=== PATIENT | male | born 1950 | race Caucasian/White ===

== ENCOUNTER 2016-03-17 10:16 | Emergency (ER) | payer MEDICARE ==
--- NOTE | 2016-03-17 11:53 | ED Physician Chart ---
Chief Complaint/HPI - Patient Information Date Seen:: 03/17/16 Time Seen:: 10:30 Chief Complaint:: left wrist pain History of Present Illness:: onset x 2 weeks [employer] of Left wrist and left hand pain and swelling after an accidental injury; no C/P, SOB, Abd pain, A/N/V/D/C, fever, chills, weakness, paresthesias, syncope, LOC, ALOC; Last Tetanus Shot: < 5 years; UTD Allergies:: Allergies Allergy/AdvReac Type Severity Reaction Status Date / Time No Known Allergies Allergy Verified 03/17/16 10:29 Vitals:: Vital Signs - 8 hr 03/17/16 10:29 Temp 98.6 F HR 92 RR 17 BP 170/80 O2 Sat % 95 Review of Systems - Review of Systems General/Constitutional: No fever, No chills, No weight loss, No weakness, No diaphoresis, No edema, No loss of appetite Skin: No skin lesions, No rash, No bruising Head: No headache, No light-headedness Eyes: No loss of vision, No pain, No diplopia ENT: No earache, No nasal drainage, No sore throat, No tinnitus Neck: No neck pain, No swelling, No thyromegaly, No stiffness, No mass noted Cardio Vascular: No chest pain, No palpitations, No PND, No orthopnea, No edema Pulmonary: No SOB, No cough, No sputum, No wheezing GI: No nausea, No vomiting, No diarrhea, No pain, No melena, No hematochezia, No constipation, No hematemesis G/U: No dysuria, No frequency, No hematuria Musculoskeletal: Bone or joint pain, No bone or joint pain, No back pain, No muscle pain Endocrine: No polyuria, No polydipsia Psychiatric: No prior psych history, No depression, No anxiety, No suicidal ideation Hematopoietic: No bruising, No lymphadenopathy Allergic/Immuno: No urticaria, No angioedema Neurological: No syncope, No focal symptoms, No weakness, No paresthesia, No headache, No seizure, No dizziness, No confusion, No vertigo Family Medical History - Family Member Mother History Unknown: Yes Physical Exam - Physical Examination General/Constitutional: Awake, Well-developed, well-nourished, Alert, No distress, GCS 15, Non-toxic appearing, Ambulatory Head: Atraumatic Eyes: Lids, conjuctiva normal, PERRL, EOMI Skin: Nl inspection, No rash, No skin lesions, No ecchymosis, Well hydrated, No lymphadenopathy ENMT: External ears, nose nl, Nasal exam nl, Lips, teeth, gums nl Neck: Nontender, Full ROM w/o pain, No JVD, No nuchal rigidity, No bruit, No mass, No stridor Respiratory: Nl effort/Exclusion, Clear to Auscultation, No Wheeze/Rhonchi/Rales Cardio Vascular: RRR, No murmur, gallop, rubs, NL S1 S2 GI: No tenderness/rebounding/guarding, No organomegaly, No hernia, Normal BS's, Nondistended, No mass/bruits, No McBurney tenderness : No CVA tenderness Extremities: No tenderness or effusion, Full ROM, normal strength in all extremities, No edema, Normal digits & nails Other Extremities comments:: Left Wrist and Left Hand swelling with Left Wrist tenderness; no loss of ROMs; - Snuffbox's sign; no ligament instability; + cellulitis; good motor, tendon, and sensory functions; good NV function; no FBs Neuro/Psych: Alert/oriented, DTR's symmetric, Normal sensory exam, Normal motor strength, Judgement/insight normal, Mood normal, Normal gait, No focal deficits Misc: normal gait, Normal back, No paraspinal tenderness Labs/Radiology/EKG Results - Radiology Results Results: no obvious fractures or dislocations Assessment - Assessment Assessment/Comments:: Splint to Left Wrist and Left Hand; Sling to Left Arm ED Septic Shock - . Is Septic Shock (SBP<90, OR Lactate>4 mmol\L) present?: No - <6hrs of presentation: Vital Signs: Vital Signs - 8 hr 03/17/16 10:29 Temp 98.6 F HR 92 RR 17 BP 170/80 O2 Sat % 95 Reassessment (Disposition) - Reassessment Reassessment Condition:: Improved - Diagnosis Diagnosis:: Localized Cellulitis; Left Wrist and Left Hand Sprains and Strains; Possible Occult Fracture - Aftercare/Follow up Instructions Aftercare/Follow-Up Instructions:: Counseled pt regarding lab results/diagnosis & need follow up, Refer to Discharge Instructions, Counseled pt & family regarding lab results/diagnosis & need follow up Medication Prescribed:: Rx: Keflex 500mg po qid x 10 days - Patient Disposition Discharge/Transfer:: Home Condition at Disposition:: Stable, Improved (X-Rays Instructions; ACIs given for all Dx; refer to Orthopedist ABY; F/U with PMD in one day or prn; RTER prn if concerned) ED Discharge Plan - Patient Disposition Instructions: Cellulitis, [id number], Wrist Sprain with Rehab[facility] Accepting Physician: Gagandeep Jade [Active] - 1-3 Days
--- NOTE | 2016-03-18 11:12 | Diagnostic Imaging Report ---
Left hand (3 views) HISTORY: Pain There is narrowing of all DIP and PIP joints. Additional degenerative changes noted about the first metacarpal carpal joint region. No acute abnormalities. No fractures. IMPRESSION: 1. No acute bony abnormalities 2. Osteoarthritis In the presence of recent trauma and persistent symptoms, a repeat radiograph in 5-7 days may be helpful for detection of a subtle or occult fracture.
--- NOTE | 2016-03-18 11:13 | Diagnostic Imaging Report ---
Left wrist (3 views) HISTORY: Pain There is narrowing and hypertrophic bone formation about the first carpal metacarpal joint region. No acute abnormalities. No fractures. IMPRESSION: 1. No acute abnormalities 2. Osteoarthritis In the presence of recent trauma and persistent symptoms, a repeat radiograph in 5-7 days may be helpful for detection of a subtle or occult fracture.
== END 2016-03-17 13:25 | disposition home or self-care (01) ==
LOC: ER 10:16
DX: S63.8X2A Sprain of other part of left wrist and hand, initial encounter (principal); L03.114 Cellulitis of left upper limb; X58.XXXA Exposure to other specified factors, initial encounter; Y93.89 Activity, other specified; Y92.89 Other specified places as the place of occurrence of the external cause; Y99.8 Other external cause status
CPT/HCPCS: 73110-TC-LT; 73130-TC-LT; Z7502

== ENCOUNTER 2016-03-17 16:13 | Inpatient (IN) | payer MEDICARE ==
--- NOTE | 2016-03-17 16:36 | ED Physician Chart ---
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[employer].) Review:: Nurse's Note Reviewed, Old Chart Reviewed, Transfer documents Reviewed Review of Systems - Review of Systems General/Constitutional: No fever, No chills, No weight loss, No weakness, No diaphoresis, No edema, No loss of appetite Skin: No skin lesions, No rash, No bruising Head: No headache, No light-headedness Eyes: No loss of vision, No pain, No diplopia ENT: No earache, No nasal drainage, No sore throat, No tinnitus Neck: No neck pain, No swelling, No thyromegaly, No stiffness, No mass noted Cardio Vascular: No chest pain, No palpitations, No PND, No orthopnea, No edema Pulmonary: No SOB, No cough, No sputum, No wheezing GI: No nausea, No vomiting, No diarrhea, No pain, No melena, No hematochezia, No constipation, No hematemesis G/U: No dysuria, No frequency, No hematuria Musculoskeletal: No bone or joint pain, No back pain, No muscle pain Endocrine: No polyuria, No polydipsia Psychiatric: No prior psych history, No depression, No anxiety, No suicidal ideation Hematopoietic: No bruising, No lymphadenopathy Allergic/Immuno: No urticaria, No angioedema Neurological: No syncope, No focal symptoms, No weakness, No paresthesia, No headache, No seizure, No dizziness, No confusion, No vertigo Past Medical History - Past Medical History Past Medical History: Other (left wrist and hand cellulitis) Family History: HTN Social History: Homeless Surgical History: None Psychiatricy History: None Medication: Reviewed Family Medical History - Family Member Mother History Unknown: Yes Physical Exam - Physical Examination General/Constitutional: Awake, Well-developed, well-nourished, Alert, No distress, GCS 15, Non-toxic appearing, Ambulatory Head: Atraumatic Eyes: Lids, conjuctiva normal, PERRL, EOMI Skin: Nl inspection, No rash, No skin lesions, No ecchymosis, Well hydrated, No lymphadenopathy ENMT: External ears, nose nl, Nasal exam nl, Lips, teeth, gums nl Neck: Nontender, Full ROM w/o pain, No JVD, No nuchal rigidity, No bruit, No mass, No stridor Respiratory: Nl effort/Exclusion, Clear to Auscultation, No Wheeze/Rhonchi/Rales Cardio Vascular: RRR, No murmur, gallop, rubs, NL S1 S2 GI: No tenderness/rebounding/guarding, No organomegaly, No hernia, Normal BS's, Nondistended, No mass/bruits, No McBurney tenderness : No CVA tenderness Extremities: No tenderness or effusion, Full ROM, normal strength in all extremities, No edema, Normal digits & nails Other Extremities comments:: localized left wrist and left hand cellulitis Neuro/Psych: Alert/oriented, DTR's symmetric, Normal sensory exam, Normal motor strength, Judgement/insight normal, Mood normal, Normal gait, No focal deficits Misc: normal gait, Normal back, No paraspinal tenderness Labs/Radiology/EKG Results - Lab Results Results: unremarkable ED Septic Shock - . Is Septic Shock (SBP<90, OR Lactate>4 mmol\L) present?: No Reassessment (Disposition) - Reassessment Reassessment Condition:: Improved - Diagnosis Diagnosis:: medically cleared; agitation; cellulitis - Aftercare/Follow up Instructions Aftercare/Follow-Up Instructions:: Counseled pt regarding lab results/diagnosis & need follow up, Counseled pt & family regarding lab results/diagnosis & need follow up - Patient Disposition Discharge/Transfer:: Acute Care w/in this hosp Accepting Physician:: Dr. Jade Time Called:: 1819 Time Responded:: 18:20 Admitted to:: [facility] Spoke to:: Dr. Jade Condition at Disposition:: Stable, Improved
[2016-03-17] MEDS ORDERED: cefTRIAXone 1 GM in Sodium Chloride 0.9% 50 ML IV ONE (16:53)
[2016-03-17 17:03] LABS: % BASOPHILS 0.2 % (0.0-2.0); % EOSINOPHILS 2.9 % (0.0-5.0); % LYMPHOCYTES 13.9 % (20.0-50.0); % MONOCYTES 8.1 % (2.0-10.0); % NEUTROPHILS 74.9 % (40.0-80.0); HEMATOCRIT 36.1 % (39.0-49.0); HEMOGLOBIN 12.6 gm/dL (13.2-17.3); MEAN CELL VOLUME 89.9 fl (80-99); MEAN CORPUSCULAR HEMOGLOBIN 31.4 pg (26.0-30.0); MEAN PLATELET VOLUME 5.8 fl; NEUTROPHILE ABSOLUTE 6.1 Th/cmm (1.8-8.0); PLATELET COUNT 223 Th/cmm (150-400); RED BLOOD COUNT 4.02 Mil/cmm (4.30-5.70); RED CELL DISTRIBUTION WIDTH 12.9 % (11.5-20.0)
[2016-03-17 17:20] LABS: ANION GAP 7.7 (7.0-16.0); BUN - UREA NITROGEN 32 mg/dL (7-25); CARBON DIOXIDE 28.1 mEq/L (21.0-31.0); CHLORIDE 102 mEq/L (98-107); CREATININE - SERUM 0.9 mg/dL (0.7-1.3); GLUCOSE 155 mg/dL (70-105); POTASSIUM SERUM 3.8 mEq/L (3.5-5.1); SODIUM SERUM 134 mEq/L (136-145)
[2016-03-17 17:21] LABS: ALB/GLOB RATIO 1.1 (1.0-1.8); ALKALINE PHOSPHATASE 71 U/L (34-104); BILIRUBIN,TOTAL 0.6 mg/dL (0.3-1.0); BUN/CREATININE RATIO 35.6; CALCIUM SERUM 9.3 mg/dL (8.6-10.3); SGOT 30 U/L (13-39); SGPT/ALT 18 U/L (7-52)
[2016-03-17 18:40] LABS: URINE BILIRUBIN NEGATIVE (NEGATIVE); URINE COLOR YELLOW; URINE GLUCOSE (UA) 100 mg/dL (NEGATIVE); URINE KETONE NEGATIVE (NEGATIVE)
[2016-03-17 18:41] LABS: URINE BLOOD NEGATIVE (NEGATIVE); URINE PH 6.5; URINE PROTEIN NEGATIVE (NEGATIVE)
[2016-03-17 18:42] LABS: URINE BACTERIA NONE SEEN /hpf (NONE SEEN); URINE EPITHELIAL CELLS NONE SEEN /lpf (FEW); URINE RBC NONE SEEN /hpf (0-5); URINE WBC NONE SEEN /hpf (0-5)
[2016-03-17 18:49] LABS: AMPHETAMINE URINE NEGATIVE (NEGATIVE); BARBITURATES URINE NEGATIVE (NEGATIVE)
[2016-03-17] MEDS ORDERED: Ipratropium Neb 0.5 mg/2.5 mL UD IH PRN (19:57)
[2016-03-17] MEDS ORDERED: Albuterol Nebulizer 2.5mg/3mL IH PRN (19:57)
[2016-03-17] MEDS ORDERED: guaiFENesin 200 MG/10 ML UDC PO PRN (19:58)
[2016-03-17] MEDS ORDERED: Maalox 30 mL Cup PO PRN (19:58)
[2016-03-18 06:14] LABS: % BASOPHILS 0.1 % (0.0-2.0); % EOSINOPHILS 4.5 % (0.0-5.0); % LYMPHOCYTES 16.3 % (20.0-50.0); % NEUTROPHILS 67.1 % (40.0-80.0); HEMATOCRIT 35.1 % (39.0-49.0); HEMOGLOBIN 12.3 gm/dL (13.2-17.3); MEAN CELL VOLUME 89.9 fl (80-99); MEAN CORPUSCULAR HEMOGLOBIN 31.4 pg (26.0-30.0); MEAN CORPUSCULAR HGB CONC 34.9 pg (28.0-36.0); MEAN PLATELET VOLUME 6.4 fl; NEUTROPHILE ABSOLUTE 4.8 Th/cmm (1.8-8.0); PLATELET COUNT 189 Th/cmm (150-400); RED CELL DISTRIBUTION WIDTH 12.9 % (11.5-20.0)
[2016-03-18 07:12] LABS: ANION GAP 6.5 (7.0-16.0); BUN - UREA NITROGEN 22 mg/dL (7-25); CHLORIDE 103 mEq/L (98-107); GLUCOSE 99 mg/dL (70-105); POTASSIUM SERUM 3.5 mEq/L (3.5-5.1); SODIUM SERUM 134 mEq/L (136-145)
[2016-03-18 07:13] LABS: BUN/CREATININE RATIO 31.4; CALCIUM SERUM 8.9 mg/dL (8.6-10.3); CREATININE - SERUM 0.7 mg/dL (0.7-1.3)
[2016-03-18] MEDS ORDERED: Pneumococcal Vaccine 0.5 mL Vial IM ONE (09:00)
[2016-03-18] MEDS ORDERED: Influenza Vaccine 0.5 mL Syr IM ONE (09:00)
[2016-03-18] MEDS: INSULIN ASPART, RECOMBINANT 100 UNITS/ML SUBQ SCH ×2 (09:13→11:43)
[2016-03-18] MEDS ORDERED: VTE Chemical Prophylaxis Screen/Admission MC PRN (12:15)
--- NOTE | 2016-03-18 13:05 | Internal Medicine Prog Note ---
Internal Medicine Subjective - Subjective Service Date: 03/18/16 ([facility] DICTATED [id number]) Internal Medicine Objective - Results Result Diagrams: 03/18/16 05:35 03/18/16 05:35 Recent Labs: Laboratory Last Values WBC 7.0 Th/cmm (4.8-10.8) 03/18/16 05:35 RBC 3.90 Mil/cmm (4.30-5.70) L 03/18/16 05:35 Hgb 12.3 gm/dL (13.2-17.3) L 03/18/16 05:35 Hct 35.1 % (39.0-49.0) L 03/18/16 05:35 MCV 89.9 fl (80-99) 03/18/16 05:35 MCH 31.4 pg (26.0-30.0) H 03/18/16 05:35 MCHC Differential 34.9 pg (28.0-36.0) 03/18/16 05:35 RDW 12.9 % (11.5-20.0) 03/18/16 05:35 Plt Count 189 Th/cmm (150-400) 03/18/16 05:35 MPV 6.4 fl 03/18/16 05:35 Neutrophils % 67.1 % (40.0-80.0) 03/18/16 05:35 Lymphocytes % 16.3 % (20.0-50.0) L 03/18/16 05:35 Monocytes % 12.0 % (2.0-10.0) H 03/18/16 05:35 Eosinophils % 4.5 % (0.0-5.0) 03/18/16 05:35 Basophils % 0.1 % (0.0-2.0) 03/18/16 05:35 Sodium 134 mEq/L (136-145) L 03/18/16 05:35 Potassium 3.5 mEq/L (3.5-5.1) 03/18/16 05:35 Chloride 103 mEq/L (98-107) 03/18/16 05:35 Carbon Dioxide 28.0 mEq/L (21.0-31.0) 03/18/16 05:35 Anion Gap 6.5 (7.0-16.0) L 03/18/16 05:35 BUN 22 mg/dL (7-25) 03/18/16 05:35 Creatinine 0.7 mg/dL (0.7-1.3) 03/18/16 05:35 Est GFR ( Amer) > 60.0 ml/min 03/18/16 05:35 Est GFR (Non-Af Amer) > 60.0 ml/min 03/18/16 05:35 BUN/Creatinine Ratio 31.4 03/18/16 05:35 Glucose 99 mg/dL (70-105) 03/18/16 05:35 POC Glucose 234 MG/DL (70 - 105) H 03/18/16 12:16 Hemoglobin A1c % 5.1 % (4.0-6.0) 03/18/16 05:35 Calcium 8.9 mg/dL (8.6-10.3) 03/18/16 05:35 Magnesium 2.0 mg/dL (1.9-2.7) 03/18/16 05:35 Total Bilirubin 0.6 mg/dL (0.3-1.0) 03/17/16 16:51 AST 30 U/L (13-39) 03/17/16 16:51 ALT 18 U/L (7-52) 03/17/16 16:51 Alkaline Phosphatase 71 U/L (34-104) 03/17/16 16:51 Ammonia 35 umol/L (16-53) 03/18/16 05:35 B-Natriuretic Peptide 140.0 pg/mL (5.0-100.0) H 03/18/16 05:35 Total Protein 7.4 gm/dL (6.0-8.3) 03/17/16 16:51 Albumin 3.8 gm/dL (4.2-5.5) L 03/17/16 16:51 Globulin 3.6 gm/dL 03/17/16 16:51 Albumin/Globulin Ratio 1.1 (1.0-1.8) 03/17/16 16:51 TSH 1.35 uIU/ml (0.34-5.60) 03/17/16 16:51 Urine Source CLEAN C 03/17/16 17:00 Urine Color YELLOW 03/17/16 17:00 Urine Clarity CLEAR (CLEAR) 03/17/16 17:00 Urine pH 6.5 03/17/16 17:00 Ur Specific [place] 1.020 (1.005-1.030) 03/17/16 17:00 Urine Protein NEGATIVE mg/dL (NEGATIVE) 03/17/16 17:00 Urine Glucose (UA) 100 mg/dL (NEGATIVE) H 03/17/16 17:00 Urine Ketones NEGATIVE mg/dL (NEGATIVE) 03/17/16 17:00 Urine Blood NEGATIVE (NEGATIVE) 03/17/16 17:00 Urine Nitrate NEGATIVE (NEGATIVE) 03/17/16 17:00 Urine Bilirubin NEGATIVE (NEGATIVE) 03/17/16 17:00 Urine Urobilinogen 1.0 E.U./dL (0.2 - 1.0) 03/17/16 17:00 Ur Leukocyte Esterase NEGATIVE (NEGATIVE) 03/17/16 17:00 Urine RBC NONE SEEN /hpf (0-5) 03/17/16 17:00 Urine WBC NONE SEEN /hpf (0-5) 03/17/16 17:00 Ur Epithelial Cells NONE SEEN /lpf (FEW) 03/17/16 17:00 Urine Bacteria NONE SEEN /hpf (NONE SEEN) 03/17/16 17:00 Urine Opiates Screen NEGATIVE (NEGATIVE) 03/17/16 17:00 Ur Barbiturates Screen NEGATIVE (NEGATIVE) 03/17/16 17:00 Ur Phencyclidine Scrn NEGATIVE (NEGATIVE) 03/17/16 17:00 Amphetamines Screen NEGATIVE (NEGATIVE) 03/17/16 17:00 U Methamphetamines Scrn POSITIVE (NEGATIVE) H 03/17/16 17:00 U Benzodiazepines Scrn NEGATIVE (NEGATIVE) 03/17/16 17:00 U Cocaine Metab Screen NEGATIVE (NEGATIVE) 03/17/16 17:00 U Cannabinoids Screen NEGATIVE (NEGATIVE) 03/17/16 17:00 - Physical Exam Vitals and I&O: Vital Signs Temp 98.6 F 03/18/16 12:00 Pulse 58 03/18/16 12:00 Resp 17 03/18/16 12:00 BP 144/75 03/18/16 12:00 Pulse Ox 100 03/18/16 12:00 Intake & Output 03/17/16 03/18/16 03/18/16 18:59 06:59 18:59 Intake Total 100 Output Total 500 Balance -400 Weight (lbs) 175 lb Intake: Oral 100 Output: Urine 500 Active Medications: Current Medications Acetaminophen (Tylenol) 650 mg PO Q4HR PRN PRN Reason: Pain or Fever >101 Stop: 05/16/16 19:57 Al Hydrox/Mg Hydrox/Simethicone (Maalox) 30 ml PO Q6HR PRN PRN Reason: Constipation Stop: 05/16/16 19:57 Albuterol Sulfate (Albuterol 2.5mg/3ml Neb Ud) 2.5 mg IH Q2HR PRN PRN Reason: Shortness of Breath or Wheeze Stop: 05/16/16 19:56 Clonidine HCl (Catapres) 0.1 mg PO Q6HR PRN PRN Reason: SBP GREATER THAN 160 Stop: 05/16/16 19:56 Last Admin: 03/18/16 05:20 Dose: 0.1 mg Guaifenesin (Robitussin) 200 mg PO Q4HR PRN PRN Reason: Cough or Congestion Stop: 05/16/16 19:57 Cefazolin Sodium 1 gm/ (Dextrose) 50 mls @ 100 mls/hr IV Q8HR ANGEL Stop: 05/17/16 04:59 Last Admin: 03/18/16 05:21 Dose: 100 mls/hr Insulin Aspart (Novolog) 0 units SUBQ ACHS ANGEL PRN Reason: Protocol Stop: 05/16/16 20:59 Last Admin: 03/18/16 11:43 Dose: 2 units Ipratropium [place] (Atrovent Neb 0.5mg/2.5ml) 0.5 mg IH Q2HR PRN PRN Reason: Shortness of Breath or Wheeze Stop: 05/16/16 19:56 Lorazepam (Ativan) 1 mg IV Q4HR PRN; Protocol PRN Reason: Agitation Stop: 05/16/16 20:00 Meclizine HCl (Antivert) 25 mg PO DAILY PRN PRN Reason: Nausea / Vomiting Stop: 05/16/16 19:56 Miscellaneous (Vte Chemical Prophylaxis Screen/ Admission) 1 ea [facility] PRN PRN PRN Reason: PROTOCOL Stop: 05/17/16 12:14 Ondansetron HCl (Zofran) 4 mg IV Q8H PRN PRN Reason: Nausea / Vomiting Stop: 05/16/16 19:57 Zolpidem Tartrate (Ambien) 10 mg PO HS PRN PRN Reason: Insomnia Stop: 05/16/16 19:56 Internal Medicine Assmt/Plan - Assessment Assessment: LEFT HAND CELLULITIS ALOC AGITATION SUBSTANCE ABUSE
--- NOTE | 2016-03-18 15:43 | History & Physical ---
CHIEF COMPLAINT: Agitation. HISTORY OF PRESENT ILLNESS: This is a 65-year-old male who was brought by [facility] Department due to gravely disabled. The patient was put on a 5150 and the patient is now here for medical evaluation. PAST MEDICAL HISTORY: Left wrist and hand cellulitis. FAMILY HISTORY: Hypertension. SOCIAL HISTORY: Homelessness. The patient is positive for methamphetamines, but denied any street drugs. SURGICAL HISTORY: None per patient. MEDICATIONS: Please see medication reconciliation sheet. REVIEW OF SYSTEMS: GENERAL: Denies any fevers, any chills. SKIN: Left hand noted with +2 swelling and redness. HEAD: Denies any headache. ENT: Denies any earache, any throat pain or any nasal drainage. CARDIOVASCULAR: Denies any chest pain. RESPIRATORY: Denies any shortness of breath. All other systems are reviewed by me and are negative. PHYSICAL EXAMINATION: GENERAL: The patient is well developed, well nourished, in no acute distress. VITAL SIGNS: Temperature 98.6, heart rate 58, blood pressure 144/75, respirations 17, O2 100%. HEENT: Head; normocephalic, atraumatic. NECK: Supple. No mass. LUNGS: Clear bilaterally upon auscultation. HEART: Regular rate and rhythm. EXTREMITIES: No murmurs or gallops. SKIN: Intact, warm and dry to touch. ABDOMEN: Soft, nontender, nondistended. Positive bowel sounds in all 4 quadrants. LABORATORY DATA: WBC of 7.0, H 12.3 and 35.1 and platelets 189. Sodium 134, potassium 3.5, chloride 103, carbon dioxide ____, 22 and 0.7 for BUN and creatinine. ASSESSMENT: Left hand cellulitis, altered level of consciousness, agitation secondary to drug use. PLAN: The patient will be admitted to the med/surg unit. The patient to have a consultation with Dr. Sanchez. The patient to have IV antibiotics of Ancef 1 gram IV q. 8. We will monitor the patient for any fevers. IV fluids for hydration. We will continue to monitor the patient. JOB# [id number]
[2016-03-19 12:17] LABS: FOLIC ACID 8.9 ng/mL (>3.0)
== END 2016-03-18 15:30 | DRG 602 ==
LOC: ER 16:13 → MSI 19:45
PROVIDERS: ADMIT Internal Medicine; ATTEND Internal Medicine
DX: L03.114 Cellulitis of left upper limb (principal); G92 Toxic encephalopathy; F19.10 Other psychoactive substance abuse, uncomplicated; Z59.0 Homelessness; Z82.49 Family history of ischemic heart disease and other diseases of the circulatory system; R40.4 Transient alteration of awareness
CPT/HCPCS: 36415-UA; 73110-TC-LT; 73130-TC-LT; 80048-TC; 80053-TC; 81001-TC; 82140-TC; 82607-90; 82746-90; 82948-90; 83036-90; 83735-TC; 83880-TC; 84443-TC; 85025-TC; 86592-TC; 93005; 94760; J0690; J0696; J1815; Z7610

== ENCOUNTER 2016-03-18 15:30 | Inpatient (IN) | payer MEDICARE ==
[2016-03-18 18:59] VITALS: BP 189/87
[2016-03-18] MEDS ORDERED: Ipratropium Neb 0.5 mg/2.5 mL UD HHN SCH (21:00)
[2016-03-18] MEDS ORDERED: Maalox 30 mL Cup PO PRN (21:01)
[2016-03-18] MEDS ORDERED: Magnesium Hydroxide (MOM) 30 mL UDC PO PRN (21:01)
--- NOTE | 2016-03-19 06:09 | Consultation ---
IDENTIFYING INFORMATION: The patient is a 65-year-old male. REASON FOR CONSULTATION: The patient who apparently came into the hospital became agitated in front of the hospital and he was put on a hold by a branch lending officer. The patient was refusing to leave. He was unable to say the day of the week. He did not want to leave the hospital. He was unable to make safe plan for self-care, has not been eating on a few days. He was confused. According to the hold, his clothing keeps falling off and he wears jersey. He did not appear to have the ability to care for himself. When I approached the patient to talk to him at the beginning, he was cooperative. He was unable to tell me his age, but he said first he has one daughter and two boys and asked my questions, then he started yelling at me screaming at me, so I could not do a formal mental status exam on him. PRIOR PSYCHIATRIC TREATMENT: Unobtainable. The patient is resistant, angry, and irritable. MEDICAL HISTORY: Deferred to the medical doctor. FAMILY AND SOCIAL HISTORY: The patient reports he has 3 children, however, unable to get more information from the patient because he got extremely agitated. I was unable to get any idea about family history, prior treatment, none of that. MENTAL STATUS EXAMINATION: Appropriately dressed, not well groomed, looked disheveled, disorganized, and internally preoccupied. He was first calm and then suddenly became very agitated because I could not hear him. He would not cooperate further, was yelling and screaming. Unable to participate in a meaningful conversation, unable to test his memory or ask him more questions. Insight and judgment are impaired. He seems to be very impulsive, unpredictable, and aggressive. IMPRESSION: AXIS I: Psychosis, not otherwise specified. MEDICAL DIAGNOSES: Deferred to the medical doctor. I would recommend to start Haldol 2 mg twice a day. [facility] medically [facility], keep on 1:1. Thank you very much for allowing me to participate in the care of this most interesting gentleman. JOB# [id number]
[2016-03-19] MEDS: Multivitamin Tab PO SCH (10:13)
[2016-03-19] MEDS: INSULIN ASPART SLIDING SCALE 100 UNITS/ML UNIT SUBQ SCH ×4 (10:23→21:00)
--- NOTE | 2016-03-19 13:09 | Psychosocial Evaluation ---
IDENTIFYING INFORMATION: The patient is 65-year-old male. CHIEF COMPLAINT: The patient has no idea. HISTORY OF PRESENT ILLNESS: The patient was admitted on a hold. The patient was admitted to the medical floor. He was put on hold as he did not want to leave the hospital. He has nowhere to go. He was very agitated, impulsive, and unpredictable. When I talked to him yesterday when I did consult, he was yelling at me, screaming as I could not hear very well and I asked him to repeat it again. He was put on a hold for grave disability and cannot make safe plan for self-care. When I talked to him today, he was talking in a very low soft voice. He was unable to give much information, internally preoccupied, looking disheveled. PAST PSYCHIATRIC HISTORY: Unobtainable. FAMILY AND SOCIAL HISTORY: The patient yesterday ____ at first he told me he has 3 children, later he told me he has 2, so I am not sure if he has 3 or 2 children. He is ____ not a very great historian, unable to tell me what he did for living. 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 When I asked him again, he started yelling at me, so we could not get much information from the patient. I am not sure what he did for living or if he has any legal problem as staff confirmed that he is homeless. MENTAL STATUS EXAMINATION: The patient is appropriately dressed, not very well groomed. His mood is depressed. Affect is constricted. Thoughts are concrete. Speech is coherent. He was unable to tell me the date, where he is, why he is here. He was unable to participate in a group meeting or talk about how he feel, why he is here, could not tell me the date, reason for his admission, he is homeless, unable to make safe plan for self-care, unable to answer questions about suicide, homicide, or hallucinations or paranoia. He is unable to ____ memory testing, insight and judgment impaired. IMPRESSION: AXIS I: Psychosis, not otherwise specified, rule out dementia with behavior disturbances. MEDICAL DIAGNOSES: Deferred to the medical doctor. His assets, he is accepting treatment. Negative poor coping skills. INITIAL TREATMENT PLAN: The patient will be started on Haldol. We will also ____ placement. We will do group therapy, milieu therapy, individual therapy. ESTIMATED LENGTH OF STAY: 3-7 days. DISCHARGE CRITERIA: Decreasing psychosis, agitation with a safe place to go to. After discharge, outpatient. JOB# [id number]
--- NOTE | 2016-03-19 13:26 | Internal Medicine Prog Note ---
Internal Medicine Subjective - Subjective Service Date: 03/19/16 Patient seen and examined:: with staff Patient is:: awake Per staff patient is:: no adverse event Internal Medicine Objective - Results Recent Labs: Laboratory Last Values POC Glucose 69 MG/DL (70 - 105) L 03/19/16 12:00 - Physical Exam Vitals and I&O: Vital Signs Temp 0 F 03/18/16 20:01 Pulse 66 03/18/16 22:00 Resp 18 03/18/16 22:00 BP 189/87 03/18/16 18:59 Pulse Ox 99 03/18/16 22:00 Intake & Output 03/18/16 03/19/16 03/19/16 18:59 06:59 18:59 Intake Total 120 Balance 120 Intake: Oral 120 Other: # Voids 2 # Bowel Movements 0 Stool Characteristics Soft Formed Brown Active Medications: Current Medications Acetaminophen (Tylenol) 650 mg PO Q4HR PRN PRN Reason: Pain Stop: 05/17/16 21:00 Al Hydrox/Mg Hydrox/Simethicone (Maalox) 30 ml PO Q4HR PRN PRN Reason: GI DISTRESS Stop: 05/17/16 21:00 Albuterol Sulfate (Albuterol 2.5mg/3ml Neb Ud) 2.5 mg HHN Q2H PRN PRN Reason: Shortness of Breath Stop: 05/17/16 20:55 Cephalexin Monohydrate (Keflex) 250 mg PO QID ANGEL Stop: 03/26/16 08:59 Last Admin: 03/19/16 10:15 Dose: 250 mg Clonidine HCl (Catapres) 0.1 mg PO Q6HR PRN PRN Reason: Hypertension Stop: 05/17/16 21:12 Guaifenesin (Robitussin) 200 mg PO Q4HR PRN PRN Reason: Cough or Congestion Stop: 05/17/16 21:16 Haloperidol (Haldol) 2 mg PO BID ANGEL PRN Reason: Protocol Stop: 05/18/16 08:59 Last Admin: 03/19/16 10:13 Dose: 2 mg Insulin Aspart (Novolog Insulin Sliding Scale) 0 units SUBQ ACHS ANGEL PRN Reason: Protocol Stop: 05/18/16 07:29 Last Admin: 03/19/16 12:18 Dose: Not Given Lorazepam (Ativan) 1 mg PO Q4HR PRN; Protocol PRN Reason: Anxiety Stop: 05/17/16 20:50 Multivitamins/Vitamin C (Theragran) 1 tab PO DAILY ANGEL Stop: 05/18/16 08:59 Last Admin: 03/19/16 10:13 Dose: 1 tab Zolpidem Tartrate (Ambien) 10 mg PO HS PRN PRN Reason: Insomnia Stop: 05/17/16 20:50 General: alert HEENT: NC/AT, PERRLA Neck: Supple Lungs: CTAB Cardiovascular: RRR, Normal S1, Normal S2, without murmur Abdomen: non-distended, positive bowel sound Neurological: no change Internal Medicine Assmt/Plan - Assessment Assessment: LEFT HAND CELLULITIS AGITATION SUBSTANCE ABUSE - Plan Plan: continue po abx fall precautions cpm
[2016-03-20] MEDS: INSULIN ASPART SLIDING SCALE 100 UNITS/ML UNIT SUBQ SCH ×4 (07:07→21:00)
[2016-03-20] MEDS ORDERED: Haloperidol Lactate 5 mg/mL 1mL Vial ONE (08:22)
[2016-03-20] MEDS ORDERED: Haloperidol Lactate 5 mg/mL 1mL Vial IM ONE (08:30)
[2016-03-20] MEDS: Multivitamin Tab PO SCH ×2 (09:30→14:09)
--- NOTE | 2016-03-20 12:50 | Internal Medicine Prog Note ---
Internal Medicine Subjective - Subjective Service Date: 03/20/16 Patient seen and examined:: with staff Patient is:: awake Internal Medicine Objective - Results Recent Labs: Laboratory Last Values POC Glucose 83 MG/DL (70 - 105) 03/20/16 12:30 - Physical Exam Vitals and I&O: Vital Signs Temp 98 F 03/20/16 06:15 Pulse 69 03/20/16 11:35 Resp 20 03/20/16 10:52 BP 190/110 03/20/16 11:35 Pulse Ox 99 03/20/16 07:36 Intake & Output 03/19/16 03/20/16 03/20/16 18:59 06:59 18:59 Intake Total 1200 120 Balance 1200 120 Intake: Oral 1200 120 Other: # Voids 4 3 # Bowel Movements 1 0 Stool Characteristics Soft Formed Brown Active Medications: Current Medications Acetaminophen (Tylenol) 650 mg PO Q4HR PRN PRN Reason: Pain Stop: 05/17/16 21:00 Al Hydrox/Mg Hydrox/Simethicone (Maalox) 30 ml PO Q4HR PRN PRN Reason: GI DISTRESS Stop: 05/17/16 21:00 Albuterol Sulfate (Albuterol 2.5mg/3ml Neb Ud) 2.5 mg HHN Q2H PRN PRN Reason: Shortness of Breath Stop: 05/17/16 20:55 Amlodipine Besylate (Norvasc) 5 mg PO DAILY [facility] Stop: 05/19/16 10:59 Last Admin: 03/20/16 11:35 Dose: 5 mg Cephalexin Monohydrate (Keflex) 250 mg PO QID [facility] Stop: 03/26/16 08:59 Last Admin: 03/20/16 10:00 Dose: 250 mg Clonidine HCl (Catapres) 0.1 mg PO Q6HR PRN PRN Reason: Hypertension Stop: 05/17/16 21:12 Last Admin: 03/20/16 10:00 Dose: 0.1 mg Guaifenesin (Robitussin) 200 mg PO Q4HR PRN PRN Reason: Cough or Congestion Stop: 05/17/16 21:16 Haloperidol (Haldol) 4 mg PO BID [facility]GEL PRN Reason: Protocol Stop: 05/19/16 08:50 Insulin Aspart (Novolog Insulin Sliding Scale) 0 units SUBQ ACHS ANGEL PRN Reason: Protocol Stop: 05/18/16 07:29 Last Admin: 03/20/16 07:07 Dose: Not Given Lorazepam (Ativan) 1 mg PO Q4HR PRN; Protocol PRN Reason: Anxiety Stop: 05/17/16 20:50 Multivitamins/Vitamin C (Theragran) 1 tab PO DAILY [facility] Stop: 05/18/16 08:59 Last Admin: 03/20/16 09:30 Dose: Not Given Zolpidem Tartrate (Ambien) 10 mg PO HS PRN PRN Reason: Insomnia Stop: 05/17/16 20:50 General: alert HEENT: NC/AT, PERRLA Neck: Supple Lungs: CTAB Cardiovascular: RRR, Normal S1, Normal S2, without murmur Abdomen: soft non-tender Extremities: clear Internal Medicine Assmt/Plan - Assessment Assessment: LEFT HAND CELLULITIS - improving AGITATION SUBSTANCE ABUSE HTN - Plan Plan: will add lisinopril continue po abx fall precautions cpm
[2016-03-20] MEDS: guaiFENesin 200 MG/10 ML UDC PO PRN (12:57)
[2016-03-20] MEDS ORDERED: guaiFENesin 200 MG/10 ML UDC PO PRN (14:25)
[2016-03-20] MEDS ORDERED: Maalox 30 mL Cup PO PRN (14:25)
--- NOTE | 2016-03-21 00:26 | Progress Notes ---
Case was discussed with staff of the patient. The patient today was acting very aggressive. He was hitting staff, refusing medication, psychotic. Even resting can ____ so he may be using drugs. He continues to be unpredictable and impulsive. He is homeless. He is still at risk for discharge because of his above behavior, and so far, he is on Haldol 2 mg twice a day with no side effects, no sedation, no nausea, and no extrapyramidal symptoms. I will be increasing the Haldol dose to help with his psychotic symptoms, and we will continue to work with the patient in group therapy, milieu therapy, and adjust the medication as needed. JOB# [id number]
[2016-03-21] MEDS: INSULIN ASPART SLIDING SCALE 100 UNITS/ML UNIT SUBQ SCH ×2 (06:59→12:14)
[2016-03-21] MEDS: Multivitamin Tab PO SCH (08:07)
[2016-03-21] MEDS: guaiFENesin 200 MG/10 ML UDC PO PRN (14:30)
--- NOTE | 2016-03-21 15:08 | Internal Medicine Prog Note ---
Internal Medicine Subjective - Subjective Service Date: 03/21/16 Patient seen and examined:: with staff Patient is:: awake Per staff patient is:: no adverse event Internal Medicine Objective - Results Recent Labs: Laboratory Last Values POC Glucose 86 MG/DL (70 - 105) 03/21/16 12:06 - Physical Exam Vitals and I&O: Vital Signs Temp 98.0 F 03/21/16 06:19 Pulse 90 03/21/16 14:24 Resp 20 03/21/16 10:54 BP 147/86 03/21/16 08:08 Pulse Ox 97 03/21/16 07:11 Intake & Output 03/20/16 03/21/16 03/21/16 18:59 06:59 18:59 Intake Total 650 Balance 650 Intake: Oral 650 Other: # Voids 2 2 # Bowel Movements 0 Stool Characteristics Soft Formed Active Medications: Current Medications Acetaminophen (Tylenol) 650 mg PO Q4HR PRN PRN Reason: Pain Stop: 05/17/16 21:00 Acetaminophen (Tylenol) 650 mg PO Q4HR PRN PRN Reason: Pain or Fever >101 Stop: 05/19/16 14:24 Al Hydrox/Mg Hydrox/Simethicone (Maalox) 30 ml PO Q4HR PRN PRN Reason: GI DISTRESS Stop: 05/17/16 21:00 Al Hydrox/Mg Hydrox/Simethicone (Maalox) 30 ml PO Q6HR PRN PRN Reason: GI DISTRESS Stop: 05/19/16 14:24 Albuterol Sulfate (Albuterol 2.5mg/3ml Neb Ud) 2.5 mg HHN Q2H PRN PRN Reason: Shortness of Breath Stop: 05/17/16 20:55 Amlodipine Besylate (Norvasc) 5 mg PO DAILY [facility] Stop: 05/19/16 10:59 Last Admin: 03/21/16 08:08 Dose: 5 mg Cephalexin Monohydrate (Keflex) 250 mg PO QID [facility] Stop: 03/26/16 08:59 Last Admin: 03/21/16 12:16 Dose: 250 mg Clonidine HCl (Catapres) 0.1 mg PO Q6HR PRN PRN Reason: Hypertension Stop: 05/17/16 21:12 Last Admin: 03/21/16 14:24 Dose: 0.1 mg Clonidine HCl (Catapres) 0.1 mg PO Q6HR PRN PRN Reason: SBP GREATER THAN 160 Stop: 05/19/16 14:24 Guaifenesin (Robitussin) 200 mg PO Q4HR PRN PRN Reason: Cough or Congestion Stop: 05/17/16 21:16 Last Admin: 03/21/16 14:30 Dose: 200 mg Guaifenesin (Robitussin) 200 mg PO Q4HR PRN PRN Reason: Cough or Congestion Stop: 05/19/16 14:24 Haloperidol (Haldol) 4 mg PO BID ANGEL PRN Reason: Protocol Stop: 05/19/16 14:44 Last Admin: 03/21/16 08:09 Dose: 4 mg Insulin Aspart (Novolog Insulin Sliding Scale) 0 units SUBQ ACHS ANGEL PRN Reason: Protocol Stop: 05/18/16 07:29 Last Admin: 03/21/16 12:14 Dose: Not Given Lisinopril (Zestril) 20 mg PO DAILY [facility] Stop: 05/19/16 13:22 Last Admin: 03/21/16 08:08 Dose: 20 mg Lorazepam (Ativan) 1 mg PO Q4HR PRN; Protocol PRN Reason: Anxiety Stop: 05/17/16 20:50 Last Admin: 03/21/16 12:10 Dose: 1 mg Meclizine HCl (Antivert) 25 mg PO DAILY PRN PRN Reason: Nausea / Vomiting Stop: 05/19/16 14:24 Multivitamins/Vitamin C (Theragran) 1 tab PO DAILY [facility] Stop: 05/18/16 08:59 Last Admin: 03/21/16 08:07 Dose: 1 tab Zolpidem Tartrate (Ambien) 10 mg PO HS PRN PRN Reason: Insomnia Stop: 05/17/16 20:50 Zolpidem Tartrate (Ambien) 10 mg PO HS PRN PRN Reason: Insomnia Stop: 05/19/16 14:24 General: alert HEENT: NC/AT, PERRLA Neck: Supple Lungs: CTAB Cardiovascular: RRR, Normal S1, Normal S2, without murmur, other Abdomen: soft non-tender Extremities: clear Internal Medicine Assmt/Plan - Assessment Assessment: LEFT HAND CELLULITIS - improving AGITATION SUBSTANCE ABUSE HTN - Plan Plan: continue po abx fall precautions cpm
--- NOTE | 2016-03-22 06:08 | Progress Notes ---
Case was discussed with staff of the patient, reviewed records. The patient continues to be confused and demented, unable to make safe plan for self-care, participating in conversation, also was found to be using methamphetamines. So, it is hard to determine whether he is demented or he is just coming down from drugs. He continues to have poor insight. Continues to need redirection. He continues to have episodes of extreme agitation. I did increase his Haldol dose yesterday to 4 mg twice a day and so far no side effects, no sedation, no nausea, no extrapyramidal symptoms, and his lab work showed B12 and folate level to be within normal acceptable range. His CBC showed mild decrease in hemoglobin 12.3 and red cells and hematocrit and high level of MCH and low lymphocyte and high monocyte. The rest within normal range. Ammonia level is 35, which is within normal range. Chemistry panel with low sodium, low anion gap, the rest within normal range and so far no side effects with the medication, no sedation and no nausea. I will be consulting the medical doctor, Dr. Jade regarding his abnormal lab work, specifically decreased sodium level and we will continue to work with the patient in group therapy, milieu therapy and adjust the medication as needed. JOB# [id number]
[2016-03-22] MEDS: INSULIN ASPART SLIDING SCALE 100 UNITS/ML UNIT SUBQ SCH ×5 (06:48→20:14)
[2016-03-22] MEDS: Multivitamin Tab PO SCH (08:44)
[2016-03-22] MEDS ORDERED: Haloperidol Lactate 5 mg/mL 1mL Vial ONE (10:04)
[2016-03-22] MEDS ORDERED: Haloperidol Lactate 5 mg/mL 1mL Vial IM ONE (10:11)
--- NOTE | 2016-03-22 13:05 | Internal Medicine Prog Note ---
Internal Medicine Subjective - Subjective Service Date: 03/22/16 Patient seen and examined:: with staff Patient is:: awake Per staff patient is:: no adverse event Internal Medicine Objective - Results Recent Labs: Laboratory Last Values POC Glucose 121 MG/DL (70 - 105) H 03/22/16 08:16 - Physical Exam Vitals and I&O: Vital Signs Temp 98 F 03/21/16 18:27 Pulse 99 03/22/16 08:45 Resp 20 03/21/16 20:00 BP 98/68 03/22/16 08:45 Pulse Ox 97 03/21/16 19:35 Intake & Output 03/21/16 03/22/16 03/22/16 18:59 06:59 18:59 Intake Total 600 Balance 600 Intake: Oral 600 Other: # Voids 3 Stool Characteristics Soft Formed Formed Active Medications: Current Medications Acetaminophen (Tylenol) 650 mg PO Q4HR PRN PRN Reason: Pain Stop: 05/17/16 21:00 Acetaminophen (Tylenol) 650 mg PO Q4HR PRN PRN Reason: Pain or Fever >101 Stop: 05/19/16 14:24 Al Hydrox/Mg Hydrox/Simethicone (Maalox) 30 ml PO Q4HR PRN PRN Reason: GI DISTRESS Stop: 05/17/16 21:00 Al Hydrox/Mg Hydrox/Simethicone (Maalox) 30 ml PO Q6HR PRN PRN Reason: GI DISTRESS Stop: 05/19/16 14:24 Albuterol Sulfate (Albuterol 2.5mg/3ml Neb Ud) 2.5 mg HHN Q2H PRN PRN Reason: Shortness of Breath Stop: 05/17/16 20:55 Amlodipine Besylate (Norvasc) 5 mg PO DAILY [facility] Stop: 05/19/16 10:59 Last Admin: 03/22/16 08:45 Dose: 5 mg Cephalexin Monohydrate (Keflex) 250 mg PO QID [facility] Stop: 03/26/16 08:59 Last Admin: 03/22/16 08:45 Dose: 250 mg Clonidine HCl (Catapres) 0.1 mg PO Q6HR PRN PRN Reason: Hypertension Stop: 05/17/16 21:12 Last Admin: 03/21/16 14:24 Dose: 0.1 mg Clonidine HCl (Catapres) 0.1 mg PO Q6HR PRN PRN Reason: SBP GREATER THAN 160 Stop: 05/19/16 14:24 Divalproex Sodium (Depakote Dr) 250 mg PO BID ANGEL PRN Reason: Protocol Stop: 05/21/16 16:59 Guaifenesin (Robitussin) 200 mg PO Q4HR PRN PRN Reason: Cough or Congestion Stop: 05/17/16 21:16 Last Admin: 03/21/16 14:30 Dose: 200 mg Guaifenesin (Robitussin) 200 mg PO Q4HR PRN PRN Reason: Cough or Congestion Stop: 05/19/16 14:24 Haloperidol (Haldol) 5 mg PO BID ANGEL PRN Reason: Protocol Stop: 05/21/16 11:25 Insulin Aspart (Novolog Insulin Sliding Scale) 0 units SUBQ ACHS ANGEL PRN Reason: Protocol Stop: 05/18/16 07:29 Last Admin: 03/22/16 12:04 Dose: Not Given Lisinopril (Zestril) 20 mg PO DAILY [facility] Stop: 05/19/16 13:22 Last Admin: 03/22/16 10:17 Dose: Not Given Lorazepam (Ativan) 1 mg PO Q4HR PRN; Protocol PRN Reason: Anxiety Stop: 05/17/16 20:50 Last Admin: 03/21/16 16:07 Dose: 1 mg Meclizine HCl (Antivert) 25 mg PO DAILY PRN PRN Reason: Nausea / Vomiting Stop: 05/19/16 14:24 Multivitamins/Vitamin C (Theragran) 1 tab PO DAILY [facility] Stop: 05/18/16 08:59 Last Admin: 03/22/16 08:44 Dose: 1 tab Zolpidem Tartrate (Ambien) 10 mg PO HS PRN PRN Reason: Insomnia Stop: 05/17/16 20:50 Zolpidem Tartrate (Ambien) 10 mg PO HS PRN PRN Reason: Insomnia Stop: 05/19/16 14:24 Internal Medicine Assmt/Plan - Assessment Assessment: LEFT HAND CELLULITIS - improving AGITATION SUBSTANCE ABUSE HTN - Plan Plan: continue po abx fall precautions cpm
--- NOTE | 2016-03-23 02:38 | Progress Notes ---
Case was discussed with staff of the patient, reviewed records. The patient continues to have episodes where he is acting out. He was hitting staff earlier this morning. He continues to be impulsive, unpredictable, and needing redirection. He continues to be psychotic, out of control. I did increase Haldol to 4 mg twice a day, and I will be increasing it further to 5 mg twice a day and so far, he is compliant with the medication with no side effects, no sedation, no nausea, and no extrapyramidal symptoms. Also, I will be adding Depakote to his medications to help with his agitation, out of control behavior, and no side effects with the medication, no sedation, no nausea, and no extrapyramidal symptoms. We will continue to work the patient in group therapy, milieu therapy, and adjust the medication as needed. JOB# [id number]
[2016-03-23] MEDS: INSULIN ASPART SLIDING SCALE 100 UNITS/ML UNIT SUBQ SCH ×4 (06:44→21:31)
[2016-03-23] MEDS: Multivitamin Tab PO SCH (09:41)
--- NOTE | 2016-03-23 16:39 | Internal Medicine Prog Note ---
Internal Medicine Subjective - Subjective Service Date: 03/23/16 Patient seen and examined:: with staff Patient is:: awake Per staff patient is:: no adverse event Internal Medicine Objective - Results Recent Labs: Laboratory Last Values POC Glucose 94 MG/DL (70 - 105) 03/23/16 11:47 - Physical Exam Vitals and I&O: Vital Signs Temp 97.6 F 03/23/16 06:07 Pulse 89 03/23/16 09:42 Resp 16 03/23/16 08:00 BP 166/88 03/23/16 09:42 Pulse Ox 97 03/23/16 08:00 Intake & Output 03/22/16 03/23/16 03/23/16 18:59 06:59 18:59 Intake Total 1200 120 Balance 1200 120 Intake: Oral 1200 120 Other: # Voids 2 3 # Bowel Movements 1 0 Active Medications: Current Medications Acetaminophen (Tylenol) 650 mg PO Q4HR PRN PRN Reason: Pain Stop: 05/17/16 21:00 Acetaminophen (Tylenol) 650 mg PO Q4HR PRN PRN Reason: Pain or Fever >101 Stop: 05/19/16 14:24 Al Hydrox/Mg Hydrox/Simethicone (Maalox) 30 ml PO Q4HR PRN PRN Reason: GI DISTRESS Stop: 05/17/16 21:00 Al Hydrox/Mg Hydrox/Simethicone (Maalox) 30 ml PO Q6HR PRN PRN Reason: GI DISTRESS Stop: 05/19/16 14:24 Albuterol Sulfate (Albuterol 2.5mg/3ml Neb Ud) 2.5 mg HHN Q2H PRN PRN Reason: Shortness of Breath Stop: 05/17/16 20:55 Amlodipine Besylate (Norvasc) 5 mg PO DAILY [facility] Stop: 05/19/16 10:59 Last Admin: 03/23/16 09:40 Dose: 5 mg Cephalexin Monohydrate (Keflex) 250 mg PO QID [facility] Stop: 03/26/16 08:59 Last Admin: 03/23/16 13:00 Dose: Not Given Clonidine HCl (Catapres) 0.1 mg PO Q6HR PRN PRN Reason: Hypertension Stop: 05/17/16 21:12 Last Admin: 03/21/16 14:24 Dose: 0.1 mg Clonidine HCl (Catapres) 0.1 mg PO Q6HR PRN PRN Reason: SBP GREATER THAN 160 Stop: 05/19/16 14:24 Divalproex Sodium (Depakote Dr) 250 mg PO BID ANGEL PRN Reason: Protocol Stop: 05/21/16 16:59 Last Admin: 03/23/16 09:42 Dose: 250 mg Guaifenesin (Robitussin) 200 mg PO Q4HR PRN PRN Reason: Cough or Congestion Stop: 05/17/16 21:16 Last Admin: 03/21/16 14:30 Dose: 200 mg Guaifenesin (Robitussin) 200 mg PO Q4HR PRN PRN Reason: Cough or Congestion Stop: 05/19/16 14:24 Haloperidol (Haldol) 5 mg PO BID ANGEL PRN Reason: Protocol Stop: 05/21/16 11:25 Last Admin: 03/23/16 09:41 Dose: 5 mg Insulin Aspart (Novolog Insulin Sliding Scale) 0 units SUBQ ACHS ANGEL PRN Reason: Protocol Stop: 05/18/16 07:29 Last Admin: 03/23/16 11:51 Dose: Not Given Lisinopril (Zestril) 20 mg PO DAILY [facility] Stop: 05/19/16 13:22 Last Admin: 03/23/16 09:42 Dose: 20 mg Lorazepam (Ativan) 1 mg PO Q4HR PRN; Protocol PRN Reason: Anxiety Stop: 05/17/16 20:50 Last Admin: 03/21/16 16:07 Dose: 1 mg Meclizine HCl (Antivert) 25 mg PO DAILY PRN PRN Reason: Nausea / Vomiting Stop: 05/19/16 14:24 Multivitamins/Vitamin C (Theragran) 1 tab PO DAILY [facility] Stop: 05/18/16 08:59 Last Admin: 03/23/16 09:41 Dose: 1 tab Zolpidem Tartrate (Ambien) 10 mg PO HS PRN PRN Reason: Insomnia Stop: 05/17/16 20:50 Zolpidem Tartrate (Ambien) 10 mg PO HS PRN PRN Reason: Insomnia Stop: 05/19/16 14:24 General: alert HEENT: NC/AT, PERRLA Neck: Supple Lungs: CTAB Cardiovascular: RRR, Normal S1, Normal S2, without murmur Abdomen: soft non-tender Internal Medicine Assmt/Plan - Assessment Assessment: LEFT HAND CELLULITIS - improving AGITATION SUBSTANCE ABUSE HTN - Plan Plan: continue po abx fall precautions cpm
--- NOTE | 2016-03-24 01:41 | Progress Notes ---
Dr. Aldridge is covering for Dr. Sanchez. SUBJECTIVE: Chart was reviewed and the patient interviewed. Also, discussed the patient's condition with the staff and reviewed records and labs. The patient is still confused and agitated. The patient also is still restless and gets aggressive with the staff especially during helping him with his ADLs. Yesterday, the patient had to be given injection to calm him down because of his agitation and aggressive behavior and inability to follow any of staff directions. He is still unable to express himself or to express his needs. Also, he is still agitated and needs close monitoring even while he is in the [place] chair. ASSESSMENT: The patient is still psychotic and can be dangerous to others. TREATMENT PLAN: We will continue to monitor his behavior and his condition closely. Also, continue to follow up and adjusting psychotropic medications. JOB# [id number]
[2016-03-24] MEDS: INSULIN ASPART SLIDING SCALE 100 UNITS/ML UNIT SUBQ SCH ×4 (06:31→20:09)
[2016-03-24] MEDS: Multivitamin Tab PO SCH (08:33)
--- NOTE | 2016-03-24 17:54 | Internal Medicine Prog Note ---
Internal Medicine Subjective - Subjective Service Date: 03/24/16 Patient seen and examined:: with staff Patient is:: awake Per staff patient is:: no adverse event Internal Medicine Objective - Results Recent Labs: Laboratory Last Values POC Glucose 95 MG/DL (70 - 105) 03/24/16 17:15 - Physical Exam Vitals and I&O: Vital Signs Temp 98.2 F 03/24/16 07:00 Pulse 80 03/24/16 15:24 Resp 20 03/24/16 15:24 BP 106/59 03/24/16 15:24 Pulse Ox 98 03/24/16 15:24 Intake & Output 03/23/16 03/24/16 03/24/16 18:59 06:59 18:59 Intake Total 120 2400 Balance 120 2400 Intake: Oral 120 2400 Other: # Voids 4 4 # Bowel Movements 0 0 Active Medications: Current Medications Acetaminophen (Tylenol) 650 mg PO Q4HR PRN PRN Reason: Pain Stop: 05/17/16 21:00 Acetaminophen (Tylenol) 650 mg PO Q4HR PRN PRN Reason: Pain or Fever >101 Stop: 05/19/16 14:24 Al Hydrox/Mg Hydrox/Simethicone (Maalox) 30 ml PO Q4HR PRN PRN Reason: GI DISTRESS Stop: 05/17/16 21:00 Al Hydrox/Mg Hydrox/Simethicone (Maalox) 30 ml PO Q6HR PRN PRN Reason: GI DISTRESS Stop: 05/19/16 14:24 Albuterol Sulfate (Albuterol 2.5mg/3ml Neb Ud) 2.5 mg HHN Q2H PRN PRN Reason: Shortness of Breath Stop: 05/17/16 20:55 Amlodipine Besylate (Norvasc) 5 mg PO DAILY [facility] Stop: 05/19/16 10:59 Last Admin: 03/24/16 08:32 Dose: 5 mg Clonidine HCl (Catapres) 0.1 mg PO Q6HR PRN PRN Reason: Hypertension Stop: 05/17/16 21:12 Last Admin: 03/21/16 14:24 Dose: 0.1 mg Clonidine HCl (Catapres) 0.1 mg PO Q6HR PRN PRN Reason: SBP GREATER THAN 160 Stop: 05/19/16 14:24 Divalproex Sodium (Depakote Dr) 250 mg PO BID ANGEL PRN Reason: Protocol Stop: 05/21/16 16:59 Last Admin: 03/24/16 17:11 Dose: 250 mg Guaifenesin (Robitussin) 200 mg PO Q4HR PRN PRN Reason: Cough or Congestion Stop: 05/17/16 21:16 Last Admin: 03/21/16 14:30 Dose: 200 mg Guaifenesin (Robitussin) 200 mg PO Q4HR PRN PRN Reason: Cough or Congestion Stop: 05/19/16 14:24 Haloperidol (Haldol) 5 mg PO BID ANGEL PRN Reason: Protocol Stop: 05/21/16 11:25 Last Admin: 03/24/16 17:11 Dose: 5 mg Insulin Aspart (Novolog Insulin Sliding Scale) 0 units SUBQ ACHS ANGEL PRN Reason: Protocol Stop: 05/18/16 07:29 Last Admin: 03/24/16 17:17 Dose: Not Given Lisinopril (Zestril) 20 mg PO DAILY [facility] Stop: 05/19/16 13:22 Last Admin: 03/24/16 08:33 Dose: 20 mg Lorazepam (Ativan) 1 mg PO Q4HR PRN; Protocol PRN Reason: Anxiety Stop: 05/17/16 20:50 Last Admin: 03/21/16 16:07 Dose: 1 mg Meclizine HCl (Antivert) 25 mg PO DAILY PRN PRN Reason: Nausea / Vomiting Stop: 05/19/16 14:24 Multivitamins/Vitamin C (Theragran) 1 tab PO DAILY [facility] Stop: 05/18/16 08:59 Last Admin: 03/24/16 08:33 Dose: 1 tab Zolpidem Tartrate (Ambien) 10 mg PO HS PRN PRN Reason: Insomnia Stop: 05/17/16 20:50 Zolpidem Tartrate (Ambien) 10 mg PO HS PRN PRN Reason: Insomnia Stop: 05/19/16 14:24 General: alert HEENT: NC/AT, PERRLA Lungs: CTAB Cardiovascular: Normal S1, Normal S2, without murmur Abdomen: soft non-tender Internal Medicine Assmt/Plan - Assessment Assessment: LEFT HAND CELLULITIS - improving AGITATION SUBSTANCE ABUSE HTN - Plan Plan: continue po abx fall precautions cpm
--- NOTE | 2016-03-25 04:27 | Progress Notes ---
SUBJECTIVE: The patient is still confused and he is still agitated and in irritable and angry mood. The patient also is still aggressive and still has periods of anger, ____ and the [place] chair. Also, is still resisting care. The patient is still full high fall risk. Otherwise, the patient is compliant with taking his medications. ASSESSMENT: The patient is still psychotic. TREATMENT PLAN: We will continue monitoring the patient's behavior and condition closely. Also, continue to work on his anger and irritability and continue to follow up. JOB# [id number]
[2016-03-25] MEDS: INSULIN ASPART SLIDING SCALE 100 UNITS/ML UNIT SUBQ SCH ×4 (06:39→20:32)
[2016-03-25] MEDS: Multivitamin Tab PO SCH (08:25)
--- NOTE | 2016-03-25 12:55 | Internal Medicine Prog Note ---
Internal Medicine Subjective - Subjective Service Date: 03/25/16 Patient seen and examined:: with staff Patient is:: awake Per staff patient is:: no adverse event Internal Medicine Objective - Results Recent Labs: Laboratory Last Values POC Glucose 96 MG/DL (70 - 105) 03/25/16 12:14 - Physical Exam Vitals and I&O: Vital Signs Temp 97.6 F 03/25/16 06:03 Pulse 79 03/25/16 10:05 Resp 20 03/25/16 10:05 BP 136/68 03/25/16 08:26 Pulse Ox 94 03/25/16 08:00 Intake & Output 03/24/16 03/25/16 03/25/16 18:59 06:59 18:59 Intake Total 2400 120 Balance 2400 120 Intake: Oral 2400 120 Other: # Voids 4 3 # Bowel Movements 0 0 Active Medications: Current Medications Acetaminophen (Tylenol) 650 mg PO Q4HR PRN PRN Reason: Pain Stop: 05/17/16 21:00 Acetaminophen (Tylenol) 650 mg PO Q4HR PRN PRN Reason: Pain or Fever >101 Stop: 05/19/16 14:24 Al Hydrox/Mg Hydrox/Simethicone (Maalox) 30 ml PO Q4HR PRN PRN Reason: GI DISTRESS Stop: 05/17/16 21:00 Al Hydrox/Mg Hydrox/Simethicone (Maalox) 30 ml PO Q6HR PRN PRN Reason: GI DISTRESS Stop: 05/19/16 14:24 Albuterol Sulfate (Albuterol 2.5mg/3ml Neb Ud) 2.5 mg HHN Q2H PRN PRN Reason: Shortness of Breath Stop: 05/17/16 20:55 Amlodipine Besylate (Norvasc) 5 mg PO DAILY [facility] Stop: 05/19/16 10:59 Last Admin: 03/25/16 08:26 Dose: 5 mg Clonidine HCl (Catapres) 0.1 mg PO Q6HR PRN PRN Reason: Hypertension Stop: 05/17/16 21:12 Last Admin: 03/21/16 14:24 Dose: 0.1 mg Clonidine HCl (Catapres) 0.1 mg PO Q6HR PRN PRN Reason: SBP GREATER THAN 160 Stop: 05/19/16 14:24 Divalproex Sodium (Depakote Dr) 250 mg PO BID ANGEL PRN Reason: Protocol Stop: 05/21/16 16:59 Last Admin: 03/25/16 08:25 Dose: 250 mg Guaifenesin (Robitussin) 200 mg PO Q4HR PRN PRN Reason: Cough or Congestion Stop: 05/17/16 21:16 Last Admin: 03/21/16 14:30 Dose: 200 mg Guaifenesin (Robitussin) 200 mg PO Q4HR PRN PRN Reason: Cough or Congestion Stop: 05/19/16 14:24 Haloperidol (Haldol) 5 mg PO BID ANGEL PRN Reason: Protocol Stop: 05/21/16 11:25 Last Admin: 03/25/16 08:24 Dose: 5 mg Insulin Aspart (Novolog Insulin Sliding Scale) 0 units SUBQ ACHS ANGEL PRN Reason: Protocol Stop: 05/18/16 07:29 Last Admin: 03/25/16 12:33 Dose: Not Given Lisinopril (Zestril) 20 mg PO DAILY [facility] Stop: 05/19/16 13:22 Last Admin: 03/25/16 08:25 Dose: 20 mg Lorazepam (Ativan) 1 mg PO Q4HR PRN; Protocol PRN Reason: Anxiety Stop: 05/17/16 20:50 Last Admin: 03/25/16 12:37 Dose: 1 mg Meclizine HCl (Antivert) 25 mg PO DAILY PRN PRN Reason: Nausea / Vomiting Stop: 05/19/16 14:24 Multivitamins/Vitamin C (Theragran) 1 tab PO DAILY [facility] Stop: 05/18/16 08:59 Last Admin: 03/25/16 08:25 Dose: 1 tab Zolpidem Tartrate (Ambien) 10 mg PO HS PRN PRN Reason: Insomnia Stop: 05/17/16 20:50 Zolpidem Tartrate (Ambien) 10 mg PO HS PRN PRN Reason: Insomnia Stop: 05/19/16 14:24 General: alert HEENT: NC/AT, PERRLA Neck: Supple Lungs: CTAB Cardiovascular: RRR, Normal S1, Normal S2, without murmur Abdomen: soft non-tender, non-distended Extremities: clear Neurological: no change Internal Medicine Assmt/Plan - Assessment Assessment: LEFT HAND CELLULITIS - improving AGITATION SUBSTANCE ABUSE HTN - Plan Plan: continue po abx fall precautions cpm
--- NOTE | 2016-03-26 02:41 | Progress Notes ---
Case was discussed with staff of the patient, reviewed records. The patient continues to be easily agitated, continues to be impulsive, unpredictable, very poor insight, unable to carrying out conversation. He is sleeping well, eating well. He is compliant with the medication with no side effects, no sedation, no nausea and he has tolerated the increase in Haldol with no side effects, no sedation, no nausea, no extrapyramidal symptoms and we will continue to work with the patient in group therapy, milieu therapy, adjust medications as needed. JOB# [id number]
[2016-03-26] MEDS: INSULIN ASPART SLIDING SCALE 100 UNITS/ML UNIT SUBQ SCH ×4 (07:30→21:00)
[2016-03-26] MEDS: Multivitamin Tab PO SCH (09:54)
--- NOTE | 2016-03-26 19:23 | Internal Medicine Prog Note ---
Internal Medicine Subjective - Subjective Patient seen and examined:: with staff, chart reviewed Patient is:: awake, interactive Per staff patient is:: no adverse event, eating well, confused Internal Medicine Objective - Results Recent Labs: Laboratory Last Values POC Glucose 82 MG/DL (70 - 105) 03/26/16 17:22 - Physical Exam Vitals and I&O: Vital Signs Temp 97.9 F 03/26/16 15:09 Pulse 75 03/26/16 15:09 Resp 20 03/26/16 15:09 BP 132/86 03/26/16 15:09 Pulse Ox 96 03/26/16 15:09 Intake & Output 03/26/16 03/26/16 03/27/16 06:59 18:59 06:59 Intake Total 800 Balance 800 Intake: Oral 800 Other: # Voids 2 4 # Bowel Movements 0 0 Stool Characteristics Soft Formed Active Medications: Current Medications Acetaminophen (Tylenol) 650 mg PO Q4HR PRN PRN Reason: Pain or Fever >101 Stop: 05/19/16 14:24 Al Hydrox/Mg Hydrox/Simethicone (Maalox) 30 ml PO Q6HR PRN PRN Reason: GI DISTRESS Stop: 05/19/16 14:24 Albuterol Sulfate (Albuterol 2.5mg/3ml Neb Ud) 2.5 mg HHN Q2H PRN PRN Reason: Shortness of Breath Stop: 05/17/16 20:55 Amlodipine Besylate (Norvasc) 5 mg PO DAILY [facility] Stop: 05/19/16 10:59 Last Admin: 03/26/16 09:52 Dose: Not Given Clonidine HCl (Catapres) 0.1 mg PO Q6HR PRN PRN Reason: SBP GREATER THAN 160 Stop: 05/19/16 14:24 Divalproex Sodium (Depakote Dr) 250 mg PO BID [facility] PRN Reason: Protocol Stop: 05/21/16 16:59 Last Admin: 03/26/16 17:36 Dose: 250 mg Guaifenesin (Robitussin) 200 mg PO Q4HR PRN PRN Reason: Cough or Congestion Stop: 05/19/16 14:24 Haloperidol (Haldol) 5 mg PO BID [facility] PRN Reason: Protocol Stop: 05/21/16 11:25 Last Admin: 03/26/16 17:36 Dose: 5 mg Insulin Aspart (Novolog Insulin Sliding Scale) 0 units SUBQ ACHS [facility] PRN Reason: Protocol Stop: 05/18/16 07:29 Last Admin: 03/26/16 17:35 Dose: Not Given Lisinopril (Zestril) 20 mg PO DAILY [facility] Stop: 05/19/16 13:22 Last Admin: 03/26/16 09:53 Dose: Not Given Lorazepam (Ativan) 1 mg PO Q4HR PRN; Protocol PRN Reason: Anxiety Stop: 05/17/16 20:50 Last Admin: 03/25/16 12:37 Dose: 1 mg Meclizine HCl (Antivert) 25 mg PO DAILY PRN PRN Reason: Nausea / Vomiting Stop: 05/19/16 14:24 Multivitamins/Vitamin C (Theragran) 1 tab PO DAILY [facility] Stop: 05/18/16 08:59 Last Admin: 03/26/16 09:54 Dose: Not Given Zolpidem Tartrate (Ambien) 10 mg PO HS PRN PRN Reason: Insomnia Stop: 05/19/16 14:24 HEENT: PERRLA Neck: Supple, No JVD Lungs: congested Cardiovascular: RRR, Normal S1, Normal S2 Abdomen: soft non-tender, globular, positive bowel sound Neurological: no change Internal Medicine Assmt/Plan - Assessment Assessment: LEFT HAND CELLULITIS - improving AGITATION SUBSTANCE ABUSE HTN - Plan Plan: cont on bp med low na diet fall precaution cpm susan rn
--- NOTE | 2016-03-27 06:22 | Progress Notes ---
Case was discussed with staff of the patient, reviewed records. The patient continues to isolate himself, confused, and unable to participate in meaningful conversation or make safe plan for self-care. Continues to be combative at times. Continues to need redirection and emergency medication. He tolerated the increase in Haldol with no side effects, no sedation, no nausea, and no extrapyramidal symptoms. We will continue to work with the patient in group therapy, milieu therapy, and adjust medication as needed. JOB# [id number]
[2016-03-27] MEDS: INSULIN ASPART SLIDING SCALE 100 UNITS/ML UNIT SUBQ SCH ×4 (07:07→23:28)
[2016-03-27] MEDS: Multivitamin Tab PO SCH (09:40)
--- NOTE | 2016-03-27 14:40 | Internal Medicine Prog Note ---
Internal Medicine Subjective - Subjective Service Date: 03/27/16 Patient seen and examined:: with staff Patient is:: awake Per staff patient is:: no adverse event Internal Medicine Objective - Results Recent Labs: Laboratory Last Values POC Glucose 101 MG/DL (70 - 105) 03/27/16 11:57 - Physical Exam Vitals and I&O: Vital Signs Temp 97.0 F 03/27/16 06:19 Pulse 64 03/27/16 10:39 Resp 16 03/27/16 10:39 BP 168/79 03/27/16 09:40 Pulse Ox 97 03/27/16 06:19 Intake & Output 03/26/16 03/27/16 03/27/16 18:59 06:59 18:59 Intake Total 800 240 Balance 800 240 Intake: Oral 800 240 Other: # Voids 4 1 # Bowel Movements 0 Stool Characteristics Soft Soft Formed Formed Active Medications: Current Medications Acetaminophen (Tylenol) 650 mg PO Q4HR PRN PRN Reason: Pain or Fever >101 Stop: 05/19/16 14:24 Al Hydrox/Mg Hydrox/Simethicone (Maalox) 30 ml PO Q6HR PRN PRN Reason: GI DISTRESS Stop: 05/19/16 14:24 Albuterol Sulfate (Albuterol 2.5mg/3ml Neb Ud) 2.5 mg HHN Q2H PRN PRN Reason: Shortness of Breath Stop: 05/17/16 20:55 Amlodipine Besylate (Norvasc) 5 mg PO DAILY [facility] Stop: 05/19/16 10:59 Last Admin: 03/27/16 09:40 Dose: 5 mg Clonidine HCl (Catapres) 0.1 mg PO Q6HR PRN PRN Reason: SBP GREATER THAN 160 Stop: 05/19/16 14:24 Divalproex Sodium (Depakote Dr) 250 mg PO Q8HR [facility] PRN Reason: Protocol Stop: 05/26/16 12:59 Guaifenesin (Robitussin) 200 mg PO Q4HR PRN PRN Reason: Cough or Congestion Stop: 05/19/16 14:24 Haloperidol (Haldol) 5 mg PO BID [facility] PRN Reason: Protocol Stop: 05/21/16 11:25 Last Admin: 03/27/16 09:40 Dose: 5 mg Insulin Aspart (Novolog Insulin Sliding Scale) 0 units SUBQ ACHS [facility] PRN Reason: Protocol Stop: 05/18/16 07:29 Last Admin: 03/27/16 12:13 Dose: Not Given Lisinopril (Zestril) 20 mg PO DAILY [facility] Stop: 05/19/16 13:22 Last Admin: 03/27/16 09:39 Dose: 20 mg Lorazepam (Ativan) 1 mg PO Q4HR PRN; Protocol PRN Reason: Anxiety Stop: 05/17/16 20:50 Last Admin: 03/25/16 12:37 Dose: 1 mg Meclizine HCl (Antivert) 25 mg PO DAILY PRN PRN Reason: Nausea / Vomiting Stop: 05/19/16 14:24 Multivitamins/Vitamin C (Theragran) 1 tab PO DAILY [facility] Stop: 05/18/16 08:59 Last Admin: 03/27/16 09:40 Dose: 1 tab Zolpidem Tartrate (Ambien) 10 mg PO HS PRN PRN Reason: Insomnia Stop: 05/19/16 14:24 General: alert HEENT: NC/AT, PERRLA Neck: Supple Lungs: CTAB Cardiovascular: RRR, Normal S1, Normal S2, without murmur Abdomen: soft non-tender Extremities: clear Internal Medicine Assmt/Plan - Assessment Assessment: LEFT HAND CELLULITIS - improving AGITATION SUBSTANCE ABUSE HTN - Plan Plan: continue po abx fall precautions cpm
--- NOTE | 2016-03-28 00:03 | Progress Notes ---
Case discussed with staff and patient, reviewed records. The patient continues to be irritable and aggressive. Continues to need redirection. He continues to have poor insight. Continues to look disheveled, disorganized, internally preoccupied. He is compliant with the medication with no side effects, no sedation, no nausea, no extrapyramidal symptoms. I initiated Depakote 250 mg twice a day. I will be increasing the dose to 3 a day. We will continue to work with the patient in group therapy, milieu therapy, adjust the medication as needed. JOB# [id number]
[2016-03-28] MEDS: INSULIN ASPART SLIDING SCALE 100 UNITS/ML UNIT SUBQ SCH ×4 (07:00→22:28)
[2016-03-28] MEDS: Multivitamin Tab PO SCH (09:13)
[2016-03-28] MEDS ORDERED: Haloperidol Lactate 5 mg/mL 1mL Vial ONE (09:27)
[2016-03-28] MEDS ORDERED: Haloperidol Lactate 5 mg/mL 1mL Vial IM ONE (09:27)
--- NOTE | 2016-03-28 15:07 | Internal Medicine Prog Note ---
Internal Medicine Subjective - Subjective Patient seen and examined:: with staff, chart reviewed Patient is:: verbal, interactive Per staff patient is:: no adverse event, noncompliant Internal Medicine Objective - Results Recent Labs: Laboratory Last Values POC Glucose 85 MG/DL (70 - 105) 03/28/16 05:55 - Physical Exam Vitals and I&O: Vital Signs Temp 97.6 F 03/27/16 17:56 Pulse 64 03/28/16 07:10 Resp 19 03/28/16 07:10 BP 109/66 03/27/16 17:56 Pulse Ox 97 03/28/16 07:10 Intake & Output 03/27/16 03/28/16 03/28/16 18:59 06:59 18:59 Intake Total 1000 Balance 1000 Intake: Oral 1000 Other: # Voids 3 # Bowel Movements 1 Stool Characteristics Soft Soft Formed Formed Active Medications: Current Medications Acetaminophen (Tylenol) 650 mg PO Q4HR PRN PRN Reason: Pain or Fever >101 Stop: 05/19/16 14:24 Al Hydrox/Mg Hydrox/Simethicone (Maalox) 30 ml PO Q6HR PRN PRN Reason: GI DISTRESS Stop: 05/19/16 14:24 Albuterol Sulfate (Albuterol 2.5mg/3ml Neb Ud) 2.5 mg HHN Q2H PRN PRN Reason: Shortness of Breath Stop: 05/17/16 20:55 Amlodipine Besylate (Norvasc) 5 mg PO DAILY [facility] Stop: 05/19/16 10:59 Last Admin: 03/28/16 09:13 Dose: Not Given Clonidine HCl (Catapres) 0.1 mg PO Q6HR PRN PRN Reason: SBP GREATER THAN 160 Stop: 05/19/16 14:24 Divalproex Sodium (Depakote Dr) 250 mg PO Q8HR [facility] PRN Reason: Protocol Stop: 05/26/16 12:59 Last Admin: 03/28/16 14:11 Dose: Not Given Guaifenesin (Robitussin) 200 mg PO Q4HR PRN PRN Reason: Cough or Congestion Stop: 05/19/16 14:24 Haloperidol (Haldol) 5 mg PO BID [facility] PRN Reason: Protocol Stop: 05/21/16 11:25 Last Admin: 03/28/16 09:13 Dose: Not Given Insulin Aspart (Novolog Insulin Sliding Scale) 0 units SUBQ ACHS [facility] PRN Reason: Protocol Stop: 05/18/16 07:29 Last Admin: 03/28/16 12:16 Dose: Not Given Lisinopril (Zestril) 20 mg PO DAILY [facility] Stop: 05/19/16 13:22 Last Admin: 03/28/16 09:13 Dose: Not Given Lorazepam (Ativan) 1 mg PO Q4HR PRN; Protocol PRN Reason: Anxiety Stop: 05/17/16 20:50 Last Admin: 03/25/16 12:37 Dose: 1 mg Meclizine HCl (Antivert) 25 mg PO DAILY PRN PRN Reason: Nausea / Vomiting Stop: 05/19/16 14:24 Multivitamins/Vitamin C (Theragran) 1 tab PO DAILY [facility] Stop: 05/18/16 08:59 Last Admin: 03/28/16 09:13 Dose: Not Given Zolpidem Tartrate (Ambien) 10 mg PO HS PRN PRN Reason: Insomnia Stop: 05/19/16 14:24 General: demented HEENT: NC/AT, PERRLA Neck: Supple, No JVD Lungs: CTAB Cardiovascular: RRR, Normal S1, Normal S2 Abdomen: soft non-tender, globular Extremities: excoriation, contracture Neurological: no change Internal Medicine Assmt/Plan - Assessment Assessment: LEFT HAND CELLULITIS - improving AGITATION SUBSTANCE ABUSE HTN - Plan Plan: cont on bp med low na diet fall precaution cpm dw rn
--- NOTE | 2016-03-28 20:47 | Progress Notes ---
Case was discussed with staff of the patient, reviewed records. The patient continues to be irritable. He has been fighting with the staff this morning, needing emergency medication. He continues to be unpredictable, impulsive, needing redirection. He continues to have poor insight. Unable to participate in meaningful conversation or make safe plan for self-care, and I did increase his Depakote dose, but he did not take his medication this morning and the patient has no side effects with the medication, no sedation, no nausea, and no extrapyramidal symptoms. We will continue to work with patient in group therapy, milieu therapy, and adjust medications as needed. JOB# [id number]
[2016-03-29] MEDS: Multivitamin Tab PO SCH (10:09)
[2016-03-29] MEDS ORDERED: Haloperidol Lactate 5 mg/mL 1mL Vial ONE (10:48)
[2016-03-29] MEDS ORDERED: Haloperidol Lactate 5 mg/mL 1mL Vial IM ONE (10:50)
[2016-03-29] MEDS: INSULIN ASPART SLIDING SCALE 100 UNITS/ML UNIT SUBQ SCH ×3 (11:37→20:56)
--- NOTE | 2016-03-29 13:22 | Internal Medicine Prog Note ---
Internal Medicine Subjective - Subjective Service Date: 03/29/16 Patient seen and examined:: with staff Patient is:: awake Per staff patient is:: no adverse event Internal Medicine Objective - Results Recent Labs: Laboratory Last Values POC Glucose 85 MG/DL (70 - 105) 03/28/16 05:55 - Physical Exam Vitals and I&O: Vital Signs Temp 97.6 F 03/29/16 06:32 Pulse 64 03/29/16 12:30 Resp 18 03/29/16 12:30 BP 135/88 03/29/16 10:09 Pulse Ox 98 03/29/16 06:32 Intake & Output 03/28/16 03/29/16 03/29/16 18:59 06:59 18:59 Intake Total 120 Balance 120 Intake: Oral 120 Other: # Voids 3 Stool Characteristics Soft Formed Active Medications: Current Medications Acetaminophen (Tylenol) 650 mg PO Q4HR PRN PRN Reason: Pain or Fever >101 Stop: 05/19/16 14:24 Al Hydrox/Mg Hydrox/Simethicone (Maalox) 30 ml PO Q6HR PRN PRN Reason: GI DISTRESS Stop: 05/19/16 14:24 Albuterol Sulfate (Albuterol 2.5mg/3ml Neb Ud) 2.5 mg HHN Q2H PRN PRN Reason: Shortness of Breath Stop: 05/17/16 20:55 Amlodipine Besylate (Norvasc) 5 mg PO DAILY [facility] Stop: 05/19/16 10:59 Last Admin: 03/29/16 10:09 Dose: 5 mg Clonidine HCl (Catapres) 0.1 mg PO Q6HR PRN PRN Reason: SBP GREATER THAN 160 Stop: 05/19/16 14:24 Divalproex Sodium (Depakote Dr) 500 mg PO BID [facility] PRN Reason: Protocol Stop: 05/28/16 16:59 Guaifenesin (Robitussin) 200 mg PO Q4HR PRN PRN Reason: Cough or Congestion Stop: 05/19/16 14:24 Haloperidol (Haldol) 5 mg PO BID [facility] PRN Reason: Protocol Stop: 05/21/16 11:25 Last Admin: 03/29/16 10:10 Dose: 5 mg Haloperidol Decanoate (Haldol Dec) 50 mg IM QMONTH [facility] PRN Reason: Protocol Stop: 05/28/16 11:59 Insulin Aspart (Novolog Insulin Sliding Scale) 0 units SUBQ ACHS [facility] PRN Reason: Protocol Stop: 05/18/16 07:29 Last Admin: 03/29/16 11:37 Dose: Not Given Lisinopril (Zestril) 20 mg PO DAILY [facility] Stop: 05/19/16 13:22 Last Admin: 03/29/16 10:09 Dose: 20 mg Lorazepam (Ativan) 1 mg PO Q4HR PRN; Protocol PRN Reason: Anxiety Stop: 05/17/16 20:50 Last Admin: 03/25/16 12:37 Dose: 1 mg Meclizine HCl (Antivert) 25 mg PO DAILY PRN PRN Reason: Nausea / Vomiting Stop: 05/19/16 14:24 Multivitamins/Vitamin C (Theragran) 1 tab PO DAILY [facility] Stop: 05/18/16 08:59 Last Admin: 03/29/16 10:09 Dose: 1 tab Zolpidem Tartrate (Ambien) 10 mg PO HS PRN PRN Reason: Insomnia Stop: 05/19/16 14:24 General: alert HEENT: NC/AT, other Neck: Supple Lungs: CTAB Cardiovascular: RRR, Normal S1, Normal S2, without murmur Abdomen: soft non-tender, non-distended Extremities: clear Internal Medicine Assmt/Plan - Assessment Assessment: LEFT HAND CELLULITIS - improving AGITATION SUBSTANCE ABUSE HTN - Plan Plan: continue po abx fall precautions cpm
[2016-03-30] MEDS: INSULIN ASPART SLIDING SCALE 100 UNITS/ML UNIT SUBQ SCH ×4 (06:37→20:14)
[2016-03-30] MEDS: Multivitamin Tab PO SCH (09:22)
--- NOTE | 2016-03-30 10:57 | Internal Medicine Prog Note ---
Internal Medicine Subjective - Subjective Patient seen and examined:: chart reviewed Patient is:: awake, verbal, interactive Patient Complaints of:: congestion Per staff patient is:: no adverse event, noncompliant Internal Medicine Objective - Results Recent Labs: Laboratory Last Values POC Glucose 95 MG/DL (70 - 105) 03/29/16 20:55 - Physical Exam Vitals and I&O: Vital Signs Temp 98.0 F 03/30/16 07:01 Pulse 70 03/30/16 09:25 Resp 16 03/30/16 08:39 BP 152/84 03/30/16 09:25 Pulse Ox 96 03/30/16 08:39 Intake & Output 03/29/16 03/30/16 03/30/16 18:59 06:59 18:59 Intake Total 700 1200 Balance 700 1200 Intake: Oral 700 1200 Other: # Voids 3 2 # Bowel Movements 0 1 Stool Characteristics Soft Formed Active Medications: Current Medications Acetaminophen (Tylenol) 650 mg PO Q4HR PRN PRN Reason: Pain or Fever >101 Stop: 05/19/16 14:24 Al Hydrox/Mg Hydrox/Simethicone (Maalox) 30 ml PO Q6HR PRN PRN Reason: GI DISTRESS Stop: 05/19/16 14:24 Albuterol Sulfate (Albuterol 2.5mg/3ml Neb Ud) 2.5 mg HHN Q2H PRN PRN Reason: Shortness of Breath Stop: 05/17/16 20:55 Amlodipine Besylate (Norvasc) 5 mg PO DAILY [facility] Stop: 05/19/16 10:59 Last Admin: 03/30/16 09:25 Dose: 5 mg Clonidine HCl (Catapres) 0.1 mg PO Q6HR PRN PRN Reason: SBP GREATER THAN 160 Stop: 05/19/16 14:24 Divalproex Sodium (Depakote Dr) 500 mg PO BID [facility] PRN Reason: Protocol Stop: 05/28/16 16:59 Last Admin: 03/30/16 09:24 Dose: 500 mg Guaifenesin (Robitussin) 200 mg PO Q4HR PRN PRN Reason: Cough or Congestion Stop: 05/19/16 14:24 Haloperidol (Haldol) 5 mg PO BID [facility] PRN Reason: Protocol Stop: 05/21/16 11:25 Last Admin: 03/30/16 09:21 Dose: 5 mg Haloperidol Decanoate (Haldol Dec) 50 mg IM QMONTH [facility] PRN Reason: Protocol Stop: 05/28/16 11:59 Last Admin: 03/29/16 13:58 Dose: 50 mg Insulin Aspart (Novolog Insulin Sliding Scale) 0 units SUBQ ACHS [facility] PRN Reason: Protocol Stop: 05/18/16 07:29 Last Admin: 03/30/16 06:37 Dose: Not Given Lisinopril (Zestril) 20 mg PO DAILY [facility] Stop: 05/19/16 13:22 Last Admin: 03/30/16 09:25 Dose: 20 mg Lorazepam (Ativan) 1 mg PO Q4HR PRN; Protocol PRN Reason: Anxiety Stop: 05/17/16 20:50 Last Admin: 03/25/16 12:37 Dose: 1 mg Meclizine HCl (Antivert) 25 mg PO DAILY [facility] PRN Reason: Nausea / Vomiting Stop: 05/19/16 14:24 Multivitamins/Vitamin C (Theragran) 1 tab PO DAILY [facility] Stop: 05/18/16 08:59 Last Admin: 03/30/16 09:22 Dose: 1 tab Zolpidem Tartrate (Ambien) 10 mg PO HS PRN PRN Reason: Insomnia Stop: 05/19/16 14:24 General: alert HEENT: NC/AT, PERRLA Neck: Supple, No JVD Lungs: CTAB Cardiovascular: RRR, Normal S1, Normal S2 Abdomen: soft non-tender, globular, positive bowel sound Extremities: excoriation, contracture Neurological: no change Internal Medicine Assmt/Plan - Assessment Assessment: LEFT HAND CELLULITIS - improved AGITATION SUBSTANCE ABUSE HTN - Plan Plan: cont on bp med low na diet fall precaution cpm dw rn
[2016-03-30] MEDS ORDERED: Haloperidol Lactate 5 mg/mL 1mL Vial ONE (12:00)
[2016-03-30] MEDS ORDERED: Haloperidol Lactate 5 mg/mL 1mL Vial IM ONE (12:00)
--- NOTE | 2016-03-30 12:03 | Progress Notes ---
Case was discussed with staff of the patient, reviewed records. The patient continues to be agitated, continues to have poor insight. He was yelling at the staff, cursing, using foul language, aggressive, combative, and needing redirection. I did increase his Depakote dose 2 days ago; however, I will make further adjustments as it seems like this is not working for him the way he is. He continues to be acting in a dangerous manner, unpredictable, impulsive, aggressive, and he has been getting a lot of Haldol injections which I will be initiating Haldol Decanoate on the patient. We will continue to work with the patient in group therapy, milieu therapy, and adjust medication as needed. JOB# [id number]
--- NOTE | 2016-03-31 02:41 | Progress Notes ---
Case was discussed with staff of the patient. The patient continues to be agitated, challenging the staff, calling their names, continues to have poor insight. Unable to make safe plan for self-care and impulsive, unpredictable and needing redirection. I did give him Haldol Decanoate yesterday; however, today he also needed again the medication because of his agitation, challenging the staff. I did increase his Depakote yesterday to ____ on his medications and so far no side effects with the medication, no sedation, no nausea and no extrapyramidal symptoms. We will continue to work with the patient in group therapy, milieu therapy and adjust medication as needed. JOB# [id number]
[2016-03-31] MEDS: INSULIN ASPART SLIDING SCALE 100 UNITS/ML UNIT SUBQ SCH ×4 (06:35→20:32)
[2016-03-31] MEDS: Multivitamin Tab PO SCH (08:37)
--- NOTE | 2016-03-31 12:04 | Internal Medicine Prog Note ---
Internal Medicine Subjective - Subjective Patient seen and examined:: with staff, chart reviewed Patient is:: awake, interactive Per staff patient is:: no adverse event, confused Internal Medicine Objective - Results Recent Labs: Laboratory Last Values POC Glucose 111 MG/DL (70 - 105) H 03/31/16 11:43 Valproic Acid 51.9 ug/mL (50.0-100.0) 03/30/16 13:10 - Physical Exam Vitals and I&O: Vital Signs Temp 98.1 F 03/30/16 20:19 Pulse 79 03/31/16 08:52 Resp 96 03/31/16 08:52 BP 116/68 03/31/16 08:38 Pulse Ox 96 03/31/16 08:52 Intake & Output 03/30/16 03/31/16 03/31/16 18:59 06:59 18:59 Intake Total 700 120 Balance 700 120 Intake: Oral 700 120 Other: # Voids 3 1 # Bowel Movements 0 Stool Characteristics Formed Formed Active Medications: Current Medications Acetaminophen (Tylenol) 650 mg PO Q4HR PRN PRN Reason: Pain or Fever >101 Stop: 05/19/16 14:24 Al Hydrox/Mg Hydrox/Simethicone (Maalox) 30 ml PO Q6HR PRN PRN Reason: GI DISTRESS Stop: 05/19/16 14:24 Albuterol Sulfate (Albuterol 2.5mg/3ml Neb Ud) 2.5 mg HHN Q2H PRN PRN Reason: Shortness of Breath Stop: 05/17/16 20:55 Amlodipine Besylate (Norvasc) 5 mg PO DAILY [facility] Stop: 05/19/16 10:59 Last Admin: 03/31/16 08:38 Dose: Not Given Clonidine HCl (Catapres) 0.1 mg PO Q6HR PRN PRN Reason: SBP GREATER THAN 160 Stop: 05/19/16 14:24 Divalproex Sodium (Depakote Dr) 500 mg PO BID [facility] PRN Reason: Protocol Stop: 05/28/16 16:59 Last Admin: 03/31/16 08:37 Dose: 500 mg Guaifenesin (Robitussin) 200 mg PO Q4HR PRN PRN Reason: Cough or Congestion Stop: 05/19/16 14:24 Haloperidol (Haldol) 5 mg PO BID [facility] PRN Reason: Protocol Stop: 05/21/16 11:25 Last Admin: 03/31/16 08:37 Dose: 5 mg Haloperidol Decanoate (Haldol Dec) 50 mg IM QMONTH [facility] PRN Reason: Protocol Stop: 05/28/16 11:59 Last Admin: 03/29/16 13:58 Dose: 50 mg Insulin Aspart (Novolog Insulin Sliding Scale) 0 units SUBQ ACHS [facility] PRN Reason: Protocol Stop: 05/18/16 07:29 Last Admin: 03/31/16 06:35 Dose: Not Given Lisinopril (Zestril) 20 mg PO DAILY [facility] Stop: 05/19/16 13:22 Last Admin: 03/31/16 08:37 Dose: Not Given Lorazepam (Ativan) 1 mg PO Q4HR PRN; Protocol PRN Reason: Anxiety Stop: 05/17/16 20:50 Last Admin: 03/25/16 12:37 Dose: 1 mg Meclizine HCl (Antivert) 25 mg PO DAILY [facility] PRN Reason: Nausea / Vomiting Stop: 05/19/16 14:24 Multivitamins/Vitamin C (Theragran) 1 tab PO DAILY [facility] Stop: 05/18/16 08:59 Last Admin: 03/31/16 08:37 Dose: 1 tab Zolpidem Tartrate (Ambien) 10 mg PO HS PRN PRN Reason: Insomnia Stop: 05/19/16 14:24 General: demented HEENT: NC/AT, PERRLA, EOMI Neck: Supple, No JVD Lungs: CTAB Cardiovascular: RRR, Normal S1, Normal S2 Abdomen: soft non-tender, non-distended Extremities: excoriation, contracture Neurological: no change Internal Medicine Assmt/Plan - Assessment Assessment: LEFT HAND CELLULITIS - improved AGITATION SUBSTANCE ABUSE HTN - Plan Plan: cont on bp med low na diet fall precaution cpm dw rn
[2016-04-01] MEDS: INSULIN ASPART SLIDING SCALE 100 UNITS/ML UNIT SUBQ SCH ×4 (06:33→20:44)
--- NOTE | 2016-04-01 08:24 | Progress Notes ---
Case discussed with staff of the patient. Today, he is a little bit calmer in general, he did not need emergency medication, the staff was able to do Accu-Chek on him ____ can call or calling staff names or becoming agitated and aggressive as he did in the past ____. He was talking to ____ his progress. He is sleeping better, eating better. He is compliant with the medication with no side effects, no sedation, no nausea, no extrapyramidal symptoms and we will continue to work with the patient in group therapy, milieu therapy, adjust the medication as needed. JOB# [id number]
[2016-04-01] MEDS: Multivitamin Tab PO SCH (08:35)
--- NOTE | 2016-04-01 13:35 | Internal Medicine Prog Note ---
Internal Medicine Subjective - Subjective Service Date: 04/01/16 Patient seen and examined:: with staff Patient is:: awake Per staff patient is:: no adverse event Internal Medicine Objective - Results Recent Labs: Laboratory Last Values POC Glucose 100 MG/DL (70 - 105) 03/31/16 20:30 Valproic Acid 51.9 ug/mL (50.0-100.0) 03/30/16 13:10 - Physical Exam Vitals and I&O: Vital Signs Temp 97.1 F 04/01/16 06:14 Pulse 92 04/01/16 08:35 Resp 16 04/01/16 08:35 BP 188/86 04/01/16 08:35 Pulse Ox 96 04/01/16 08:35 Intake & Output 03/31/16 04/01/16 04/01/16 18:59 06:59 18:59 Intake Total 950 240 Balance 950 240 Intake: Oral 950 240 Other: # Voids 4 3 # Bowel Movements 0 0 Stool Characteristics Formed Formed Formed Active Medications: Current Medications Acetaminophen (Tylenol) 650 mg PO Q4HR PRN PRN Reason: Pain or Fever >101 Stop: 05/19/16 14:24 Al Hydrox/Mg Hydrox/Simethicone (Maalox) 30 ml PO Q6HR PRN PRN Reason: GI DISTRESS Stop: 05/19/16 14:24 Albuterol Sulfate (Albuterol 2.5mg/3ml Neb Ud) 2.5 mg HHN Q2H PRN PRN Reason: Shortness of Breath Stop: 05/17/16 20:55 Amlodipine Besylate (Norvasc) 5 mg PO DAILY [facility] Stop: 05/19/16 10:59 Last Admin: 04/01/16 08:35 Dose: 5 mg Clonidine HCl (Catapres) 0.1 mg PO Q6HR PRN PRN Reason: SBP GREATER THAN 160 Stop: 05/19/16 14:24 Divalproex Sodium (Depakote Dr) 500 mg PO Q8HR [facility] PRN Reason: Protocol Stop: 05/31/16 12:59 Guaifenesin (Robitussin) 200 mg PO Q4HR PRN PRN Reason: Cough or Congestion Stop: 05/19/16 14:24 Haloperidol (Haldol) 5 mg PO BID [facility] PRN Reason: Protocol Stop: 05/21/16 11:25 Last Admin: 04/01/16 08:35 Dose: 5 mg Haloperidol Decanoate (Haldol Dec) 50 mg IM QMONTH [facility] PRN Reason: Protocol Stop: 05/28/16 11:59 Last Admin: 03/29/16 13:58 Dose: 50 mg Insulin Aspart (Novolog Insulin Sliding Scale) 0 units SUBQ ACHS [facility] PRN Reason: Protocol Stop: 05/18/16 07:29 Last Admin: 04/01/16 11:59 Dose: Not Given Lisinopril (Zestril) 20 mg PO DAILY [facility] Stop: 05/19/16 13:22 Last Admin: 04/01/16 08:35 Dose: 20 mg Meclizine HCl (Antivert) 25 mg PO DAILY PRN PRN Reason: Nausea / Vomiting Stop: 05/19/16 14:24 Multivitamins/Vitamin C (Theragran) 1 tab PO DAILY [facility] Stop: 05/18/16 08:59 Last Admin: 04/01/16 08:35 Dose: 1 tab Zolpidem Tartrate (Ambien) 10 mg PO HS PRN PRN Reason: Insomnia Stop: 05/19/16 14:24 General: alert HEENT: NC/AT, PERRLA Neck: Supple Lungs: CTAB Cardiovascular: RRR, Normal S1, Normal S2, without murmur Abdomen: soft non-tender, non-distended Extremities: clear Internal Medicine Assmt/Plan - Assessment Assessment: LEFT HAND CELLULITIS - improving AGITATION SUBSTANCE ABUSE HTN - Plan Plan: fall precautions cpm
--- NOTE | 2016-04-02 00:50 | Progress Notes ---
Case was discussed with staff of the patient, reviewed records. The patient continues to be unpredictable, impulsive, continues to have poor insight and agitated. I talked to him today and I could not hear him very well and so I asked him to repeat what he said, so he knocked on the table very hard. He is still very agitated. He has been compliant with the medication with no side effects. His Depakote level is 51.9, which was drawn on 03/30/2016. So, there is a room to increase the dose and so far he is compliant with the medication with no side effects, no sedation, no nausea and no extrapyramidal symptoms. He did get the Haldol Decanoate; however, he continues to be easily agitated and no side effects with the medication, no sedation, no nausea and no extrapyramidal symptoms. We will continue to work with the patient in group therapy, milieu therapy and adjust medication as needed. JOB# [id number]
[2016-04-02] MEDS: INSULIN ASPART SLIDING SCALE 100 UNITS/ML UNIT SUBQ SCH ×4 (06:30→20:34)
[2016-04-02] MEDS: Multivitamin Tab PO SCH (09:00)
--- NOTE | 2016-04-02 14:32 | Internal Medicine Prog Note ---
Internal Medicine Subjective - Subjective Patient seen and examined:: with staff, chart reviewed Patient is:: awake, interactive Per staff patient is:: no adverse event, noncompliant, confused Internal Medicine Objective - Results Recent Labs: Laboratory Last Values POC Glucose 93 MG/DL (70 - 105) 04/02/16 11:50 Valproic Acid 51.9 ug/mL (50.0-100.0) 03/30/16 13:10 - Physical Exam Vitals and I&O: Vital Signs Temp 97.4 F 04/02/16 06:05 Pulse 97 04/02/16 09:00 Resp 20 04/02/16 06:05 BP 148/65 04/02/16 09:00 Pulse Ox 94 04/02/16 06:05 Intake & Output 04/01/16 04/02/16 04/02/16 18:59 06:59 18:59 Intake Total 1000 240 Balance 1000 240 Intake: Oral 1000 240 Other: # Voids 2 4 # Bowel Movements 1 0 Stool Characteristics Formed Formed Active Medications: Current Medications Acetaminophen (Tylenol) 650 mg PO Q4HR PRN PRN Reason: Pain or Fever >101 Stop: 05/19/16 14:24 Al Hydrox/Mg Hydrox/Simethicone (Maalox) 30 ml PO Q6HR PRN PRN Reason: GI DISTRESS Stop: 05/19/16 14:24 Albuterol Sulfate (Albuterol 2.5mg/3ml Neb Ud) 2.5 mg HHN Q2H PRN PRN Reason: Shortness of Breath Stop: 05/17/16 20:55 Amlodipine Besylate (Norvasc) 5 mg PO DAILY [facility] Stop: 05/19/16 10:59 Last Admin: 04/02/16 09:00 Dose: 5 mg Clonidine HCl (Catapres) 0.1 mg PO Q6HR PRN PRN Reason: SBP GREATER THAN 160 Stop: 05/19/16 14:24 Divalproex Sodium (Depakote Dr) 500 mg PO Q8HR [facility] PRN Reason: Protocol Stop: 05/31/16 12:59 Last Admin: 04/02/16 12:37 Dose: 500 mg Guaifenesin (Robitussin) 200 mg PO Q4HR PRN PRN Reason: Cough or Congestion Stop: 05/19/16 14:24 Haloperidol (Haldol) 5 mg PO BID [facility] PRN Reason: Protocol Stop: 05/21/16 11:25 Last Admin: 04/02/16 09:00 Dose: 5 mg Haloperidol Decanoate (Haldol Dec) 50 mg IM QMONTH [facility] PRN Reason: Protocol Stop: 05/28/16 11:59 Last Admin: 03/29/16 13:58 Dose: 50 mg Insulin Aspart (Novolog Insulin Sliding Scale) 0 units SUBQ ACHS [facility] PRN Reason: Protocol Stop: 05/18/16 07:29 Last Admin: 04/02/16 12:37 Dose: Not Given Lisinopril (Zestril) 20 mg PO DAILY [facility] Stop: 05/19/16 13:22 Last Admin: 04/02/16 09:00 Dose: 20 mg Meclizine HCl (Antivert) 25 mg PO DAILY PRN PRN Reason: Nausea / Vomiting Stop: 05/19/16 14:24 Multivitamins/Vitamin C (Theragran) 1 tab PO DAILY [facility] Stop: 05/18/16 08:59 Last Admin: 04/02/16 09:00 Dose: 1 tab Zolpidem Tartrate (Ambien) 10 mg PO HS PRN PRN Reason: Insomnia Stop: 05/19/16 14:24 General: demented HEENT: NC/AT, PERRLA Neck: Supple, No JVD Lungs: CTAB Cardiovascular: RRR, Normal S1, Normal S2 Abdomen: soft non-tender, globular Extremities: excoriation, contracture Neurological: no change Internal Medicine Assmt/Plan - Assessment Assessment: LEFT HAND CELLULITIS - improved AGITATION SUBSTANCE ABUSE HTN - Plan Plan: cont on bp med low na diet fall precaution cpm dw rn
--- NOTE | 2016-04-02 23:44 | Progress Notes ---
Case was discussed with staff of the patient, reviewed records. The patient continues to be irritable, continues to have poor insight, continues to be unpredictable and impulsive, needing redirection though he is not needing as much emergency medication. I did increase Depakote dose yesterday because of his agitation. He has been compliant with the medication with no side effects, no sedation, no nausea, no extrapyramidal symptoms and we will continue to work the patient in group therapy, milieu therapy and adjust medications as needed. JOB# [id number]
[2016-04-03] MEDS: INSULIN ASPART SLIDING SCALE 100 UNITS/ML UNIT SUBQ SCH ×4 (06:34→20:30)
[2016-04-03] MEDS: Multivitamin Tab PO SCH (09:30)
--- NOTE | 2016-04-03 13:17 | Internal Medicine Prog Note ---
Internal Medicine Subjective - Subjective Service Date: 04/03/16 Patient seen and examined:: with staff Patient is:: awake, non-verbal Per staff patient is:: no adverse event Internal Medicine Objective - Results Recent Labs: Laboratory Last Values POC Glucose 98 MG/DL (70 - 105) 04/03/16 05:34 Valproic Acid 51.9 ug/mL (50.0-100.0) 03/30/16 13:10 - Physical Exam Vitals and I&O: Vital Signs Temp 0 F 04/03/16 06:21 Pulse 82 04/03/16 09:37 Resp 20 04/02/16 21:11 BP 134/71 04/03/16 09:37 Pulse Ox 95 04/02/16 14:58 Intake & Output 04/02/16 04/03/16 04/03/16 18:59 06:59 18:59 Intake Total 1100 120 Balance 1100 120 Intake: Oral 1100 120 Other: # Voids 3 4 # Bowel Movements 1 0 Stool Characteristics Formed Active Medications: Current Medications Acetaminophen (Tylenol) 650 mg PO Q4HR PRN PRN Reason: Pain or Fever >101 Stop: 05/19/16 14:24 Al Hydrox/Mg Hydrox/Simethicone (Maalox) 30 ml PO Q6HR PRN PRN Reason: GI DISTRESS Stop: 05/19/16 14:24 Albuterol Sulfate (Albuterol 2.5mg/3ml Neb Ud) 2.5 mg HHN Q2H PRN PRN Reason: Shortness of Breath Stop: 05/17/16 20:55 Amlodipine Besylate (Norvasc) 5 mg PO DAILY [facility] Stop: 05/19/16 10:59 Last Admin: 04/03/16 09:29 Dose: 5 mg Clonidine HCl (Catapres) 0.1 mg PO Q6HR PRN PRN Reason: SBP GREATER THAN 160 Stop: 05/19/16 14:24 Divalproex Sodium (Depakote Dr) 500 mg PO Q8HR [facility] PRN Reason: Protocol Stop: 05/31/16 12:59 Last Admin: 04/03/16 13:02 Dose: 500 mg Guaifenesin (Robitussin) 200 mg PO Q4HR PRN PRN Reason: Cough or Congestion Stop: 05/19/16 14:24 Haloperidol (Haldol) 10 mg PO BID [facility] PRN Reason: Protocol Stop: 06/02/16 11:01 Haloperidol Decanoate (Haldol Dec) 50 mg IM QMONTH [facility] PRN Reason: Protocol Stop: 05/28/16 11:59 Last Admin: 03/29/16 13:58 Dose: 50 mg Insulin Aspart (Novolog Insulin Sliding Scale) 0 units SUBQ ACHS [facility] PRN Reason: Protocol Stop: 05/18/16 07:29 Last Admin: 04/03/16 13:01 Dose: Not Given Lisinopril (Zestril) 20 mg PO DAILY [facility] Stop: 05/19/16 13:22 Last Admin: 04/03/16 09:37 Dose: 20 mg Meclizine HCl (Antivert) 25 mg PO DAILY PRN PRN Reason: Nausea / Vomiting Stop: 05/19/16 14:24 Multivitamins/Vitamin C (Theragran) 1 tab PO DAILY [facility] Stop: 05/18/16 08:59 Last Admin: 04/03/16 09:30 Dose: 1 tab Zolpidem Tartrate (Ambien) 10 mg PO HS PRN PRN Reason: Insomnia Stop: 05/19/16 14:24 General: alert HEENT: NC/AT, PERRLA Neck: Supple Lungs: CTAB Cardiovascular: RRR, Normal S1, Normal S2, without murmur Abdomen: soft non-tender, non-distended, positive bowel sound Extremities: clear Neurological: no change Internal Medicine Assmt/Plan - Assessment Assessment: LEFT HAND CELLULITIS - improving AGITATION SUBSTANCE ABUSE HTN - Plan Plan: fall precautions cpm
--- NOTE | 2016-04-04 03:07 | Progress Notes ---
The patient continues to be psychotic, responding to internal stimuli, gravely disabled, can formulate a safe plan for self-care, get agitated very easily. I have increased his Depakote level as well as his Haldol medication. I will be increasing the dose of Haldol to 10 mg twice a day because of his psychosis, agitation and out of control behavior, dangerous behavior and we will continue to work with the patient in group therapy, milieu therapy and adjust medication as needed. JOB# [id number]
[2016-04-04] MEDS: INSULIN ASPART SLIDING SCALE 100 UNITS/ML UNIT SUBQ SCH ×4 (06:38→21:06)
[2016-04-04] MEDS: Multivitamin Tab PO SCH (09:40)
--- NOTE | 2016-04-04 14:35 | Internal Medicine Prog Note ---
Internal Medicine Subjective - Subjective Patient seen and examined:: with staff, chart reviewed Patient is:: awake, interactive Per staff patient is:: no adverse event, confused Internal Medicine Objective - Results Recent Labs: Laboratory Last Values POC Glucose 98 MG/DL (70 - 105) 04/03/16 05:34 Valproic Acid 51.9 ug/mL (50.0-100.0) 03/30/16 13:10 - Physical Exam Vitals and I&O: Vital Signs Temp 98.0 F 04/04/16 06:39 Pulse 87 04/04/16 09:40 Resp 20 04/04/16 06:39 BP 149/80 04/04/16 09:40 Pulse Ox 97 04/04/16 06:39 Intake & Output 04/03/16 04/04/16 04/04/16 18:59 06:59 18:59 Intake Total 1400 Balance 1400 Intake: Oral 1400 Other: # Voids 6 # Bowel Movements 1 Active Medications: Current Medications Acetaminophen (Tylenol) 650 mg PO Q4HR PRN PRN Reason: Pain or Fever >101 Stop: 05/19/16 14:24 Al Hydrox/Mg Hydrox/Simethicone (Maalox) 30 ml PO Q6HR PRN PRN Reason: GI DISTRESS Stop: 05/19/16 14:24 Albuterol Sulfate (Albuterol 2.5mg/3ml Neb Ud) 2.5 mg HHN Q2H PRN PRN Reason: Shortness of Breath Stop: 05/17/16 20:55 Amlodipine Besylate (Norvasc) 5 mg PO DAILY [facility] Stop: 05/19/16 10:59 Last Admin: 04/04/16 09:38 Dose: 5 mg Clonidine HCl (Catapres) 0.1 mg PO Q6HR PRN PRN Reason: SBP GREATER THAN 160 Stop: 05/19/16 14:24 Divalproex Sodium (Depakote Dr) 500 mg PO Q8HR [facility] PRN Reason: Protocol Stop: 05/31/16 12:59 Last Admin: 04/04/16 13:00 Dose: Not Given Guaifenesin (Robitussin) 200 mg PO Q4HR PRN PRN Reason: Cough or Congestion Stop: 05/19/16 14:24 Haloperidol (Haldol) 10 mg PO BID [facility] PRN Reason: Protocol Stop: 06/02/16 11:01 Last Admin: 04/04/16 09:38 Dose: 10 mg Haloperidol Decanoate (Haldol Dec) 50 mg IM QMONTH [facility] PRN Reason: Protocol Stop: 05/28/16 11:59 Last Admin: 03/29/16 13:58 Dose: 50 mg Insulin Aspart (Novolog Insulin Sliding Scale) 0 units SUBQ ACHS [facility] PRN Reason: Protocol Stop: 05/18/16 07:29 Last Admin: 04/04/16 13:00 Dose: Not Given Lisinopril (Zestril) 20 mg PO DAILY [facility] Stop: 05/19/16 13:22 Last Admin: 04/04/16 09:40 Dose: 20 mg Meclizine HCl (Antivert) 25 mg PO DAILY PRN PRN Reason: Nausea / Vomiting Stop: 05/19/16 14:24 Multivitamins/Vitamin C (Theragran) 1 tab PO DAILY [facility] Stop: 05/18/16 08:59 Last Admin: 04/04/16 09:40 Dose: 1 tab Zolpidem Tartrate (Ambien) 10 mg PO HS PRN PRN Reason: Insomnia Stop: 05/19/16 14:24 General: demented HEENT: NC/AT, PERRLA Neck: Supple, No JVD Lungs: CTAB Cardiovascular: RRR, Normal S1, Normal S2 Abdomen: soft non-tender, globular, positive bowel sound Extremities: excoriation Neurological: no change Internal Medicine Assmt/Plan - Assessment Assessment: LEFT HAND CELLULITIS - improved AGITATION SUBSTANCE ABUSE HTN - Plan Plan: cont on bp med low na diet fall precaution cpm dw rn
--- NOTE | 2016-04-05 01:52 | Progress Notes ---
Case discussed with staff of the patient, reviewed records. The patient did not need any emergency medication last 2 days. He continues to have poor insight, unpredictable, impulsive, needing redirection, easily agitated. I did increase his Depakote dose to 500 mg 3 times a day and I took him off the Haldol, so I increased the Haldol to 10 mg twice a day. He is also on Haldol Decanoate with no side effects, no sedation, no nausea and we will continue to work with the patient in group therapy, milieu therapy, adjust medication as needed. The patient is still unpredictable, impulsive, aggressive. JOB# [id number]
[2016-04-05] MEDS: INSULIN ASPART SLIDING SCALE 100 UNITS/ML UNIT SUBQ SCH ×4 (06:47→20:56)
[2016-04-05] MEDS: Multivitamin Tab PO SCH (08:57)
--- NOTE | 2016-04-05 12:41 | Internal Medicine Prog Note ---
Internal Medicine Subjective - Subjective Service Date: 04/05/16 Patient seen and examined:: with staff Patient is:: awake Per staff patient is:: no adverse event Internal Medicine Objective - Results Recent Labs: Laboratory Last Values POC Glucose 106 MG/DL (70 - 105) H 04/05/16 11:30 Valproic Acid 51.9 ug/mL (50.0-100.0) 03/30/16 13:10 - Physical Exam Vitals and I&O: Vital Signs Temp 97.6 F 04/05/16 07:20 Pulse 76 04/05/16 08:57 Resp 18 04/05/16 08:20 BP 158/89 04/05/16 08:57 Pulse Ox 95 04/05/16 08:20 Intake & Output 04/04/16 04/05/16 04/05/16 18:59 06:59 18:59 Intake Total 960 Balance 960 Intake: Oral 960 Other: # Voids 3 2 # Bowel Movements 1 Active Medications: Current Medications Acetaminophen (Tylenol) 650 mg PO Q4HR PRN PRN Reason: Pain or Fever >101 Stop: 05/19/16 14:24 Al Hydrox/Mg Hydrox/Simethicone (Maalox) 30 ml PO Q6HR PRN PRN Reason: GI DISTRESS Stop: 05/19/16 14:24 Albuterol Sulfate (Albuterol 2.5mg/3ml Neb Ud) 2.5 mg HHN Q2H PRN PRN Reason: Shortness of Breath Stop: 05/17/16 20:55 Amlodipine Besylate (Norvasc) 5 mg PO DAILY [facility] Stop: 05/19/16 10:59 Last Admin: 04/05/16 08:56 Dose: 5 mg Clonidine HCl (Catapres) 0.1 mg PO Q6HR PRN PRN Reason: SBP GREATER THAN 160 Stop: 05/19/16 14:24 Divalproex Sodium (Depakote Dr) 500 mg PO Q8HR [facility] PRN Reason: Protocol Stop: 05/31/16 12:59 Last Admin: 04/05/16 06:03 Dose: Not Given Guaifenesin (Robitussin) 200 mg PO Q4HR PRN PRN Reason: Cough or Congestion Stop: 05/19/16 14:24 Haloperidol (Haldol) 10 mg PO BID [facility] PRN Reason: Protocol Stop: 06/02/16 11:01 Last Admin: 04/05/16 08:56 Dose: 10 mg Haloperidol Decanoate (Haldol Dec) 50 mg IM QMONTH [facility] PRN Reason: Protocol Stop: 05/28/16 11:59 Last Admin: 03/29/16 13:58 Dose: 50 mg Insulin Aspart (Novolog Insulin Sliding Scale) 0 units SUBQ ACHS [facility] PRN Reason: Protocol Stop: 05/18/16 07:29 Last Admin: 04/05/16 11:51 Dose: Not Given Lisinopril (Zestril) 20 mg PO DAILY [facility] Stop: 05/19/16 13:22 Last Admin: 04/05/16 08:57 Dose: 20 mg Meclizine HCl (Antivert) 25 mg PO DAILY PRN PRN Reason: Nausea / Vomiting Stop: 05/19/16 14:24 Multivitamins/Vitamin C (Theragran) 1 tab PO DAILY [facility] Stop: 05/18/16 08:59 Last Admin: 04/05/16 08:57 Dose: 1 tab Zolpidem Tartrate (Ambien) 10 mg PO HS PRN PRN Reason: Insomnia Stop: 05/19/16 14:24 General: alert HEENT: NC/AT, PERRLA Neck: Supple Lungs: CTAB Cardiovascular: RRR, Normal S1, Normal S2, without murmur Abdomen: soft non-tender Internal Medicine Assmt/Plan - Assessment Assessment: LEFT HAND CELLULITIS - improving AGITATION SUBSTANCE ABUSE HTN - Plan Plan: fall precautions cpm
[2016-04-05] MEDS: Triple Antibiotic 0.94 gm Pkt TP SCH (17:47)
--- NOTE | 2016-04-06 04:58 | Progress Notes ---
Case was discussed with staff of the patient, reviewed records. The patient continues to be acting out. Continues to be unpredictable, impulsive, and needing redirection. Continues to have poor insight. Unable to make safe plan for self-care. I will be replacing Haldol for Zyprexa. He also took Haldol Decanoate and discussed side effects and no side effects with the medication, no sedation, and no nausea. We will continue to work with the patient in group therapy, milieu therapy, and adjust medication as needed. JOB# [id number]
[2016-04-06] MEDS: INSULIN ASPART SLIDING SCALE 100 UNITS/ML UNIT SUBQ SCH ×4 (06:45→20:41)
[2016-04-06] MEDS: Multivitamin Tab PO SCH (09:13)
[2016-04-06] MEDS: Triple Antibiotic 0.94 gm Pkt TP SCH ×2 (09:13→16:58)
--- NOTE | 2016-04-06 14:41 | Internal Medicine Prog Note ---
Internal Medicine Subjective - Subjective Service Date: 04/06/16 Patient seen and examined:: with staff Patient is:: awake Per staff patient is:: no adverse event Internal Medicine Objective - Results Recent Labs: Laboratory Last Values POC Glucose 102 MG/DL (70 - 105) 04/06/16 06:28 Valproic Acid 51.9 ug/mL (50.0-100.0) 03/30/16 13:10 - Physical Exam Vitals and I&O: Vital Signs Temp 97.2 F 04/06/16 06:58 Pulse 90 04/06/16 09:21 Resp 16 04/06/16 07:05 BP 134/81 04/06/16 09:21 Pulse Ox 96 04/06/16 07:05 Intake & Output 04/05/16 04/06/16 04/06/16 18:59 06:59 18:59 Intake Total 1000 Balance 1000 Weight (lbs) 176 lb Intake: Oral 1000 Other: # Voids 3 2 # Bowel Movements 1 Active Medications: Current Medications Acetaminophen (Tylenol) 650 mg PO Q4HR PRN PRN Reason: Pain or Fever >101 Stop: 05/19/16 14:24 Al Hydrox/Mg Hydrox/Simethicone (Maalox) 30 ml PO Q6HR PRN PRN Reason: GI DISTRESS Stop: 05/19/16 14:24 Albuterol Sulfate (Albuterol 2.5mg/3ml Neb Ud) 2.5 mg HHN Q2H PRN PRN Reason: Shortness of Breath Stop: 05/17/16 20:55 Amlodipine Besylate (Norvasc) 5 mg PO DAILY [facility] Stop: 05/19/16 10:59 Last Admin: 04/06/16 09:20 Dose: 5 mg Clonidine HCl (Catapres) 0.1 mg PO Q6HR PRN PRN Reason: SBP GREATER THAN 160 Stop: 05/19/16 14:24 Divalproex Sodium (Depakote Dr) 500 mg PO Q8HR [facility] PRN Reason: Protocol Stop: 05/31/16 12:59 Last Admin: 04/06/16 06:09 Dose: Not Given Guaifenesin (Robitussin) 200 mg PO Q4HR PRN PRN Reason: Cough or Congestion Stop: 05/19/16 14:24 Haloperidol Decanoate (Haldol Dec) 50 mg IM QMONTH [facility] PRN Reason: Protocol Stop: 05/28/16 11:59 Last Admin: 03/29/16 13:58 Dose: 50 mg Insulin Aspart (Novolog Insulin Sliding Scale) 0 units SUBQ ACHS [facility] PRN Reason: Protocol Stop: 05/18/16 07:29 Last Admin: 04/06/16 13:13 Dose: Not Given Lisinopril (Zestril) 20 mg PO DAILY [facility] Stop: 05/19/16 13:22 Last Admin: 04/06/16 09:21 Dose: 20 mg Meclizine HCl (Antivert) 25 mg PO DAILY PRN PRN Reason: Nausea / Vomiting Stop: 05/19/16 14:24 Multivitamins/Vitamin C (Theragran) 1 tab PO DAILY [facility] Stop: 05/18/16 08:59 Last Admin: 04/06/16 09:13 Dose: 1 tab Neomycin/Polymyxin/Bacitracin (Triple Antibiotic Pkt) 1 pkt TP BID [facility] Stop: 06/04/16 16:59 Last Admin: 04/06/16 09:13 Dose: 1 pkt Quetiapine Fumarate (Seroquel) 25 mg PO BID [facility] PRN Reason: Protocol Stop: 06/04/16 16:59 Last Admin: 04/06/16 09:14 Dose: 25 mg Zolpidem Tartrate (Ambien) 10 mg PO HS PRN PRN Reason: Insomnia Stop: 05/19/16 14:24 General: alert HEENT: NC/AT, PERRLA Neck: Supple Lungs: CTAB Cardiovascular: RRR, Normal S1, Normal S2, without murmur Abdomen: soft non-tender, non-distended, positive bowel sound Extremities: clear Neurological: no change Internal Medicine Assmt/Plan - Assessment Assessment: LEFT HAND CELLULITIS - improving AGITATION SUBSTANCE ABUSE HTN - Plan Plan: fall precautions cpm
--- NOTE | 2016-04-07 01:56 | Progress Notes ---
SUBJECTIVE: The patient seen, chart reviewed, discussed with staff. The patient is currently in the hospital, agitated, impulsive, noted to be refusing to leave the hospital. Placed on a hold for grave disability. The patient with a rule out for dementia on [id number] ___pt_ refusing interview, not talking to me. Continued concerns about his ability to care for his basic needs at this time. Dr. Sanchez has been seeing this patient, adjusting medications, noting that he remains impulsive and unpredictable. He has required emergency medications while in the hospital. Currently on Haldol Decanoate. No side effects. ASSESSMENT: The patient is still noted to be impulsive, unpredictable, still with some concerns about aggression, still concerns about his ability to care for himself outside of the [place] of the hospital. PLAN: We will continue to monitor. We will continue to adjust medications as tolerated. [facility]# [id number] [email or web address]
[2016-04-07] MEDS: INSULIN ASPART SLIDING SCALE 100 UNITS/ML UNIT SUBQ SCH ×4 (07:03→21:01)
[2016-04-07] MEDS: Triple Antibiotic 0.94 gm Pkt TP SCH ×2 (09:00→16:31)
[2016-04-07] MEDS: Multivitamin Tab PO SCH (09:00)
[2016-04-07] MEDS ORDERED: Haloperidol Lactate 5 mg/mL 1mL Vial IM ONE (17:36)
[2016-04-07] MEDS ORDERED: Haloperidol Lactate 5 mg/mL 1mL Vial ONE (17:44)
--- NOTE | 2016-04-07 17:57 | Internal Medicine Prog Note ---
Internal Medicine Subjective - Subjective Service Date: 04/07/16 Patient seen and examined:: with staff Patient is:: awake Per staff patient is:: no adverse event Internal Medicine Objective - Results Recent Labs: Laboratory Last Values POC Glucose 99 MG/DL (70 - 105) 04/07/16 06:37 Valproic Acid 51.9 ug/mL (50.0-100.0) 03/30/16 13:10 - Physical Exam Vitals and I&O: Vital Signs Temp 98.2 F 04/07/16 15:36 Pulse 85 04/07/16 15:36 Resp 20 04/07/16 15:36 BP 121/80 04/07/16 15:36 Pulse Ox 98 04/07/16 15:36 Intake & Output 04/06/16 04/07/16 04/07/16 18:59 06:59 18:59 Intake Total 950 Balance 950 Intake: Oral 950 Other: # Voids 3 2 # Bowel Movements 1 Stool Characteristics Formed Active Medications: Current Medications Acetaminophen (Tylenol) 650 mg PO Q4HR PRN PRN Reason: Pain or Fever >101 Stop: 05/19/16 14:24 Al Hydrox/Mg Hydrox/Simethicone (Maalox) 30 ml PO Q6HR PRN PRN Reason: GI DISTRESS Stop: 05/19/16 14:24 Albuterol Sulfate (Albuterol 2.5mg/3ml Neb Ud) 2.5 mg HHN Q2H PRN PRN Reason: Shortness of Breath Stop: 05/17/16 20:55 Amlodipine Besylate (Norvasc) 5 mg PO DAILY [facility] Stop: 05/19/16 10:59 Last Admin: 04/07/16 09:01 Dose: Not Given Cephalexin Monohydrate (Keflex) 500 mg PO Q12HR [facility] Stop: 06/06/16 08:59 Last Admin: 04/07/16 09:01 Dose: 500 mg Clonidine HCl (Catapres) 0.1 mg PO Q6HR PRN PRN Reason: SBP GREATER THAN 160 Stop: 05/19/16 14:24 Divalproex Sodium (Depakote Dr) 500 mg PO Q8HR [facility] PRN Reason: Protocol Stop: 05/31/16 12:59 Last Admin: 04/07/16 15:57 Dose: Not Given Guaifenesin (Robitussin) 200 mg PO Q4HR PRN PRN Reason: Cough or Congestion Stop: 05/19/16 14:24 Haloperidol Decanoate (Haldol Dec) 50 mg IM QMONTH [facility] PRN Reason: Protocol Stop: 05/28/16 11:59 Last Admin: 03/29/16 13:58 Dose: 50 mg Insulin Aspart (Novolog Insulin Sliding Scale) 0 units SUBQ ACHS [facility] PRN Reason: Protocol Stop: 05/18/16 07:29 Last Admin: 04/07/16 15:57 Dose: Not Given Lisinopril (Zestril) 20 mg PO DAILY [facility] Stop: 05/19/16 13:22 Last Admin: 04/07/16 09:01 Dose: Not Given Meclizine HCl (Antivert) 25 mg PO DAILY PRN PRN Reason: Nausea / Vomiting Stop: 05/19/16 14:24 Multivitamins/Vitamin C (Theragran) 1 tab PO DAILY [facility] Stop: 05/18/16 08:59 Last Admin: 04/07/16 09:00 Dose: 1 tab Neomycin/Polymyxin/Bacitracin (Triple Antibiotic Pkt) 1 pkt TP BID [facility] Stop: 06/04/16 16:59 Last Admin: 04/07/16 16:31 Dose: 1 pkt Quetiapine Fumarate (Seroquel) 25 mg PO BID [facility] PRN Reason: Protocol Stop: 06/04/16 16:59 Last Admin: 04/07/16 16:31 Dose: 25 mg Zolpidem Tartrate (Ambien) 10 mg PO HS PRN PRN Reason: Insomnia Stop: 05/19/16 14:24 General: alert HEENT: NC/AT, PERRLA Neck: Supple Lungs: CTAB Cardiovascular: RRR, Normal S1, Normal S2, without murmur Abdomen: soft non-tender Extremities: clear Internal Medicine Assmt/Plan - Assessment Assessment: LEFT HAND CELLULITIS - improving AGITATION SUBSTANCE ABUSE HTN - Plan Plan: fall precautions cpm
--- NOTE | 2016-04-07 23:28 | Progress Notes ---
SUBJECTIVE: The patient seen, chart reviewed. Discussed with staff. The patient is currently in the hospital with agitation and poor impulse control, on a hold for grave disability. On [id number], the patient continues to refuse interview, not talking to me. Staff notes he remains oppositional, unable to care for his basic needs, concerns about grave disability, seems to be sleeping fairly well, eating with prompting. The patient has required emergency medications while in the hospital. Medications reviewed. Labs were reviewed. No overt side effects. ASSESSMENT: The patient remains impulsive, unpredictable, still concerns about his ability to care for his basic needs patient remains oppositional. He was refusing interview today. PLAN: We will continue to monitor, continue to adjust medications as tolerated. The patient may need help with placement. [facility]# [id number]
[2016-04-08] MEDS: INSULIN ASPART SLIDING SCALE 100 UNITS/ML UNIT SUBQ SCH ×3 (06:39→20:14)
[2016-04-08] MEDS: Multivitamin Tab PO SCH (08:26)
[2016-04-08] MEDS: Triple Antibiotic 0.94 gm Pkt TP SCH ×2 (08:26→16:46)
--- NOTE | 2016-04-08 12:37 | Internal Medicine Prog Note ---
Internal Medicine Subjective - Subjective Service Date: 04/08/16 (pt c/o left arm pain no recent falls or any injuries) Patient seen and examined:: with staff Patient is:: awake Per staff patient is:: no adverse event Internal Medicine Objective - Results Recent Labs: Laboratory Last Values POC Glucose 91 MG/DL (70 - 105) 04/08/16 05:54 Valproic Acid 51.9 ug/mL (50.0-100.0) 03/30/16 13:10 - Physical Exam Vitals and I&O: Vital Signs Temp 97.1 F 04/08/16 06:38 Pulse 83 04/08/16 07:05 Resp 16 04/08/16 07:05 BP 123/78 04/08/16 06:38 Pulse Ox 95 04/08/16 07:05 Intake & Output 04/07/16 04/08/16 04/08/16 18:59 06:59 18:59 Intake Total 1999 120 Balance 1999 120 Intake: Oral 1999 120 Other: # Voids 3 3 # Bowel Movements 1 0 Stool Characteristics Formed Formed Active Medications: Current Medications Acetaminophen (Tylenol) 650 mg PO Q4HR PRN PRN Reason: Pain or Fever >101 Stop: 05/19/16 14:24 Al Hydrox/Mg Hydrox/Simethicone (Maalox) 30 ml PO Q6HR PRN PRN Reason: GI DISTRESS Stop: 05/19/16 14:24 Albuterol Sulfate (Albuterol 2.5mg/3ml Neb Ud) 2.5 mg HHN Q2H PRN PRN Reason: Shortness of Breath Stop: 05/17/16 20:55 Amlodipine Besylate (Norvasc) 5 mg PO DAILY [facility] Stop: 05/19/16 10:59 Last Admin: 04/08/16 08:26 Dose: Not Given Cephalexin Monohydrate (Keflex) 500 mg PO Q12HR ANGEL Stop: 06/06/16 08:59 Last Admin: 04/08/16 08:26 Dose: Not Given Clonidine HCl (Catapres) 0.1 mg PO Q6HR PRN PRN Reason: SBP GREATER THAN 160 Stop: 05/19/16 14:24 Divalproex Sodium (Depakote Dr) 500 mg PO Q8HR ANGEL PRN Reason: Protocol Stop: 05/31/16 12:59 Last Admin: 04/08/16 06:11 Dose: Not Given Guaifenesin (Robitussin) 200 mg PO Q4HR PRN PRN Reason: Cough or Congestion Stop: 05/19/16 14:24 Haloperidol Decanoate (Haldol Dec) 50 mg IM QMONTH ANGEL PRN Reason: Protocol Stop: 05/28/16 11:59 Last Admin: 03/29/16 13:58 Dose: 50 mg Insulin Aspart (Novolog Insulin Sliding Scale) 0 units SUBQ ACHS ANGEL PRN Reason: Protocol Stop: 05/18/16 07:29 Last Admin: 04/08/16 06:39 Dose: Not Given Lisinopril (Zestril) 20 mg PO DAILY [facility] Stop: 05/19/16 13:22 Last Admin: 04/08/16 08:26 Dose: Not Given Meclizine HCl (Antivert) 25 mg PO DAILY PRN PRN Reason: Nausea / Vomiting Stop: 05/19/16 14:24 Multivitamins/Vitamin C (Theragran) 1 tab PO DAILY [facility] Stop: 05/18/16 08:59 Last Admin: 04/08/16 08:26 Dose: Not Given Neomycin/Polymyxin/Bacitracin (Triple Antibiotic Pkt) 1 pkt TP BID [facility] Stop: 06/04/16 16:59 Last Admin: 04/08/16 08:26 Dose: Not Given Quetiapine Fumarate (Seroquel) 50 mg PO BID [facility] PRN Reason: Protocol Stop: 06/07/16 11:19 Zolpidem Tartrate (Ambien) 10 mg PO HS PRN PRN Reason: Insomnia Stop: 05/19/16 14:24 General: alert HEENT: NC/AT, PERRLA Neck: Supple Lungs: CTAB Cardiovascular: RRR, Normal S1, Normal S2, without murmur Abdomen: soft non-tender, non-distended, positive bowel sound Extremities: clear Internal Medicine Assmt/Plan - Assessment Assessment: LEFT HAND CELLULITIS - improving AGITATION SUBSTANCE ABUSE HTN - Plan Plan: fall precautions cpm
--- NOTE | 2016-04-08 17:09 | Diagnostic Imaging Report ---
Bilateral upper extremity Doppler venous ultrasound exam HISTORY: Pain Sonographic sector images were obtained to the venous systems of both arms. Exam is extremely limited and suboptimal due to patient combativeness and lack of cooperation. Limited views of the right arm demonstrate gross patency of the internal jugular, subclavian, axillary, brachial, basilic, cephalic veins. Gross patency of the left internal jugular, subclavian, axillary, brachial veins noted. The left basilic and cephalic veins cannot be clearly visualized. Detailed assessment of compressibility was precluded. IMPRESSION: Very limited/suboptimal exam with no obvious evidence of thrombophlebitis within the right arm. No obvious thrombus within the venous structures of the left arm as detailed above.
[2016-04-09] MEDS: INSULIN ASPART SLIDING SCALE 100 UNITS/ML UNIT SUBQ SCH ×5 (06:34→20:46)
--- NOTE | 2016-04-09 07:18 | Progress Notes ---
Case was discussed with staff of the patient. The patient continues to be acting aggressively. Apparently, he had to be medicated yesterday because of his out of control behavior with Haldol and since then, he has been sleepy. They held his medication this morning. He is sleepy. He is still unpredictable and impulsive. Continues to need redirection. He did get Haldol Decanoate, and I currently have him on Seroquel 25 mg twice a day with no side effects, no sedation, and no nausea. I will be increasing the Seroquel dose with the hope that this will help him get better and not get agitated, and so far no side effects with the current medications. No extrapyramidal symptoms. We will continue to work with the patient in group therapy, milieu therapy, and adjust the medication as needed. JOB# [id number]
[2016-04-09] MEDS: Albuterol Nebulizer 2.5mg/3mL HHN PRN ×2 (07:43→12:05)
[2016-04-09] MEDS: Triple Antibiotic 0.94 gm Pkt TP SCH ×2 (10:05→17:09)
[2016-04-09] MEDS: Multivitamin Tab PO SCH (10:06)
--- NOTE | 2016-04-09 12:47 | Internal Medicine Prog Note ---
Internal Medicine Subjective - Subjective Service Date: 04/09/16 (per nursing staff patient was suctioned by RT patient was noted with congestion. at this time patient is awake, alert, no sob ) Patient seen and examined:: with staff Patient is:: awake Patient Complaints of:: congestion Internal Medicine Objective - Results Recent Labs: Laboratory Last Values POC Glucose 136 MG/DL (70 - 105) H 04/08/16 19:46 Valproic Acid 51.9 ug/mL (50.0-100.0) 03/30/16 13:10 - Physical Exam Vitals and I&O: Vital Signs Temp 97.9 F 04/09/16 06:00 Pulse 98 04/09/16 10:06 Resp 18 04/09/16 06:00 BP 147/94 04/09/16 10:06 Pulse Ox 89 04/09/16 06:00 Intake & Output 04/08/16 04/09/16 04/09/16 18:59 06:59 18:59 Intake Total 600 120 Balance 600 120 Intake: Oral 600 120 Other: # Voids 3 2 # Bowel Movements 0 0 Stool Characteristics Formed Formed Active Medications: Current Medications Acetaminophen (Tylenol) 650 mg PO Q4HR PRN PRN Reason: Pain or Fever >101 Stop: 05/19/16 14:24 Al Hydrox/Mg Hydrox/Simethicone (Maalox) 30 ml PO Q6HR PRN PRN Reason: GI DISTRESS Stop: 05/19/16 14:24 Albuterol Sulfate (Albuterol 2.5mg/3ml Neb Ud) 2.5 mg HHN Q2H PRN PRN Reason: Shortness of Breath Stop: 05/17/16 20:55 Last Admin: 04/09/16 12:05 Dose: 2.5 mg Amlodipine Besylate (Norvasc) 5 mg PO DAILY [facility] Stop: 05/19/16 10:59 Last Admin: 04/09/16 10:06 Dose: 5 mg Cephalexin Monohydrate (Keflex) 500 mg PO Q12HR ANGEL Stop: 06/06/16 08:59 Last Admin: 04/09/16 10:05 Dose: 500 mg Clonidine HCl (Catapres) 0.1 mg PO Q6HR PRN PRN Reason: SBP GREATER THAN 160 Stop: 05/19/16 14:24 Divalproex Sodium (Depakote Dr) 500 mg PO Q8HR ANGEL PRN Reason: Protocol Stop: 05/31/16 12:59 Last Admin: 04/09/16 06:14 Dose: Not Given Guaifenesin (Robitussin) 200 mg PO Q4HR PRN PRN Reason: Cough or Congestion Stop: 05/19/16 14:24 Haloperidol Decanoate (Haldol Dec) 50 mg IM QMONTH ANGEL PRN Reason: Protocol Stop: 05/28/16 11:59 Last Admin: 03/29/16 13:58 Dose: 50 mg Insulin Aspart (Novolog Insulin Sliding Scale) 0 units SUBQ ACHS ANGEL PRN Reason: Protocol Stop: 05/18/16 07:29 Last Admin: 04/09/16 06:34 Dose: Not Given Lisinopril (Zestril) 20 mg PO DAILY [facility] Stop: 05/19/16 13:22 Last Admin: 04/09/16 10:05 Dose: 20 mg Meclizine HCl (Antivert) 25 mg PO DAILY PRN PRN Reason: Nausea / Vomiting Stop: 05/19/16 14:24 Multivitamins/Vitamin C (Theragran) 1 tab PO DAILY [facility] Stop: 05/18/16 08:59 Last Admin: 04/09/16 10:06 Dose: 1 tab Neomycin/Polymyxin/Bacitracin (Triple Antibiotic Pkt) 1 pkt TP BID [facility] Stop: 06/04/16 16:59 Last Admin: 04/09/16 10:05 Dose: 1 pkt Quetiapine Fumarate (Seroquel) 50 mg PO BID [facility] PRN Reason: Protocol Stop: 06/07/16 11:19 Last Admin: 04/09/16 10:06 Dose: 50 mg Zolpidem Tartrate (Ambien) 10 mg PO HS PRN PRN Reason: Insomnia Stop: 05/19/16 14:24 General: alert HEENT: NC/AT Neck: Supple Lungs: CTAB, congested Cardiovascular: RRR, Normal S1, without murmur Abdomen: soft non-tender, non-distended Neurological: no change Internal Medicine Assmt/Plan - Assessment Assessment: LEFT HAND CELLULITIS - improving AGITATION SUBSTANCE ABUSE HTN - Plan Plan: cxr today bronchodilators fall precautions cpm
--- NOTE | 2016-04-09 14:20 | Diagnostic Imaging Report ---
CHEST X-RAY: AP view INDICATION: Congestion COMPARISON: None FINDINGS: Chronic lung changes are seen with superimposed mild pulmonary vascular congestion. No focal consolidation or pleural effusions. Heart size is normal. Advanced degenerative changes of bilateral shoulders are noted. IMPRESSION: Chronic lung changes with superimposed mild pulmonary vascular congestion. No focal consolidation identified.
[2016-04-09] MEDS: Albuterol Nebulizer 2.5mg/3mL HHN SCH ×3 (15:37→22:19)
[2016-04-09] MEDS: Ipratropium Neb 0.5 mg/2.5 mL UD HHN SCH ×3 (15:37→22:19)
[2016-04-09] MEDS ORDERED: D5-0.45NS 1,000 ML IV SCH (22:45)
[2016-04-09] MEDS ORDERED: Levofloxacin 500mg/100mL 500 MG/100 ML BAG IV SCH (22:45)
[2016-04-09 23:24] LABS: ABG SOURCE ARTERIAL; ALLEN TEST Positive; BE(B) 2.1 mmol/L (-3.0-3.0); FIO2 32; HCO3 25.3 mmol/L (20.0-26.0); pH 7.48 (7.35-7.45)
[2016-04-10] MEDS ORDERED: methylPREDNISolone SS 40 mg Vial IVP SCH (05:00)
[2016-04-10] MEDS ORDERED: Albuterol Nebulizer 2.5mg/3mL IH SCH (09:00)
[2016-04-10] MEDS ORDERED: Ipratropium Neb 0.5 mg/2.5 mL UD IH SCH (09:00)
--- NOTE | 2016-04-27 21:16 | Discharge Summary ---
IDENTIFYING INFORMATION: The patient is a 66-year-old male. CHIEF COMPLAINT: The patient has no idea. HISTORY OF PRESENT ILLNESS: The patient was placed on a hold. The patient was admitted to medical floor. He was put on hold. He does not want to leave the hospital. He has nowhere to go. He is homeless, agitated, impulsive, unpredictable. When I talked to him prior to admission as a consult, he was yelling at me, screaming as I could not hear. I asked him to repeat the question again. He got very mad and upset. He is on a hold for grave disability as he is unable to make safe plan for his self-care. When I talked to him on the day after he was admitted, he was unable to give information, remained preoccupied, looking disheveled. I was unable to obtain any information about his previous history. FAMILY AND SOCIAL HISTORY: The patient has 2 sons or 3, he was very confused. He was not a good historian. He was unable to tell me where he lives. COURSE IN THE HOSPITAL: The patient was started on guaifenesin, clonidine, Antivert, Ativan as needed, insulin, Haldol 2 mg twice a day, albuterol inhaler, Tylenol, multivitamin. The patient continued to be agitated, so I added Depakote 250 mg twice a day and ____ increased to 500 mg twice a day slowly because of his very agitated behavior and Haldol dose was increased also slowly to 5 mg twice a day and was given Haldol Decanoate 50 mg on 03/29/2016. The patient continues to have evidence of agitation, irritability. However, on 04/09/2016, transferred to the ICU because he was ____ risk for altered level of consciousness. FINAL DIAGNOSES: AXIS I: Dementia with behavior disturbances. Also possible substance abuse. MEDICAL DIAGNOSES: Altered level of consciousness, left hand cellulitis. The patient transferred to the ICU. EXPECTED OUTCOME: Per the patient's continuation of treatment. JOB# [id number]
== END 2016-04-09 22:57 | disposition short-term general hospital (02) | DRG 885 ==
LOC: GERO 15:30
PROVIDERS: ADMIT Psychiatry & Neurology Psychiatry; ATTEND Psychiatry & Neurology Psychiatry
DX: F29 Unspecified psychosis not due to a substance or known physiological condition (principal); I10 Essential (primary) hypertension; L03.114 Cellulitis of left upper limb; F19.10 Other psychoactive substance abuse, uncomplicated
CPT/HCPCS: 36415-UA; 71010-TC; 80164-TC; 82803-TC; 82948-90; 90779; 90782; 90899; 93970-TC-50; 94760; J1200; J1630; J1631; J1815; J2060; J7613; Z7610

== ENCOUNTER 2016-04-09 23:06 | Inpatient (IN) | payer MEDICARE ==
[2016-04-09 23:27] VITALS: BP 98/66
[2016-04-09] MEDS ORDERED: guaiFENesin 200 MG/10 ML UDC PO PRN ×2 (23:36→23:39)
[2016-04-09] MEDS ORDERED: Maalox 30 mL Cup PO PRN (23:36)
[2016-04-09] MEDS: D5-0.45NS 1,000 ML IV SCH (23:59)
[2016-04-10] MEDS ORDERED: Levofloxacin 500mg/100mL 500 MG/100 ML BAG IV SCH
[2016-04-10 00:09] LABS: MEAN CELL VOLUME 90.9 fl (80-99); MEAN CORPUSCULAR HEMOGLOBIN 31.5 pg (26.0-30.0); MEAN CORPUSCULAR HGB CONC 34.6 pg (28.0-36.0); MEAN PLATELET VOLUME 7.6 fl; PLATELET COUNT 199 Th/cmm (150-400); RED BLOOD COUNT 4.81 Mil/cmm (4.30-5.70); RED CELL DISTRIBUTION WIDTH 12.9 % (11.5-20.0)
[2016-04-10 00:10] LABS: HEMATOCRIT 43.8 % (39.0-49.0); HEMOGLOBIN 15.1 gm/dL (13.2-17.3); WHITE BLOOD COUNT 10.7 Th/cmm (4.8-10.8)
[2016-04-10 00:15] LABS: INR 1.5 (0.5-1.4); PROTHROMBIN TIME (TEST) 15.2 SECONDS (9.5-11.5)
[2016-04-10 00:17] LABS: ALB/GLOB RATIO 0.8 (1.0-1.8); ANION GAP 11.5 (7.0-16.0); BILIRUBIN,TOTAL 1.1 mg/dL (0.3-1.0); BUN/CREATININE RATIO 17.6; CALCIUM SERUM 10.1 mg/dL (8.6-10.3); CARBON DIOXIDE 23.8 mEq/L (21.0-31.0); CREATININE - SERUM 2.9 mg/dL (0.7-1.3); MAGNESIUM 2.1 mg/dL (1.9-2.7); POTASSIUM SERUM 4.3 mEq/L (3.5-5.1)
[2016-04-10] MEDS ORDERED: Pneumococcal Vaccine 0.5 mL Vial IM ONE (00:27)
[2016-04-10 00:31] LABS: BNP 80.7 pg/mL (5.0-100.0)
[2016-04-10 00:40] LABS: BAND NEUTROPHILE 18 % (0-10); BASOPHIL 1 % (0-3); NEUTROPHILS 67 % (40-80); TOTAL CELLS COUNTED 100
[2016-04-10 00:41] LABS: OVALOCYTES 1+; PLATELET ESTIMATE ADEQUATE (NORMAL)
[2016-04-10] MEDS ORDERED: Norepinephrine 4 mg/4mL Vial IV ONE ×2 (00:53→05:27)
[2016-04-10 00:57] LABS: TSH 1.78 uIU/ml (0.34-5.60)
[2016-04-10 01:22] LABS: URINE COLOR ORANGE; URINE GLUCOSE (UA) NEGATIVE (NEGATIVE)
[2016-04-10 01:23] LABS: URINE BILIRUBIN MODERATE (NEGATIVE); URINE BLOOD TRACE (NEGATIVE); URINE KETONE TRACE mg/dL (NEGATIVE); URINE PH 5.5; URINE PROTEIN 100 mg/dL (NEGATIVE)
[2016-04-10 01:24] LABS: URINE BACTERIA OCCASIONAL /hpf (NONE SEEN); URINE EPITHELIAL CELLS OCCASIONAL /lpf (FEW); URINE RBC 0-2 /hpf (0-5); URINE WBC 0-2 /hpf (0-5)
--- NOTE | 2016-04-10 01:37 | ED Physician Chart ---
Chief Complaint/HPI - Patient Information Date Seen:: 04/10/16 Time Seen:: 01:31 Chief Complaint:: respiratory failure History of Present Illness:: 66-year-old male presents with acute, worsening, severe respiratory failure that progressed over the past 2 hours. Patient had associated hypoxia. History limited as patient is unresponsive History provided by nursing staff Allergies:: Allergies Allergy/AdvReac Type Severity Reaction Status Date / Time No Known Allergies Allergy Verified 03/17/16 10:29 Vitals:: Vital Signs - 8 hr 04/09/16 04/09/16 04/10/16 23:23 23:27 00:13 Temp 99.5 F 99.5 F HR 114 114 RR 31 31 BP 98/66 98/66 98/66 O2 Sat % 87 87 04/10/16 04/10/16 01:10 01:15 Temp HR 123 RR 24 BP O2 Sat % 89 Historian:: Other (nursing staff) Review:: Nurse's Note Reviewed Review of Systems - Review of Systems Other: Complete system review otherwise unremarkable except as noted in HPI. Past Medical History - Past Medical History Obtainable: Yes (emergent situation) Family Medical History - Family Member Mother History Unknown: Yes Physical Exam - Physical Examination Other:: INITIAL VITAL SIGNS: Reviewed by me GENERAL: Patient's in the ICU bed he is in respiratory failure. He is currently being bagged. HEAD: Head is normocephalic. No evidence of trauma. No scalp or facial swelling EYES: No scleral icterus bilaterally ENT: Oropharynx is clear of exudate and erythema NECK: Supple. No meningismus. No masses. No evidence of trauma. No cervical spine bony step-offs or crepitus to palpation RESPIRATORY: Back mask valve. Breath sounds are more prominent on the right than left. CV: Regular rate and rhythm. No murmurs, rubs, or gallops ABDOMEN: Soft, non-distended. No masses BACK: No ecchymoses. No evidence of trauma EXTREMITIES: Normal to inspection and palpation. No deformity SKIN: Warm and dry. No obvious rash. No jaundice NEUROLOGIC: Face is symmetric. Withdraws to pain in all extremities Labs/Radiology/EKG Results - Lab Results Results: Laboratory Tests 04/09/16 04/09/16 04/09/16 23:53 23:53 23:53 WBC 10.7 D RBC 4.81 Hgb 15.1 D Hct 43.8 D MCV 90.9 MCH 31.5 H MCHC Differential 34.6 RDW 12.9 Plt Count 199 MPV 7.6 Band Neutrophils % 18 H Neutrophils (Manual) 67 Lymphocytes 10 L Monocytes 4 Basophils 1 Platelet Estimate ADEQUATE Ovalocytes 1+ PT 15.2 H INR 1.50 H PTT (Actin FS) 26.7 Sodium 137 Potassium 4.3 Chloride 106 Carbon Dioxide 23.8 Anion Gap 11.5 BUN 51 H Creatinine 2.9 H Est GFR ( Amer) 28.3 Est GFR (Non-Af Amer) 23.4 BUN/Creatinine Ratio 17.6 Glucose 147 H Calcium 10.1 Magnesium 2.1 Total Bilirubin 1.1 H AST 40 H ALT 29 Alkaline Phosphatase 66 Ammonia B-Natriuretic Peptide 80.7 Total Protein 8.3 Albumin 3.6 L Globulin 4.7 Albumin/Globulin Ratio 0.8 L TSH Urine Source Urine Color Urine Clarity Urine pH Ur Specific [place] Urine Protein Urine Glucose (UA) Urine Ketones Urine Blood Urine Nitrate Urine Bilirubin Urine Ictotest Urine Urobilinogen Ur Leukocyte Esterase Urine RBC Urine WBC Ur Epithelial Cells Urine Bacteria 04/09/16 04/10/16 23:53 01:00 WBC RBC Hgb Hct MCV MCH MCHC Differential RDW Plt Count MPV Band Neutrophils % Neutrophils (Manual) Lymphocytes Monocytes Basophils Platelet Estimate Ovalocytes PT INR PTT (Actin FS) Sodium Potassium Chloride Carbon Dioxide Anion Gap BUN Creatinine Est GFR ( Amer) Est GFR (Non-Af Amer) BUN/Creatinine Ratio Glucose Calcium Magnesium Total Bilirubin AST ALT Alkaline Phosphatase Ammonia 44 B-Natriuretic Peptide Total Protein Albumin Globulin Albumin/Globulin Ratio TSH 1.78 Urine Source CATH Urine Color ORANGE Urine Clarity HAZY Urine pH 5.5 Ur Specific [place] 1.025 Urine Protein 100 H Urine Glucose (UA) NEGATIVE Urine Ketones TRACE Urine Blood TRACE Urine Nitrate NEGATIVE Urine Bilirubin MODERATE H Urine Ictotest POSITIVE H Urine Urobilinogen 2.0 Ur Leukocyte Esterase NEGATIVE Urine RBC 0-2 H Urine WBC 0-2 Ur Epithelial Cells OCCASIONAL Urine Bacteria OCCASIONAL Assessment - Assessment General Assessment: Intubation Endotracheal Intubation by [facility], Dr. Terry Manning M.D.: Pre assessment performed. See preceding note for details. Pre-oxygenation performed with 100% oxygen RSI: Performed w/o complication or hypoxic events. Medications as ordered. Blade: MAC 4 ET Tube: 8 cm Depth: 22 cm at the lip Compl: No hypoxic events or bradycardia Intubation confirmed by colorimetric CO2, equal breath sounds, quiet over the stomach. Chest X-ray 1V Interpreted by me: 3 cm above the marie ET tube. Normal soft tissue, left-sided pneumothorax Chest Tube Placement by me: Patient consented, sterilely draped, full prep, gown, glove, mask, time out performed. Anesthesia: 1% lidocaine locally Location: Mid-Anterior Axillary Line, approximate 5th intercostal Device: 16 [place] chest tube Technique: Vertical incision, blunt dissection above the superior rib border, tactile confirmation Results: Chest tube fogging Compl: No e/o diaphragm or mediastinum injury Secured with suture and taping. No complications. [facility] X-ray 1V Interpreted by me: Pneumothorax diminished to 1 cm, chest tube in pleural space facing cephalad. Normal soft tissue. ED Septic Shock - . Is Septic Shock (SBP<90, OR Lactate>4 mmol\L) present?: No - <6hrs of presentation: Vital Signs: Vital Signs - 8 hr 04/09/16 04/09/16 04/10/16 23:23 23:27 00:13 Temp 99.5 F 99.5 F HR 114 114 RR 31 31 BP 98/66 98/66 98/66 O2 Sat % 87 87 04/10/16 04/10/16 01:10 01:15 Temp HR 123 RR 24 BP O2 Sat % 89 Reassessment (Disposition) - Reassessment Reassessment:: Patient was having a hard time maintaining O2 saturation. To arrival. After intubation was difficult to elevate the SPO2 above 87%. Post intubation chest x -ray revealed a left-sided pneumothorax which is most likely why the patient was in respiratory distress to begin with. This also explains why it was difficult to increase his oxygen saturation. Placed chest tube. Oxygen saturation greatly improved. Patient remained in the ICU under the care of any physician. I will sign off at this time. Reassessment Condition:: Improved - Diagnosis Diagnosis:: Respiratory failure Pneumothorax, left, acute - Patient Disposition Admitted to:: ICU Time:: 01:37 Condition at Disposition:: Improved
--- NOTE | 2016-04-10 02:57 | Progress Notes ---
Case was discussed with staff of the patient, reviewed records. The patient is a bit calmer today. He has not been acting out since yesterday. He is sleeping better, eating better and has been compliant with the medication with no side effects, no sedation, no nausea and no extrapyramidal symptoms. He has been compliant with the medication with no side effects and that is because ____ increasing the dosing and we will see how he does and we will adjust medication accordingly and we will continue the patient in group therapy, milieu therapy and adjust medication as needed. JOB# [id number]
--- NOTE | 2016-04-10 03:39 | Admit Criteria Form ---
Admit Criteria Forms - Admit Criteria Diagnosis: RESPIRATORY FAILURE [facility] Clinical Indications for Admission to Inpatient Care (Place 'X' for any and all applicable criteria): Hospital admission is needed for appropriate care of the patient because of acute respiratory failure or insufficiency as indicated by ANY ONE of the following(1)(2)(3)(4)(5)(6)(7)(8): [ ]I. Mechanical ventilation needed (acute invasive or noninvasive) [ ]II. Severe ventilation deficit as indicated by ANY ONE of the following (9) [ ]a) Respiratory acidosis (pH less than 7.32 and partial pressure of carbon dioxide greater than 40 mm Hg (5.3 kPa)) [ ]b) Partial pressure of carbon dioxide greater than 44 mm Hg (5.9 kPa ) (new) [ ]c) Airflow measurements less than 25% of predicted (eg, peak expiratory flow rate less than 100 L/minute) [ ]d) Forced vital capacity less than 15 mL/kg of ideal body weight, or 50% decrease in vital capacity from baseline [ ]III. Noncardiac pulmonary edema not resolving with rapid emergency treatment (8) [X ]IV. Severe respiratory distress as indicated by ANY ONE of the following: [X ]a) Severe tachypnea (respiratory rate greater than 30, greater than 45 for 6-month-old, greater than 60 for ) [ ]b) Severe hypoxemia (partial pressure of oxygen less than 50 mm Hg ( 6.7 kPa) on greater than 50% oxygen or partial pressure of oxygen to FIO2 ratio less than 200) [ ]c) Mental status deterioration from respiratory disease [ ]V. Airway obstruction or inadequate protection [A](10)(11) The original [employer] content created by [employer] has been revised. The portions of the content which have been revised are identified through the use of italic text or in bold, and [employer] has neither reviewed nor approved the modified material. All other unmodified content is copyright [employer]. Please see references footnoted in the original [employer] edition 2016 Admit Criteria Met?: Yes
[2016-04-10 04:31] LABS: pH 7.47 (7.35-7.45)
[2016-04-10 04:32] LABS: ALLEN TEST yes; BE(B) 0.2 mmol/L (-3.0-3.0); FIO2 100; HCO3 23.3 mmol/L (20.0-26.0); MECH RATE 24; MECH VT 600; PS 0
[2016-04-10 05:03] LABS: HEMATOCRIT 44.4 % (39.0-49.0); MEAN CELL VOLUME 91.4 fl (80-99); MEAN CORPUSCULAR HEMOGLOBIN 30.9 pg (27.0-31.0); MEAN CORPUSCULAR HGB CONC 33.8 pg (28.0-36.0); MEAN PLATELET VOLUME 7.5 fl; PLATELET COUNT 234 Th/cmm (150-400); RED BLOOD COUNT 4.86 Mil/cmm (3.80-5.80); RED CELL DISTRIBUTION WIDTH 12.9 % (11.5-20.0)
[2016-04-10 05:20] LABS: WHITE BLOOD COUNT 6.7 Th/cmm (4.8-10.8)
[2016-04-10] MEDS: methylPREDNISolone SS 40 mg Vial IVP SCH ×3 (05:22→20:39)
[2016-04-10 05:33] LABS: ALB/GLOB RATIO 0.7 (1.0-1.8); ANION GAP 14.9 (7.0-16.0); BILIRUBIN,TOTAL 1.4 mg/dL (0.3-1.0); BUN/CREATININE RATIO 16.5; CARBON DIOXIDE 22.3 mEq/L (21.0-31.0); CREATININE - SERUM 3.4 mg/dL (0.7-1.3); POTASSIUM SERUM 4.2 mEq/L (3.5-5.1)
[2016-04-10] MEDS ORDERED: Sodium Chloride 0.9% 2,000 ML IV ONE (07:04)
[2016-04-10] MEDS: INSULIN ASPART, RECOMBINANT 100 UNITS/ML SUBQ SCH ×4 (07:19→21:01)
[2016-04-10] MEDS ORDERED: Chlorhexidine Gluconate 0.12% 15mL Mouthwash MM SCH (08:00)
[2016-04-10] MEDS ORDERED: Multivitamin Tab PO SCH (09:00)
[2016-04-10] MEDS: Albuterol Nebulizer 2.5mg/3mL IH SCH ×3 (09:02→19:05)
[2016-04-10] MEDS: Ipratropium Neb 0.5 mg/2.5 mL UD IH SCH ×3 (09:02→19:05)
[2016-04-10 09:22] LABS: BAND NEUTROPHILE 24 % (0-10); METAMYELOCYTE 3 % (0-0); NEUTROPHILS 56 % (40-80); TOTAL CELLS COUNTED 100
[2016-04-10 09:23] LABS: PLATELET ESTIMATE ADEQUATE (NORMAL); PLATELET MORPHOLOGY NORMAL (NORMAL)
[2016-04-10] MEDS: D5-0.45NS 1,000 ML IV SCH ×2 (10:49→20:36)
--- NOTE | 2016-04-10 11:24 | Diagnostic Imaging Report ---
CHEST X-RAY: AP view INDICATION: Intubation COMPARISON: Chest x-ray 04/09/2016 at 1314 FINDINGS: ET tube is seen with tip 3.8 cm above the Cand[place]. A moderate to large left upper lung zone pneumothorax is seen with left upper lung zone consolidative changes and developing bilateral infiltrates. Heart size is normal. IMPRESSION: Interval intubation with ET tube tip 3.8 cm above the [place] Developing moderate to large left upper lung zone pneumothorax Left upper lung zone consolidative changes and developing multifocal infiltrates. Please refer to follow-up x-rays for further findings.
--- NOTE | 2016-04-10 11:26 | Diagnostic Imaging Report ---
CHEST X-RAY: AP view INDICATION: Status post left chest tube placement, pneumothorax COMPARISON: Chest x-ray earlier the same day at 04/10/2016 FINDINGS: ET tube is stable. NG tube is in place with tip in the stomach. A left-sided chest tube is in place with tip along the left upper lung zone. There is reexpansion of the left lung. There may be a small left basal pneumothorax. Volume loss of the left upper lobe is seen with left upper lobe consolidative changes. Bibasal infiltrates are noted. Heart size mildly prominent. IMPRESSION: Interval placement of a left chest tube with tip along the left upper lung zone. There may be a residual small left basal pneumothorax. Volume loss of the left lung with left upper lung zone consolidative changes. Bilateral lower lung zone infiltrates. NG tube within the stomach.
[2016-04-10] MEDS ORDERED: Multivitamin 5 mL UDC PO SCH (11:30)
[2016-04-10] MEDS ORDERED: Multivitamin 5 mL UDC GT SCH (12:56)
[2016-04-10 13:16] LABS: pH 7.48 (7.35-7.45)
[2016-04-10 13:17] LABS: ABG SOURCE Arterial; FIO2 100; HCO3 21.6 mmol/L (20.0-26.0); MECH RATE 24; MECH VT 600
--- NOTE | 2016-04-10 13:17 | Internal Medicine Prog Note ---
Internal Medicine Subjective - Subjective Service Date: 04/10/16 ([id number]) Internal Medicine Objective - Results Result Diagrams: 04/10/16 04:38 04/10/16 04:38 Recent Labs: Laboratory Last Values WBC 6.7 Th/cmm (4.8-10.8) D 04/10/16 04:38 RBC 4.86 Mil/cmm (3.80-5.80) 04/10/16 04:38 Hgb 15.0 gm/dL (12.6-17.4) 04/10/16 04:38 Hct 44.4 % (39.0-49.0) 04/10/16 04:38 MCV 91.4 fl (80-99) 04/10/16 04:38 MCH 30.9 pg (27.0-31.0) 04/10/16 04:38 MCHC Differential 33.8 pg (28.0-36.0) 04/10/16 04:38 RDW 12.9 % (11.5-20.0) 04/10/16 04:38 Plt Count 234 Th/cmm (150-400) 04/10/16 04:38 MPV 7.5 fl 04/10/16 04:38 Band Neutrophils % 24 % (0-10) H 04/10/16 04:38 Neutrophils (Manual) 56 % (40-80) 04/10/16 04:38 Lymphocytes 13 % (20-50) L 04/10/16 04:38 Monocytes 4 % (2-10) 04/10/16 04:38 Basophils 1 % (0-3) 04/09/16 23:53 Metamyelocytes 3 % (0-0) H 04/10/16 04:38 Platelet Estimate ADEQUATE (NORMAL) 04/10/16 04:38 Platelet Morphology NORMAL (NORMAL) 04/10/16 04:38 Ovalocytes 1+ 04/09/16 23:53 RBC Morph Micro Appear NORMAL (NORMAL) 04/10/16 04:38 PT 15.2 SECONDS (9.5-11.5) H 04/09/16 23:53 INR 1.50 (0.5-1.4) H 04/09/16 23:53 PTT (Actin FS) 26.7 SECONDS (26.0-38.0) 04/09/16 23:53 Specimen Source arterial 04/10/16 02:48 Sample Site right radial 04/10/16 02:48 pH 7.47 (7.35-7.45) H 04/10/16 02:48 pCO2 32.0 mmHg (35.0-45.0) L 04/10/16 02:48 pO2 59.0 mmHg (80.0-100.0) L 04/10/16 02:48 HCO3 23.3 mmol/L (20.0-26.0) 04/10/16 02:48 Base Excess 0.2 mmol/L (-3.0-3.0) 04/10/16 02:48 O2 Saturation 92.0 % (92.0-100.0) 04/10/16 02:48 Olvin Test yes 04/10/16 02:48 Vent Rate 24 04/10/16 02:48 Inspired O2 100 04/10/16 02:48 Tidal Volume 600 04/10/16 02:48 PEEP 0 04/10/16 02:48 Pressure (ins/psv/peep) 0 04/10/16 02:48 Critical Value ab 04/10/16 02:48 Sodium 137 mEq/L (136-145) 04/10/16 04:38 Potassium 4.2 mEq/L (3.5-5.1) 04/10/16 04:38 Chloride 104 mEq/L (98-107) 04/10/16 04:38 Carbon Dioxide 22.3 mEq/L (21.0-31.0) 04/10/16 04:38 Anion Gap 14.9 (7.0-16.0) 04/10/16 04:38 BUN 56 mg/dL (7-25) H 04/10/16 04:38 Creatinine 3.4 mg/dL (0.7-1.3) H 04/10/16 04:38 Est GFR ( Amer) 23.5 ml/min (>90) 04/10/16 04:38 Est GFR (Non-Af Amer) 19.4 ml/min 04/10/16 04:38 BUN/Creatinine Ratio 16.5 04/10/16 04:38 Glucose 168 mg/dL (70-105) H 04/10/16 04:38 POC Glucose 195 MG/DL (70 - 105) H 04/10/16 12:10 Hemoglobin A1c % 5.3 % (4.0-6.0) 04/09/16 23:53 Whole Bld Lactic Acid 3.27 mmol/L (0.60-2.00) H* 04/10/16 08:35 Calcium 10.0 mg/dL (8.6-10.3) 04/10/16 04:38 Magnesium 2.1 mg/dL (1.9-2.7) 04/09/16 23:53 Total Bilirubin 1.4 mg/dL (0.3-1.0) H 04/10/16 04:38 AST 45 U/L (13-39) H 04/10/16 04:38 ALT 29 U/L (7-52) 04/10/16 04:38 Alkaline Phosphatase 61 U/L (34-104) 04/10/16 04:38 Ammonia 44 umol/L (16-53) 04/09/16 23:53 B-Natriuretic Peptide 80.7 pg/mL (5.0-100.0) 04/09/16 23:53 Total Protein 8.1 gm/dL (6.0-8.3) 04/10/16 04:38 Albumin 3.4 gm/dL (4.2-5.5) L 04/10/16 04:38 Globulin 4.7 gm/dL 04/10/16 04:38 Albumin/Globulin Ratio 0.7 (1.0-1.8) L 04/10/16 04:38 TSH 1.78 uIU/ml (0.34-5.60) 04/09/16 23:53 Urine Source CATH 04/10/16 01:00 Urine Color ORANGE 04/10/16 01:00 Urine Clarity HAZY (CLEAR) 04/10/16 01:00 Urine pH 5.5 04/10/16 01:00 Ur Specific [place] 1.025 (1.005-1.030) 04/10/16 01:00 Urine Protein 100 mg/dL (NEGATIVE) H 04/10/16 01:00 Urine Glucose (UA) NEGATIVE mg/dL (NEGATIVE) 04/10/16 01:00 Urine Ketones TRACE mg/dL (NEGATIVE) 04/10/16 01:00 Urine Blood TRACE (NEGATIVE) 04/10/16 01:00 Urine Nitrate NEGATIVE (NEGATIVE) 04/10/16 01:00 Urine Bilirubin MODERATE (NEGATIVE) H 04/10/16 01:00 Urine Ictotest POSITIVE (NEGATIVE) H 04/10/16 01:00 Urine Urobilinogen 2.0 E.U./dL (0.2 - 1.0) 04/10/16 01:00 Ur Leukocyte Esterase NEGATIVE (NEGATIVE) 04/10/16 01:00 Urine RBC 0-2 /hpf (0-5) H 04/10/16 01:00 Urine WBC 0-2 /hpf (0-5) 04/10/16 01:00 Ur Epithelial Cells OCCASIONAL /lpf (FEW) 04/10/16 01:00 Urine Bacteria OCCASIONAL /hpf (NONE SEEN) 04/10/16 01:00 - Physical Exam Vitals and I&O: Vital Signs Temp 101.3 F 04/10/16 05:00 Pulse 113 04/10/16 09:04 Resp 24 04/10/16 07:00 BP 101/70 04/10/16 07:00 Pulse Ox 97 04/10/16 09:04 Intake & Output 04/09/16 04/10/16 04/10/16 18:59 06:59 18:59 Intake Total 955.667 743.773 Balance 955.667 743.773 Weight (lbs) 173 lb 3.2 oz Intake: Intake, IV Amount 955.667 743.773 D5-0.45NS 1,000 ml @ 100 601.667 398.333 mls/hr IV .Q10H [facility] Rx#: [id number] Levofloxacin 500mg/100mL 100 500 mg In 100 ml @ 100 mls/hr IV Q24HR [facility] Rx#: [id number] Norepinephrine 4 mg In 254.000 345.44 Dextrose 5% 250 ml @ 4 MCG/MIN 15.24 mls/hr IV TITR PRN Rx#:[id number] Active Medications: Current Medications Acetaminophen (Tylenol) 650 mg PO Q4HR PRN PRN Reason: Pain or Fever >101 Stop: 06/08/16 23:38 Last Admin: 04/10/16 04:03 Dose: 650 mg Al Hydrox/Mg Hydrox/Simethicone (Maalox) 30 ml PO Q6HR PRN PRN Reason: Constipation Stop: 06/08/16 23:35 Albuterol Sulfate (Albuterol 2.5mg/3ml Neb Ud) 2.5 mg IH QID [facility] Stop: 06/09/16 08:59 Last Admin: 04/10/16 09:02 Dose: 2.5 mg Chlorhexidine Gluconate (Peridex) 15 ml MM 08,1999 [facility] Stop: 06/09/16 19:59 Clonidine HCl (Catapres) 0.1 mg PO Q6HR PRN PRN Reason: SBP GREATER THAN 160 Stop: 06/08/16 23:35 Guaifenesin (Robitussin) 100 mg PO Q4H PRN PRN Reason: Cough or Congestion Stop: 06/08/16 23:38 Dextrose/Sodium Chloride (D5-0.45ns) 1,000 mls @ 100 mls/hr IV .Q10H [facility] Stop: 06/08/16 23:44 Last Admin: 04/10/16 10:49 Dose: 100 mls/hr Piperacillin Sod/Tazobactam (Sod 2.25 gm/ Sodium Chloride) 50 mls @ 100 mls/hr IV Q8HR [facility] Stop: 06/09/16 12:59 Norepinephrine Bitartrate 4 mg (/ Dextrose) 254 mls @ 0 mls/hr IV TITR PRN; Protocol; Per Protocol PRN Reason: To Keep SBP Above 90 Stop: 06/09/16 12:31 Insulin Aspart (Novolog) 0 units SUBQ ACHS [facility] PRN Reason: Protocol Stop: 06/09/16 07:29 Last Admin: 04/10/16 12:14 Dose: Not Given Ipratropium [place] (Atrovent Neb 0.5mg/2.5ml) 0.5 mg IH QID [facility] Stop: 06/09/16 08:59 Last Admin: 04/10/16 09:02 Dose: 0.5 mg Methylprednisolone Sodium Succinate (Solu-Medrol) 80 mg IVP Q8HR [facility] Stop: 06/09/16 04:59 Last Admin: 04/10/16 13:02 Dose: 80 mg Miscellaneous (Clinical Monitoring) 1 ea MC PRN PRN PRN Reason: RENAL DOSING Stop: 06/09/16 07:17 Multivitamins/Vitamin C (Theragran) 5 ml GT DAILY [facility] Stop: 06/09/16 11:29 Ondansetron HCl (Zofran) 4 mg IV Q8H PRN PRN Reason: Nausea / Vomiting Stop: 06/08/16 23:38 Internal Medicine Assmt/Plan - Assessment Assessment: ACUTE RESPIRATORY FAILURE ALOC HYPOTENSION
[2016-04-10] MEDS: Multivitamin 5 mL UDC GT SCH (14:45)
--- NOTE | 2016-04-10 17:30 | History & Physical ---
CHIEF COMPLAINT: Desaturation, congestion. HISTORY OF PRESENT ILLNESS: This is a 66-year-old male who was transferred from the Geropsych Unit to the ICU unit. According to nursing staff, the patient started to desat and the patient was noted to have congestion and the patient was altered. For this reason, the patient was transferred to the ICU. The patient was also orally intubated by ER doctor, ____. Chest x-ray was done and the impression is ____ left chest tube ____ left upper lung zone, may be a small residual small left basal pneumothorax. Bilateral lower lung zone infiltrates. PAST MEDICAL HISTORY: Left ____. FAMILY HISTORY: Hypertension. SOCIAL HISTORY: The patient is homeless. SURGICAL HISTORY: None per patient. MEDICATIONS: Please see medication reconciliation sheet. REVIEW OF SYSTEMS: Unable to obtain, the patient is currently intubated. PHYSICAL EXAMINATION: GENERAL: The patient is orally intubated, more awake, in no apparent distress. VITAL SIGNS: Temperature 98.6, heart rate 58, blood pressure of 101/70, respirations 24, O2 98%. HEENT: Head; normocephalic, atraumatic. NECK: Supple. No mass. LUNGS: Rhonchi bilaterally upon auscultation. CARDIOVASCULAR: Regular rate and rhythm. No murmurs or gallops. ABDOMEN: Soft, nontender, nondistended. Positive bowel sounds in all 4 quadrants. ASSESSMENT: Acute respiratory failure and altered level of consciousness. PLAN: We will have lieutenant/deputy on the case. Also, the patient will be orally intubated. The patient will be kept on IV antibiotics. Monitor the patient's ABG level. Get a sputum culture and lactic acid. The patient will be kept on Levophed drip. JOB# [id number]
[2016-04-10] MEDS: Chlorhexidine Gluconate 0.12% 15mL Mouthwash MM SCH (20:06)
[2016-04-11] MEDS ORDERED: Norepinephrine 4 mg/4mL Vial IV ONE (01:43)
[2016-04-11 05:28] LABS: MEAN PLATELET VOLUME 7.3 fl
[2016-04-11 05:34] LABS: MEAN CELL VOLUME 89.8 fl (80-99); MEAN CORPUSCULAR HEMOGLOBIN 30.5 pg (27.0-31.0); PLATELET COUNT 231 Th/cmm (150-400); RED BLOOD COUNT 3.98 Mil/cmm (3.80-5.80)
[2016-04-11 05:48] LABS: BUN/CREATININE RATIO 34.7; CALCIUM SERUM 9.6 mg/dL (8.6-10.3); CARBON DIOXIDE 21.7 mEq/L (21.0-31.0); CREATININE - SERUM 1.9 mg/dL (0.7-1.3); POTASSIUM SERUM 3.7 mEq/L (3.5-5.1)
--- NOTE | 2016-04-11 05:48 | Consultation ---
The patient of Dr. Jade. HISTORY OF PRESENT ILLNESS: This is a 66-year-old male who apparently was admitted to [facility] for psychosis and agitation. He apparently has developed respiratory distress and hypotension and hypoxemia, required to be intubated overnight and so developed left-sided pneumothorax and had hemlich valve in place. The patient stopped a Levophed for low blood pressure, received IV fluids and is intubated and sedated now, appears to be in better shape than earlier. PAST MEDICAL HISTORY: Not available, I am not sure if the patient has history of a smoking or history of COPD in the past. REVIEW OF SYSTEMS: Unable to obtain because of the patient's condition. PHYSICAL EXAMINATION: GENERAL: The patient is intubated and sedated. VITAL SIGNS: Temperature is 101.3, pulse is 130, respiration is 24, blood pressure 101/70, saturation 97%. HEENT: Atraumatic, normocephalic. Pupils reactive to light and accommodation. Ears, Nose, throat normal. NECK: Supple. No JVD. CHEST: There are good breath sounds bilaterally: Few rhonchi in bases. HEART: Regular rate and rhythm. ABDOMEN: Soft, nontender. EXTREMITIES: No edema. LABORATORY DATA: WBC 6.7, hemoglobin is 15.0, hematocrit 44.4, platelets 234. The sodium is 137, potassium 4.2, BUN is 56, creatinine 3.4, lactic acid 3.27. IMPRESSION: This is a 66-year-old male with the, 1. Acute respiratory failure. 2. Pneumonia, right lower lobe. 3. Pneumothorax. 4. Possible underlying chronic obstructive pulmonary disease, I am not sure about that. 5. Underlying history of psychosis or psych issues. 6. Sepsis. 7. Acute renal failure. PLAN: 1. IV fluids. 2. Nebulizer treatment. 3. Pulmonary toilet. 4. Ventilator support. 5. Follow up ABGs and chest x-ray and I will follow the patient with you. Thank you very much for this consultation. JOB# [id number] MICHELLE
[2016-04-11 06:14] LABS: HEMATOCRIT 35.7 % (39.0-49.0); HEMOGLOBIN 12.2 gm/dL (12.6-17.4); WHITE BLOOD COUNT 14.6 Th/cmm (4.8-10.8)
[2016-04-11] MEDS: methylPREDNISolone SS 40 mg Vial IVP SCH ×3 (06:37→20:32)
[2016-04-11] MEDS: INSULIN ASPART, RECOMBINANT 100 UNITS/ML SUBQ SCH ×4 (06:48→20:45)
--- NOTE | 2016-04-11 07:06 | Consultation ---
IDENTIFYING INFORMATION: The patient is a 66-year-old male. REASON FOR CONSULTATION AND HISTORY: I was asked to see this patient who was transferred from [facility] because he had developed ____ became unresponsive and had to be transferred and got intubated. The patient currently is unable to participate in meaningful conversation or express himself because he was intubated; however, he was very agitated when he was in the [facility], he has not been taking medications for the past 2 days, the staff was holding it because he was sedated and he was congested; apparently, developed pneumothorax; however, before that, he was a bit aggressive and agitated. He also was found to have positive urine drug for methamphetamine. PAST PSYCHIATRIC HISTORY: Psychosis, methamphetamine dependence. MEDICAL HISTORY: Deferred to the medical doctor. ALLERGIES: He has no known drug allergy. MEDICATIONS: I had the patient on Haldol Decanoate and later changed to Seroquel 25 mg twice a day, but we have not been giving him that medication for the past 2 days because of the sedation and now withhold given ____ he is more alert. FAMILY AND SOCIAL HISTORY: Please refer her admission record. The patient is homeless, so we do not know if he has any family involved. He was unable to give the staff information. MENTAL STATUS EXAMINATION: The patient was in hospital gow. He was intubated, unable to participate in meaningful conversation or make safe plan for his self-care. Prior to that, ____ 2 days, he was very agitated, combative, hitting staff, yelling, screaming, agitated, needing redirection, unable to test his memory. Currently, his insight and judgment is impaired. IMPRESSION: AXIS I: Psychosis, not otherwise specified and delirium secondary to medical condition. MEDICAL DIAGNOSIS: Deferred to the medical doctor. I would recommend I will follow up with the patient and start his medication when he is more alert. The patient needs to go back to [facility] when medically cleared. Thank you very much for allowing me to participate in the care of this most interesting gentleman. JOB# [id number]
[2016-04-11] MEDS: Albuterol Nebulizer 2.5mg/3mL IH SCH ×4 (08:07→19:36)
[2016-04-11] MEDS: Ipratropium Neb 0.5 mg/2.5 mL UD IH SCH ×4 (08:07→19:37)
[2016-04-11] MEDS: Chlorhexidine Gluconate 0.12% 15mL Mouthwash MM SCH ×2 (08:23→20:28)
[2016-04-11] MEDS: Multivitamin 5 mL UDC GT SCH (08:23)
[2016-04-11 08:35] LABS: ABG SOURCE Arterial; BE(B) 2.8 mmol/L (-3.0-3.0); HCO3 25.7 mmol/L (20.0-26.0)
[2016-04-11 08:36] LABS: ALLEN TEST Positive; FIO2 50; MECH RATE 24; MECH VT 600
--- NOTE | 2016-04-11 09:44 | Diagnostic Imaging Report ---
Portable chest x-ray HISTORY: Shortness of breath Compared to prior exam of 04/10/2016, the heart size is normal. There is accentuation of the lower interstitial lung markings. Faint infiltrate difficult to exclude. No pneumothorax is seen. An endotracheal tube tip is approximately 2.5 cm above the marie. IMPRESSION: 1. Accentuation of the lower interstitial lung markings with questionable faint infiltrates. 2. Endotracheal tube tip approximately 2.5 cm above the marie 3. No pneumothorax
[2016-04-11 10:05] LABS: BAND NEUTROPHILE 35 % (0-10); METAMYELOCYTE 2 % (0-0); NEUTROPHILS 53 % (40-80); PLATELET ESTIMATE ADEQUATE (NORMAL); PLATELET MORPHOLOGY NORMAL (NORMAL); TOTAL CELLS COUNTED 100
[2016-04-11 10:24] LABS: HEMATOCRIT 35.2 % (39.0-49.0); HEMOGLOBIN 12.1 gm/dL (12.6-17.4); MEAN CELL VOLUME 90.6 fl (80-99); MEAN CORPUSCULAR HGB CONC 34.2 pg (28.0-36.0); MEAN PLATELET VOLUME 7.3 fl; PLATELET COUNT 208 Th/cmm (150-400); RED BLOOD COUNT 3.89 Mil/cmm (3.80-5.80); RED CELL DISTRIBUTION WIDTH 13.1 % (11.5-20.0)
[2016-04-11 10:25] LABS: ALB/GLOB RATIO 0.7 (1.0-1.8); BILIRUBIN,TOTAL 0.6 mg/dL (0.3-1.0); BUN/CREATININE RATIO 37.1; CALCIUM SERUM 9.6 mg/dL (8.6-10.3); CARBON DIOXIDE 21.8 mEq/L (21.0-31.0); CREATININE - SERUM 1.7 mg/dL (0.7-1.3); POTASSIUM SERUM 3.8 mEq/L (3.5-5.1)
[2016-04-11 11:01] LABS: BAND NEUTROPHILE 18 % (0-10); METAMYELOCYTE 1 % (0-0); NEUTROPHILS 67 % (40-80); TOTAL CELLS COUNTED 100
[2016-04-11 11:02] LABS: PLATELET ESTIMATE ADEQUATE (NORMAL); PLATELET MORPHOLOGY PLATELET CLUMPS SEEN (NORMAL)
[2016-04-11 13:29] LABS: URINE BILIRUBIN NEGATIVE (NEGATIVE); URINE BLOOD SMALL (NEGATIVE); URINE COLOR YELLOW; URINE GLUCOSE (UA) 100 mg/dL (NEGATIVE); URINE KETONE NEGATIVE (NEGATIVE); URINE PH 5.5; URINE PROTEIN 100 mg/dL (NEGATIVE); URINE UROBILINOGEN 0.2 E.U./dL (0.2 - 1.0)
--- NOTE | 2016-04-11 13:35 | Internal Medicine Prog Note ---
Internal Medicine Subjective - Subjective Patient seen and examined:: with staff, chart reviewed Patient is:: asleep, non-verbal, non-interactive Patient Complaints of:: congestion Per staff patient is:: no adverse event, noncompliant, confused Internal Medicine Objective - Results Result Diagrams: 04/11/16 09:45 04/11/16 09:45 Recent Labs: Laboratory Last Values WBC 12.0 Th/cmm (4.8-10.8) H 04/11/16 09:45 RBC 3.89 Mil/cmm (3.80-5.80) 04/11/16 09:45 Hgb 12.1 gm/dL (12.6-17.4) L 04/11/16 09:45 Hct 35.2 % (39.0-49.0) L 04/11/16 09:45 MCV 90.6 fl (80-99) 04/11/16 09:45 MCH 31.0 pg (27.0-31.0) 04/11/16 09:45 MCHC Differential 34.2 pg (28.0-36.0) 04/11/16 09:45 RDW 13.1 % (11.5-20.0) 04/11/16 09:45 Plt Count 208 Th/cmm (150-400) 04/11/16 09:45 MPV 7.3 fl 04/11/16 09:45 Band Neutrophils % 18 % (0-10) H 04/11/16 09:45 Neutrophils (Manual) 67 % (40-80) 04/11/16 09:45 Lymphocytes 9 % (20-50) L 04/11/16 09:45 Monocytes 5 % (2-10) 04/11/16 09:45 Basophils 1 % (0-3) 04/09/16 23:53 Metamyelocytes 1 % (0-0) H 04/11/16 09:45 Platelet Estimate ADEQUATE (NORMAL) 04/11/16 09:45 Platelet Morphology PLATELET CLUMPS SEEN (NORMAL) 04/11/16 09:45 Ovalocytes 1+ 04/09/16 23:53 RBC Morph Micro Appear NORMAL (NORMAL) 04/11/16 09:45 PT 15.2 SECONDS (9.5-11.5) H 04/09/16 23:53 INR 1.50 (0.5-1.4) H 04/09/16 23:53 PTT (Actin FS) 26.7 SECONDS (26.0-38.0) 04/09/16 23:53 Specimen Source Arterial 04/11/16 08:10 Sample Site Right Radial 04/11/16 08:10 pH 7.50 (7.35-7.45) H 04/11/16 08:10 pCO2 33.0 mmHg (35.0-45.0) L 04/11/16 08:10 pO2 68.0 mmHg (80.0-100.0) L 04/11/16 08:10 HCO3 25.7 mmol/L (20.0-26.0) 04/11/16 08:10 Base Excess 2.8 mmol/L (-3.0-3.0) 04/11/16 08:10 O2 Saturation 95.0 % (92.0-100.0) 04/11/16 08:10 Olvin Test Positive 04/11/16 08:10 Vent Rate 24 04/11/16 08:10 Inspired O2 50 04/11/16 08:10 Tidal Volume 600 04/11/16 08:10 PEEP NA 04/11/16 08:10 Pressure (ins/psv/peep) NA 04/11/16 08:10 Critical Value LZHANG 04/11/16 08:10 Sodium 133 mEq/L (136-145) L 04/11/16 09:45 Potassium 3.8 mEq/L (3.5-5.1) 04/11/16 09:45 Chloride 104 mEq/L (98-107) 04/11/16 09:45 Carbon Dioxide 21.8 mEq/L (21.0-31.0) 04/11/16 09:45 Anion Gap 11.0 (7.0-16.0) 04/11/16 09:45 BUN 63 mg/dL (7-25) H 04/11/16 09:45 Creatinine 1.7 mg/dL (0.7-1.3) H 04/11/16 09:45 Est GFR ( Amer) 52.3 ml/min (>90) 04/11/16 09:45 Est GFR (Non-Af Amer) 43.2 ml/min 04/11/16 09:45 BUN/Creatinine Ratio 37.1 04/11/16 09:45 Glucose 190 mg/dL (70-105) H 04/11/16 09:45 POC Glucose 170 MG/DL (70 - 105) H 04/11/16 11:08 Hemoglobin A1c % 5.3 % (4.0-6.0) 04/09/16 23:53 Whole Bld Lactic Acid 2.05 mmol/L (0.60-2.00) H* 04/11/16 12:30 Calcium 9.6 mg/dL (8.6-10.3) 04/11/16 09:45 Magnesium 2.1 mg/dL (1.9-2.7) 04/09/16 23:53 Total Bilirubin 0.6 mg/dL (0.3-1.0) 04/11/16 09:45 AST 32 U/L (13-39) 04/11/16 09:45 ALT 23 U/L (7-52) 04/11/16 09:45 Alkaline Phosphatase 46 U/L (34-104) 04/11/16 09:45 Ammonia 44 umol/L (16-53) 04/09/16 23:53 B-Natriuretic Peptide 80.7 pg/mL (5.0-100.0) 04/09/16 23:53 Total Protein 7.0 gm/dL (6.0-8.3) 04/11/16 09:45 Albumin 2.8 gm/dL (4.2-5.5) L 04/11/16 09:45 Globulin 4.2 gm/dL 04/11/16 09:45 Albumin/Globulin Ratio 0.7 (1.0-1.8) L 04/11/16 09:45 TSH 1.78 uIU/ml (0.34-5.60) 04/09/16 23:53 Urine Source RANDOM 04/11/16 11:35 Urine Color YELLOW 04/11/16 11:35 Urine Clarity SL. CLOUDY (CLEAR) 04/11/16 11:35 Urine pH 5.5 04/11/16 11:35 Ur Specific [place] 1.025 (1.005-1.030) 04/11/16 11:35 Urine Protein 100 mg/dL (NEGATIVE) H 04/11/16 11:35 Urine Glucose (UA) 100 mg/dL (NEGATIVE) H 04/11/16 11:35 Urine Ketones NEGATIVE mg/dL (NEGATIVE) 04/11/16 11:35 Urine Blood SMALL (NEGATIVE) H 04/11/16 11:35 Urine Nitrate NEGATIVE (NEGATIVE) 04/11/16 11:35 Urine Bilirubin NEGATIVE (NEGATIVE) 04/11/16 11:35 Urine Ictotest POSITIVE (NEGATIVE) H 04/10/16 01:00 Urine Urobilinogen 0.2 E.U./dL (0.2 - 1.0) 04/11/16 11:35 Ur Leukocyte Esterase NEGATIVE (NEGATIVE) 04/11/16 11:35 Urine RBC 0-2 /hpf (0-5) H 04/10/16 01:00 Urine WBC 0-2 /hpf (0-5) 04/10/16 01:00 Ur Epithelial Cells OCCASIONAL /lpf (FEW) 04/10/16 01:00 Urine Bacteria OCCASIONAL /hpf (NONE SEEN) 04/10/16 01:00 - Physical Exam Vitals and I&O: Vital Signs Temp 99.7 F 04/11/16 13:00 Pulse 97 04/11/16 13:00 Resp 24 04/11/16 13:00 BP 109/65 04/11/16 13:00 Pulse Ox 97 04/11/16 13:00 Intake & Output 04/10/16 04/11/16 04/11/16 18:59 06:59 18:59 Intake Total 087.690 9241.333 Output Total 426 100 Balance 458.890 5363.333 -100 Intake: Intake, IV Amount 220.908 6670.333 D5-0.45NS 1,000 ml @ 100 398.333 978.333 mls/hr IV .Q10H [facility] Rx#: [id number] Norepinephrine 4 mg In 345.44 Dextrose 5% 250 ml @ 4 MCG/MIN 15.24 mls/hr IV TITR PRN Rx#:[id number] Norepinephrine 4 mg In 254 Dextrose 5% 250 ml @ Per Protocol IV TITR PRN Rx#: [id number] Piperacillin Sodium/ 50 100 Tazobact 2.25 gm In Sodium Chloride 0.9% 50 ml @ 100 mls/hr IV Q8HR [facility] Rx#:[id number] Oral 100 Tube Feeding 0 Output: Chest Tube Drainage 6 Left Mid-Axillary Chest 6 Urine 420 100 Other: # Bowel Movements 1 0 Active Medications: Current Medications Acetaminophen (Tylenol) 650 mg PO Q4HR PRN PRN Reason: Pain or Fever >101 Stop: 06/08/16 23:38 Last Admin: 04/11/16 13:20 Dose: 650 mg Al Hydrox/Mg Hydrox/Simethicone (Maalox) 30 ml PO Q6HR PRN PRN Reason: Constipation Stop: 06/08/16 23:35 Albuterol Sulfate (Albuterol 2.5mg/3ml Neb Ud) 2.5 mg IH QID [facility] Stop: 06/09/16 08:59 Last Admin: 04/11/16 12:02 Dose: 2.5 mg Chlorhexidine Gluconate (Peridex) 15 ml MM 08,1999 [facility] Stop: 06/09/16 19:59 Last Admin: 04/11/16 08:23 Dose: 15 ml Clonidine HCl (Catapres) 0.1 mg PO Q6HR PRN PRN Reason: SBP GREATER THAN 160 Stop: 06/08/16 23:35 Guaifenesin (Robitussin) 100 mg PO Q4H PRN PRN Reason: Cough or Congestion Stop: 06/08/16 23:38 Piperacillin Sod/Tazobactam (Sod 2.25 gm/ Sodium Chloride) 50 mls @ 100 mls/hr IV Q8HR [facility] Stop: 06/09/16 12:59 Last Admin: 04/11/16 12:47 Dose: 100 mls/hr Norepinephrine Bitartrate 4 mg (/ Dextrose) 254 mls @ 0 mls/hr IV TITR PRN; Protocol; Per Protocol PRN Reason: To Keep SBP Above 90 Stop: 06/09/16 12:31 Last Admin: 04/11/16 01:50 Dose: 6 mcg/min, 22.86 mls/hr Dextrose/Sodium Chloride (D5-0.45ns) 1,000 mls @ 80 mls/hr IV .[id number] [facility] Stop: 06/10/16 13:31 Insulin Aspart (Novolog) 0 units SUBQ ACHS [facility] PRN Reason: Protocol Stop: 06/09/16 07:29 Last Admin: 04/11/16 11:19 Dose: Not Given Ipratropium [place] (Atrovent Neb 0.5mg/2.5ml) 0.5 mg IH QID [facility] Stop: 06/09/16 08:59 Last Admin: 04/11/16 12:02 Dose: 0.5 mg Lactobacillus Rhamnosus (Culturelle) 1 each PO DAILY [facility] Stop: 06/11/16 08:59 Lorazepam (Ativan) 0.5 mg IV Q4HR PRN; Protocol PRN Reason: Restlessness Stop: 06/09/16 09:29 Methylprednisolone Sodium Succinate (Solu-Medrol) 60 mg IVP Q8HR [facility] Stop: 06/10/16 13:32 Miscellaneous (Clinical Monitoring) 1 ea MC PRN PRN PRN Reason: RENAL DOSING Stop: 06/09/16 07:17 Multivitamins/Vitamin C (Theragran) 5 ml GT DAILY [facility] Stop: 06/09/16 14:29 Last Admin: 04/11/16 08:23 Dose: 5 ml Ondansetron HCl (Zofran) 4 mg IV Q8H PRN PRN Reason: Nausea / Vomiting Stop: 06/08/16 23:38 Pantoprazole Sodium (Protonix) 40 mg IVP DAILY [facility] Stop: 06/09/16 13:59 Last Admin: 04/11/16 08:23 Dose: 40 mg General: lethargic, congested HEENT: NC/AT, PERRLA, other (ett) Neck: Supple Lungs: congested, rales Cardiovascular: RRR, Normal S1, Normal S2 Abdomen: soft non-tender, globular, non-distended Extremities: excoriation Neurological: no change - Procedures Procedures: Procedures Procedure Code Date DRAINAGE OF L PLEURAL CAV WITH DRAIN DEV, OPEN APPROACH [id number] 04/09/16 INSERT EMERGENCY AIRWAY 54779 04/09/16 INSERTION OF CHEST TUBE 81563 04/09/16 INSERTION OF ENDOTRACHEAL AIRWAY INTO TRACHEA, VIA OPENING [id number] 04/09/16 RESPIRATORY VENTILATION, 24-96 CONSECUTIVE HOURS [id number] 04/09/16 VENT MGMT INPAT INIT DAY 71202 04/09/16 VENT MGMT INPAT SUBQ DAY 11045 04/09/16 Internal Medicine Assmt/Plan - Assessment Assessment: ACUTE RESPIRATORY FAILURE ALOC HYPOTENSION pmn leukocytosis anemia ptx - Plan Plan: cont w chest tube vent support and weaning cont on iv abx 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
[2016-04-11 13:36] LABS: URINE BACTERIA OCCASIONAL /hpf (NONE SEEN); URINE EPITHELIAL CELLS RARE /lpf (FEW); URINE RBC 0-1 /hpf (0-5); URINE URIC ACID CRYSTALS MODERATE /hpf (NONE SEEN); URINE WBC NONE SEEN /hpf (0-5)
[2016-04-11 16:16] LABS: FOLIC ACID 14.9 ng/mL (>3.0)
[2016-04-11] MEDS: D5-0.45NS 1,000 ML IV SCH ×2 (17:13→20:30)
[2016-04-12] MEDS: methylPREDNISolone SS 40 mg Vial IVP SCH ×3 (05:33→20:36)
[2016-04-12 05:43] LABS: % EOSINOPHILS 0.1 % (0.0-5.0); % LYMPHOCYTES 9.1 % (20.0-50.0); % MONOCYTES 6.6 % (2.0-10.0); % NEUTROPHILS 84.2 % (40.0-80.0); HEMATOCRIT 33.5 % (39.0-49.0); HEMOGLOBIN 11.6 gm/dL (12.6-17.4); MEAN CELL VOLUME 90.9 fl (80-99); MEAN CORPUSCULAR HEMOGLOBIN 31.4 pg (27.0-31.0); MEAN CORPUSCULAR HGB CONC 34.5 pg (28.0-36.0); MEAN PLATELET VOLUME 7.3 fl; NEUTROPHILE ABSOLUTE 5.2 Th/cmm (1.8-8.0); PLATELET COUNT 171 Th/cmm (150-400); RED BLOOD COUNT 3.69 Mil/cmm (3.80-5.80); RED CELL DISTRIBUTION WIDTH 12.6 % (11.5-20.0)
[2016-04-12 06:06] LABS: WHITE BLOOD COUNT 6.2 Th/cmm (4.8-10.8)
[2016-04-12 06:20] LABS: ANION GAP 7.3 (7.0-16.0); BUN - UREA NITROGEN 55 mg/dL (7-25); CALCIUM SERUM 9.3 mg/dL (8.6-10.3); CARBON DIOXIDE 24.5 mEq/L (21.0-31.0); CHLORIDE 106 mEq/L (98-107); GLUCOSE 190 mg/dL (70-105); MAGNESIUM 2.2 mg/dL (1.9-2.7); PHOSPHOROUS 2.8 mg/dL (2.5-5.0); POTASSIUM SERUM 3.8 mEq/L (3.5-5.1); SODIUM SERUM 134 mEq/L (136-145)
[2016-04-12] MEDS: INSULIN ASPART, RECOMBINANT 100 UNITS/ML SUBQ SCH ×4 (06:29→20:40)
[2016-04-12 06:51] LABS: BNP 86.9 pg/mL (5.0-100.0)
--- NOTE | 2016-04-12 06:59 | Progress Notes ---
Case was discussed with staff of the patient, reviewed records. The patient continues to be in ICU. He is intubated, unable to carrying out conversation. He is still out of his medication because of his medical condition. He will need to be transferred back to [facility] when medically cleared. ____ work on his discharge plan. Thank you very much for allowing me to participate in the care of this most interesting gentleman. JOB# [id number]
[2016-04-12] MEDS: Albuterol Nebulizer 2.5mg/3mL IH SCH ×4 (07:28→19:28)
[2016-04-12] MEDS: Ipratropium Neb 0.5 mg/2.5 mL UD IH SCH ×4 (07:28→19:28)
[2016-04-12 08:44] LABS: ABG SOURCE Arterial; BE(B) 3.5 mmol/L (-3.0-3.0); FIO2 50; HCO3 26.7 mmol/L (20.0-26.0); MECH RATE 14; MECH VT 600; pH 7.49 (7.35-7.45)
[2016-04-12] MEDS ORDERED: Lactobacillus Rhamnosus 10 Billion CFU Capsule PO SCH (09:00)
[2016-04-12] MEDS: Multivitamin 5 mL UDC GT SCH (09:05)
[2016-04-12] MEDS: D5-0.45NS 1,000 ML IV SCH ×2 (09:17→18:09)
[2016-04-12] MEDS: Chlorhexidine Gluconate 0.12% 15mL Mouthwash MM SCH (09:22)
--- NOTE | 2016-04-12 11:08 | Diagnostic Imaging Report ---
Portable chest x-ray HISTORY: Shortness of breath Compared with the prior exam with a grade 2, 2017, there remains haziness in the right lower lobe. Faint infiltrate is difficult to exclude. No definite focal processes seen within the left lower lobe. An endotracheal tube tip is approximately 3.0 cm above the marie. A nasogastric tube projects over the stomach. No change in small caliber left chest tube position. IMPRESSION: 1. Haziness right lower lobe. Faint infiltrate is difficult to exclude. 2. No pneumothorax
--- NOTE | 2016-04-12 12:56 | Internal Medicine Prog Note ---
Internal Medicine Subjective - Subjective Patient seen and examined:: with staff, chart reviewed Patient is:: asleep, non-interactive Patient Complaints of:: congestion Per staff patient is:: noncompliant, confused, other (ngt ) Internal Medicine Objective - Results Result Diagrams: 04/12/16 04:55 04/12/16 04:55 Recent Labs: Laboratory Last Values WBC 6.2 Th/cmm (4.8-10.8) D 04/12/16 04:55 RBC 3.69 Mil/cmm (3.80-5.80) L 04/12/16 04:55 Hgb 11.6 gm/dL (12.6-17.4) L 04/12/16 04:55 Hct 33.5 % (39.0-49.0) L 04/12/16 04:55 MCV 90.9 fl (80-99) 04/12/16 04:55 MCH 31.4 pg (27.0-31.0) H 04/12/16 04:55 MCHC Differential 34.5 pg (28.0-36.0) 04/12/16 04:55 RDW 12.6 % (11.5-20.0) 04/12/16 04:55 Plt Count 171 Th/cmm (150-400) 04/12/16 04:55 MPV 7.3 fl 04/12/16 04:55 Neutrophils % 84.2 % (40.0-80.0) H 04/12/16 04:55 Band Neutrophils % 18 % (0-10) H 04/11/16 09:45 Lymphocytes % 9.1 % (20.0-50.0) L 04/12/16 04:55 Monocytes % 6.6 % (2.0-10.0) 04/12/16 04:55 Eosinophils % 0.1 % (0.0-5.0) 04/12/16 04:55 Basophils % 0.0 % (0.0-2.0) 04/12/16 04:55 Neutrophils (Manual) 67 % (40-80) 04/11/16 09:45 Lymphocytes 9 % (20-50) L 04/11/16 09:45 Monocytes 5 % (2-10) 04/11/16 09:45 Basophils 1 % (0-3) 04/09/16 23:53 Metamyelocytes 1 % (0-0) H 04/11/16 09:45 Platelet Estimate ADEQUATE (NORMAL) 04/11/16 09:45 Platelet Morphology PLATELET CLUMPS SEEN (NORMAL) 04/11/16 09:45 Ovalocytes 1+ 04/09/16 23:53 RBC Morph Micro Appear NORMAL (NORMAL) 04/11/16 09:45 PT 15.2 SECONDS (9.5-11.5) H 04/09/16 23:53 INR 1.50 (0.5-1.4) H 04/09/16 23:53 PTT (Actin FS) 26.7 SECONDS (26.0-38.0) 04/09/16 23:53 Specimen Source Arterial 04/12/16 08:25 Sample Site RB 04/12/16 08:25 pH 7.49 (7.35-7.45) H 04/12/16 08:25 pCO2 35.0 mmHg (35.0-45.0) 04/12/16 08:25 pO2 80.0 mmHg (80.0-100.0) 04/12/16 08:25 HCO3 26.7 mmol/L (20.0-26.0) H 04/12/16 08:25 Base Excess 3.5 mmol/L (-3.0-3.0) H 04/12/16 08:25 O2 Saturation 97.0 % (92.0-100.0) 04/12/16 08:25 Olvin Test NA 04/12/16 08:25 Vent Rate 14 04/12/16 08:25 Inspired O2 50 04/12/16 08:25 Tidal Volume 600 04/12/16 08:25 PEEP 0 04/12/16 08:25 Pressure (ins/psv/peep) NA 04/12/16 08:25 Critical Value E.ROME 04/12/16 08:25 Sodium 134 mEq/L (136-145) L 04/12/16 04:55 Potassium 3.8 mEq/L (3.5-5.1) 04/12/16 04:55 Chloride 106 mEq/L (98-107) 04/12/16 04:55 Carbon Dioxide 24.5 mEq/L (21.0-31.0) 04/12/16 04:55 Anion Gap 7.3 (7.0-16.0) 04/12/16 04:55 BUN 55 mg/dL (7-25) H 04/12/16 04:55 Creatinine 1.0 mg/dL (0.7-1.3) 04/12/16 04:55 Est GFR ( Amer) > 60.0 ml/min (>90) 04/12/16 04:55 Est GFR (Non-Af Amer) > 60.0 ml/min 04/12/16 04:55 BUN/Creatinine Ratio 55.0 04/12/16 04:55 Glucose 190 mg/dL (70-105) H 04/12/16 04:55 POC Glucose 179 MG/DL (70 - 105) H 04/12/16 05:37 Hemoglobin A1c % 5.3 % (4.0-6.0) 04/09/16 23:53 Whole Bld Lactic Acid 2.05 mmol/L (0.60-2.00) H* 04/11/16 12:30 Calcium 9.3 mg/dL (8.6-10.3) 04/12/16 04:55 Phosphorus 2.8 mg/dL (2.5-5.0) 04/12/16 04:55 Magnesium 2.2 mg/dL (1.9-2.7) 04/12/16 04:55 Total Bilirubin 0.6 mg/dL (0.3-1.0) 04/11/16 09:45 AST 32 U/L (13-39) 04/11/16 09:45 ALT 23 U/L (7-52) 04/11/16 09:45 Alkaline Phosphatase 46 U/L (34-104) 04/11/16 09:45 Ammonia 50 umol/L (16-53) 04/12/16 04:55 B-Natriuretic Peptide 86.9 pg/mL (5.0-100.0) 04/12/16 04:55 Total Protein 7.0 gm/dL (6.0-8.3) 04/11/16 09:45 Albumin 2.8 gm/dL (4.2-5.5) L 04/11/16 09:45 Globulin 4.2 gm/dL 04/11/16 09:45 Albumin/Globulin Ratio 0.7 (1.0-1.8) L 04/11/16 09:45 Vitamin B12 1409 pg/mL (211-946) H 04/09/16 23:53 Folic Acid 14.9 ng/mL (>3.0) 04/09/16 23:53 TSH 1.78 uIU/ml (0.34-5.60) 04/09/16 23:53 Urine Source RANDOM 04/11/16 11:35 Urine Color YELLOW 04/11/16 11:35 Urine Clarity SL. CLOUDY (CLEAR) 04/11/16 11:35 Urine pH 5.5 04/11/16 11:35 Ur Specific [place] 1.025 (1.005-1.030) 04/11/16 11:35 Urine Protein 100 mg/dL (NEGATIVE) H 04/11/16 11:35 Urine Glucose (UA) 100 mg/dL (NEGATIVE) H 04/11/16 11:35 Urine Ketones NEGATIVE mg/dL (NEGATIVE) 04/11/16 11:35 Urine Blood SMALL (NEGATIVE) H 04/11/16 11:35 Urine Nitrate NEGATIVE (NEGATIVE) 04/11/16 11:35 Urine Bilirubin NEGATIVE (NEGATIVE) 04/11/16 11:35 Urine Ictotest POSITIVE (NEGATIVE) H 04/10/16 01:00 Urine Urobilinogen 0.2 E.U./dL (0.2 - 1.0) 04/11/16 11:35 Ur Leukocyte Esterase NEGATIVE (NEGATIVE) 04/11/16 11:35 Urine RBC 0-1 /hpf (0-5) 04/11/16 11:35 Urine WBC NONE SEEN /hpf (0-5) 04/11/16 11:35 Ur Epithelial Cells RARE /lpf (FEW) 04/11/16 11:35 Uric Acid Crystals MODERATE /hpf (NONE SEEN) 04/11/16 11:35 Urine Bacteria OCCASIONAL /hpf (NONE SEEN) 04/11/16 11:35 - Physical Exam Vitals and I&O: Vital Signs Temp 98.5 F 04/12/16 08:00 Pulse 96 04/12/16 11:18 Resp 21 04/12/16 08:00 BP 127/56 04/12/16 11:00 Pulse Ox 96 04/12/16 11:18 Intake & Output 04/11/16 04/12/16 04/12/16 18:59 06:59 18:59 Intake Total 270 319.638 8411 Output Total 750 1000 Balance -480 -280.976 0629 Intake: Intake, IV Amount 50 413.386 5754 D5-0.45NS 1,000 ml @ 80 357.449 7914 mls/hr IV .[id number] [facility] Rx #:[id number] Piperacillin Sodium/ 50 100 Tazobact 2.25 gm In Sodium Chloride 0.9% 50 ml @ 100 mls/hr IV Q8HR [facility] Rx#:[id number] Tube Feeding 0 Other 220 Output: Chest Tube Drainage 0 Left Mid-Axillary Chest 0 Urine 750 1000 Other: # Bowel Movements 0 0 Active Medications: Current Medications Acetaminophen (Tylenol) 650 mg PO Q4HR PRN PRN Reason: Pain or Fever >101 Stop: 06/08/16 23:38 Last Admin: 04/11/16 13:20 Dose: 650 mg Al Hydrox/Mg Hydrox/Simethicone (Maalox) 30 ml PO Q6HR PRN PRN Reason: Constipation Stop: 06/08/16 23:35 Albuterol Sulfate (Albuterol 2.5mg/3ml Neb Ud) 2.5 mg IH QID [facility] Stop: 06/09/16 08:59 Last Admin: 04/12/16 11:18 Dose: 2.5 mg Chlorhexidine Gluconate (Peridex) 15 ml MM 0800,1999 [facility] Stop: 06/09/16 19:59 Last Admin: 04/12/16 09:22 Dose: 15 ml Clonidine HCl (Catapres) 0.1 mg PO Q6HR PRN PRN Reason: SBP GREATER THAN 160 Stop: 06/08/16 23:35 Guaifenesin (Robitussin) 100 mg PO Q4H PRN PRN Reason: Cough or Congestion Stop: 06/08/16 23:38 Piperacillin Sod/Tazobactam (Sod 2.25 gm/ Sodium Chloride) 50 mls @ 100 mls/hr IV Q8HR [facility] Stop: 06/09/16 12:59 Last Admin: 04/12/16 12:38 Dose: 100 mls/hr Norepinephrine Bitartrate 4 mg (/ Dextrose) 254 mls @ 0 mls/hr IV TITR PRN; Protocol; Per Protocol PRN Reason: To Keep SBP Above 90 Stop: 06/09/16 12:31 Last Admin: 04/11/16 01:50 Dose: 6 mcg/min, 22.86 mls/hr Dextrose/Sodium Chloride (D5-0.45ns) 1,000 mls @ 80 mls/hr IV .[id number] [facility] Stop: 06/10/16 13:31 Last Admin: 04/12/16 09:17 Dose: 80 mls/hr Insulin Aspart (Novolog) 0 units SUBQ ACHS [facility] PRN Reason: Protocol Stop: 06/09/16 07:29 Last Admin: 04/12/16 12:47 Dose: Not Given Ipratropium [place] (Atrovent Neb 0.5mg/2.5ml) 0.5 mg IH QID [facility] Stop: 06/09/16 08:59 Last Admin: 04/12/16 11:18 Dose: 0.5 mg Lactobacillus Rhamnosus (Culturelle) 1 each PO DAILY [facility] Stop: 06/11/16 08:59 Last Admin: 04/12/16 09:05 Dose: 1 each Lorazepam (Ativan) 0.5 mg IV Q4HR PRN; Protocol PRN Reason: Restlessness Stop: 06/09/16 09:29 Last Admin: 04/12/16 00:20 Dose: 0.5 mg Methylprednisolone Sodium Succinate (Solu-Medrol) 60 mg IVP Q8HR [facility] Stop: 06/10/16 13:32 Last Admin: 04/12/16 12:39 Dose: 60 mg Miscellaneous (Clinical Monitoring) 1 ea MC PRN PRN PRN Reason: RENAL DOSING Stop: 06/09/16 07:17 Multivitamins/Vitamin C (Theragran) 5 ml GT DAILY [facility] Stop: 06/09/16 14:29 Last Admin: 04/12/16 09:05 Dose: 5 ml Ondansetron HCl (Zofran) 4 mg IV Q8H PRN PRN Reason: Nausea / Vomiting Stop: 06/08/16 23:38 Pantoprazole Sodium (Protonix) 40 mg IVP DAILY [facility] Stop: 06/09/16 13:59 Last Admin: 04/12/16 09:05 Dose: 40 mg General: lethargic, demented HEENT: NC/AT, PERRLA Neck: Supple, No JVD Lungs: congested, rales, ronchi Cardiovascular: RRR, Normal S1, Normal S2 Abdomen: soft non-tender, globular Extremities: excoriation, contracture Neurological: no change - Procedures Procedures: Procedures Procedure Code Date DRAINAGE OF L PLEURAL CAV WITH DRAIN DEV, OPEN APPROACH [id number] 04/09/16 INSERT EMERGENCY AIRWAY 16426 04/09/16 INSERTION OF CHEST TUBE 96318 04/09/16 INSERTION OF ENDOTRACHEAL AIRWAY INTO TRACHEA, VIA OPENING [id number] 04/09/16 RESPIRATORY VENTILATION, 24-96 CONSECUTIVE HOURS [id number] 04/09/16 VENT MGMT INPAT INIT DAY 63821 04/09/16 VENT MGMT INPAT SUBQ DAY 12191 04/09/16 Internal Medicine Assmt/Plan - Assessment Assessment: ACUTE RESPIRATORY FAILURE ALOC HYPOTENSION pmn leukocytosis anemia ptx - Plan Plan: cont w chest tube vent support and weaning cont on iv 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
[2016-04-12 15:41] LABS: ABG SOURCE Arterial; BE(B) 2.8 mmol/L (-3.0-3.0); FIO2 50; HCO3 26.1 mmol/L (20.0-26.0); pH 7.48 (7.35-7.45)
[2016-04-12] MEDS: Lactobacillus Rhamnosus 10 Billion CFU Capsule PO SCH ×2 (18:28→22:21)
--- NOTE | 2016-04-13 02:56 | Progress Notes ---
He is currently in ICU. The patient is still intubated, unable to carry on a conversation. Staff reports sometimes he gets agitated. He is prescribed Ativan for that. The patient has sepsis and he is on the sepsis protocol. Continues to be unable to participate in a meaningful conversation or make safe plan for himself, continues to have poor insight. I am withholding his psychotropic medication, the Seroquel ____ and Depakote and we will reinstate it when he is off the ventilator depending on how he is doing and need to go to [facility] when medically cleared because of his agitation that was very severe when he was there. Thank you very much for allowing me to participate in the care of this most interesting gentleman. JOB# [id number]
[2016-04-13] MEDS: D5-0.45NS 1,000 ML IV SCH ×2 (04:10→18:12)
[2016-04-13] MEDS: methylPREDNISolone SS 40 mg Vial IVP SCH ×3 (04:23→21:04)
[2016-04-13 05:21] LABS: % EOSINOPHILS 0.1 % (0.0-5.0); % LYMPHOCYTES 9.3 % (20.0-50.0); % MONOCYTES 8.9 % (2.0-10.0); % NEUTROPHILS 81.7 % (40.0-80.0); HEMOGLOBIN 12.2 gm/dL (12.6-17.4); MEAN CELL VOLUME 91.3 fl (80-99); MEAN CORPUSCULAR HEMOGLOBIN 31.1 pg (27.0-31.0); MEAN PLATELET VOLUME 7.1 fl; NEUTROPHILE ABSOLUTE 4.3 Th/cmm (1.8-8.0); PLATELET COUNT 161 Th/cmm (150-400); RED BLOOD COUNT 3.94 Mil/cmm (3.80-5.80); RED CELL DISTRIBUTION WIDTH 12.4 % (11.5-20.0); WHITE BLOOD COUNT 5.3 Th/cmm (4.8-10.8)
[2016-04-13 06:37] LABS: ALB/GLOB RATIO 0.7 (1.0-1.8); ALKALINE PHOSPHATASE 39 U/L (34-104); ANION GAP 8.3 (7.0-16.0); BILIRUBIN,TOTAL 0.6 mg/dL (0.3-1.0); BUN - UREA NITROGEN 52 mg/dL (7-25); BUN/CREATININE RATIO 57.8; CALCIUM SERUM 9.2 mg/dL (8.6-10.3); CARBON DIOXIDE 24.3 mEq/L (21.0-31.0); CHLORIDE 108 mEq/L (98-107); CREATININE - SERUM 0.9 mg/dL (0.7-1.3); GLUCOSE 182 mg/dL (70-105); MAGNESIUM 2.2 mg/dL (1.9-2.7); POTASSIUM SERUM 3.6 mEq/L (3.5-5.1); SGOT 26 U/L (13-39); SGPT/ALT 30 U/L (7-52); SODIUM SERUM 137 mEq/L (136-145)
[2016-04-13] MEDS: INSULIN ASPART, RECOMBINANT 100 UNITS/ML SUBQ SCH ×4 (06:51→21:00)
[2016-04-13] MEDS: Ipratropium Neb 0.5 mg/2.5 mL UD IH SCH ×4 (07:22→10:58)
[2016-04-13] MEDS: Albuterol Nebulizer 2.5mg/3mL IH SCH ×4 (07:22→10:58)
[2016-04-13] MEDS: Lactobacillus Rhamnosus 10 Billion CFU Capsule PO SCH ×3 (09:25→21:05)
[2016-04-13] MEDS: Multivitamin 5 mL UDC GT SCH (09:27)
[2016-04-13 10:15] LABS: FOLIC ACID 7.8 ng/mL (>3.0)
--- NOTE | 2016-04-13 11:17 | Internal Medicine Prog Note ---
Internal Medicine Subjective - Subjective Patient seen and examined:: with staff, chart reviewed Patient is:: awake, verbal, interactive Patient Complaints of:: congestion, headache Per staff patient is:: confused Internal Medicine Objective - Results Result Diagrams: 04/13/16 04:52 04/13/16 04:52 Recent Labs: Laboratory Last Values WBC 5.3 Th/cmm (4.8-10.8) 04/13/16 04:52 RBC 3.94 Mil/cmm (3.80-5.80) 04/13/16 04:52 Hgb 12.2 gm/dL (12.6-17.4) L 04/13/16 04:52 Hct 36.0 % (39.0-49.0) L 04/13/16 04:52 MCV 91.3 fl (80-99) 04/13/16 04:52 MCH 31.1 pg (27.0-31.0) H 04/13/16 04:52 MCHC Differential 34.0 pg (28.0-36.0) 04/13/16 04:52 RDW 12.4 % (11.5-20.0) 04/13/16 04:52 Plt Count 161 Th/cmm (150-400) 04/13/16 04:52 MPV 7.1 fl 04/13/16 04:52 Neutrophils % 81.7 % (40.0-80.0) H 04/13/16 04:52 Band Neutrophils % 18 % (0-10) H 04/11/16 09:45 Lymphocytes % 9.3 % (20.0-50.0) L 04/13/16 04:52 Monocytes % 8.9 % (2.0-10.0) 04/13/16 04:52 Eosinophils % 0.1 % (0.0-5.0) 04/13/16 04:52 Basophils % 0.0 % (0.0-2.0) 04/13/16 04:52 Neutrophils (Manual) 67 % (40-80) 04/11/16 09:45 Lymphocytes 9 % (20-50) L 04/11/16 09:45 Monocytes 5 % (2-10) 04/11/16 09:45 Basophils 1 % (0-3) 04/09/16 23:53 Metamyelocytes 1 % (0-0) H 04/11/16 09:45 Platelet Estimate ADEQUATE (NORMAL) 04/11/16 09:45 Platelet Morphology PLATELET CLUMPS SEEN (NORMAL) 04/11/16 09:45 Ovalocytes 1+ 04/09/16 23:53 RBC Morph Micro Appear NORMAL (NORMAL) 04/11/16 09:45 PT 15.2 SECONDS (9.5-11.5) H 04/09/16 23:53 INR 1.50 (0.5-1.4) H 04/09/16 23:53 PTT (Actin FS) 26.7 SECONDS (26.0-38.0) 04/09/16 23:53 Specimen Source Arterial 04/12/16 15:20 Sample Site RB 04/12/16 15:20 pH 7.48 (7.35-7.45) H 04/12/16 15:20 pCO2 35.0 mmHg (35.0-45.0) 04/12/16 15:20 pO2 75.0 mmHg (80.0-100.0) L 04/12/16 15:20 HCO3 26.1 mmol/L (20.0-26.0) H 04/12/16 15:20 Base Excess 2.8 mmol/L (-3.0-3.0) 04/12/16 15:20 O2 Saturation 96.0 % (92.0-100.0) 04/12/16 15:20 Olvin Test NA 04/12/16 15:20 Vent Rate NA 04/12/16 15:20 Inspired O2 50 04/12/16 15:20 Tidal Volume NA 04/12/16 15:20 PEEP NA 04/12/16 15:20 Pressure (ins/psv/peep) NA 04/12/16 15:20 Critical Value E.ROME 04/12/16 15:20 Sodium 137 mEq/L (136-145) 04/13/16 04:52 Potassium 3.6 mEq/L (3.5-5.1) 04/13/16 04:52 Chloride 108 mEq/L (98-107) H 04/13/16 04:52 Carbon Dioxide 24.3 mEq/L (21.0-31.0) 04/13/16 04:52 Anion Gap 8.3 (7.0-16.0) 04/13/16 04:52 BUN 52 mg/dL (7-25) H 04/13/16 04:52 Creatinine 0.9 mg/dL (0.7-1.3) 04/13/16 04:52 Est GFR ( Amer) > 60.0 ml/min (>90) 04/13/16 04:52 Est GFR (Non-Af Amer) > 60.0 ml/min 04/13/16 04:52 BUN/Creatinine Ratio 57.8 04/13/16 04:52 Glucose 182 mg/dL (70-105) H 04/13/16 04:52 POC Glucose 194 MG/DL (70 - 105) H 04/12/16 20:34 Hemoglobin A1c % 5.3 % (4.0-6.0) 04/09/16 23:53 Whole Bld Lactic Acid 2.05 mmol/L (0.60-2.00) H* 04/11/16 12:30 Calcium 9.2 mg/dL (8.6-10.3) 04/13/16 04:52 Phosphorus 2.8 mg/dL (2.5-5.0) 04/12/16 04:55 Magnesium 2.2 mg/dL (1.9-2.7) 04/13/16 04:52 Total Bilirubin 0.6 mg/dL (0.3-1.0) 04/13/16 04:52 AST 26 U/L (13-39) 04/13/16 04:52 ALT 30 U/L (7-52) 04/13/16 04:52 Alkaline Phosphatase 39 U/L (34-104) 04/13/16 04:52 Ammonia 42 umol/L (16-53) 04/13/16 04:52 B-Natriuretic Peptide 86.9 pg/mL (5.0-100.0) 04/12/16 04:55 Total Protein 6.8 gm/dL (6.0-8.3) 04/13/16 04:52 Albumin 2.8 gm/dL (4.2-5.5) L 04/13/16 04:52 Globulin 4.0 gm/dL 04/13/16 04:52 Albumin/Globulin Ratio 0.7 (1.0-1.8) L 04/13/16 04:52 Vitamin B12 1144 pg/mL (211-946) H 04/12/16 04:55 Folic Acid 7.8 ng/mL (>3.0) 04/12/16 04:55 TSH 1.78 uIU/ml (0.34-5.60) 04/09/16 23:53 Urine Source RANDOM 04/11/16 11:35 Urine Color YELLOW 04/11/16 11:35 Urine Clarity SL. CLOUDY (CLEAR) 04/11/16 11:35 Urine pH 5.5 04/11/16 11:35 Ur Specific [place] 1.025 (1.005-1.030) 04/11/16 11:35 Urine Protein 100 mg/dL (NEGATIVE) H 04/11/16 11:35 Urine Glucose (UA) 100 mg/dL (NEGATIVE) H 04/11/16 11:35 Urine Ketones NEGATIVE mg/dL (NEGATIVE) 04/11/16 11:35 Urine Blood SMALL (NEGATIVE) H 04/11/16 11:35 Urine Nitrate NEGATIVE (NEGATIVE) 04/11/16 11:35 Urine Bilirubin NEGATIVE (NEGATIVE) 04/11/16 11:35 Urine Ictotest POSITIVE (NEGATIVE) H 04/10/16 01:00 Urine Urobilinogen 0.2 E.U./dL (0.2 - 1.0) 04/11/16 11:35 Ur Leukocyte Esterase NEGATIVE (NEGATIVE) 04/11/16 11:35 Urine RBC 0-1 /hpf (0-5) 04/11/16 11:35 Urine WBC NONE SEEN /hpf (0-5) 04/11/16 11:35 Ur Epithelial Cells RARE /lpf (FEW) 04/11/16 11:35 Uric Acid Crystals MODERATE /hpf (NONE SEEN) 04/11/16 11:35 Urine Bacteria OCCASIONAL /hpf (NONE SEEN) 04/11/16 11:35 - Physical Exam Vitals and I&O: Vital Signs Temp 97.8 F 04/13/16 04:00 Pulse 77 04/13/16 10:54 Resp 24 04/13/16 10:54 BP 161/107 04/13/16 06:30 Pulse Ox 95 04/13/16 10:54 Intake & Output 04/12/16 04/13/16 04/13/16 18:59 06:59 18:59 Intake Total 1889.333 851.333 Output Total 1451 900 Balance 438.333 -48.667 Intake: Intake, IV Amount 1759.333 851.333 D5-0.45NS 1,000 ml @ 80 1709.333 801.333 mls/hr IV .[id number] [facility] Rx #:[id number] Piperacillin Sodium/ 50 50 Tazobact 2.25 gm In Sodium Chloride 0.9% 50 ml @ 100 mls/hr IV Q8HR [facility] Rx#:[id number] Oral 80 0 Other 50 Output: Urine 1450 900 Stool 1 Other: # Bowel Movements 1 0 Stool Characteristics Soft Brown Active Medications: Current Medications Acetaminophen (Tylenol) 650 mg PO Q4HR PRN PRN Reason: Pain or Fever >101 Stop: 06/08/16 23:38 Last Admin: 04/11/16 13:20 Dose: 650 mg Al Hydrox/Mg Hydrox/Simethicone (Maalox) 30 ml PO Q6HR PRN PRN Reason: Constipation Stop: 06/08/16 23:35 Albuterol Sulfate (Albuterol 2.5mg/3ml Neb Ud) 2.5 mg IH QID [facility] Stop: 06/09/16 08:59 Last Admin: 04/13/16 10:58 Dose: 2.5 mg Clonidine HCl (Catapres) 0.1 mg PO Q6HR PRN PRN Reason: SBP GREATER THAN 160 Stop: 06/08/16 23:35 Enalaprilat (Vasotec) 1.25 mg IVP Q6HR PRN PRN Reason: FOR SBP>160 Stop: 06/12/16 23:18 Last Admin: 04/13/16 06:20 Dose: 1.25 mg Guaifenesin (Robitussin) 100 mg PO Q4H PRN PRN Reason: Cough or Congestion Stop: 06/08/16 23:38 Piperacillin Sod/Tazobactam (Sod 2.25 gm/ Sodium Chloride) 50 mls @ 100 mls/hr IV Q8HR [facility] Stop: 06/09/16 12:59 Last Admin: 04/13/16 04:11 Dose: 100 mls/hr Norepinephrine Bitartrate 4 mg (/ Dextrose) 254 mls @ 0 mls/hr IV TITR PRN; Protocol; Per Protocol PRN Reason: To Keep SBP Above 90 Stop: 06/09/16 12:31 Last Admin: 04/11/16 01:50 Dose: 6 mcg/min, 22.86 mls/hr Dextrose/Sodium Chloride (D5-0.45ns) 1,000 mls @ 80 mls/hr IV .[id number] [facility] Stop: 06/10/16 13:31 Last Admin: 04/13/16 04:10 Dose: 80 mls/hr Insulin Aspart (Novolog) 0 units SUBQ ACHS [facility] PRN Reason: Protocol Stop: 06/09/16 07:29 Last Admin: 04/13/16 06:51 Dose: Not Given Ipratropium [place] (Atrovent Neb 0.5mg/2.5ml) 0.5 mg IH QID [facility] Stop: 06/09/16 08:59 Last Admin: 04/13/16 10:58 Dose: 0.5 mg Lactobacillus Rhamnosus (Culturelle) 1 each PO TID [facility] Stop: 06/11/16 13:59 Last Admin: 04/13/16 09:25 Dose: Not Given Lorazepam (Ativan) 1 mg IV Q4HR PRN; Protocol PRN Reason: agitation Stop: 06/11/16 21:49 Last Admin: 04/13/16 02:30 Dose: 1 mg Methylprednisolone Sodium Succinate (Solu-Medrol) 60 mg IVP Q8HR [facility] Stop: 06/10/16 13:32 Last Admin: 04/13/16 04:23 Dose: 60 mg Miscellaneous (Clinical Monitoring) 1 ea MC PRN PRN PRN Reason: RENAL DOSING Stop: 06/09/16 07:17 Multivitamins/Vitamin C (Theragran) 5 ml GT DAILY [facility] Stop: 06/09/16 14:29 Last Admin: 04/13/16 09:27 Dose: Not Given Ondansetron HCl (Zofran) 4 mg IV Q8H PRN PRN Reason: Nausea / Vomiting Stop: 06/08/16 23:38 Pantoprazole Sodium (Protonix) 40 mg IVP DAILY [facility] Stop: 06/09/16 13:59 Last Admin: 04/13/16 09:23 Dose: 40 mg General: lethargic HEENT: NC/AT, PERRLA Neck: Supple, No JVD Lungs: congested, rales, ronchi Cardiovascular: RRR, Normal S1, Normal S2 Abdomen: soft non-tender, globular, positive bowel sound Extremities: excoriation Neurological: no change - Procedures Procedures: Procedures Procedure Code Date DRAINAGE OF L PLEURAL CAV WITH DRAIN DEV, OPEN APPROACH [id number] 04/09/16 INSERT EMERGENCY AIRWAY 76342 04/09/16 INSERTION OF CHEST TUBE 78454 04/09/16 INSERTION OF ENDOTRACHEAL AIRWAY INTO TRACHEA, VIA OPENING [id number] 04/09/16 RESPIRATORY VENTILATION, 24-96 CONSECUTIVE HOURS [id number] 04/09/16 VENT MGMT INPAT INIT DAY 32055 04/09/16 VENT MGMT INPAT SUBQ DAY 63125 04/09/16 Internal Medicine Assmt/Plan - Assessment Assessment: ACUTE RESPIRATORY FAILURE ALOC HYPOTENSION pmn leukocytosis anemia ptx - Plan Plan: cont w chest tube vent support and weaning cont on iv abx cont on ivf dw rn pediatric icu
[2016-04-13] MEDS ORDERED: Probiotic Screen MC PRN (14:42)
[2016-04-13] MEDS: Ipratropium Neb 0.5 mg/2.5 mL UD HHN SCH (15:54)
[2016-04-13] MEDS: Albuterol Nebulizer 2.5mg/3mL HHN SCH (15:54)
[2016-04-13] MEDS: cloNIDine 0.2 mg/24 hr Tdm TD SCH (16:43)
[2016-04-14 05:42] LABS: HEMATOCRIT 34.8 % (39.0-49.0); HEMOGLOBIN 12.2 gm/dL (12.6-17.4); MEAN CELL VOLUME 90.3 fl (80-99); MEAN CORPUSCULAR HEMOGLOBIN 31.5 pg (27.0-31.0); MEAN CORPUSCULAR HGB CONC 34.9 pg (28.0-36.0); MEAN PLATELET VOLUME 6.7 fl; PLATELET COUNT 166 Th/cmm (150-400); RED BLOOD COUNT 3.86 Mil/cmm (3.80-5.80); RED CELL DISTRIBUTION WIDTH 12.7 % (11.5-20.0)
[2016-04-14 05:50] LABS: WHITE BLOOD COUNT 6.8 Th/cmm (4.8-10.8)
[2016-04-14] MEDS: methylPREDNISolone SS 40 mg Vial IVP SCH ×3 (06:01→18:16)
[2016-04-14 06:03] LABS: ANION GAP 7.7 (7.0-16.0); BUN - UREA NITROGEN 41 mg/dL (7-25); BUN/CREATININE RATIO 51.3; CALCIUM SERUM 9.2 mg/dL (8.6-10.3); CARBON DIOXIDE 27.4 mEq/L (21.0-31.0); CHLORIDE 110 mEq/L (98-107); CREATININE - SERUM 0.8 mg/dL (0.7-1.3); GLUCOSE 202 mg/dL (70-105); POTASSIUM SERUM 4.1 mEq/L (3.5-5.1); SODIUM SERUM 141 mEq/L (136-145)
[2016-04-14 06:04] LABS: ALB/GLOB RATIO 0.7 (1.0-1.8); ALKALINE PHOSPHATASE 38 U/L (34-104); BILIRUBIN,TOTAL 0.7 mg/dL (0.3-1.0); SGOT 39 U/L (13-39); SGPT/ALT 47 U/L (7-52)
[2016-04-14] MEDS ORDERED: Piperacillin Sodium/Tazobact 2.25 gm Vial IV ONE (06:10)
[2016-04-14] MEDS: D5-0.45NS 1,000 ML IV SCH ×2 (06:19→13:01)
[2016-04-14] MEDS: INSULIN ASPART, RECOMBINANT 100 UNITS/ML SUBQ SCH ×3 (07:02→18:13)
[2016-04-14] MEDS: Ipratropium Neb 0.5 mg/2.5 mL UD HHN SCH ×4 (07:24→18:58)
[2016-04-14] MEDS: Albuterol Nebulizer 2.5mg/3mL HHN SCH ×4 (07:24→18:58)
[2016-04-14 07:38] LABS: TOTAL CELLS COUNTED 100
[2016-04-14 07:43] LABS: BAND NEUTROPHILE 3 % (0-10); NEUTROPHILS 75 % (40-80); PLATELET ESTIMATE ADEQUATE (NORMAL)
--- NOTE | 2016-04-14 09:27 | Diagnostic Imaging Report ---
CT scan of the brain without intravenous contrast HISTORY: Stroke, CVA Total DLP equals 670 CTDI equals 33.6 Axial sections were obtained from the base of the skull to the vertex. Exam limited due to patient motion There is prominence/enlargement of the ventricular system size. Associated enlargement of cerebral sulci and subarachnoid cisterns. Findings are consistent with changes of generalized cerebral atrophy. No acute parenchymal abnormalities. No acute cerebral hemorrhage. Extensive hypodensity is seen within the supratentorial white matter regions without mass effect. The findings may be associated with chronic small vessel ischemic disease. No extra-axial masses or abnormal fluid collections. IMPRESSION: 1. No acute abnormalities 2. Cerebral atrophy 3. Extensive supratentorial white matter changes that may reflect chronic small vessel ischemic disease. Additional changes within the white matter of the brainstem. This may be artifactual. Again, ischemic change cannot be excluded.
[2016-04-14] MEDS: Multivitamin 5 mL UDC GT SCH (09:44)
[2016-04-14] MEDS: Lactobacillus Rhamnosus 10 Billion CFU Capsule PO SCH ×3 (09:44→21:30)
--- NOTE | 2016-04-14 09:59 | Internal Medicine Prog Note ---
Internal Medicine Subjective - Subjective Patient seen and examined:: with staff, chart reviewed Patient is:: asleep, non-verbal Patient Complaints of:: congestion Per staff patient is:: no adverse event, poor appetite, poor oral intake, confused Internal Medicine Objective - Results Result Diagrams: 04/14/16 05:06 04/14/16 05:06 Recent Labs: Laboratory Last Values WBC 6.8 Th/cmm (4.8-10.8) D 04/14/16 05:06 RBC 3.86 Mil/cmm (3.80-5.80) 04/14/16 05:06 Hgb 12.2 gm/dL (12.6-17.4) L 04/14/16 05:06 Hct 34.8 % (39.0-49.0) L 04/14/16 05:06 MCV 90.3 fl (80-99) 04/14/16 05:06 MCH 31.5 pg (27.0-31.0) H 04/14/16 05:06 MCHC Differential 34.9 pg (28.0-36.0) 04/14/16 05:06 RDW 12.7 % (11.5-20.0) 04/14/16 05:06 Plt Count 166 Th/cmm (150-400) 04/14/16 05:06 MPV 6.7 fl 04/14/16 05:06 Neutrophils % 81.7 % (40.0-80.0) H 04/13/16 04:52 Band Neutrophils % 3 % (0-10) 04/14/16 05:06 Lymphocytes % 9.3 % (20.0-50.0) L 04/13/16 04:52 Monocytes % 8.9 % (2.0-10.0) 04/13/16 04:52 Eosinophils % 0.1 % (0.0-5.0) 04/13/16 04:52 Basophils % 0.0 % (0.0-2.0) 04/13/16 04:52 Neutrophils (Manual) 75 % (40-80) 04/14/16 05:06 Lymphocytes 7 % (20-50) L 04/14/16 05:06 Monocytes 15 % (2-10) H 04/14/16 05:06 Basophils 1 % (0-3) 04/09/16 23:53 Metamyelocytes 1 % (0-0) H 04/11/16 09:45 Platelet Estimate ADEQUATE (NORMAL) 04/14/16 05:06 Platelet Morphology PLATELET CLUMPS SEEN (NORMAL) 04/11/16 09:45 Ovalocytes 1+ 04/09/16 23:53 RBC Morph Micro Appear NORMAL (NORMAL) 04/11/16 09:45 PT 15.2 SECONDS (9.5-11.5) H 04/09/16 23:53 INR 1.50 (0.5-1.4) H 04/09/16 23:53 PTT (Actin FS) 26.7 SECONDS (26.0-38.0) 04/09/16 23:53 Specimen Source Arterial 04/12/16 15:20 Sample Site RB 04/12/16 15:20 pH 7.48 (7.35-7.45) H 04/12/16 15:20 pCO2 35.0 mmHg (35.0-45.0) 04/12/16 15:20 pO2 75.0 mmHg (80.0-100.0) L 04/12/16 15:20 HCO3 26.1 mmol/L (20.0-26.0) H 04/12/16 15:20 Base Excess 2.8 mmol/L (-3.0-3.0) 04/12/16 15:20 O2 Saturation 96.0 % (92.0-100.0) 04/12/16 15:20 Olvin Test NA 04/12/16 15:20 Vent Rate NA 04/12/16 15:20 Inspired O2 50 04/12/16 15:20 Tidal Volume NA 04/12/16 15:20 PEEP NA 04/12/16 15:20 Pressure (ins/psv/peep) NA 04/12/16 15:20 Critical Value E.ROME 04/12/16 15:20 Sodium 141 mEq/L (136-145) 04/14/16 05:06 Potassium 4.1 mEq/L (3.5-5.1) 04/14/16 05:06 Chloride 110 mEq/L (98-107) H 04/14/16 05:06 Carbon Dioxide 27.4 mEq/L (21.0-31.0) 04/14/16 05:06 Anion Gap 7.7 (7.0-16.0) 04/14/16 05:06 BUN 41 mg/dL (7-25) H 04/14/16 05:06 Creatinine 0.8 mg/dL (0.7-1.3) 04/14/16 05:06 Est GFR ( Amer) > 60.0 ml/min (>90) 04/14/16 05:06 Est GFR (Non-Af Amer) > 60.0 ml/min 04/14/16 05:06 BUN/Creatinine Ratio 51.3 04/14/16 05:06 Glucose 202 mg/dL (70-105) H 04/14/16 05:06 POC Glucose 172 MG/DL (70 - 105) H 04/14/16 07:01 Hemoglobin A1c % 5.3 % (4.0-6.0) 04/09/16 23:53 Whole Bld Lactic Acid 2.05 mmol/L (0.60-2.00) H* 04/11/16 12:30 Calcium 9.2 mg/dL (8.6-10.3) 04/14/16 05:06 Phosphorus 2.8 mg/dL (2.5-5.0) 04/12/16 04:55 Magnesium 2.2 mg/dL (1.9-2.7) 04/13/16 04:52 Total Bilirubin 0.7 mg/dL (0.3-1.0) 04/14/16 05:06 AST 39 U/L (13-39) 04/14/16 05:06 ALT 47 U/L (7-52) 04/14/16 05:06 Alkaline Phosphatase 38 U/L (34-104) 04/14/16 05:06 Ammonia 42 umol/L (16-53) 04/13/16 04:52 B-Natriuretic Peptide 86.9 pg/mL (5.0-100.0) 04/12/16 04:55 Total Protein 6.4 gm/dL (6.0-8.3) 04/14/16 05:06 Albumin 2.7 gm/dL (4.2-5.5) L 04/14/16 05:06 Globulin 3.7 gm/dL 04/14/16 05:06 Albumin/Globulin Ratio 0.7 (1.0-1.8) L 04/14/16 05:06 Vitamin B12 1144 pg/mL (211-946) H 04/12/16 04:55 Folic Acid 7.8 ng/mL (>3.0) 04/12/16 04:55 TSH 1.78 uIU/ml (0.34-5.60) 04/09/16 23:53 Urine Source RANDOM 04/11/16 11:35 Urine Color YELLOW 04/11/16 11:35 Urine Clarity SL. CLOUDY (CLEAR) 04/11/16 11:35 Urine pH 5.5 04/11/16 11:35 Ur Specific [place] 1.025 (1.005-1.030) 04/11/16 11:35 Urine Protein 100 mg/dL (NEGATIVE) H 04/11/16 11:35 Urine Glucose (UA) 100 mg/dL (NEGATIVE) H 04/11/16 11:35 Urine Ketones NEGATIVE mg/dL (NEGATIVE) 04/11/16 11:35 Urine Blood SMALL (NEGATIVE) H 04/11/16 11:35 Urine Nitrate NEGATIVE (NEGATIVE) 04/11/16 11:35 Urine Bilirubin NEGATIVE (NEGATIVE) 04/11/16 11:35 Urine Ictotest POSITIVE (NEGATIVE) H 04/10/16 01:00 Urine Urobilinogen 0.2 E.U./dL (0.2 - 1.0) 04/11/16 11:35 Ur Leukocyte Esterase NEGATIVE (NEGATIVE) 04/11/16 11:35 Urine RBC 0-1 /hpf (0-5) 04/11/16 11:35 Urine WBC NONE SEEN /hpf (0-5) 04/11/16 11:35 Ur Epithelial Cells RARE /lpf (FEW) 04/11/16 11:35 Uric Acid Crystals MODERATE /hpf (NONE SEEN) 04/11/16 11:35 Urine Bacteria OCCASIONAL /hpf (NONE SEEN) 04/11/16 11:35 - Physical Exam Vitals and I&O: Vital Signs Temp 99 F 04/14/16 06:00 Pulse 71 04/14/16 07:25 Resp 22 04/14/16 07:25 BP 135/80 04/14/16 06:00 Pulse Ox 96 04/14/16 07:25 Intake & Output 04/13/16 04/14/16 04/14/16 18:59 06:59 18:59 Intake Total 1100 1019.333 Output Total 1000 1400 Balance 100 -380.667 Intake: Intake, IV Amount 1050 1019.333 D5-0.45NS 1,000 ml @ 80 1000 969.333 mls/hr IV .[id number] [facility] Rx #:[id number] Piperacillin Sodium/ 50 50 Tazobact 2.25 gm In Sodium Chloride 0.9% 50 ml @ 100 mls/hr IV Q8HR [facility] Rx#:[id number] Oral 50 0 Output: Urine 1000 1400 Stool 0 Active Medications: Current Medications Acetaminophen (Tylenol) 650 mg PO Q4HR PRN PRN Reason: Pain or Fever >101 Stop: 06/08/16 23:38 Last Admin: 04/11/16 13:20 Dose: 650 mg Al Hydrox/Mg Hydrox/Simethicone (Maalox) 30 ml PO Q6HR PRN PRN Reason: Constipation Stop: 06/08/16 23:35 Albuterol Sulfate (Albuterol 2.5mg/3ml Neb Ud) 2.5 mg HHN QIDRT [facility] Stop: 06/09/16 08:59 Last Admin: 04/14/16 07:24 Dose: 2.5 mg Clonidine HCl (Catapres) 0.1 mg PO Q6HR PRN PRN Reason: SBP GREATER THAN 160 Stop: 06/08/16 23:35 Clonidine HCl (Fnlhnkhf-Skp-9) 1 patch TD QSAT [facility] Stop: 06/12/16 16:44 Last Admin: 04/13/16 16:43 Dose: 1 patch Enalaprilat (Vasotec) 1.25 mg IVP Q6HR PRN PRN Reason: FOR SBP>160 Stop: 06/12/16 23:18 Last Admin: 04/13/16 06:20 Dose: 1.25 mg Guaifenesin (Robitussin) 100 mg PO Q4H PRN PRN Reason: Cough or Congestion Stop: 06/08/16 23:38 Piperacillin Sod/Tazobactam (Sod 2.25 gm/ Sodium Chloride) 50 mls @ 100 mls/hr IV Q8HR [facility] Stop: 06/09/16 12:59 Last Admin: 04/14/16 06:16 Dose: 100 mls/hr Norepinephrine Bitartrate 4 mg (/ Dextrose) 254 mls @ 0 mls/hr IV TITR PRN; Protocol; Per Protocol PRN Reason: To Keep SBP Above 90 Stop: 06/09/16 12:31 Last Admin: 04/11/16 01:50 Dose: 6 mcg/min, 22.86 mls/hr Dextrose/Sodium Chloride (D5-0.45ns) 1,000 mls @ 80 mls/hr IV .[id number] [facility] Stop: 06/10/16 13:31 Last Admin: 04/14/16 06:19 Dose: 80 mls/hr Insulin Aspart (Novolog) 0 units SUBQ ACHS [facility] PRN Reason: Protocol Stop: 06/09/16 07:29 Last Admin: 04/14/16 07:02 Dose: Not Given Ipratropium [place] (Atrovent Neb 0.5mg/2.5ml) 0.5 mg HHN QIDRT [facility] Stop: 06/09/16 08:59 Last Admin: 04/14/16 07:24 Dose: 0.5 mg Lactobacillus Rhamnosus (Culturelle) 1 each PO TID [facility] Stop: 06/11/16 13:59 Last Admin: 04/14/16 09:44 Dose: 1 each Methylprednisolone Sodium Succinate (Solu-Medrol) 60 mg IVP Q8HR [facility] Stop: 06/10/16 13:32 Last Admin: 04/14/16 06:01 Dose: 60 mg Miscellaneous (Clinical Monitoring) 1 [facility] PRN PRN PRN Reason: RENAL DOSING Stop: 06/09/16 07:17 Miscellaneous (Probiotic Screen) 1 [facility] PRN PRN PRN Reason: PROTOCOL Stop: 06/12/16 14:41 Multivitamins/Vitamin C (Theragran) 5 ml GT DAILY [facility] Stop: 06/09/16 14:29 Last Admin: 04/14/16 09:44 Dose: 5 ml Ondansetron HCl (Zofran) 4 mg IV Q8H PRN PRN Reason: Nausea / Vomiting Stop: 06/08/16 23:38 Pantoprazole Sodium (Protonix) 40 mg IVP DAILY [facility] Stop: 06/09/16 13:59 Last Admin: 04/14/16 09:44 Dose: 40 mg General: lethargic, demented HEENT: NC/AT, PERRLA Neck: Supple, No JVD Lungs: congested, wheezing, rales Cardiovascular: RRR, Normal S1, Normal S2 Abdomen: soft non-tender, globular Extremities: excoriation, contracture Neurological: no change - Procedures Procedures: Procedures Procedure Code Date DRAINAGE OF L PLEURAL CAV WITH DRAIN DEV, OPEN APPROACH [id number] 04/09/16 INSERT EMERGENCY AIRWAY 11895 04/09/16 INSERTION OF CHEST TUBE 81900 04/09/16 INSERTION OF ENDOTRACHEAL AIRWAY INTO TRACHEA, VIA OPENING [id number] 04/09/16 RESPIRATORY VENTILATION, 24-96 CONSECUTIVE HOURS [id number] 04/09/16 VENT MGMT INPAT INIT DAY 78374 04/09/16 VENT MGMT INPAT SUBQ DAY 09778 04/09/16 Internal Medicine Assmt/Plan - Assessment Assessment: ACUTE RESPIRATORY FAILURE ALOC HYPOTENSION pmn leukocytosis anemia ptx - Plan Plan: cont w chest tube vent support and weaning cont on iv 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
[2016-04-14 11:50] LABS: ABG SOURCE Arterial; BE(B) 5.1 mmol/L (-3.0-3.0); HCO3 29.9 mmol/L (20.0-26.0); pH 7.44 (7.35-7.45)
[2016-04-14 11:51] LABS: ALLEN TEST YES; CRITICAL VALUES REPORTED BY SH; FIO2 100
[2016-04-14] MEDS ORDERED: INSULIN ASPART, RECOMBINANT 100 UNITS/ML SUBQ SCH (21:15)
[2016-04-15] MEDS: methylPREDNISolone SS 40 mg Vial IVP SCH ×2 (00:13→05:55)
[2016-04-15] MEDS: INSULIN ASPART, RECOMBINANT 100 UNITS/ML SUBQ SCH ×4 (00:14→19:55)
[2016-04-15] MEDS: D5-0.45NS 1,000 ML IV SCH ×2 (01:25→21:25)
[2016-04-15 05:16] LABS: HEMATOCRIT 37.9 % (39.0-49.0); HEMOGLOBIN 13.1 gm/dL (12.6-17.4); MEAN CELL VOLUME 89.9 fl (80-99); MEAN CORPUSCULAR HEMOGLOBIN 30.9 pg (27.0-31.0); MEAN CORPUSCULAR HGB CONC 34.4 pg (28.0-36.0); MEAN PLATELET VOLUME 7.1 fl; PLATELET COUNT 164 Th/cmm (150-400); RED BLOOD COUNT 4.22 Mil/cmm (3.80-5.80); RED CELL DISTRIBUTION WIDTH 12.6 % (11.5-20.0)
[2016-04-15 05:24] LABS: ANION GAP 14.2 (7.0-16.0); BUN - UREA NITROGEN 46 mg/dL (7-25); BUN/CREATININE RATIO 57.5; CALCIUM SERUM 9.3 mg/dL (8.6-10.3); CARBON DIOXIDE 30.8 mEq/L (21.0-31.0); CHLORIDE 106 mEq/L (98-107); CREATININE - SERUM 0.8 mg/dL (0.7-1.3); GLUCOSE 225 mg/dL (70-105); MAGNESIUM 2.3 mg/dL (1.9-2.7); SODIUM SERUM 147 mEq/L (136-145); WHITE BLOOD COUNT 12.3 Th/cmm (4.8-10.8)
[2016-04-15 07:03] LABS: BAND NEUTROPHILE 5 % (0-10); NEUTROPHILS 80 % (40-80); PLATELET ESTIMATE ADEQUATE (NORMAL); PLATELET MORPHOLOGY NORMAL (NORMAL); TOTAL CELLS COUNTED 100
[2016-04-15] MEDS: Albuterol Nebulizer 2.5mg/3mL HHN SCH ×4 (07:55→20:02)
[2016-04-15] MEDS: Ipratropium Neb 0.5 mg/2.5 mL UD HHN SCH ×4 (07:55→20:02)
[2016-04-15] MEDS: Lactobacillus Rhamnosus 10 Billion CFU Capsule PO SCH ×3 (09:30→21:05)
--- NOTE | 2016-04-15 10:56 | Diagnostic Imaging Report ---
Portable chest x-ray HISTORY: Shortness of breath Compared with prior exam of April 12, 2016, patient is markedly rotated. The endotracheal tube has been removed. Accentuation of interstitial markings in the left lower lung. However, no definite focal processes are seen. Narrow caliber left chest tube noted. No discrete pneumothorax to be radiographically identified. IMPRESSION: 1. No definite focal pulmonary processes. No discrete pneumothorax can be radiographically defined. 2. Status post removal endotracheal tube
--- NOTE | 2016-04-15 11:31 | Diagnostic Imaging Report ---
CT scan of the chest without intravenous contrast HISTORY: Shortness of breath Total DLP equals 399 CTDI equals 9.9 Axial sections were obtained from a level above the clavicles down to level below the diaphragm. Coronary artery calcification noted. Normal-sized lymph nodes are seen within the mediastinum. Bilateral lower lobe pulmonary parenchymal densities with air bronchograms noted. Findings consistent with consolidation and/or atelectasis. No definite hilar abnormalities are seen. IMPRESSION: 1. Findings consistent with bilateral lower lobe consolidation and/or atelectasis 2. Evidence of coronary artery disease
--- NOTE | 2016-04-15 13:04 | Internal Medicine Prog Note ---
Internal Medicine Subjective - Subjective Patient seen and examined:: with staff, chart reviewed Patient is:: awake, verbal, interactive Per staff patient is:: no adverse event, agitated, confused Internal Medicine Objective - Results Result Diagrams: 04/15/16 04:40 04/15/16 04:40 Recent Labs: Laboratory Last Values WBC 12.3 Th/cmm (4.8-10.8) H D 04/15/16 04:40 RBC 4.22 Mil/cmm (3.80-5.80) 04/15/16 04:40 Hgb 13.1 gm/dL (12.6-17.4) 04/15/16 04:40 Hct 37.9 % (39.0-49.0) L 04/15/16 04:40 MCV 89.9 fl (80-99) 04/15/16 04:40 MCH 30.9 pg (27.0-31.0) 04/15/16 04:40 MCHC Differential 34.4 pg (28.0-36.0) 04/15/16 04:40 RDW 12.6 % (11.5-20.0) 04/15/16 04:40 Plt Count 164 Th/cmm (150-400) 04/15/16 04:40 MPV 7.1 fl 04/15/16 04:40 Neutrophils % 81.7 % (40.0-80.0) H 04/13/16 04:52 Band Neutrophils % 5 % (0-10) 04/15/16 04:40 Lymphocytes % 9.3 % (20.0-50.0) L 04/13/16 04:52 Monocytes % 8.9 % (2.0-10.0) 04/13/16 04:52 Eosinophils % 0.1 % (0.0-5.0) 04/13/16 04:52 Basophils % 0.0 % (0.0-2.0) 04/13/16 04:52 Neutrophils (Manual) 80 % (40-80) 04/15/16 04:40 Lymphocytes 10 % (20-50) L 04/15/16 04:40 Monocytes 5 % (2-10) 04/15/16 04:40 Basophils 1 % (0-3) 04/09/16 23:53 Metamyelocytes 1 % (0-0) H 04/11/16 09:45 Platelet Estimate ADEQUATE (NORMAL) 04/15/16 04:40 Platelet Morphology NORMAL (NORMAL) 04/15/16 04:40 Ovalocytes 1+ 04/09/16 23:53 RBC Morph Micro Appear NORMAL (NORMAL) 04/15/16 04:40 PT 15.2 SECONDS (9.5-11.5) H 04/09/16 23:53 INR 1.50 (0.5-1.4) H 04/09/16 23:53 PTT (Actin FS) 26.7 SECONDS (26.0-38.0) 04/09/16 23:53 Specimen Source Arterial 04/14/16 11:26 Sample Site Right Radial 04/14/16 11:26 pH 7.44 (7.35-7.45) 04/14/16 11:26 pCO2 44.0 mmHg (35.0-45.0) 04/14/16 11:26 pO2 90.0 mmHg (80.0-100.0) 04/14/16 11:26 HCO3 29.9 mmol/L (20.0-26.0) H 04/14/16 11:26 Base Excess 5.1 mmol/L (-3.0-3.0) H 04/14/16 11:26 O2 Saturation 97.0 % (92.0-100.0) 04/14/16 11:26 Olvin Test YES 04/14/16 11:26 Vent Rate NA 04/14/16 11:26 Inspired O2 100 04/14/16 11:26 Tidal Volume NA 04/14/16 11:26 PEEP NA 04/14/16 11:26 Pressure (ins/psv/peep) NA 04/14/16 11:26 Critical Value SH 04/14/16 11:26 Sodium 147 mEq/L (136-145) H 04/15/16 04:40 Potassium 4.0 mEq/L (3.5-5.1) 04/15/16 04:40 Chloride 106 mEq/L (98-107) 04/15/16 04:40 Carbon Dioxide 30.8 mEq/L (21.0-31.0) 04/15/16 04:40 Anion Gap 14.2 (7.0-16.0) 04/15/16 04:40 BUN 46 mg/dL (7-25) H 04/15/16 04:40 Creatinine 0.8 mg/dL (0.7-1.3) 04/15/16 04:40 Est GFR ( Amer) > 60.0 ml/min (>90) 04/15/16 04:40 Est GFR (Non-Af Amer) > 60.0 ml/min 04/15/16 04:40 BUN/Creatinine Ratio 57.5 04/15/16 04:40 Glucose 225 mg/dL (70-105) H 04/15/16 04:40 POC Glucose 189 MG/DL (70 - 105) H 04/15/16 05:49 Hemoglobin A1c % 5.3 % (4.0-6.0) 04/09/16 23:53 Whole Bld Lactic Acid 2.05 mmol/L (0.60-2.00) H* 04/11/16 12:30 Calcium 9.3 mg/dL (8.6-10.3) 04/15/16 04:40 Phosphorus 2.8 mg/dL (2.5-5.0) 04/12/16 04:55 Magnesium 2.3 mg/dL (1.9-2.7) 04/15/16 04:40 Total Bilirubin 0.7 mg/dL (0.3-1.0) 04/14/16 05:06 AST 39 U/L (13-39) 04/14/16 05:06 ALT 47 U/L (7-52) 04/14/16 05:06 Alkaline Phosphatase 38 U/L (34-104) 04/14/16 05:06 Ammonia 49 umol/L (16-53) 04/15/16 04:40 B-Natriuretic Peptide 150.0 pg/mL (5.0-100.0) H 04/15/16 04:40 Total Protein 6.4 gm/dL (6.0-8.3) 04/14/16 05:06 Albumin 2.7 gm/dL (4.2-5.5) L 04/14/16 05:06 Globulin 3.7 gm/dL 04/14/16 05:06 Albumin/Globulin Ratio 0.7 (1.0-1.8) L 04/14/16 05:06 Vitamin B12 1144 pg/mL (211-946) H 04/12/16 04:55 Folic Acid 7.8 ng/mL (>3.0) 04/12/16 04:55 TSH 1.78 uIU/ml (0.34-5.60) 04/09/16 23:53 Urine Source RANDOM 04/11/16 11:35 Urine Color YELLOW 04/11/16 11:35 Urine Clarity SL. CLOUDY (CLEAR) 04/11/16 11:35 Urine pH 5.5 04/11/16 11:35 Ur Specific [place] 1.025 (1.005-1.030) 04/11/16 11:35 Urine Protein 100 mg/dL (NEGATIVE) H 04/11/16 11:35 Urine Glucose (UA) 100 mg/dL (NEGATIVE) H 04/11/16 11:35 Urine Ketones NEGATIVE mg/dL (NEGATIVE) 04/11/16 11:35 Urine Blood SMALL (NEGATIVE) H 04/11/16 11:35 Urine Nitrate NEGATIVE (NEGATIVE) 04/11/16 11:35 Urine Bilirubin NEGATIVE (NEGATIVE) 04/11/16 11:35 Urine Ictotest POSITIVE (NEGATIVE) H 04/10/16 01:00 Urine Urobilinogen 0.2 E.U./dL (0.2 - 1.0) 04/11/16 11:35 Ur Leukocyte Esterase NEGATIVE (NEGATIVE) 04/11/16 11:35 Urine RBC 0-1 /hpf (0-5) 04/11/16 11:35 Urine WBC NONE SEEN /hpf (0-5) 04/11/16 11:35 Ur Epithelial Cells RARE /lpf (FEW) 04/11/16 11:35 Uric Acid Crystals MODERATE /hpf (NONE SEEN) 04/11/16 11:35 Urine Bacteria OCCASIONAL /hpf (NONE SEEN) 04/11/16 11:35 - Physical Exam Vitals and I&O: Vital Signs Temp 97.8 F 04/15/16 04:00 Pulse 103 04/15/16 11:36 Resp 25 04/15/16 11:36 BP 130/78 04/15/16 07:00 Pulse Ox 95 04/15/16 11:36 Intake & Output 04/14/16 04/15/16 04/15/16 18:59 06:59 18:59 Intake Total 350 1270 Output Total 1800 1750 0 Balance -1450 -480 0 Weight (lbs) 77.111 kg Intake: Intake, IV Amount 50 670 D5-0.45NS 1,000 ml @ 50 620 mls/hr IV .Q20H [facility] Rx#: [id number] Piperacillin Sodium/ 50 50 Tazobact 2.25 gm In Sodium Chloride 0.9% 50 ml @ 100 mls/hr IV Q8HR [facility] Rx#:[id number] Oral 0 Tube Feeding 300 600 Output: Chest Tube Drainage 0 0 Left Mid-Axillary Chest 0 0 Urine 1800 1750 Active Medications: Current Medications Acetaminophen (Tylenol) 650 mg PO Q4HR PRN PRN Reason: Pain or Fever >101 Stop: 06/08/16 23:38 Last Admin: 04/11/16 13:20 Dose: 650 mg Al Hydrox/Mg Hydrox/Simethicone (Maalox) 30 ml PO Q6HR PRN PRN Reason: Constipation Stop: 06/08/16 23:35 Albuterol Sulfate (Albuterol 2.5mg/3ml Neb Ud) 2.5 mg HHN QIDRT [facility] Stop: 06/09/16 08:59 Last Admin: 04/15/16 11:34 Dose: 2.5 mg Clonidine HCl (Catapres) 0.1 mg PO Q6HR PRN PRN Reason: SBP GREATER THAN 160 Stop: 06/08/16 23:35 Clonidine HCl (Uruwndjh-Hqb-0) 1 patch TD QSAT [facility] Stop: 06/12/16 16:44 Last Admin: 04/13/16 16:43 Dose: 1 patch Enalaprilat (Vasotec) 1.25 mg IVP Q6HR PRN PRN Reason: FOR SBP>160 Stop: 06/12/16 23:18 Last Admin: 04/13/16 06:20 Dose: 1.25 mg Guaifenesin (Robitussin) 100 mg PO Q4H PRN PRN Reason: Cough or Congestion Stop: 06/08/16 23:38 Piperacillin Sod/Tazobactam (Sod 2.25 gm/ Sodium Chloride) 50 mls @ 100 mls/hr IV Q8HR [facility] Stop: 06/09/16 12:59 Last Admin: 04/15/16 05:54 Dose: 100 mls/hr Norepinephrine Bitartrate 4 mg (/ Dextrose) 254 mls @ 0 mls/hr IV TITR PRN; Protocol; Per Protocol PRN Reason: To Keep SBP Above 90 Stop: 06/09/16 12:31 Last Admin: 04/11/16 01:50 Dose: 6 mcg/min, 22.86 mls/hr Dextrose/Sodium Chloride (D5-0.45ns) 1,000 mls @ 50 mls/hr IV .Q20H [facility] Stop: 06/13/16 09:56 Last Admin: 04/15/16 01:25 Dose: 50 mls/hr Insulin Aspart (Novolog) 0 units SUBQ Q6HR [facility] PRN Reason: Protocol Stop: 06/14/16 00:00 Last Admin: 04/15/16 05:55 Dose: Not Given Ipratropium [place] (Atrovent Neb 0.5mg/2.5ml) 0.5 mg HHN QIDRT [facility] Stop: 06/09/16 08:59 Last Admin: 04/15/16 11:34 Dose: 0.5 mg Lactobacillus Rhamnosus (Culturelle) 1 each PO TID [facility] Stop: 06/11/16 13:59 Last Admin: 04/14/16 21:30 Dose: 1 each Methylprednisolone Sodium Succinate (Solu-Medrol) 80 mg IVP Q6HR [facility] Stop: 06/14/16 11:59 Miscellaneous (Clinical Monitoring) 1 [facility] PRN PRN PRN Reason: RENAL DOSING Stop: 06/09/16 07:17 Miscellaneous (Probiotic Screen) 1 [facility] PRN PRN PRN Reason: PROTOCOL Stop: 06/12/16 14:41 Multivitamins/Vitamin C (Theragran) 5 ml GT DAILY [facility] Stop: 06/09/16 14:29 Last Admin: 04/14/16 09:44 Dose: 5 ml Ondansetron HCl (Zofran) 4 mg IV Q8H PRN PRN Reason: Nausea / Vomiting Stop: 06/08/16 23:38 Pantoprazole Sodium (Protonix) 40 mg IVP DAILY [facility] Stop: 06/09/16 13:59 Last Admin: 04/14/16 09:44 Dose: 40 mg General: demented HEENT: NC/AT, PERRLA Neck: Supple Lungs: congested, rales Cardiovascular: RRR, Normal S1, Normal S2 Abdomen: soft non-tender, globular, positive bowel sound Extremities: excoriation Neurological: no change - Procedures Procedures: Procedures Procedure Code Date DRAINAGE OF L PLEURAL CAV WITH DRAIN DEV, OPEN APPROACH [id number] 04/09/16 INSERT EMERGENCY AIRWAY 55712 04/09/16 INSERTION OF CHEST TUBE 05208 04/09/16 INSERTION OF ENDOTRACHEAL AIRWAY INTO TRACHEA, VIA OPENING [id number] 04/09/16 RESPIRATORY VENTILATION, 24-96 CONSECUTIVE HOURS [id number] 04/09/16 VENT MGMT INPAT INIT DAY 14848 04/09/16 VENT MGMT INPAT SUBQ DAY 17331 04/09/16 Internal Medicine Assmt/Plan - Assessment Assessment: ACUTE RESPIRATORY FAILURE s\p extubation ALOC HYPOTENSION pmn leukocytosis anemia ptx - Plan Plan: cont w chest tube vent support and weaning cont on iv abx 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
[2016-04-15] MEDS: Multivitamin 5 mL UDC GT SCH (14:30)
[2016-04-16] MEDS: INSULIN ASPART, RECOMBINANT 100 UNITS/ML SUBQ SCH ×4 (00:07→18:03)
--- NOTE | 2016-04-16 01:07 | Progress Notes ---
Case was discussed with staff of the patient, reviewed records. The patient currently is still in ICU. He is intubated. He was seen by speech pathologist and he is also supposed to have a swallow evaluation. At this point, the patient's medication was withheld, but he ____ only if agitated can communicate unpredictable in general, but so far he is in ICU, been taking ____, so I recommended ____ when he is medically cleared to be transferred to [facility]. Thank you very much for allowing me to participate in the care of this most interesting gentleman. This patient also needs placement in safe place. He was homeless prior to coming here. JOB# [id number]
[2016-04-16 05:43] LABS: ALB/GLOB RATIO 0.8 (1.0-1.8); ALKALINE PHOSPHATASE 54 U/L (34-104); ANION GAP 10.6 (7.0-16.0); BILIRUBIN,TOTAL 0.6 mg/dL (0.3-1.0); BUN - UREA NITROGEN 51 mg/dL (7-25); BUN/CREATININE RATIO 63.8; CALCIUM SERUM 8.9 mg/dL (8.6-10.3); CARBON DIOXIDE 31.8 mEq/L (21.0-31.0); CHLORIDE 109 mEq/L (98-107); CREATININE - SERUM 0.8 mg/dL (0.7-1.3); GLUCOSE 228 mg/dL (70-105); MAGNESIUM 2.6 mg/dL (1.9-2.7); POTASSIUM SERUM 4.4 mEq/L (3.5-5.1); SGOT 30 U/L (13-39); SGPT/ALT 67 U/L (7-52); SODIUM SERUM 147 mEq/L (136-145)
[2016-04-16] MEDS: Albuterol Nebulizer 2.5mg/3mL HHN SCH ×3 (07:46→15:50)
[2016-04-16] MEDS: Ipratropium Neb 0.5 mg/2.5 mL UD HHN SCH ×4 (07:46→19:22)
[2016-04-16] MEDS: Lactobacillus Rhamnosus 10 Billion CFU Capsule PO SCH ×3 (08:41→20:12)
[2016-04-16] MEDS: Multivitamin 5 mL UDC GT SCH (08:41)
--- NOTE | 2016-04-16 09:17 | Diagnostic Imaging Report ---
CHEST X-RAY: AP view INDICATION: Shortness of breath COMPARISON: Chest x-ray 04/15/2016 FINDINGS: NG tube is visualized the stomach with distal tip not seen. Left basal densities noted. No focal consolidation identified. Hyperinflated lungs are noted. Heart size is normal. IMPRESSION: Left basal density which may represent a small left effusion. No focal consolidation is identified. Possible COPD.
--- NOTE | 2016-04-16 13:23 | Internal Medicine Prog Note ---
Internal Medicine Subjective - Subjective Patient seen and examined:: with staff, chart reviewed Patient is:: asleep, non-interactive, eyes closed Patient Complaints of:: congestion Per staff patient is:: combative, confused Internal Medicine Objective - Results Result Diagrams: 04/15/16 04:40 04/16/16 04:45 Recent Labs: Laboratory Last Values WBC 12.3 Th/cmm (4.8-10.8) H D 04/15/16 04:40 RBC 4.22 Mil/cmm (3.80-5.80) 04/15/16 04:40 Hgb 13.1 gm/dL (12.6-17.4) 04/15/16 04:40 Hct 37.9 % (39.0-49.0) L 04/15/16 04:40 MCV 89.9 fl (80-99) 04/15/16 04:40 MCH 30.9 pg (27.0-31.0) 04/15/16 04:40 MCHC Differential 34.4 pg (28.0-36.0) 04/15/16 04:40 RDW 12.6 % (11.5-20.0) 04/15/16 04:40 Plt Count 164 Th/cmm (150-400) 04/15/16 04:40 MPV 7.1 fl 04/15/16 04:40 Neutrophils % 81.7 % (40.0-80.0) H 04/13/16 04:52 Band Neutrophils % 5 % (0-10) 04/15/16 04:40 Lymphocytes % 9.3 % (20.0-50.0) L 04/13/16 04:52 Monocytes % 8.9 % (2.0-10.0) 04/13/16 04:52 Eosinophils % 0.1 % (0.0-5.0) 04/13/16 04:52 Basophils % 0.0 % (0.0-2.0) 04/13/16 04:52 Neutrophils (Manual) 80 % (40-80) 04/15/16 04:40 Lymphocytes 10 % (20-50) L 04/15/16 04:40 Monocytes 5 % (2-10) 04/15/16 04:40 Basophils 1 % (0-3) 04/09/16 23:53 Metamyelocytes 1 % (0-0) H 04/11/16 09:45 Platelet Estimate ADEQUATE (NORMAL) 04/15/16 04:40 Platelet Morphology NORMAL (NORMAL) 04/15/16 04:40 Ovalocytes 1+ 04/09/16 23:53 RBC Morph Micro Appear NORMAL (NORMAL) 04/15/16 04:40 PT 15.2 SECONDS (9.5-11.5) H 04/09/16 23:53 INR 1.50 (0.5-1.4) H 04/09/16 23:53 PTT (Actin FS) 26.7 SECONDS (26.0-38.0) 04/09/16 23:53 Specimen Source Arterial 04/14/16 11:26 Sample Site Right Radial 04/14/16 11:26 pH 7.44 (7.35-7.45) 04/14/16 11:26 pCO2 44.0 mmHg (35.0-45.0) 04/14/16 11:26 pO2 90.0 mmHg (80.0-100.0) 04/14/16 11:26 HCO3 29.9 mmol/L (20.0-26.0) H 04/14/16 11:26 Base Excess 5.1 mmol/L (-3.0-3.0) H 04/14/16 11:26 O2 Saturation 97.0 % (92.0-100.0) 04/14/16 11:26 Olvin Test YES 04/14/16 11:26 Vent Rate NA 04/14/16 11:26 Inspired O2 100 04/14/16 11:26 Tidal Volume NA 04/14/16 11:26 PEEP NA 04/14/16 11:26 Pressure (ins/psv/peep) NA 04/14/16 11:26 Critical Value SH 04/14/16 11:26 Sodium 147 mEq/L (136-145) H 04/16/16 04:45 Potassium 4.4 mEq/L (3.5-5.1) 04/16/16 04:45 Chloride 109 mEq/L (98-107) H 04/16/16 04:45 Carbon Dioxide 31.8 mEq/L (21.0-31.0) H 04/16/16 04:45 Anion Gap 10.6 (7.0-16.0) 04/16/16 04:45 BUN 51 mg/dL (7-25) H 04/16/16 04:45 Creatinine 0.8 mg/dL (0.7-1.3) 04/16/16 04:45 Est GFR ( Amer) > 60.0 ml/min (>90) 04/16/16 04:45 Est GFR (Non-Af Amer) > 60.0 ml/min 04/16/16 04:45 BUN/Creatinine Ratio 63.8 04/16/16 04:45 Glucose 228 mg/dL (70-105) H 04/16/16 04:45 POC Glucose 253 MG/DL (70 - 105) H 04/16/16 13:10 Hemoglobin A1c % 5.3 % (4.0-6.0) 04/09/16 23:53 Whole Bld Lactic Acid 2.05 mmol/L (0.60-2.00) H* 04/11/16 12:30 Calcium 8.9 mg/dL (8.6-10.3) 04/16/16 04:45 Phosphorus 2.8 mg/dL (2.5-5.0) 04/12/16 04:55 Magnesium 2.6 mg/dL (1.9-2.7) 04/16/16 04:45 Total Bilirubin 0.6 mg/dL (0.3-1.0) 04/16/16 04:45 AST 30 U/L (13-39) 04/16/16 04:45 ALT 67 U/L (7-52) H 04/16/16 04:45 Alkaline Phosphatase 54 U/L (34-104) 04/16/16 04:45 Ammonia 50 umol/L (16-53) 04/16/16 04:45 B-Natriuretic Peptide 150.0 pg/mL (5.0-100.0) H 04/15/16 04:40 Total Protein 6.4 gm/dL (6.0-8.3) 04/16/16 04:45 Albumin 2.8 gm/dL (4.2-5.5) L 04/16/16 04:45 Globulin 3.6 gm/dL 04/16/16 04:45 Albumin/Globulin Ratio 0.8 (1.0-1.8) L 04/16/16 04:45 Vitamin B12 1144 pg/mL (211-946) H 04/12/16 04:55 Folic Acid 7.8 ng/mL (>3.0) 04/12/16 04:55 TSH 1.78 uIU/ml (0.34-5.60) 04/09/16 23:53 Urine Source RANDOM 04/11/16 11:35 Urine Color YELLOW 04/11/16 11:35 Urine Clarity SL. CLOUDY (CLEAR) 04/11/16 11:35 Urine pH 5.5 04/11/16 11:35 Ur Specific [place] 1.025 (1.005-1.030) 04/11/16 11:35 Urine Protein 100 mg/dL (NEGATIVE) H 04/11/16 11:35 Urine Glucose (UA) 100 mg/dL (NEGATIVE) H 04/11/16 11:35 Urine Ketones NEGATIVE mg/dL (NEGATIVE) 04/11/16 11:35 Urine Blood SMALL (NEGATIVE) H 04/11/16 11:35 Urine Nitrate NEGATIVE (NEGATIVE) 04/11/16 11:35 Urine Bilirubin NEGATIVE (NEGATIVE) 04/11/16 11:35 Urine Ictotest POSITIVE (NEGATIVE) H 04/10/16 01:00 Urine Urobilinogen 0.2 E.U./dL (0.2 - 1.0) 04/11/16 11:35 Ur Leukocyte Esterase NEGATIVE (NEGATIVE) 04/11/16 11:35 Urine RBC 0-1 /hpf (0-5) 04/11/16 11:35 Urine WBC NONE SEEN /hpf (0-5) 04/11/16 11:35 Ur Epithelial Cells RARE /lpf (FEW) 04/11/16 11:35 Uric Acid Crystals MODERATE /hpf (NONE SEEN) 04/11/16 11:35 Urine Bacteria OCCASIONAL /hpf (NONE SEEN) 04/11/16 11:35 - Physical Exam Vitals and I&O: Vital Signs Temp 99.6 F 04/16/16 04:00 Pulse 98 04/16/16 07:00 Resp 26 04/16/16 09:50 BP 120/81 04/16/16 07:00 Pulse Ox 96 04/16/16 09:50 Intake & Output 04/15/16 04/16/16 04/16/16 18:59 06:59 18:59 Intake Total 50 1920 Output Total 0 2000 Balance 50 -80 Intake: Intake, IV Amount 50 1100 D5-0.45NS 1,000 ml @ 50 1000 mls/hr IV .Q20H [facility] Rx#: [id number] Piperacillin Sodium/ 50 100 Tazobact 2.25 gm In Sodium Chloride 0.9% 50 ml @ 100 mls/hr IV Q8HR [facility] Rx#:[id number] Tube Feeding 720 Other 100 Output: Chest Tube Drainage 0 Left Mid-Axillary Chest 0 Urine 2000 Other: # Bowel Movements 1 Active Medications: Current Medications Acetaminophen (Tylenol) 650 mg PO Q4HR PRN PRN Reason: Pain or Fever >101 Stop: 06/08/16 23:38 Last Admin: 04/11/16 13:20 Dose: 650 mg Al Hydrox/Mg Hydrox/Simethicone (Maalox) 30 ml PO Q6HR PRN PRN Reason: Constipation Stop: 06/08/16 23:35 Albuterol Sulfate (Albuterol 2.5mg/3ml Neb Ud) 2.5 mg HHN QIDRT [facility] Stop: 06/09/16 08:59 Last Admin: 04/16/16 11:58 Dose: 2.5 mg Clonidine HCl (Catapres) 0.1 mg PO Q6HR PRN PRN Reason: SBP GREATER THAN 160 Stop: 06/08/16 23:35 Clonidine HCl (Mhiuelyr-Mar-1) 1 patch TD QSAT [facility] Stop: 06/12/16 16:44 Last Admin: 04/13/16 16:43 Dose: 1 patch Enalaprilat (Vasotec) 1.25 mg IVP Q6HR PRN PRN Reason: FOR SBP>160 Stop: 06/12/16 23:18 Last Admin: 04/13/16 06:20 Dose: 1.25 mg Guaifenesin (Robitussin) 100 mg PO Q4H PRN PRN Reason: Cough or Congestion Stop: 06/08/16 23:38 Piperacillin Sod/Tazobactam (Sod 2.25 gm/ Sodium Chloride) 50 mls @ 100 mls/hr IV Q8HR [facility] Stop: 06/09/16 12:59 Last Admin: 04/16/16 12:49 Dose: 100 mls/hr Norepinephrine Bitartrate 4 mg (/ Dextrose) 254 mls @ 0 mls/hr IV TITR PRN; Protocol; Per Protocol PRN Reason: To Keep SBP Above 90 Stop: 06/09/16 12:31 Last Admin: 04/11/16 01:50 Dose: 6 mcg/min, 22.86 mls/hr Dextrose/Sodium Chloride (D5-0.45ns) 1,000 mls @ 50 mls/hr IV .Q20H [facility] Stop: 06/13/16 09:56 Last Admin: 04/15/16 21:25 Dose: 50 mls/hr Insulin Aspart (Novolog) 0 units SUBQ Q6HR [facility] PRN Reason: Protocol Stop: 06/14/16 00:00 Last Admin: 04/16/16 06:03 Dose: 2 units Ipratropium [place] (Atrovent Neb 0.5mg/2.5ml) 0.5 mg HHN QIDRT [facility] Stop: 06/09/16 08:59 Last Admin: 04/16/16 11:58 Dose: 0.5 mg Lactobacillus Rhamnosus (Culturelle) 1 each PO TID [facility] Stop: 06/11/16 13:59 Last Admin: 04/16/16 13:07 Dose: 1 each Methylprednisolone Sodium Succinate (Solu-Medrol) 80 mg IVP Q6HR [facility] Stop: 06/14/16 11:59 Last Admin: 04/16/16 12:48 Dose: 80 mg Miscellaneous (Clinical Monitoring) 1 ea PRN PRN PRN Reason: RENAL DOSING Stop: 06/09/16 07:17 Miscellaneous (Probiotic Screen) 1 [facility] PRN PRN PRN Reason: PROTOCOL Stop: 06/12/16 14:41 Multivitamins/Vitamin C (Theragran) 5 ml GT DAILY [facility] Stop: 06/09/16 14:29 Last Admin: 04/16/16 08:41 Dose: 5 ml Ondansetron HCl (Zofran) 4 mg IV Q8H PRN PRN Reason: Nausea / Vomiting Stop: 06/08/16 23:38 Pantoprazole Sodium (Protonix) 40 mg IVP DAILY [facility] Stop: 06/09/16 13:59 Last Admin: 04/16/16 08:42 Dose: 40 mg General: lethargic, bilateral temporal wasting HEENT: NC/AT Neck: Supple Lungs: congested, rales, ronchi Cardiovascular: RRR, Normal S1, Normal S2 Abdomen: soft non-tender, globular Extremities: excoriation, contracture Neurological: no change - Procedures Procedures: Procedures Procedure Code Date DRAINAGE OF L PLEURAL CAV WITH DRAIN DEV, OPEN APPROACH [id number] 04/09/16 INSERT EMERGENCY AIRWAY 45075 04/09/16 INSERTION OF CHEST TUBE 47782 04/09/16 INSERTION OF ENDOTRACHEAL AIRWAY INTO TRACHEA, VIA OPENING [id number] 04/09/16 RESPIRATORY VENTILATION, 24-96 CONSECUTIVE HOURS [id number] 04/09/16 VENT MGMT INPAT INIT DAY 04/09/16 VENT MGMT INPAT SUBQ DAY 34289 04/09/16 Internal Medicine Assmt/Plan - Assessment Assessment: ACUTE RESPIRATORY FAILURE s\p extubation ALOC HYPOTENSION pmn leukocytosis anemia ptx - Plan Plan: cont w chest tube vent support and weaning cont on iv abx 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
[2016-04-16] MEDS: D5-0.45NS 1,000 ML IV SCH ×2 (18:27→20:14)
[2016-04-17] MEDS: INSULIN ASPART, RECOMBINANT 100 UNITS/ML SUBQ SCH ×5 (00:55→23:55)
[2016-04-17 05:14] LABS: HEMATOCRIT 43.3 % (39.0-49.0); HEMOGLOBIN 14.7 gm/dL (12.6-17.4); MEAN CELL VOLUME 92.2 fl (80-99); MEAN CORPUSCULAR HEMOGLOBIN 31.3 pg (27.0-31.0); MEAN CORPUSCULAR HGB CONC 33.9 pg (28.0-36.0); MEAN PLATELET VOLUME 7.8 fl; RED CELL DISTRIBUTION WIDTH 13.2 % (11.5-20.0)
[2016-04-17 05:28] LABS: ANION GAP 5.4 (7.0-16.0); BUN - UREA NITROGEN 53 mg/dL (7-25); BUN/CREATININE RATIO 66.3; CALCIUM SERUM 8.8 mg/dL (8.6-10.3); CARBON DIOXIDE 31.8 mEq/L (21.0-31.0); CHLORIDE 113 mEq/L (98-107); CREATININE - SERUM 0.8 mg/dL (0.7-1.3); GLUCOSE 209 mg/dL (70-105); PLATELET COUNT 207 Th/cmm (150-400); POTASSIUM SERUM 4.2 mEq/L (3.5-5.1); SODIUM SERUM 146 mEq/L (136-145); WHITE BLOOD COUNT 25.9 Th/cmm (4.8-10.8)
[2016-04-17] MEDS: Ipratropium Neb 0.5 mg/2.5 mL UD HHN SCH ×4 (07:16→19:12)
[2016-04-17] MEDS: Albuterol Nebulizer 2.5mg/3mL HHN SCH ×5 (07:16→23:17)
[2016-04-17] MEDS: Budesonide 0.5 Mg/2 mL Ud HHN SCH ×2 (07:17→19:12)
[2016-04-17 09:11] LABS: BAND NEUTROPHILE 11 % (0-10); NEUTROPHILS 79 % (40-80); PLATELET ESTIMATE ADEQUATE (NORMAL); PLATELET MORPHOLOGY NORMAL (NORMAL); TOTAL CELLS COUNTED 100
[2016-04-17 09:24] LABS: pH 7.47 (7.35-7.45)
[2016-04-17 09:25] LABS: ABG SOURCE Arterial; BE(B) 9.8 mmol/L (-3.0-3.0); FIO2 80; HCO3 34.9 mmol/L (20.0-26.0); MECH RATE 12; PS 6
[2016-04-17] MEDS: Lactobacillus Rhamnosus 10 Billion CFU Capsule PO SCH ×3 (09:45→20:45)
[2016-04-17] MEDS: Multivitamin 5 mL UDC GT SCH (09:45)
[2016-04-17] MEDS ORDERED: Midazolam 1mg/ml 2 ml vial IV ONE (10:10)
[2016-04-17 11:16] LABS: FOLIC ACID 8.4 ng/mL (>3.0)
--- NOTE | 2016-04-17 11:36 | Diagnostic Imaging Report ---
CHEST X-RAY: AP view INDICATION: Shortness of breath COMPARISON: Chest x-ray 04/16/2016 FINDINGS: NG tube is visualized coursing below the diaphragm. Left-sided chest tube is seen with tip along the left upper lateral hemithorax. There is a probable small pneumothorax along the left base. Small left effusion and left basal infiltrates are noted. IMPRESSION: Stable appearance of left chest tube along the left upper lateral hemithorax. There is probable small left pneumothorax greatest along the left lung base. A small left effusion and left basal infiltrates are noted. Continued follow-up is recommended.
--- NOTE | 2016-04-17 11:37 | Diagnostic Imaging Report ---
CHEST X-RAY: AP view INDICATION: Intubation COMPARISON: Chest x-ray 04/17/2016 at 10:11 AM FINDINGS: Endotracheal tube has been placed with tip 5.7 cm above the marie. NG tube is visualized coursing below the diaphragm. Left chest tube is stable. Left effusion is seen. There is a probable left basal pneumothorax. Left lower lung zone infiltrates are noted. IMPRESSION: Interval intubation with ET tube tip 5.7 cm above the Marie. Stable left chest tube. There is a probable small left pneumothorax. If indicated short-term follow-up CT would provide additional detail and assessment Left mid to left lower lung zone infiltrates.
[2016-04-17 12:06] LABS: pH 7.48 (7.35-7.45)
[2016-04-17 12:07] LABS: ABG SOURCE Arterial; BE(B) 7.1 mmol/L (-3.0-3.0); FIO2 100; HCO3 31.3 mmol/L (20.0-26.0); MECH RATE 14; MECH VT 500
--- NOTE | 2016-04-17 13:17 | Internal Medicine Prog Note ---
Internal Medicine Subjective - Subjective Patient seen and examined:: with staff, chart reviewed, other (re intubated) Patient is:: asleep, in bed Patient Complaints of:: congestion Per staff patient is:: no adverse event, noncompliant Internal Medicine Objective - Results Result Diagrams: 04/17/16 04:55 04/17/16 04:55 Recent Labs: Laboratory Last Values WBC 25.9 Th/cmm (4.8-10.8) H* D 04/17/16 04:55 RBC 4.70 Mil/cmm (3.80-5.80) 04/17/16 04:55 Hgb 14.7 gm/dL (12.6-17.4) 04/17/16 04:55 Hct 43.3 % (39.0-49.0) D 04/17/16 04:55 MCV 92.2 fl (80-99) 04/17/16 04:55 MCH 31.3 pg (27.0-31.0) H 04/17/16 04:55 MCHC Differential 33.9 pg (28.0-36.0) 04/17/16 04:55 RDW 13.2 % (11.5-20.0) 04/17/16 04:55 Plt Count 207 Th/cmm (150-400) D 04/17/16 04:55 MPV 7.8 fl 04/17/16 04:55 Neutrophils % 81.7 % (40.0-80.0) H 04/13/16 04:52 Band Neutrophils % 11 % (0-10) H 04/17/16 04:55 Lymphocytes % 9.3 % (20.0-50.0) L 04/13/16 04:52 Monocytes % 8.9 % (2.0-10.0) 04/13/16 04:52 Eosinophils % 0.1 % (0.0-5.0) 04/13/16 04:52 Basophils % 0.0 % (0.0-2.0) 04/13/16 04:52 Neutrophils (Manual) 79 % (40-80) 04/17/16 04:55 Lymphocytes 6 % (20-50) L 04/17/16 04:55 Monocytes 4 % (2-10) 04/17/16 04:55 Basophils 1 % (0-3) 04/09/16 23:53 Metamyelocytes 1 % (0-0) H 04/11/16 09:45 Platelet Estimate ADEQUATE (NORMAL) 04/17/16 04:55 Platelet Morphology NORMAL (NORMAL) 04/17/16 04:55 Ovalocytes 1+ 04/09/16 23:53 RBC Morph Micro Appear NORMAL (NORMAL) 04/17/16 04:55 PT 15.2 SECONDS (9.5-11.5) H 04/09/16 23:53 INR 1.50 (0.5-1.4) H 04/09/16 23:53 PTT (Actin FS) 26.7 SECONDS (26.0-38.0) 04/09/16 23:53 Specimen Source Arterial 04/17/16 11:35 Sample Site RB 04/17/16 11:35 pH 7.48 (7.35-7.45) H 04/17/16 11:35 pCO2 42.0 mmHg (35.0-45.0) 04/17/16 11:35 pO2 51.0 mmHg (80.0-100.0) L 04/17/16 11:35 HCO3 31.3 mmol/L (20.0-26.0) H 04/17/16 11:35 Base Excess 7.1 mmol/L (-3.0-3.0) H 04/17/16 11:35 O2 Saturation 88.0 % (92.0-100.0) L 04/17/16 11:35 Olvin Test NA 04/17/16 11:35 Vent Rate 14 04/17/16 11:35 Inspired O2 100 04/17/16 11:35 Tidal Volume 500 04/17/16 11:35 PEEP 5 04/17/16 11:35 Pressure (ins/psv/peep) NA 04/17/16 11:35 Critical Value E.ROME 04/17/16 11:35 Sodium 146 mEq/L (136-145) H 04/17/16 04:55 Potassium 4.2 mEq/L (3.5-5.1) 04/17/16 04:55 Chloride 113 mEq/L (98-107) H 04/17/16 04:55 Carbon Dioxide 31.8 mEq/L (21.0-31.0) H 04/17/16 04:55 Anion Gap 5.4 (7.0-16.0) L 04/17/16 04:55 BUN 53 mg/dL (7-25) H 04/17/16 04:55 Creatinine 0.8 mg/dL (0.7-1.3) 04/17/16 04:55 Est GFR ( Amer) > 60.0 ml/min (>90) 04/17/16 04:55 Est GFR (Non-Af Amer) > 60.0 ml/min 04/17/16 04:55 BUN/Creatinine Ratio 66.3 04/17/16 04:55 Glucose 209 mg/dL (70-105) H 04/17/16 04:55 POC Glucose 225 MG/DL (70 - 105) H 04/17/16 12:27 Hemoglobin A1c % 5.3 % (4.0-6.0) 04/09/16 23:53 Whole Bld Lactic Acid 2.05 mmol/L (0.60-2.00) H* 04/11/16 12:30 Calcium 8.8 mg/dL (8.6-10.3) 04/17/16 04:55 Phosphorus 2.8 mg/dL (2.5-5.0) 04/12/16 04:55 Magnesium 2.6 mg/dL (1.9-2.7) 04/16/16 04:45 Total Bilirubin 0.6 mg/dL (0.3-1.0) 04/16/16 04:45 AST 30 U/L (13-39) 04/16/16 04:45 ALT 67 U/L (7-52) H 04/16/16 04:45 Alkaline Phosphatase 54 U/L (34-104) 04/16/16 04:45 Ammonia 54 umol/L (16-53) H 04/17/16 04:55 B-Natriuretic Peptide 95.6 pg/mL (5.0-100.0) 04/17/16 04:55 Total Protein 6.4 gm/dL (6.0-8.3) 04/16/16 04:45 Albumin 2.8 gm/dL (4.2-5.5) L 04/16/16 04:45 Globulin 3.6 gm/dL 04/16/16 04:45 Albumin/Globulin Ratio 0.8 (1.0-1.8) L 04/16/16 04:45 Vitamin B12 1601 pg/mL (211-946) H 04/16/16 04:45 Folic Acid 8.4 ng/mL (>3.0) 04/16/16 04:45 TSH 1.78 uIU/ml (0.34-5.60) 04/09/16 23:53 Urine Source RANDOM 04/11/16 11:35 Urine Color YELLOW 04/11/16 11:35 Urine Clarity SL. CLOUDY (CLEAR) 04/11/16 11:35 Urine pH 5.5 04/11/16 11:35 Ur Specific [place] 1.025 (1.005-1.030) 04/11/16 11:35 Urine Protein 100 mg/dL (NEGATIVE) H 04/11/16 11:35 Urine Glucose (UA) 100 mg/dL (NEGATIVE) H 04/11/16 11:35 Urine Ketones NEGATIVE mg/dL (NEGATIVE) 04/11/16 11:35 Urine Blood SMALL (NEGATIVE) H 04/11/16 11:35 Urine Nitrate NEGATIVE (NEGATIVE) 04/11/16 11:35 Urine Bilirubin NEGATIVE (NEGATIVE) 04/11/16 11:35 Urine Ictotest POSITIVE (NEGATIVE) H 04/10/16 01:00 Urine Urobilinogen 0.2 E.U./dL (0.2 - 1.0) 04/11/16 11:35 Ur Leukocyte Esterase NEGATIVE (NEGATIVE) 04/11/16 11:35 Urine RBC 0-1 /hpf (0-5) 04/11/16 11:35 Urine WBC NONE SEEN /hpf (0-5) 04/11/16 11:35 Ur Epithelial Cells RARE /lpf (FEW) 04/11/16 11:35 Uric Acid Crystals MODERATE /hpf (NONE SEEN) 04/11/16 11:35 Urine Bacteria OCCASIONAL /hpf (NONE SEEN) 04/11/16 11:35 - Physical Exam Vitals and I&O: Vital Signs Temp 100 F 04/17/16 08:00 Pulse 101 04/17/16 12:41 Resp 29 04/17/16 11:00 BP 146/105 04/17/16 11:00 Pulse Ox 97 04/17/16 12:41 Intake & Output 04/16/16 04/17/16 04/17/16 18:59 06:59 18:59 Intake Total 1770 100 580 Output Total 1000 700 Balance 770 100 -120 Intake: Intake, IV Amount 1050 100 D5-0.45NS 1,000 ml @ 50 1000 mls/hr IV .Q20H [facility] Rx#: [id number] Piperacillin Sodium/ 50 100 Tazobact 2.25 gm In Sodium Chloride 0.9% 50 ml @ 100 mls/hr IV Q8HR [facility] Rx#:[id number] Tube Feeding 720 480 Other 100 Output: Urine 1000 700 Other: # Bowel Movements 1 1 Stool Characteristics Soft Active Medications: Current Medications Acetaminophen (Tylenol) 650 mg PO Q4HR PRN PRN Reason: Pain or Fever >101 Stop: 06/08/16 23:38 Last Admin: 04/11/16 13:20 Dose: 650 mg Al Hydrox/Mg Hydrox/Simethicone (Maalox) 30 ml PO Q6HR PRN PRN Reason: Constipation Stop: 06/08/16 23:35 Albuterol Sulfate (Albuterol 2.5mg/3ml Neb Ud) 2.5 mg HHN Q4HRT [facility] Stop: 06/15/16 18:59 Last Admin: 04/17/16 07:16 Dose: 2.5 mg Budesonide (Pulmicort) 0.5 mg HHN BIDRT [facility] Stop: 06/15/16 18:59 Last Admin: 04/17/16 07:17 Dose: Not Given Clonidine HCl (Catapres) 0.1 mg PO Q6HR PRN PRN Reason: SBP GREATER THAN 160 Stop: 06/08/16 23:35 Last Admin: 04/17/16 01:18 Dose: 0.1 mg Clonidine HCl (Jtmdjojl-Amh-3) 1 patch TD QSAT [facility] Stop: 06/12/16 16:44 Last Admin: 04/13/16 16:43 Dose: 1 patch Enalaprilat (Vasotec) 1.25 mg IVP Q6HR PRN PRN Reason: FOR SBP>160 Stop: 06/12/16 23:18 Last Admin: 04/13/16 06:20 Dose: 1.25 mg Guaifenesin (Robitussin) 100 mg PO Q4H PRN PRN Reason: Cough or Congestion Stop: 06/08/16 23:38 Piperacillin Sod/Tazobactam (Sod 2.25 gm/ Sodium Chloride) 50 mls @ 100 mls/hr IV Q8HR [facility] Stop: 06/09/16 12:59 Last Admin: 04/17/16 12:23 Dose: 100 mls/hr Norepinephrine Bitartrate 4 mg (/ Dextrose) 254 mls @ 0 mls/hr IV TITR PRN; Protocol; Per Protocol PRN Reason: To Keep SBP Above 90 Stop: 06/09/16 12:31 Last Admin: 04/11/16 01:50 Dose: 6 mcg/min, 22.86 mls/hr Dextrose/Sodium Chloride (D5-0.45ns) 1,000 mls @ 50 mls/hr IV .Q20H [facility] Stop: 06/13/16 09:56 Last Admin: 04/16/16 20:14 Dose: 50 mls/hr Vancomycin HCl 1 gm/ Sodium (Chloride) 250 mls @ 166.667 mls/hr IV Q24H [facility] Stop: 06/16/16 13:14 Insulin Aspart (Novolog) 0 units SUBQ Q6HR [facility] PRN Reason: Protocol Stop: 06/14/16 00:00 Last Admin: 04/17/16 12:35 Dose: 2 units Ipratropium [place] (Atrovent Neb 0.5mg/2.5ml) 0.5 mg HHN QIDRT [facility] Stop: 06/09/16 08:59 Last Admin: 04/17/16 07:16 Dose: 0.5 mg Lactobacillus Rhamnosus (Culturelle) 1 each PO TID [facility] Stop: 06/11/16 13:59 Last Admin: 04/17/16 09:45 Dose: 1 each Methylprednisolone Sodium Succinate (Solu-Medrol) 80 mg IVP Q6HR [facility] Stop: 06/14/16 11:59 Last Admin: 04/17/16 12:23 Dose: 80 mg Miscellaneous (Clinical Monitoring) 1 ea [facility] PRN PRN PRN Reason: RENAL DOSING Stop: 06/09/16 07:17 Miscellaneous (Probiotic Screen) 1 ea [facility] PRN PRN PRN Reason: PROTOCOL Stop: 06/12/16 14:41 Miscellaneous (Vancomycin Iv Per Pharmacy) 1 ea MC PRN [facility] Stop: 06/16/16 13:14 Multivitamins/Vitamin C (Theragran) 5 ml GT DAILY [facility] Stop: 06/09/16 14:29 Last Admin: 04/17/16 09:45 Dose: 5 ml Ondansetron HCl (Zofran) 4 mg IV Q8H PRN PRN Reason: Nausea / Vomiting Stop: 06/08/16 23:38 Pantoprazole Sodium (Protonix) 40 mg IVP DAILY [facility] Stop: 06/09/16 13:59 Last Admin: 04/17/16 09:45 Dose: 40 mg General: lethargic, demented Neck: Supple Lungs: congested, rales, ronchi Cardiovascular: RRR, Normal S1, Normal S2 Abdomen: soft non-tender, globular, other (ngt) Extremities: excoriation, contracture Neurological: lethargic, unable to follow command - Procedures Procedures: Procedures Procedure Code Date DRAINAGE OF L PLEURAL CAV WITH DRAIN DEV, OPEN APPROACH [id number] 04/09/16 INSERT EMERGENCY AIRWAY 02570 04/09/16 INSERTION OF CHEST TUBE 66369 04/09/16 INSERTION OF ENDOTRACHEAL AIRWAY INTO TRACHEA, VIA OPENING [id number] 04/09/16 RESPIRATORY VENTILATION, 24-96 CONSECUTIVE HOURS [id number] 04/09/16 VENT MGMT INPAT INIT DAY 18387 04/09/16 VENT MGMT INPAT SUBQ DAY 78838 04/09/16 Internal Medicine Assmt/Plan - Assessment Assessment: ACUTE RESPIRATORY FAILURE s\p extubation--re intubated ALOC HYPOTENSION pmn leukocytosis anemia ptx - Plan Plan: cont w chest tube vent support and weaning cont on iv abx 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
[2016-04-17] MEDS ORDERED: Vancomycin HCl 1.5 GM in Sodium Chloride 0.9% 500 ML IV ONE (14:00)
--- NOTE | 2016-04-17 17:07 | Progress Notes ---
Case discussed with staff of the patient, reviewed records. The patient continues to be on the ventilator; however, he responded by opening his eyes, no acting out behavior. He is sleeping well and eating well. No side effects with the medication, but he is off the psychotropics and currently only an Ativan as needed and [facility] _[facility] unless he goes to subacute. Thank you very much for allowing me to participate in the care of this most interesting gentleman. JOB# [id number]
[2016-04-17 18:04] LABS: ABG SOURCE Arterial; ALLEN TEST YES; BE(B) 8.8 mmol/L (-3.0-3.0); FIO2 100; HCO3 32.7 mmol/L (20.0-26.0); MECH RATE 14; MECH VT 500; pH 7.51 (7.35-7.45)
[2016-04-17] MEDS: D5-0.45NS 1,000 ML IV SCH (19:46)
[2016-04-17] MEDS: Vancomycin HCl 1.5 GM in Sodium Chloride 0.9% 500 ML IV SCH (21:50)
--- NOTE | 2016-04-18 00:08 | Progress Notes ---
Case was discussed with staff of the patient, reviewed records. The patient continues to be intubated, continues to be on a ventilator. Continues to be unable to participate in a meaningful conversation or make safe plan for self-care. He is currently only on Ativan as needed and the staff told me he is not getting agitated much, and I will continue to follow the patient. My impression is that he will be going to subacute when he is ready. He will need to follow up with the psychiatrist upon discharge at the subacute, otherwise if he does not go to subacute, he may need to go back to [facility]. Thank you very much for allowing me to participate in the care of this most interesting gentleman. [facility]# [id number]
[2016-04-18] MEDS: Albuterol Nebulizer 2.5mg/3mL HHN SCH ×5 (02:44→23:02)
[2016-04-18 05:19] LABS: HEMOGLOBIN 14.2 gm/dL (12.6-17.4); MEAN CELL VOLUME 89.3 fl (80-99); MEAN CORPUSCULAR HEMOGLOBIN 30.9 pg (27.0-31.0); MEAN CORPUSCULAR HGB CONC 34.6 pg (28.0-36.0); PLATELET COUNT 184 Th/cmm (150-400); RED BLOOD COUNT 4.59 Mil/cmm (3.80-5.80); RED CELL DISTRIBUTION WIDTH 13.3 % (11.5-20.0)
[2016-04-18 05:31] LABS: WHITE BLOOD COUNT 24.1 Th/cmm (4.8-10.8)
[2016-04-18 05:45] LABS: ALB/GLOB RATIO 0.8 (1.0-1.8); ALKALINE PHOSPHATASE 65 U/L (34-104); ANION GAP 14.6 (7.0-16.0); BILIRUBIN,TOTAL 0.6 mg/dL (0.3-1.0); BUN - UREA NITROGEN 60 mg/dL (7-25); CALCIUM SERUM 8.6 mg/dL (8.6-10.3); CARBON DIOXIDE 27.6 mEq/L (21.0-31.0); CHLORIDE 113 mEq/L (98-107); CREATININE - SERUM 0.8 mg/dL (0.7-1.3); GLUCOSE 294 mg/dL (70-105); MAGNESIUM 2.7 mg/dL (1.9-2.7); POTASSIUM SERUM 4.2 mEq/L (3.5-5.1); SGOT 21 U/L (13-39); SGPT/ALT 42 U/L (7-52); SODIUM SERUM 151 mEq/L (136-145)
[2016-04-18] MEDS: Ipratropium Neb 0.5 mg/2.5 mL UD HHN SCH ×3 (06:45→20:07)
[2016-04-18] MEDS: Budesonide 0.5 Mg/2 mL Ud HHN SCH ×2 (06:46→20:07)
[2016-04-18] MEDS: INSULIN ASPART, RECOMBINANT 100 UNITS/ML SUBQ SCH ×3 (06:46→18:07)
[2016-04-18] MEDS: Multivitamin 5 mL UDC GT SCH (08:44)
[2016-04-18] MEDS: Lactobacillus Rhamnosus 10 Billion CFU Capsule PO SCH ×2 (08:44→14:32)
--- NOTE | 2016-04-18 09:14 | Diagnostic Imaging Report ---
CHEST X-RAY: AP view INDICATION: Shortness of breath Comparison: Chest x-ray 04/17/2016 FINDINGS: The left chest tube is been removed. There is clearance of opacity of the left lung base. NG tube is visualized coursing below the diaphragm. ET tube is seen with tip 4.5 cm above the [place]. COPD lung changes are noted. No evidence of a gross pneumothorax. IMPRESSION: Interval removal of the left-sided chest tube. No evidence of a gross pneumothorax Clearance of opacity along the left lung base which may be due to resolving pleural effusion and infiltrate. COPD lung changes. ET tube with tip 4.5 cm above the [place].
[2016-04-18 09:50] LABS: ABG SOURCE Arterial; ALLEN TEST PASS; BE(B) 5.9 mmol/L (-3.0-3.0); HCO3 29.7 mmol/L (20.0-26.0); pH 7.49 (7.35-7.45)
[2016-04-18 09:54] LABS: CRITICAL VALUES REPORTED BY PW; FIO2 70; MECH RATE 14; MECH VT 500
[2016-04-18] MEDS: Vancomycin HCl 1.5 GM in Sodium Chloride 0.9% 500 ML IV SCH ×2 (10:00→22:18)
[2016-04-18 10:07] LABS: BAND NEUTROPHILE 6 % (0-10); NEUTROPHILS 89 % (40-80); TOTAL CELLS COUNTED 100
[2016-04-18 10:08] LABS: PLATELET ESTIMATE ADEQUATE (NORMAL); PLATELET MORPHOLOGY NORMAL (NORMAL)
--- NOTE | 2016-04-18 11:45 | Internal Medicine Prog Note ---
Internal Medicine Subjective - Subjective Patient seen and examined:: with staff, chart reviewed Patient is:: asleep, non-verbal, non-interactive Patient Complaints of:: congestion Per staff patient is:: no adverse event, confused Internal Medicine Objective - Results Result Diagrams: 04/18/16 04:57 04/18/16 04:57 Recent Labs: Laboratory Last Values WBC 24.1 Th/cmm (4.8-10.8) H* 04/18/16 04:57 RBC 4.59 Mil/cmm (3.80-5.80) 04/18/16 04:57 Hgb 14.2 gm/dL (12.6-17.4) 04/18/16 04:57 Hct 41.0 % (39.0-49.0) 04/18/16 04:57 MCV 89.3 fl (80-99) 04/18/16 04:57 MCH 30.9 pg (27.0-31.0) 04/18/16 04:57 MCHC Differential 34.6 pg (28.0-36.0) 04/18/16 04:57 RDW 13.3 % (11.5-20.0) 04/18/16 04:57 Plt Count 184 Th/cmm (150-400) 04/18/16 04:57 MPV 8.0 fl 04/18/16 04:57 Neutrophils % 81.7 % (40.0-80.0) H 04/13/16 04:52 Band Neutrophils % 6 % (0-10) 04/18/16 04:57 Lymphocytes % 9.3 % (20.0-50.0) L 04/13/16 04:52 Monocytes % 8.9 % (2.0-10.0) 04/13/16 04:52 Eosinophils % 0.1 % (0.0-5.0) 04/13/16 04:52 Basophils % 0.0 % (0.0-2.0) 04/13/16 04:52 Neutrophils (Manual) 89 % (40-80) H 04/18/16 04:57 Lymphocytes 4 % (20-50) L 04/18/16 04:57 Monocytes 1 % (2-10) L 04/18/16 04:57 Basophils 1 % (0-3) 04/09/16 23:53 Metamyelocytes 1 % (0-0) H 04/11/16 09:45 Platelet Estimate ADEQUATE (NORMAL) 04/18/16 04:57 Platelet Morphology NORMAL (NORMAL) 04/18/16 04:57 Ovalocytes 1+ 04/09/16 23:53 RBC Morph Micro Appear NORMAL (NORMAL) 04/18/16 04:57 PT 15.2 SECONDS (9.5-11.5) H 04/09/16 23:53 INR 1.50 (0.5-1.4) H 04/09/16 23:53 PTT (Actin FS) 26.7 SECONDS (26.0-38.0) 04/09/16 23:53 Specimen Source Arterial 04/18/16 09:20 Sample Site Left Radial 04/18/16 09:20 pH 7.49 (7.35-7.45) H 04/18/16 09:20 pCO2 39.0 mmHg (35.0-45.0) 04/18/16 09:20 pO2 140.0 mmHg (80.0-100.0) H 04/18/16 09:20 HCO3 29.7 mmol/L (20.0-26.0) H 04/18/16 09:20 Base Excess 5.9 mmol/L (-3.0-3.0) H 04/18/16 09:20 O2 Saturation 99.0 % (92.0-100.0) 04/18/16 09:20 Olvin Test PASS 04/18/16 09:20 Vent Rate 14 04/18/16 09:20 Inspired O2 70 04/18/16 09:20 Tidal Volume 500 04/18/16 09:20 PEEP 7 04/18/16 09:20 Pressure (ins/psv/peep) NA 04/17/16 17:20 Critical Value PW 04/18/16 09:20 Sodium 151 mEq/L (136-145) H 04/18/16 04:57 Potassium 4.2 mEq/L (3.5-5.1) 04/18/16 04:57 Chloride 113 mEq/L (98-107) H 04/18/16 04:57 Carbon Dioxide 27.6 mEq/L (21.0-31.0) 04/18/16 04:57 Anion Gap 14.6 (7.0-16.0) 04/18/16 04:57 BUN 60 mg/dL (7-25) H 04/18/16 04:57 Creatinine 0.8 mg/dL (0.7-1.3) 04/18/16 04:57 Est GFR ( Amer) > 60.0 ml/min (>90) 04/18/16 04:57 Est GFR (Non-Af Amer) > 60.0 ml/min 04/18/16 04:57 BUN/Creatinine Ratio 75.0 04/18/16 04:57 Glucose 294 mg/dL (70-105) H 04/18/16 04:57 POC Glucose 270 MG/DL (70 - 105) H 04/18/16 05:53 Hemoglobin A1c % 5.3 % (4.0-6.0) 04/09/16 23:53 Whole Bld Lactic Acid 2.05 mmol/L (0.60-2.00) H* 04/11/16 12:30 Calcium 8.6 mg/dL (8.6-10.3) 04/18/16 04:57 Phosphorus 2.8 mg/dL (2.5-5.0) 04/12/16 04:55 Magnesium 2.7 mg/dL (1.9-2.7) 04/18/16 04:57 Total Bilirubin 0.6 mg/dL (0.3-1.0) 04/18/16 04:57 AST 21 U/L (13-39) 04/18/16 04:57 ALT 42 U/L (7-52) 04/18/16 04:57 Alkaline Phosphatase 65 U/L (34-104) 04/18/16 04:57 Ammonia 37 umol/L (16-53) 04/18/16 04:57 B-Natriuretic Peptide 130.0 pg/mL (5.0-100.0) H 04/18/16 04:57 Total Protein 6.0 gm/dL (6.0-8.3) 04/18/16 04:57 Albumin 2.7 gm/dL (4.2-5.5) L 04/18/16 04:57 Globulin 3.3 gm/dL 04/18/16 04:57 Albumin/Globulin Ratio 0.8 (1.0-1.8) L 04/18/16 04:57 Vitamin B12 1601 pg/mL (211-946) H 04/16/16 04:45 Folic Acid 8.4 ng/mL (>3.0) 04/16/16 04:45 TSH 1.78 uIU/ml (0.34-5.60) 04/09/16 23:53 Urine Source RANDOM 04/11/16 11:35 Urine Color YELLOW 04/11/16 11:35 Urine Clarity SL. CLOUDY (CLEAR) 04/11/16 11:35 Urine pH 5.5 04/11/16 11:35 Ur Specific [place] 1.025 (1.005-1.030) 04/11/16 11:35 Urine Protein 100 mg/dL (NEGATIVE) H 04/11/16 11:35 Urine Glucose (UA) 100 mg/dL (NEGATIVE) H 04/11/16 11:35 Urine Ketones NEGATIVE mg/dL (NEGATIVE) 04/11/16 11:35 Urine Blood SMALL (NEGATIVE) H 04/11/16 11:35 Urine Nitrate NEGATIVE (NEGATIVE) 04/11/16 11:35 Urine Bilirubin NEGATIVE (NEGATIVE) 04/11/16 11:35 Urine Ictotest POSITIVE (NEGATIVE) H 04/10/16 01:00 Urine Urobilinogen 0.2 E.U./dL (0.2 - 1.0) 04/11/16 11:35 Ur Leukocyte Esterase NEGATIVE (NEGATIVE) 04/11/16 11:35 Urine RBC 0-1 /hpf (0-5) 04/11/16 11:35 Urine WBC NONE SEEN /hpf (0-5) 04/11/16 11:35 Ur Epithelial Cells RARE /lpf (FEW) 04/11/16 11:35 Uric Acid Crystals MODERATE /hpf (NONE SEEN) 04/11/16 11:35 Urine Bacteria OCCASIONAL /hpf (NONE SEEN) 04/11/16 11:35 Vancomycin Trough 15.8 ug/mL (10-20) 04/18/16 09:10 - Physical Exam Vitals and I&O: Vital Signs Temp 99.4 F 04/18/16 08:00 Pulse 96 04/18/16 10:39 Resp 23 04/18/16 10:00 BP 97/67 04/18/16 10:00 Pulse Ox 97 04/18/16 10:39 Intake & Output 04/17/16 04/18/16 04/18/16 18:59 06:59 18:59 Intake Total 2430 1520 Output Total 1550 900 Balance 880 620 Intake: Intake, IV Amount 1550 600 D5-0.45NS 1,000 ml @ 50 1000 mls/hr IV .Q20H [facility] Rx#: [id number] Piperacillin Sodium/ 50 100 Tazobact 2.25 gm In Sodium Chloride 0.9% 50 ml @ 100 mls/hr IV Q8HR [facility] Rx#:[id number] Vancomycin HCl 1.5 gm In 500 Sodium Chloride 0.9% 500 ml @ 250 mls/hr IV Q12H [facility] Rx#:[id number] Tube Feeding 780 840 Other 100 80 Output: Urine 1550 900 Other: # Bowel Movements 0 0 0 Active Medications: Current Medications Acetaminophen (Tylenol) 650 mg PO Q4HR PRN PRN Reason: Pain or Fever >101 Stop: 06/08/16 23:38 Last Admin: 04/17/16 23:53 Dose: 650 mg Al Hydrox/Mg Hydrox/Simethicone (Maalox) 30 ml PO Q6HR PRN PRN Reason: Constipation Stop: 06/08/16 23:35 Albuterol Sulfate (Albuterol 2.5mg/3ml Neb Ud) 2.5 mg HHN Q4HRT [facility] Stop: 06/15/16 18:59 Last Admin: 04/18/16 06:45 Dose: 2.5 mg Budesonide (Pulmicort) 0.5 mg HHN BIDRT [facility] Stop: 06/15/16 18:59 Last Admin: 04/18/16 06:46 Dose: 0.5 mg Clonidine HCl (Catapres) 0.1 mg PO Q6HR PRN PRN Reason: SBP GREATER THAN 160 Stop: 06/08/16 23:35 Last Admin: 04/17/16 01:18 Dose: 0.1 mg Clonidine HCl (Rouarrxr-Zgt-6) 1 patch TD QSAT [facility] Stop: 06/12/16 16:44 Last Admin: 04/13/16 16:43 Dose: 1 patch Enalaprilat (Vasotec) 1.25 mg IVP Q6HR PRN PRN Reason: FOR SBP>160 Stop: 06/12/16 23:18 Last Admin: 04/13/16 06:20 Dose: 1.25 mg Guaifenesin (Robitussin) 100 mg PO Q4H PRN PRN Reason: Cough or Congestion Stop: 06/08/16 23:38 Piperacillin Sod/Tazobactam (Sod 2.25 gm/ Sodium Chloride) 50 mls @ 100 mls/hr IV Q8HR [facility] Stop: 06/09/16 12:59 Last Infusion: 04/18/16 06:00 Dose: Infused Norepinephrine Bitartrate 4 mg (/ Dextrose) 254 mls @ 0 mls/hr IV TITR PRN; Protocol; Per Protocol PRN Reason: To Keep SBP Above 90 Stop: 06/09/16 12:31 Last Admin: 04/11/16 01:50 Dose: 6 mcg/min, 22.86 mls/hr Dextrose/Sodium Chloride (D5-0.45ns) 1,000 mls @ 50 mls/hr IV .Q20H [facility] Stop: 06/13/16 09:56 Last Admin: 04/17/16 19:46 Dose: 50 mls/hr Vancomycin HCl 1.5 gm/ Sodium (Chloride) 500 mls @ 250 mls/hr IV Q12H [facility] Stop: 06/16/16 21:59 Last Admin: 04/18/16 10:00 Dose: 250 mls/hr Insulin Aspart (Novolog) 0 units SUBQ Q6HR [facility]GEL PRN Reason: Protocol Stop: 06/14/16 00:00 Last Admin: 04/18/16 06:46 Dose: 4 units Ipratropium Floweree (Atrovent Neb 0.5mg/2.5ml) 0.5 mg HHN QIDRT [facility] Stop: 06/09/16 08:59 Last Admin: 04/18/16 06:45 Dose: 0.5 mg Lactobacillus Rhamnosus (Culturelle) 1 each PO TID [facility] Stop: 06/11/16 13:59 Last Admin: 04/18/16 08:44 Dose: 1 each Lorazepam (Ativan) 1 mg IVP Q2H PRN; Protocol PRN Reason: Agitation Stop: 06/16/16 20:31 Last Admin: 04/17/16 21:44 Dose: 1 mg Methylprednisolone Sodium Succinate (Solu-Medrol) 80 mg IVP Q6HR [facility] Stop: 06/14/16 11:59 Last Admin: 04/18/16 06:42 Dose: 80 mg Miscellaneous (Clinical Monitoring) 1 ea PRN PRN PRN Reason: RENAL DOSING Stop: 06/09/16 07:17 Miscellaneous (Probiotic Screen) 1 ea PRN PRN PRN Reason: PROTOCOL Stop: 06/12/16 14:41 Miscellaneous (Vancomycin Iv Per Pharmacy) 1 ea MC PRN [facility] Stop: 06/16/16 13:14 Multivitamins/Vitamin C (Theragran) 1 tab GT DAILY [facility] Stop: 06/18/16 08:59 Ondansetron HCl (Zofran) 4 mg IV Q8H PRN PRN Reason: Nausea / Vomiting Stop: 06/08/16 23:38 Pantoprazole Sodium (Protonix) 40 mg IVP DAILY [facility] Stop: 06/09/16 13:59 Last Admin: 04/18/16 08:44 Dose: 40 mg General: lethargic, congested HEENT: NC/AT, PERRLA Neck: Supple Lungs: congested, rales, ronchi Cardiovascular: RRR, Normal S1, Normal S2 Abdomen: soft non-tender, globular Extremities: excoriation Neurological: no change, unable to follow command - Procedures Procedures: Procedures Procedure Code Date DRAINAGE OF L PLEURAL CAV WITH DRAIN DEV, OPEN APPROACH [id number] 04/09/16 INSERT EMERGENCY AIRWAY 14122 04/09/16 INSERTION OF CHEST TUBE 22813 04/09/16 INSERTION OF ENDOTRACHEAL AIRWAY INTO TRACHEA, VIA OPENING [id number] 04/09/16 RESPIRATORY VENTILATION, 24-96 CONSECUTIVE HOURS [id number] 04/09/16 VENT MGMT INPAT INIT DAY 72989 04/09/16 VENT MGMT INPAT SUBQ DAY 40215 04/09/16 Internal Medicine Assmt/Plan - Assessment Assessment: ACUTE RESPIRATORY FAILURE s\p extubation--re intubated ALOC HYPOTENSION pmn leukocytosis anemia ptx - Plan Plan: cont w chest tube vent support and weaning cont on iv abx 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
[2016-04-18] MEDS: Dextrose 5% 1,000 ML IV SCH (12:00)
--- NOTE | 2016-04-18 23:27 | Progress Notes ---
Case discussed with staff of the patient, reviewed records. The patient continues to be on a ventilator. He has been calmer in general according to the staff, he is still needing medical treatment. He continues to be having episodes of agitation and so far, we will continue medication, ____ psychotropic medication only Ativan as needed and need to follow up with the psychiatrist upon discharge to ____subacute or senior care. Thank you very much for allowing me to participate in the care of this most interesting gentleman. JOB# [id number]
[2016-04-19] MEDS: INSULIN ASPART, RECOMBINANT 100 UNITS/ML SUBQ SCH ×3 (00:41→17:47)
[2016-04-19] MEDS: Albuterol Nebulizer 2.5mg/3mL HHN SCH ×6 (03:11→23:46)
[2016-04-19 05:04] LABS: HEMATOCRIT 44.4 % (39.0-49.0); HEMOGLOBIN 15.1 gm/dL (12.6-17.4); MEAN CELL VOLUME 91.3 fl (80-99); MEAN CORPUSCULAR HGB CONC 33.9 pg (28.0-36.0); MEAN PLATELET VOLUME 7.8 fl; PLATELET COUNT 209 Th/cmm (150-400); RED BLOOD COUNT 4.87 Mil/cmm (3.80-5.80); RED CELL DISTRIBUTION WIDTH 13.1 % (11.5-20.0)
[2016-04-19 05:14] LABS: WHITE BLOOD COUNT 33.3 Th/cmm (4.8-10.8)
[2016-04-19 05:33] LABS: BAND NEUTROPHILE 2 % (0-10); TOTAL CELLS COUNTED 100
[2016-04-19 05:34] LABS: NEUTROPHILS 94 % (40-80)
[2016-04-19 05:36] LABS: PLATELET ESTIMATE ADEQUATE (NORMAL); PLATELET MORPHOLOGY NORMAL (NORMAL)
[2016-04-19 05:40] LABS: ANION GAP 10.3 (7.0-16.0); BUN - UREA NITROGEN 65 mg/dL (7-25); BUN/CREATININE RATIO 81.3; CALCIUM SERUM 8.3 mg/dL (8.6-10.3); CHLORIDE 116 mEq/L (98-107); CREATININE - SERUM 0.8 mg/dL (0.7-1.3); GLUCOSE 283 mg/dL (70-105); MAGNESIUM 2.8 mg/dL (1.9-2.7); POTASSIUM SERUM 4.3 mEq/L (3.5-5.1); SODIUM SERUM 150 mEq/L (136-145)
[2016-04-19] MEDS: Ipratropium Neb 0.5 mg/2.5 mL UD HHN SCH ×4 (08:49→19:06)
[2016-04-19] MEDS: Budesonide 0.5 Mg/2 mL Ud HHN SCH ×2 (08:49→19:07)
[2016-04-19] MEDS: Lactobacillus Rhamnosus 10 Billion CFU Capsule PO SCH ×4 (09:12→21:58)
[2016-04-19] MEDS: Multivitamin Tab GT SCH (09:13)
[2016-04-19] MEDS: Vancomycin HCl 1.5 GM in Sodium Chloride 0.9% 500 ML IV SCH (10:11)
[2016-04-19 11:15] LABS: FOLIC ACID 9.4 ng/mL (>3.0)
[2016-04-19] MEDS ORDERED: methylPREDNISolone SS 40 mg Vial IVP SCH (12:00)
--- NOTE | 2016-04-19 12:42 | Internal Medicine Prog Note ---
Internal Medicine Subjective - Subjective Patient seen and examined:: with staff, chart reviewed Patient is:: asleep, non-interactive Patient Complaints of:: congestion Per staff patient is:: no adverse event, agitated, combative, confused Internal Medicine Objective - Results Result Diagrams: 04/19/16 04:36 04/19/16 04:36 Recent Labs: Laboratory Last Values WBC 33.3 Th/cmm (4.8-10.8) H* D 04/19/16 04:36 RBC 4.87 Mil/cmm (3.80-5.80) 04/19/16 04:36 Hgb 15.1 gm/dL (12.6-17.4) 04/19/16 04:36 Hct 44.4 % (39.0-49.0) 04/19/16 04:36 MCV 91.3 fl (80-99) 04/19/16 04:36 MCH 31.0 pg (27.0-31.0) 04/19/16 04:36 MCHC Differential 33.9 pg (28.0-36.0) 04/19/16 04:36 RDW 13.1 % (11.5-20.0) 04/19/16 04:36 Plt Count 209 Th/cmm (150-400) 04/19/16 04:36 MPV 7.8 fl 04/19/16 04:36 Neutrophils % 81.7 % (40.0-80.0) H 04/13/16 04:52 Band Neutrophils % 2 % (0-10) 04/19/16 04:36 Lymphocytes % 9.3 % (20.0-50.0) L 04/13/16 04:52 Monocytes % 8.9 % (2.0-10.0) 04/13/16 04:52 Eosinophils % 0.1 % (0.0-5.0) 04/13/16 04:52 Basophils % 0.0 % (0.0-2.0) 04/13/16 04:52 Neutrophils (Manual) 94 % (40-80) H 04/19/16 04:36 Lymphocytes 2 % (20-50) L 04/19/16 04:36 Monocytes 2 % (2-10) 04/19/16 04:36 Basophils 1 % (0-3) 04/09/16 23:53 Metamyelocytes 1 % (0-0) H 04/11/16 09:45 Platelet Estimate ADEQUATE (NORMAL) 04/19/16 04:36 Platelet Morphology NORMAL (NORMAL) 04/19/16 04:36 Ovalocytes 1+ 04/09/16 23:53 RBC Morph Micro Appear NORMAL (NORMAL) 04/19/16 04:36 PT 15.2 SECONDS (9.5-11.5) H 04/09/16 23:53 INR 1.50 (0.5-1.4) H 04/09/16 23:53 PTT (Actin FS) 26.7 SECONDS (26.0-38.0) 04/09/16 23:53 Specimen Source Arterial 04/18/16 09:20 Sample Site Left Radial 04/18/16 09:20 pH 7.49 (7.35-7.45) H 04/18/16 09:20 pCO2 39.0 mmHg (35.0-45.0) 04/18/16 09:20 pO2 140.0 mmHg (80.0-100.0) H 04/18/16 09:20 HCO3 29.7 mmol/L (20.0-26.0) H 04/18/16 09:20 Base Excess 5.9 mmol/L (-3.0-3.0) H 04/18/16 09:20 O2 Saturation 99.0 % (92.0-100.0) 04/18/16 09:20 Olvin Test PASS 04/18/16 09:20 Vent Rate 14 04/18/16 09:20 Inspired O2 70 04/18/16 09:20 Tidal Volume 500 04/18/16 09:20 PEEP 7 04/18/16 09:20 Pressure (ins/psv/peep) NA 04/17/16 17:20 Critical Value PW 04/18/16 09:20 Sodium 150 mEq/L (136-145) H 04/19/16 04:36 Potassium 4.3 mEq/L (3.5-5.1) 04/19/16 04:36 Chloride 116 mEq/L (98-107) H 04/19/16 04:36 Carbon Dioxide 28.0 mEq/L (21.0-31.0) 04/19/16 04:36 Anion Gap 10.3 (7.0-16.0) 04/19/16 04:36 BUN 65 mg/dL (7-25) H 04/19/16 04:36 Creatinine 0.8 mg/dL (0.7-1.3) 04/19/16 04:36 Est GFR ( Amer) > 60.0 ml/min (>90) 04/19/16 04:36 Est GFR (Non-Af Amer) > 60.0 ml/min 04/19/16 04:36 BUN/Creatinine Ratio 81.3 04/19/16 04:36 Glucose 283 mg/dL (70-105) H 04/19/16 04:36 POC Glucose 267 MG/DL (70 - 105) H 04/19/16 00:33 Hemoglobin A1c % 5.3 % (4.0-6.0) 04/09/16 23:53 Whole Bld Lactic Acid 2.05 mmol/L (0.60-2.00) H* 04/11/16 12:30 Calcium 8.3 mg/dL (8.6-10.3) L 04/19/16 04:36 Phosphorus 2.8 mg/dL (2.5-5.0) 04/12/16 04:55 Magnesium 2.8 mg/dL (1.9-2.7) H 04/19/16 04:36 Total Bilirubin 0.6 mg/dL (0.3-1.0) 04/18/16 04:57 AST 21 U/L (13-39) 04/18/16 04:57 ALT 42 U/L (7-52) 04/18/16 04:57 Alkaline Phosphatase 65 U/L (34-104) 04/18/16 04:57 Ammonia 37 umol/L (16-53) 04/18/16 04:57 B-Natriuretic Peptide 126.0 pg/mL (5.0-100.0) H 04/19/16 04:36 Total Protein 6.0 gm/dL (6.0-8.3) 04/18/16 04:57 Albumin 2.7 gm/dL (4.2-5.5) L 04/18/16 04:57 Globulin 3.3 gm/dL 04/18/16 04:57 Albumin/Globulin Ratio 0.8 (1.0-1.8) L 04/18/16 04:57 Vitamin B12 1623 pg/mL (211-946) H 04/18/16 04:57 Folic Acid 9.4 ng/mL (>3.0) 04/18/16 04:57 TSH 1.78 uIU/ml (0.34-5.60) 04/09/16 23:53 Urine Source RANDOM 04/11/16 11:35 Urine Color YELLOW 04/11/16 11:35 Urine Clarity SL. CLOUDY (CLEAR) 04/11/16 11:35 Urine pH 5.5 04/11/16 11:35 Ur Specific [place] 1.025 (1.005-1.030) 04/11/16 11:35 Urine Protein 100 mg/dL (NEGATIVE) H 04/11/16 11:35 Urine Glucose (UA) 100 mg/dL (NEGATIVE) H 04/11/16 11:35 Urine Ketones NEGATIVE mg/dL (NEGATIVE) 04/11/16 11:35 Urine Blood SMALL (NEGATIVE) H 04/11/16 11:35 Urine Nitrate NEGATIVE (NEGATIVE) 04/11/16 11:35 Urine Bilirubin NEGATIVE (NEGATIVE) 04/11/16 11:35 Urine Ictotest POSITIVE (NEGATIVE) H 04/10/16 01:00 Urine Urobilinogen 0.2 E.U./dL (0.2 - 1.0) 04/11/16 11:35 Ur Leukocyte Esterase NEGATIVE (NEGATIVE) 04/11/16 11:35 Urine RBC 0-1 /hpf (0-5) 04/11/16 11:35 Urine WBC NONE SEEN /hpf (0-5) 04/11/16 11:35 Ur Epithelial Cells RARE /lpf (FEW) 04/11/16 11:35 Uric Acid Crystals MODERATE /hpf (NONE SEEN) 04/11/16 11:35 Urine Bacteria OCCASIONAL /hpf (NONE SEEN) 04/11/16 11:35 Vancomycin Trough 15.8 ug/mL (10-20) 04/18/16 09:10 - Physical Exam Vitals and I&O: Vital Signs Temp 99.2 F 04/19/16 12:00 Pulse 115 04/19/16 12:14 Resp 129 04/19/16 12:00 BP 114/78 04/19/16 12:00 Pulse Ox 97 04/19/16 12:14 Intake & Output 04/18/16 04/19/16 04/19/16 18:59 06:59 18:59 Intake Total 2351.667 1350 190 Output Total 950 851 200 Balance 1401.667 499 -10 Intake: Intake, IV Amount 1361.667 550 D5-0.45NS 1,000 ml @ 50 811.667 mls/hr IV .Q20H [facility] Rx#: [id number] Piperacillin Sodium/ 50 50 Tazobact 2.25 gm In Sodium Chloride 0.9% 50 ml @ 100 mls/hr IV Q8HR [facility] Rx#:[id number] Vancomycin HCl 1.5 gm In 500 500 Sodium Chloride 0.9% 500 ml @ 250 mls/hr IV Q12H [facility] Rx#:[id number] Oral 0 Tube Feeding 840 700 140 Other 150 100 50 Output: Chest Tube Drainage 0 Left Mid-Axillary Chest 0 Urine 950 850 200 Stool 1 Other: # Bowel Movements 1 Stool Characteristics Soft Formed Formed Brown Liquid Liquid Brown Brown Active Medications: Current Medications Acetaminophen (Tylenol) 650 mg PO Q4HR PRN PRN Reason: Pain or Fever >101 Stop: 06/08/16 23:38 Last Admin: 04/17/16 23:53 Dose: 650 mg Al Hydrox/Mg Hydrox/Simethicone (Maalox) 30 ml PO Q6HR PRN PRN Reason: Constipation Stop: 06/08/16 23:35 Albuterol Sulfate (Albuterol 2.5mg/3ml Neb Ud) 2.5 mg HHN Q4HRT [facility] Stop: 06/15/16 18:59 Last Admin: 04/19/16 12:14 Dose: 2.5 mg Budesonide (Pulmicort) 0.5 mg HHN BIDRT [facility] Stop: 06/15/16 18:59 Last Admin: 04/19/16 08:49 Dose: 0.5 mg Clonidine HCl (Catapres) 0.1 mg PO Q6HR PRN PRN Reason: SBP GREATER THAN 160 Stop: 06/08/16 23:35 Last Admin: 04/17/16 01:18 Dose: 0.1 mg Clonidine HCl (Kiovryox-Ybs-8) 1 patch TD QSAT [facility] Stop: 06/12/16 16:44 Last Admin: 04/13/16 16:43 Dose: 1 patch Enalaprilat (Vasotec) 1.25 mg IVP Q6HR PRN PRN Reason: FOR SBP>160 Stop: 06/12/16 23:18 Last Admin: 04/13/16 06:20 Dose: 1.25 mg Guaifenesin (Robitussin) 100 mg PO Q4H PRN PRN Reason: Cough or Congestion Stop: 06/08/16 23:38 Piperacillin Sod/Tazobactam (Sod 2.25 gm/ Sodium Chloride) 50 mls @ 100 mls/hr IV Q8HR [facility] Stop: 06/09/16 12:59 Last Admin: 04/19/16 05:40 Dose: 100 mls/hr Norepinephrine Bitartrate 4 mg (/ Dextrose) 254 mls @ 0 mls/hr IV TITR PRN; Protocol; Per Protocol PRN Reason: To Keep SBP Above 90 Stop: 06/09/16 12:31 Last Admin: 04/11/16 01:50 Dose: 6 mcg/min, 22.86 mls/hr Vancomycin HCl 1.5 gm/ Sodium (Chloride) 500 mls @ 250 mls/hr IV Q12H [facility] Stop: 06/16/16 21:59 Last Admin: 04/19/16 10:11 Dose: 166 mls/hr Dextrose (D5w) 1,000 mls @ 50 mls/hr IV .Q20H [facility] Stop: 06/17/16 11:44 Last Admin: 04/18/16 12:00 Dose: 50 mls/hr Insulin Aspart (Novolog) 0 units SUBQ Q6HR [facility] PRN Reason: Protocol Stop: 06/14/16 00:00 Last Admin: 04/19/16 00:41 Dose: 2 units Ipratropium [place]abb (Atrovent Neb 0.5mg/2.5ml) 0.5 mg HHN QIDRT [facility] Stop: 06/09/16 08:59 Last Admin: 04/19/16 12:14 Dose: 0.5 mg Lactobacillus Rhamnosus (Culturelle) 1 each PO TID [facility] Stop: 06/11/16 13:59 Last Admin: 04/19/16 09:12 Dose: 1 each Lorazepam (Ativan) 1 mg IVP Q2H PRN; Protocol PRN Reason: Agitation Stop: 06/16/16 20:31 Last Admin: 04/17/16 21:44 Dose: 1 mg Miscellaneous (Clinical Monitoring) 1 ea PRN PRN PRN Reason: RENAL DOSING Stop: 06/09/16 07:17 Miscellaneous (Probiotic Screen) 1 ea PRN PRN PRN Reason: PROTOCOL Stop: 06/12/16 14:41 Miscellaneous (Vancomycin Iv Per Pharmacy) 1 ea MC PRN [facility] Stop: 06/16/16 13:14 Multivitamins/Vitamin C (Theragran) 1 tab GT DAILY [facility] Stop: 06/18/16 08:59 Last Admin: 04/19/16 09:13 Dose: 1 tab Ondansetron HCl (Zofran) 4 mg IV Q8H PRN PRN Reason: Nausea / Vomiting Stop: 06/08/16 23:38 Pantoprazole Sodium (Protonix) 40 mg IVP DAILY [facility] Stop: 06/09/16 13:59 Last Admin: 04/19/16 09:13 Dose: 40 mg General: lethargic, demented HEENT: NC/AT, PERRLA Neck: Supple Lungs: congested, rales, ronchi Cardiovascular: RRR, Normal S1, Normal S2 Abdomen: soft non-tender, globular, distended Extremities: excoriation Neurological: no change, disorganized - Procedures Procedures: Procedures Procedure Code Date DRAINAGE OF L PLEURAL CAV WITH DRAIN DEV, OPEN APPROACH [id number] 04/09/16 INSERT EMERGENCY AIRWAY 65576 04/09/16 INSERTION OF CHEST TUBE [id number] 04/09/16 INSERTION OF ENDOTRACHEAL AIRWAY INTO [place], VIA OPENING [id number] 04/09/16 RESPIRATORY VENTILATION, 24-96 CONSECUTIVE HOURS [id number] 04/09/16 VENT MGMT INPAT INIT DAY 40548 04/09/16 VENT MGMT INPAT SUBQ DAY 25724 04/09/16 Internal Medicine Assmt/Plan - Assessment Assessment: ACUTE RESPIRATORY FAILURE s\p extubation--re intubated ALOC HYPOTENSION pmn leukocytosis anemia ptx - Plan Plan: cont w chest tube vent support and weaning cont on iv 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
[2016-04-19] MEDS: methylPREDNISolone SS 40 mg Vial IVP SCH ×2 (13:44→21:59)
[2016-04-19] MEDS: Dextrose 5% 1,000 ML IV SCH (19:57)
[2016-04-20] MEDS: INSULIN ASPART, RECOMBINANT 100 UNITS/ML SUBQ SCH ×6 (00:59→17:46)
[2016-04-20] MEDS: Albuterol Nebulizer 2.5mg/3mL HHN SCH ×6 (03:30→23:36)
[2016-04-20 05:56] LABS: HEMATOCRIT 48.1 % (39.0-49.0); HEMOGLOBIN 16.5 gm/dL (12.6-17.4); MEAN CELL VOLUME 91.1 fl (80-99); MEAN CORPUSCULAR HEMOGLOBIN 31.2 pg (27.0-31.0); MEAN CORPUSCULAR HGB CONC 34.3 pg (28.0-36.0); MEAN PLATELET VOLUME 9.2 fl; PLATELET COUNT 172 Th/cmm (150-400); RED BLOOD COUNT 5.27 Mil/cmm (3.80-5.80)
[2016-04-20] MEDS: methylPREDNISolone SS 40 mg Vial IVP SCH ×3 (06:22→21:11)
[2016-04-20 06:33] LABS: WHITE BLOOD COUNT 38.5 Th/cmm (4.8-10.8)
[2016-04-20 07:07] LABS: ANION GAP 12.1 (7.0-16.0); BUN/CREATININE RATIO 68.3; CALCIUM SERUM 8.2 mg/dL (8.6-10.3); CARBON DIOXIDE 25.7 mEq/L (21.0-31.0); CHLORIDE 119 mEq/L (98-107); CREATININE - SERUM 1.2 mg/dL (0.7-1.3); GLUCOSE 267 mg/dL (70-105); POTASSIUM SERUM 4.8 mEq/L (3.5-5.1); SODIUM SERUM 152 mEq/L (136-145)
[2016-04-20 07:37] LABS: BUN - UREA NITROGEN 82 mg/dL (7-25)
[2016-04-20] MEDS: Budesonide 0.5 Mg/2 mL Ud HHN SCH ×2 (08:20→19:12)
[2016-04-20] MEDS: Ipratropium Neb 0.5 mg/2.5 mL UD HHN SCH ×4 (08:20→19:12)
--- NOTE | 2016-04-20 08:36 | Progress Notes ---
Case was discussed with staff of the patient. The patient continues the same. Staff reports he is in general calmer. He is still intubated, unable to carrying out conversation. He is fed through NG tube. He continues to need further medical treatment and may go to subacute and so far he is off his psychotropic medications; however, he gets Ativan only if he gets agitated and the patient, if he goes to subacute, needs to follow up with the psychiatrist upon discharge. Thank you very much for allowing me to participate in the care of this most interesting gentleman. JOB# [id number]
[2016-04-20 09:48] LABS: pH 7.53 (7.35-7.45)
[2016-04-20 09:49] LABS: ABG SOURCE Arterial; ALLEN TEST Positive; BE(B) 5.7 mmol/L (-3.0-3.0); FIO2 40; HCO3 28.4 mmol/L (20.0-26.0); MECH RATE 14; MECH VT 500
[2016-04-20] MEDS: Multivitamin Tab GT SCH (10:05)
[2016-04-20] MEDS: Lactobacillus Rhamnosus 10 Billion CFU Capsule PO SCH ×4 (10:05→21:11)
--- NOTE | 2016-04-20 10:14 | Diagnostic Imaging Report ---
Portable chest x-ray HISTORY: Shortness of breath Compared with prior exam of April 18, 2016, the heart size is normal. No focal pulmonary processes. An endotracheal tube tip is proximally 3.0 cm above the marie. IMPRESSION: 1. No change in the pulmonary status with no focal processes.
[2016-04-20] MEDS ORDERED: Dextrose 5% 1,000 ML IV SCH (11:33)
[2016-04-20 12:00] LABS: BAND NEUTROPHILE 4 % (0-10); NEUTROPHILS 83 % (40-80); TOTAL CELLS COUNTED 100
[2016-04-20] MEDS: Meropenem 500 MG in Sodium Chloride 0.9% 100 ML IV SCH (12:00)
[2016-04-20 12:01] LABS: PLATELET ESTIMATE ADEQUATE (NORMAL); PLATELET MORPHOLOGY NORMAL (NORMAL)
--- NOTE | 2016-04-20 15:08 | Internal Medicine Prog Note ---
Internal Medicine Subjective - Subjective Service Date: 04/20/16 Patient seen and examined:: with staff Patient is:: awake Internal Medicine Objective - Results Result Diagrams: 04/20/16 04:28 04/20/16 04:28 Recent Labs: Laboratory Last Values WBC 38.5 Th/cmm (4.8-10.8) H* 04/20/16 04:28 RBC 5.27 Mil/cmm (3.80-5.80) 04/20/16 04:28 Hgb 16.5 gm/dL (12.6-17.4) 04/20/16 04:28 Hct 48.1 % (39.0-49.0) 04/20/16 04:28 MCV 91.1 fl (80-99) 04/20/16 04:28 MCH 31.2 pg (27.0-31.0) H 04/20/16 04:28 MCHC Differential 34.3 pg (28.0-36.0) 04/20/16 04:28 RDW 13.0 % (11.5-20.0) 04/20/16 04:28 Plt Count 172 Th/cmm (150-400) 04/20/16 04:28 MPV 9.2 fl 04/20/16 04:28 Neutrophils % 81.7 % (40.0-80.0) H 04/13/16 04:52 Band Neutrophils % 4 % (0-10) 04/20/16 04:28 Lymphocytes % 9.3 % (20.0-50.0) L 04/13/16 04:52 Monocytes % 8.9 % (2.0-10.0) 04/13/16 04:52 Eosinophils % 0.1 % (0.0-5.0) 04/13/16 04:52 Basophils % 0.0 % (0.0-2.0) 04/13/16 04:52 Neutrophils (Manual) 83 % (40-80) H 04/20/16 04:28 Lymphocytes 3 % (20-50) L 04/20/16 04:28 Monocytes 10 % (2-10) 04/20/16 04:28 Basophils 1 % (0-3) 04/09/16 23:53 Metamyelocytes 1 % (0-0) H 04/11/16 09:45 Platelet Estimate ADEQUATE (NORMAL) 04/20/16 04:28 Platelet Morphology NORMAL (NORMAL) 04/20/16 04:28 Ovalocytes 1+ 04/09/16 23:53 RBC Morph Micro Appear NORMAL (NORMAL) 04/20/16 04:28 PT 15.2 SECONDS (9.5-11.5) H 04/09/16 23:53 INR 1.50 (0.5-1.4) H 04/09/16 23:53 PTT (Actin FS) 26.7 SECONDS (26.0-38.0) 04/09/16 23:53 Specimen Source Arterial 04/20/16 09:07 Sample Site Right Radial 04/20/16 09:07 pH 7.53 (7.35-7.45) H 04/20/16 09:07 pCO2 34.0 mmHg (35.0-45.0) L 04/20/16 09:07 pO2 123.0 mmHg (80.0-100.0) H 04/20/16 09:07 HCO3 28.4 mmol/L (20.0-26.0) H 04/20/16 09:07 Base Excess 5.7 mmol/L (-3.0-3.0) H 04/20/16 09:07 O2 Saturation 99.0 % (92.0-100.0) 04/20/16 09:07 Olvin Test Positive 04/20/16 09:07 Vent Rate 14 04/20/16 09:07 Inspired O2 40 04/20/16 09:07 Tidal Volume 500 04/20/16 09:07 PEEP 5 04/20/16 09:07 Pressure (ins/psv/peep) NA 04/20/16 09:07 Critical Value LZHANG 04/20/16 09:07 Sodium 152 mEq/L (136-145) H 04/20/16 04:28 Potassium 4.8 mEq/L (3.5-5.1) 04/20/16 04:28 Chloride 119 mEq/L (98-107) H 04/20/16 04:28 Carbon Dioxide 25.7 mEq/L (21.0-31.0) 04/20/16 04:28 Anion Gap 12.1 (7.0-16.0) 04/20/16 04:28 BUN 82 mg/dL (7-25) H* 04/20/16 04:28 Creatinine 1.2 mg/dL (0.7-1.3) 04/20/16 04:28 Est GFR ( Amer) > 60.0 ml/min (>90) 04/20/16 04:28 Est GFR (Non-Af Amer) > 60.0 ml/min 04/20/16 04:28 BUN/Creatinine Ratio 68.3 04/20/16 04:28 Glucose 267 mg/dL (70-105) H 04/20/16 04:28 POC Glucose 273 MG/DL (70 - 105) H 04/20/16 12:47 Hemoglobin A1c % 6.0 % (4.0-6.0) 04/20/16 04:28 Whole Bld Lactic Acid 2.05 mmol/L (0.60-2.00) H* 04/11/16 12:30 Calcium 8.2 mg/dL (8.6-10.3) L 04/20/16 04:28 Phosphorus 2.8 mg/dL (2.5-5.0) 04/12/16 04:55 Magnesium 2.8 mg/dL (1.9-2.7) H 04/19/16 04:36 Total Bilirubin 0.6 mg/dL (0.3-1.0) 04/18/16 04:57 AST 21 U/L (13-39) 04/18/16 04:57 ALT 42 U/L (7-52) 04/18/16 04:57 Alkaline Phosphatase 65 U/L (34-104) 04/18/16 04:57 Ammonia 37 umol/L (16-53) 04/18/16 04:57 B-Natriuretic Peptide 126.0 pg/mL (5.0-100.0) H 04/19/16 04:36 Total Protein 6.0 gm/dL (6.0-8.3) 04/18/16 04:57 Albumin 2.7 gm/dL (4.2-5.5) L 04/18/16 04:57 Globulin 3.3 gm/dL 04/18/16 04:57 Albumin/Globulin Ratio 0.8 (1.0-1.8) L 04/18/16 04:57 Vitamin B12 1623 pg/mL (211-946) H 04/18/16 04:57 Folic Acid 9.4 ng/mL (>3.0) 04/18/16 04:57 TSH 1.78 uIU/ml (0.34-5.60) 04/09/16 23:53 Urine Source RANDOM 04/11/16 11:35 Urine Color YELLOW 04/11/16 11:35 Urine Clarity SL. CLOUDY (CLEAR) 04/11/16 11:35 Urine pH 5.5 04/11/16 11:35 Ur Specific [place] 1.025 (1.005-1.030) 04/11/16 11:35 Urine Protein 100 mg/dL (NEGATIVE) H 04/11/16 11:35 Urine Glucose (UA) 100 mg/dL (NEGATIVE) H 04/11/16 11:35 Urine Ketones NEGATIVE mg/dL (NEGATIVE) 04/11/16 11:35 Urine Blood SMALL (NEGATIVE) H 04/11/16 11:35 Urine Nitrate NEGATIVE (NEGATIVE) 04/11/16 11:35 Urine Bilirubin NEGATIVE (NEGATIVE) 04/11/16 11:35 Urine Ictotest POSITIVE (NEGATIVE) H 04/10/16 01:00 Urine Urobilinogen 0.2 E.U./dL (0.2 - 1.0) 04/11/16 11:35 Ur Leukocyte Esterase NEGATIVE (NEGATIVE) 04/11/16 11:35 Urine RBC 0-1 /hpf (0-5) 04/11/16 11:35 Urine WBC NONE SEEN /hpf (0-5) 04/11/16 11:35 Ur Epithelial Cells RARE /lpf (FEW) 04/11/16 11:35 Uric Acid Crystals MODERATE /hpf (NONE SEEN) 04/11/16 11:35 Urine Bacteria OCCASIONAL /hpf (NONE SEEN) 04/11/16 11:35 Vancomycin Trough 15.8 ug/mL (10-20) 04/18/16 09:10 - Physical Exam Vitals and I&O: Vital Signs Temp 99.1 F 04/20/16 04:00 Pulse 121 04/20/16 13:44 Resp 22 04/20/16 08:29 BP 96/72 04/20/16 06:00 Pulse Ox 98 04/20/16 13:44 Intake & Output 04/19/16 04/20/16 04/20/16 18:59 06:59 18:59 Intake Total 2440 960 Output Total 1202 802 Balance 1238 158 Intake: Intake, IV Amount 1550 300 Dextrose 5% 1,000 ml @ 50 1000 mls/hr IV .Q20H [facility] Rx#: [id number] Piperacillin Sodium/ 50 50 Tazobact 2.25 gm In Sodium Chloride 0.9% 50 ml @ 100 mls/hr IV Q8HR [facility] Rx#:[id number] Vancomycin HCl 1.5 gm In 250 Sodium Chloride 0.9% 250 ml @ 125 mls/hr IV Q12H [facility] Rx#:[id number] Vancomycin HCl 1.5 gm In 500 Sodium Chloride 0.9% 500 ml @ 250 mls/hr IV Q12H [facility] Rx#:[id number] Oral 0 Tube Feeding 840 560 Other 50 100 Output: Chest Tube Drainage 0 Left Mid-Axillary Chest 0 Urine 1200 800 Stool 2 2 Other: Stool Characteristics Formed Formed Liquid Liquid Brown Brown Active Medications: Current Medications Acetaminophen (Tylenol) 650 mg PO Q4HR PRN PRN Reason: Pain or Fever >101 Stop: 06/08/16 23:38 Last Admin: 04/17/16 23:53 Dose: 650 mg Al Hydrox/Mg Hydrox/Simethicone (Maalox) 30 ml PO Q6HR PRN PRN Reason: Constipation Stop: 06/08/16 23:35 Albuterol Sulfate (Albuterol 2.5mg/3ml Neb Ud) 2.5 mg HHN Q4HRT [facility] Stop: 06/15/16 18:59 Last Admin: 04/20/16 11:19 Dose: 2.5 mg Budesonide (Pulmicort) 0.5 mg HHN BIDRT [facility] Stop: 06/15/16 18:59 Last Admin: 04/20/16 08:20 Dose: 0.5 mg Clonidine HCl (Catapres) 0.1 mg PO Q6HR PRN PRN Reason: SBP GREATER THAN 160 Stop: 06/08/16 23:35 Last Admin: 04/17/16 01:18 Dose: 0.1 mg Clonidine HCl (Yjntphix-Mxm-1) 1 patch TD QSAT [facility] Stop: 06/12/16 16:44 Last Admin: 04/13/16 16:43 Dose: 1 patch Enalaprilat (Vasotec) 1.25 mg IVP Q6HR PRN PRN Reason: FOR SBP>160 Stop: 06/12/16 23:18 Last Admin: 04/13/16 06:20 Dose: 1.25 mg Guaifenesin (Robitussin) 100 mg PO Q4H PRN PRN Reason: Cough or Congestion Stop: 06/08/16 23:38 Norepinephrine Bitartrate 4 mg (/ Dextrose) 254 mls @ 0 mls/hr IV TITR PRN; Protocol; Per Protocol PRN Reason: To Keep SBP Above 90 Stop: 06/09/16 12:31 Last Admin: 04/11/16 01:50 Dose: 6 mcg/min, 22.86 mls/hr Vancomycin HCl 1.5 gm/ Sodium (Chloride) 250 mls @ 125 mls/hr IV Q12H [facility] Stop: 06/18/16 21:59 Last Admin: 04/20/16 10:00 Dose: 125 mls/hr Meropenem 500 mg/ Sodium (Chloride) 100 mls @ 100 mls/hr IV Q12H [facility] Stop: 06/19/16 11:29 Last Admin: 04/20/16 12:00 Dose: 100 mls/hr Dextrose (D5w) 1,000 mls @ 30 mls/hr IV .Q24H [facility] Stop: 06/19/16 11:32 Last Admin: 04/20/16 13:15 Dose: 30 mls/hr Insulin Aspart (Novolog) 0 units SUBQ Q6HR [facility] PRN Reason: Protocol Stop: 06/14/16 00:00 Last Admin: 04/20/16 12:50 Dose: 4 units Ipratropium [place] (Atrovent Neb 0.5mg/2.5ml) 0.5 mg HHN QIDRT [facility] Stop: 06/09/16 08:59 Last Admin: 04/20/16 11:19 Dose: 0.5 mg Lactobacillus Rhamnosus (Culturelle) 1 each PO TID [facility] Stop: 06/11/16 13:59 Last Admin: 04/20/16 13:18 Dose: 1 each Lorazepam (Ativan) 1 mg IVP Q2H PRN; Protocol PRN Reason: Agitation Stop: 06/16/16 20:31 Last Admin: 04/19/16 15:57 Dose: 1 mg Methylprednisolone Sodium Succinate (Solu-Medrol) 40 mg IVP Q8HR [facility] Stop: 06/18/16 12:59 Last Admin: 04/20/16 13:16 Dose: 40 mg Miscellaneous (Clinical Monitoring) 1 ea MC PRN PRN PRN Reason: RENAL DOSING Stop: 06/09/16 07:17 Miscellaneous (Probiotic Screen) 1 ea MC PRN PRN PRN Reason: PROTOCOL Stop: 06/12/16 14:41 Miscellaneous (Vancomycin Iv Per Pharmacy) 1 ea MC PRN [facility] Stop: 06/16/16 13:14 Multivitamins/Vitamin C (Theragran) 1 tab GT DAILY [facility] Stop: 06/18/16 08:59 Last Admin: 04/20/16 10:05 Dose: 1 tab Ondansetron HCl (Zofran) 4 mg IV Q8H PRN PRN Reason: Nausea / Vomiting Stop: 06/08/16 23:38 Pantoprazole Sodium (Protonix) 40 mg IVP DAILY [facility] Stop: 06/09/16 13:59 Last Admin: 04/20/16 10:05 Dose: 40 mg General: weak, lethargic HEENT: NC/AT Neck: Supple Lungs: ronchi Cardiovascular: RRR Abdomen: soft non-tender, non-distended - Procedures Procedures: Procedures Procedure Code Date DRAINAGE OF L PLEURAL CAV WITH DRAIN DEV, OPEN APPROACH [id number] 04/09/16 INSERT EMERGENCY AIRWAY 67114 04/09/16 INSERTION OF CHEST TUBE 84866 04/09/16 INSERTION OF ENDOTRACHEAL AIRWAY INTO TRACHEA, VIA OPENING [id number] 04/09/16 RESPIRATORY VENTILATION, 24-96 CONSECUTIVE HOURS [id number] 04/09/16 VENT MGMT INPAT INIT DAY 19191 04/09/16 VENT MGMT INPAT SUBQ DAY 15805 04/09/16 Internal Medicine Assmt/Plan - Assessment Assessment: ACUTE RESPIRATORY FAILURE s\p extubation--re intubated ALOC HYPOTENSION pmn leukocytosis anemia ptx - Plan Plan: vent support continue ivabx ivf for hydration cbc/bmp in am
[2016-04-20] MEDS: cloNIDine 0.2 mg/24 hr Tdm TD SCH (17:52)
[2016-04-21] MEDS: Meropenem 500 MG in Sodium Chloride 0.9% 100 ML IV SCH ×3 (00:05→23:14)
[2016-04-21] MEDS: INSULIN ASPART, RECOMBINANT 100 UNITS/ML SUBQ SCH ×5 (00:43→17:16)
[2016-04-21] MEDS: methylPREDNISolone SS 40 mg Vial IVP SCH ×3 (04:40→21:02)
[2016-04-21] MEDS: Albuterol Nebulizer 2.5mg/3mL HHN SCH ×6 (05:06→22:58)
[2016-04-21 05:41] LABS: HEMATOCRIT 45.8 % (39.0-49.0); HEMOGLOBIN 15.7 gm/dL (12.6-17.4); MEAN CELL VOLUME 90.4 fl (80-99); MEAN CORPUSCULAR HGB CONC 34.3 pg (28.0-36.0); MEAN PLATELET VOLUME 9.2 fl; PLATELET COUNT 163 Th/cmm (150-400); RED BLOOD COUNT 5.07 Mil/cmm (3.80-5.80); RED CELL DISTRIBUTION WIDTH 13.4 % (11.5-20.0)
[2016-04-21 06:49] LABS: WHITE BLOOD COUNT 27.5 Th/cmm (4.8-10.8)
[2016-04-21 07:43] LABS: BUN/CREATININE RATIO 56.7; CALCIUM SERUM 8.2 mg/dL (8.6-10.3); CARBON DIOXIDE 26.2 mEq/L (21.0-31.0); CREATININE - SERUM 2.1 mg/dL (0.7-1.3); POTASSIUM SERUM 5.2 mEq/L (3.5-5.1)
[2016-04-21] MEDS: Budesonide 0.5 Mg/2 mL Ud HHN SCH ×2 (07:58→19:46)
[2016-04-21] MEDS: Ipratropium Neb 0.5 mg/2.5 mL UD HHN SCH ×4 (07:58→19:45)
[2016-04-21] MEDS: Multivitamin Tab GT SCH (08:40)
[2016-04-21] MEDS: Lactobacillus Rhamnosus 10 Billion CFU Capsule PO SCH ×3 (08:40→21:02)
[2016-04-21] MEDS: Dextrose 5% 1,000 ML IV SCH (09:00)
[2016-04-21 09:46] LABS: TOTAL CELLS COUNTED 100
[2016-04-21 09:47] LABS: BAND NEUTROPHILE 2 % (0-10); NEUTROPHILS 90 % (40-80); PLATELET ESTIMATE ADEQUATE (NORMAL)
--- NOTE | 2016-04-21 09:48 | Progress Notes ---
Case was discussed with staff of the patient, reviewed records. The patient has been throwing up, getting at times agitated. He is on Ativan as needed and also Seroquel. He is still intubated, unable to participate in meaningful conversation. He will continue to be monitored medically. He may need to go back to [facility] if he is more alert and starts acting aggressive. Otherwise, he will go to a nursing facility or rehab, needs to follow up with the psychiatrist. Thank you very much for allowing me to participate in the care of this most interesting gentleman. JOB# [id number]
[2016-04-21] MEDS: Fluconazole 100mg/50mL 100 MG/50 ML BOTTLE IV SCH (10:33)
--- NOTE | 2016-04-21 12:31 | Internal Medicine Prog Note ---
Internal Medicine Subjective - Subjective Service Date: 04/21/16 (patient on 4mcg levophed, patient was noted to have a fever of 102. ) Patient seen and examined:: with staff Patient is:: non-verbal, non-interactive Internal Medicine Objective - Results Result Diagrams: 04/21/16 04:52 04/21/16 06:35 Recent Labs: Laboratory Last Values WBC 27.5 Th/cmm (4.8-10.8) H* D 04/21/16 04:52 RBC 5.07 Mil/cmm (3.80-5.80) 04/21/16 04:52 Hgb 15.7 gm/dL (12.6-17.4) 04/21/16 04:52 Hct 45.8 % (39.0-49.0) 04/21/16 04:52 MCV 90.4 fl (80-99) 04/21/16 04:52 MCH 31.0 pg (27.0-31.0) 04/21/16 04:52 MCHC Differential 34.3 pg (28.0-36.0) 04/21/16 04:52 RDW 13.4 % (11.5-20.0) 04/21/16 04:52 Plt Count 163 Th/cmm (150-400) 04/21/16 04:52 MPV 9.2 fl 04/21/16 04:52 Neutrophils % 81.7 % (40.0-80.0) H 04/13/16 04:52 Band Neutrophils % 2 % (0-10) 04/21/16 04:52 Lymphocytes % 9.3 % (20.0-50.0) L 04/13/16 04:52 Monocytes % 8.9 % (2.0-10.0) 04/13/16 04:52 Eosinophils % 0.1 % (0.0-5.0) 04/13/16 04:52 Basophils % 0.0 % (0.0-2.0) 04/13/16 04:52 Neutrophils (Manual) 90 % (40-80) H 04/21/16 04:52 Lymphocytes 6 % (20-50) L 04/21/16 04:52 Monocytes 2 % (2-10) 04/21/16 04:52 Basophils 1 % (0-3) 04/09/16 23:53 Metamyelocytes 1 % (0-0) H 04/11/16 09:45 Platelet Estimate ADEQUATE (NORMAL) 04/21/16 04:52 Platelet Morphology NORMAL (NORMAL) 04/20/16 04:28 Ovalocytes 1+ 04/09/16 23:53 RBC Morph Micro Appear NORMAL (NORMAL) 04/20/16 04:28 PT 15.2 SECONDS (9.5-11.5) H 04/09/16 23:53 INR 1.50 (0.5-1.4) H 04/09/16 23:53 PTT (Actin FS) 26.7 SECONDS (26.0-38.0) 04/09/16 23:53 Specimen Source Arterial 04/20/16 09:07 Sample Site Right Radial 04/20/16 09:07 pH 7.53 (7.35-7.45) H 04/20/16 09:07 pCO2 34.0 mmHg (35.0-45.0) L 04/20/16 09:07 pO2 123.0 mmHg (80.0-100.0) H 04/20/16 09:07 HCO3 28.4 mmol/L (20.0-26.0) H 04/20/16 09:07 Base Excess 5.7 mmol/L (-3.0-3.0) H 04/20/16 09:07 O2 Saturation 99.0 % (92.0-100.0) 04/20/16 09:07 Olvin Test Positive 04/20/16 09:07 Vent Rate 14 04/20/16 09:07 Inspired O2 40 04/20/16 09:07 Tidal Volume 500 04/20/16 09:07 PEEP 5 04/20/16 09:07 Pressure (ins/psv/peep) NA 04/20/16 09:07 Critical Value LZHANG 04/20/16 09:07 Sodium 148 mEq/L (136-145) H 04/21/16 06:35 Potassium 5.2 mEq/L (3.5-5.1) H 04/21/16 06:35 Chloride 112 mEq/L (98-107) H 04/21/16 06:35 Carbon Dioxide 26.2 mEq/L (21.0-31.0) 04/21/16 06:35 Anion Gap 15.0 (7.0-16.0) 04/21/16 06:35 BUN 119 mg/dL (7-25) H* 04/21/16 06:35 Creatinine 2.1 mg/dL (0.7-1.3) H 04/21/16 06:35 Est GFR ( Amer) 41.0 ml/min (>90) 04/21/16 06:35 Est GFR (Non-Af Amer) 33.9 ml/min 04/21/16 06:35 BUN/Creatinine Ratio 56.7 04/21/16 06:35 Glucose 294 mg/dL (70-105) H 04/21/16 06:35 POC Glucose 306 MG/DL (70 - 105) H 04/21/16 11:33 Hemoglobin A1c % 6.0 % (4.0-6.0) 04/20/16 04:28 Whole Bld Lactic Acid 2.05 mmol/L (0.60-2.00) H* 04/11/16 12:30 Calcium 8.2 mg/dL (8.6-10.3) L 04/21/16 06:35 Phosphorus 2.8 mg/dL (2.5-5.0) 04/12/16 04:55 Magnesium 2.8 mg/dL (1.9-2.7) H 04/19/16 04:36 Total Bilirubin 0.6 mg/dL (0.3-1.0) 04/18/16 04:57 AST 21 U/L (13-39) 04/18/16 04:57 ALT 42 U/L (7-52) 04/18/16 04:57 Alkaline Phosphatase 65 U/L (34-104) 04/18/16 04:57 Ammonia 37 umol/L (16-53) 04/18/16 04:57 B-Natriuretic Peptide 126.0 pg/mL (5.0-100.0) H 04/19/16 04:36 Total Protein 6.0 gm/dL (6.0-8.3) 04/18/16 04:57 Albumin 2.7 gm/dL (4.2-5.5) L 04/18/16 04:57 Globulin 3.3 gm/dL 04/18/16 04:57 Albumin/Globulin Ratio 0.8 (1.0-1.8) L 04/18/16 04:57 Vitamin B12 1623 pg/mL (211-946) H 04/18/16 04:57 Folic Acid 9.4 ng/mL (>3.0) 04/18/16 04:57 TSH 1.78 uIU/ml (0.34-5.60) 04/09/16 23:53 Urine Source RANDOM 04/11/16 11:35 Urine Color YELLOW 04/11/16 11:35 Urine Clarity SL. CLOUDY (CLEAR) 04/11/16 11:35 Urine pH 5.5 04/11/16 11:35 Ur Specific [place] 1.025 (1.005-1.030) 04/11/16 11:35 Urine Protein 100 mg/dL (NEGATIVE) H 04/11/16 11:35 Urine Glucose (UA) 100 mg/dL (NEGATIVE) H 04/11/16 11:35 Urine Ketones NEGATIVE mg/dL (NEGATIVE) 04/11/16 11:35 Urine Blood SMALL (NEGATIVE) H 04/11/16 11:35 Urine Nitrate NEGATIVE (NEGATIVE) 04/11/16 11:35 Urine Bilirubin NEGATIVE (NEGATIVE) 04/11/16 11:35 Urine Ictotest POSITIVE (NEGATIVE) H 04/10/16 01:00 Urine Urobilinogen 0.2 E.U./dL (0.2 - 1.0) 04/11/16 11:35 Ur Leukocyte Esterase NEGATIVE (NEGATIVE) 04/11/16 11:35 Urine RBC 0-1 /hpf (0-5) 04/11/16 11:35 Urine WBC NONE SEEN /hpf (0-5) 04/11/16 11:35 Ur Epithelial Cells RARE /lpf (FEW) 04/11/16 11:35 Uric Acid Crystals MODERATE /hpf (NONE SEEN) 04/11/16 11:35 Urine Bacteria OCCASIONAL /hpf (NONE SEEN) 04/11/16 11:35 Vancomycin Trough 52.2 ug/mL (10-20) H 04/21/16 10:54 - Physical Exam Vitals and I&O: Vital Signs Temp 103 F 04/21/16 08:00 Pulse 128 04/21/16 11:10 Resp 34 04/21/16 09:30 BP 76/57 04/21/16 09:30 Pulse Ox 97 04/21/16 11:10 Intake & Output 02/01/2404/21/16 04/21/16 18:59 06:59 18:59 Intake Total 434 1400 254 Output Total 550 300 Balance -116 1100 254 Intake: Intake, IV Amount 350 100 254 Meropenem 500 mg In 100 100 Sodium Chloride 0.9% 100 ml @ 100 mls/hr IV Q12H [facility] Rx#:[id number] Norepinephrine 4 mg In 254 Dextrose 5% 250 ml @ Per Protocol IV TITR PRN Rx#: [id number] Vancomycin HCl 1.5 gm In 250 Sodium Chloride 0.9% 250 ml @ 125 mls/hr IV Q12H [facility] Rx#:[id number] Tube Feeding 84 700 Other 600 Output: Urine 550 300 Other: # Bowel Movements 1 0 Stool Characteristics Soft Liquid Brown Active Medications: Current Medications Acetaminophen (Tylenol) 650 mg PO Q4HR PRN PRN Reason: Pain or Fever >101 Stop: 06/08/16 23:38 Last Admin: 04/21/16 10:23 Dose: 650 mg Al Hydrox/Mg Hydrox/Simethicone (Maalox) 30 ml PO Q6HR PRN PRN Reason: Constipation Stop: 06/08/16 23:35 Albuterol Sulfate (Albuterol 2.5mg/3ml Neb Ud) 2.5 mg HHN Q4HRT [facility] Stop: 06/15/16 18:59 Last Admin: 04/21/16 11:08 Dose: 2.5 mg Budesonide (Pulmicort) 0.5 mg HHN BIDRT [facility] Stop: 06/15/16 18:59 Last Admin: 04/21/16 07:58 Dose: 0.5 mg Clonidine HCl (Catapres) 0.1 mg PO Q6HR PRN PRN Reason: SBP GREATER THAN 160 Stop: 06/08/16 23:35 Last Admin: 04/17/16 01:18 Dose: 0.1 mg Clonidine HCl (Mezapjsv-Gjf-6) 1 patch TD QSAT [facility] Stop: 06/12/16 16:44 Last Admin: 04/20/16 17:52 Dose: 1 patch Enalaprilat (Vasotec) 1.25 mg IVP Q6HR PRN PRN Reason: FOR SBP>160 Stop: 06/12/16 23:18 Last Admin: 04/13/16 06:20 Dose: 1.25 mg Guaifenesin (Robitussin) 100 mg PO Q4H PRN PRN Reason: Cough or Congestion Stop: 06/08/16 23:38 Norepinephrine Bitartrate 4 mg (/ Dextrose) 254 mls @ 0 mls/hr IV TITR PRN; Protocol; Per Protocol PRN Reason: To Keep SBP Above 90 Stop: 06/09/16 12:31 Last Admin: 04/21/16 10:30 Dose: 4 mcg/min, 15.24 mls/hr Meropenem 500 mg/ Sodium (Chloride) 100 mls @ 100 mls/hr IV Q12H [facility] Stop: 06/19/16 11:29 Last Admin: 04/21/16 11:17 Dose: 100 mls/hr Fluconazole (Diflucan) 100 mg in 50 mls @ 50 mls/hr IV Q24HR [facility] Stop: 06/20/16 08:44 Last Admin: 04/21/16 10:33 Dose: 50 mls/hr Dextrose (D5w) 1,000 mls @ 100 mls/hr IV .Q10H [facility] Stop: 06/20/16 08:44 Last Admin: 04/21/16 09:00 Dose: 100 mls/hr Insulin Aspart (Novolog) 0 units SUBQ Q6HR [facility] PRN Reason: Protocol Stop: 06/14/16 00:00 Last Admin: 04/21/16 11:36 Dose: 6 units Ipratropium [place] (Atrovent Neb 0.5mg/2.5ml) 0.5 mg HHN QIDRT [facility] Stop: 06/09/16 08:59 Last Admin: 04/21/16 11:08 Dose: 0.5 mg Lactobacillus Rhamnosus (Culturelle) 1 each PO TID [facility] Stop: 06/11/16 13:59 Last Admin: 04/21/16 08:40 Dose: 1 each Lorazepam (Ativan) 1 mg IVP Q2H PRN; Protocol PRN Reason: Agitation Stop: 06/16/16 20:31 Last Admin: 04/21/16 01:54 Dose: 1 mg Methylprednisolone Sodium Succinate (Solu-Medrol) 40 mg IVP Q8HR [facility] Stop: 06/18/16 12:59 Last Admin: 04/21/16 04:40 Dose: 40 mg Miscellaneous (Clinical Monitoring) 1 ea MC PRN PRN PRN Reason: RENAL DOSING Stop: 06/09/16 07:17 Miscellaneous (Probiotic Screen) 1 ea PRN PRN PRN Reason: PROTOCOL Stop: 06/12/16 14:41 Miscellaneous (Vancomycin Iv Per Pharmacy) 1 ea PRN [facility] Stop: 06/16/16 13:14 Multivitamins/Vitamin C (Theragran) 1 tab GT DAILY [facility] Stop: 06/18/16 08:59 Last Admin: 04/21/16 08:40 Dose: 1 tab Ondansetron HCl (Zofran) 4 mg IV Q8H PRN PRN Reason: Nausea / Vomiting Stop: 06/08/16 23:38 Pantoprazole Sodium (Protonix) 40 mg IVP DAILY [facility] Stop: 06/09/16 13:59 Last Admin: 04/21/16 08:40 Dose: 40 mg General: weak HEENT: NC/AT, PERRLA Neck: Supple Lungs: ronchi Cardiovascular: without murmur Abdomen: soft non-tender, non-distended - Procedures Procedures: Procedures Procedure Code Date DRAINAGE OF L PLEURAL CAV WITH DRAIN DEV, OPEN APPROACH [id number] 04/09/16 INSERT EMERGENCY AIRWAY 62604 04/09/16 INSERTION OF CHEST TUBE 23903 04/09/16 INSERTION OF ENDOTRACHEAL AIRWAY INTO TRACHEA, VIA OPENING [id number] 04/09/16 RESPIRATORY VENTILATION, 24-96 CONSECUTIVE HOURS [id number] 04/09/16 VENT MGMT INPAT INIT DAY 71780 04/09/16 VENT MGMT INPAT SUBQ DAY 22279 04/09/16 Internal Medicine Assmt/Plan - Assessment Assessment: ACUTE RESPIRATORY FAILURE s\p extubation--re intubated ALOC HYPOTENSION pmn leukocytosis anemia ptx - Plan Plan: vent support ivabx diflucan ivf for hydration cbc/bmp in am
[2016-04-21 13:33] LABS: PLATELET MORPHOLOGY NORMAL (NORMAL)
[2016-04-22] MEDS: Dextrose 5% 1,000 ML IV SCH (02:26)
[2016-04-22] MEDS: Albuterol Nebulizer 2.5mg/3mL HHN SCH ×3 (03:32→11:18)
--- NOTE | 2016-04-22 03:45 | Progress Notes ---
Case discussed with staff of the patient, reviewed records. The patient has been sedated today. Apparently, he is running a temperature. He is on Levaquin. He is off his psychotropic medication, only Ativan as needed. He was given some last night. We will evaluate the patient when he is more medically clear to see if he needs to go back to [facility], if not, and he will go to the nursing facility. Thank you very much for allowing me to participate in the care of this most interesting gentleman. JOB# [id number]
[2016-04-22] MEDS: methylPREDNISolone SS 40 mg Vial IVP SCH (05:19)
[2016-04-22 05:29] LABS: HEMATOCRIT 41.9 % (39.0-49.0); HEMOGLOBIN 14.4 gm/dL (12.6-17.4); MEAN CELL VOLUME 89.9 fl (80-99); MEAN CORPUSCULAR HEMOGLOBIN 30.9 pg (27.0-31.0); MEAN CORPUSCULAR HGB CONC 34.4 pg (28.0-36.0); MEAN PLATELET VOLUME 9.8 fl; RED BLOOD COUNT 4.66 Mil/cmm (3.80-5.80); RED CELL DISTRIBUTION WIDTH 13.7 % (11.5-20.0)
[2016-04-22 05:45] LABS: PLATELET COUNT 100 Th/cmm (150-400); WHITE BLOOD COUNT 22.2 Th/cmm (4.8-10.8)
[2016-04-22 06:03] LABS: ALB/GLOB RATIO 0.9 (1.0-1.8); ANION GAP 14.8 (7.0-16.0); CALCIUM SERUM 7.5 mg/dL (8.6-10.3); CARBON DIOXIDE 22.1 mEq/L (21.0-31.0); MAGNESIUM 3.3 mg/dL (1.9-2.7); PHOSPHOROUS 6.8 mg/dL (2.5-5.0); POTASSIUM SERUM 5.9 mEq/L (3.5-5.1)
[2016-04-22] MEDS: INSULIN ASPART, RECOMBINANT 100 UNITS/ML SUBQ SCH ×3 (06:36→14:10)
[2016-04-22] MEDS: Ipratropium Neb 0.5 mg/2.5 mL UD HHN SCH ×2 (06:53→11:18)
[2016-04-22] MEDS: Budesonide 0.5 Mg/2 mL Ud HHN SCH (07:24)
[2016-04-22] MEDS ORDERED: Albumin 5% 12.5gm/250mL 12.5 GM/250 ML BTL IV ONE (10:08)
[2016-04-22] MEDS ORDERED: Furosemide 100 MG in Sodium Chloride 0.9% 90 ML IV SCH (10:30)
[2016-04-22] MEDS: Fluconazole 100mg/50mL 100 MG/50 ML BOTTLE IV SCH (11:00)
[2016-04-22] MEDS: Meropenem 500 MG in Sodium Chloride 0.9% 100 ML IV SCH (11:02)
[2016-04-22] MEDS: Lactobacillus Rhamnosus 10 Billion CFU Capsule PO SCH (11:29)
[2016-04-22] MEDS: Multivitamin Tab GT SCH (11:30)
[2016-04-22 11:32] LABS: NEUTROPHILS 90 % (40-80); TOTAL CELLS COUNTED 100
[2016-04-22 11:53] LABS: PLATELET ESTIMATE ADEQUATE (NORMAL); PLATELET MORPHOLOGY NORMAL (NORMAL)
--- NOTE | 2016-04-22 12:02 | Diagnostic Imaging Report ---
Portable chest x-ray History: Shortness of breath Allowing for portable technique the heart size is normal. No focal pulmonary parenchymal processes. No hilar or mediastinal abnormalities. An endotracheal tube tip is approximately 3.5 cm above the marie. Impression: No acute pulmonary abnormalities.
--- NOTE | 2016-04-22 12:19 | Internal Medicine Prog Note ---
Internal Medicine Subjective - Subjective Service Date: 04/22/16 (on levophed 25mcg, remains on ventilator non responsive , non interactive) Patient seen and examined:: with staff Internal Medicine Objective - Results Result Diagrams: 04/22/16 05:05 04/22/16 05:05 Recent Labs: Laboratory Last Values WBC 22.2 Th/cmm (4.8-10.8) H* 04/22/16 05:05 RBC 4.66 Mil/cmm (3.80-5.80) 04/22/16 05:05 Hgb 14.4 gm/dL (12.6-17.4) 04/22/16 05:05 Hct 41.9 % (39.0-49.0) 04/22/16 05:05 MCV 89.9 fl (80-99) 04/22/16 05:05 MCH 30.9 pg (27.0-31.0) 04/22/16 05:05 MCHC Differential 34.4 pg (28.0-36.0) 04/22/16 05:05 RDW 13.7 % (11.5-20.0) 04/22/16 05:05 Plt Count 100 Th/cmm (150-400) L D 04/22/16 05:05 MPV 9.8 fl 04/22/16 05:05 Neutrophils % 81.7 % (40.0-80.0) H 04/13/16 04:52 Band Neutrophils % 2 % (0-10) 04/21/16 04:52 Lymphocytes % 9.3 % (20.0-50.0) L 04/13/16 04:52 Monocytes % 8.9 % (2.0-10.0) 04/13/16 04:52 Eosinophils % 0.1 % (0.0-5.0) 04/13/16 04:52 Basophils % 0.0 % (0.0-2.0) 04/13/16 04:52 Neutrophils (Manual) 90 % (40-80) H 04/22/16 05:05 Lymphocytes 4 % (20-50) L 04/22/16 05:05 Monocytes 6 % (2-10) 04/22/16 05:05 Basophils 1 % (0-3) 04/09/16 23:53 Metamyelocytes 1 % (0-0) H 04/11/16 09:45 Platelet Estimate ADEQUATE (NORMAL) 04/22/16 05:05 Platelet Morphology NORMAL (NORMAL) 04/22/16 05:05 Ovalocytes 1+ 04/09/16 23:53 RBC Morph Micro Appear NORMAL (NORMAL) 04/22/16 05:05 PT 15.2 SECONDS (9.5-11.5) H 04/09/16 23:53 INR 1.50 (0.5-1.4) H 04/09/16 23:53 PTT (Actin FS) 26.7 SECONDS (26.0-38.0) 04/09/16 23:53 Specimen Source Arterial 04/20/16 09:07 Sample Site Right Radial 04/20/16 09:07 pH 7.53 (7.35-7.45) H 04/20/16 09:07 pCO2 34.0 mmHg (35.0-45.0) L 04/20/16 09:07 pO2 123.0 mmHg (80.0-100.0) H 04/20/16 09:07 HCO3 28.4 mmol/L (20.0-26.0) H 04/20/16 09:07 Base Excess 5.7 mmol/L (-3.0-3.0) H 04/20/16 09:07 O2 Saturation 99.0 % (92.0-100.0) 04/20/16 09:07 Olvin Test Positive 04/20/16 09:07 Vent Rate 14 04/20/16 09:07 Inspired O2 40 04/20/16 09:07 Tidal Volume 500 04/20/16 09:07 PEEP 5 04/20/16 09:07 Pressure (ins/psv/peep) NA 04/20/16 09:07 Critical Value LZHANG 04/20/16 09:07 Sodium 141 mEq/L (136-145) 04/22/16 05:05 Potassium 5.9 mEq/L (3.5-5.1) H 04/22/16 05:05 Chloride 110 mEq/L (98-107) H 04/22/16 05:05 Carbon Dioxide 22.1 mEq/L (21.0-31.0) 04/22/16 05:05 Anion Gap 14.8 (7.0-16.0) 04/22/16 05:05 BUN 147 mg/dL (7-25) H* 04/22/16 05:05 Creatinine 3.0 mg/dL (0.7-1.3) H 04/22/16 05:05 Est GFR ( Amer) 27.1 ml/min (>90) 04/22/16 05:05 Est GFR (Non-Af Amer) 22.4 ml/min 04/22/16 05:05 BUN/Creatinine Ratio 49.0 04/22/16 05:05 Glucose 330 mg/dL (70-105) H 04/22/16 05:05 POC Glucose 290 MG/DL (70 - 105) H 04/22/16 06:07 Hemoglobin A1c % 6.0 % (4.0-6.0) 04/20/16 04:28 Whole Bld Lactic Acid 2.05 mmol/L (0.60-2.00) H* 04/11/16 12:30 Calcium 7.5 mg/dL (8.6-10.3) L 04/22/16 05:05 Phosphorus 6.8 mg/dL (2.5-5.0) H 04/22/16 05:05 Magnesium 3.3 mg/dL (1.9-2.7) H 04/22/16 05:05 Total Bilirubin 1.0 mg/dL (0.3-1.0) 04/22/16 05:05 AST 264 U/L (13-39) H 04/22/16 05:05 ALT 274 U/L (7-52) H 04/22/16 05:05 Alkaline Phosphatase 51 U/L (34-104) 04/22/16 05:05 Ammonia 37 umol/L (16-53) 04/18/16 04:57 B-Natriuretic Peptide 2300.0 pg/mL (5.0-100.0) H 04/22/16 05:05 Total Protein 5.2 gm/dL (6.0-8.3) L 04/22/16 05:05 Albumin 2.5 gm/dL (4.2-5.5) L 04/22/16 05:05 Globulin 2.7 gm/dL 04/22/16 05:05 Albumin/Globulin Ratio 0.9 (1.0-1.8) L 04/22/16 05:05 Vitamin B12 1623 pg/mL (211-946) H 04/18/16 04:57 Folic Acid 9.4 ng/mL (>3.0) 04/18/16 04:57 TSH 1.78 uIU/ml (0.34-5.60) 04/09/16 23:53 Urine Source RANDOM 04/11/16 11:35 Urine Color YELLOW 04/11/16 11:35 Urine Clarity SL. CLOUDY (CLEAR) 04/11/16 11:35 Urine pH 5.5 04/11/16 11:35 Ur Specific [place] 1.025 (1.005-1.030) 04/11/16 11:35 Urine Protein 100 mg/dL (NEGATIVE) H 04/11/16 11:35 Urine Glucose (UA) 100 mg/dL (NEGATIVE) H 04/11/16 11:35 Urine Ketones NEGATIVE mg/dL (NEGATIVE) 04/11/16 11:35 Urine Blood SMALL (NEGATIVE) H 04/11/16 11:35 Urine Nitrate NEGATIVE (NEGATIVE) 04/11/16 11:35 Urine Bilirubin NEGATIVE (NEGATIVE) 04/11/16 11:35 Urine Ictotest POSITIVE (NEGATIVE) H 04/10/16 01:00 Urine Urobilinogen 0.2 E.U./dL (0.2 - 1.0) 04/11/16 11:35 Ur Leukocyte Esterase NEGATIVE (NEGATIVE) 04/11/16 11:35 Urine RBC 0-1 /hpf (0-5) 04/11/16 11:35 Urine WBC NONE SEEN /hpf (0-5) 04/11/16 11:35 Ur Epithelial Cells RARE /lpf (FEW) 04/11/16 11:35 Uric Acid Crystals MODERATE /hpf (NONE SEEN) 04/11/16 11:35 Urine Bacteria OCCASIONAL /hpf (NONE SEEN) 04/11/16 11:35 Vancomycin Trough 52.2 ug/mL (10-20) H 04/21/16 10:54 Random Vancomycin 37.1 ug/mL (5.0-40.0) 04/22/16 05:05 - Physical Exam Vitals and I&O: Vital Signs Temp 99 F 04/22/16 07:00 Pulse 127 04/22/16 11:18 Resp 13 04/22/16 07:00 BP 93/59 04/22/16 07:00 Pulse Ox 100 04/22/16 11:18 Intake & Output 04/21/16 04/22/16 04/22/16 18:59 06:59 18:59 Intake Total 849.72 1100 0 Output Total 320 401 Balance 529.72 699 0 Intake: Intake, IV Amount 449.72 1100 0 Dextrose 5% 1,000 ml @ 1000 100 mls/hr IV .Q10H [facility] Rx#:[id number] Fluconazole 100mg/50mL 50 100 mg In 50 ml @ 50 mls/ hr IV Q24HR [facility] Rx#: [id number] Meropenem 500 mg In 100 100 Sodium Chloride 0.9% 100 ml @ 100 mls/hr IV Q12H [facility] Rx#:[id number] Norepinephrine 4 mg In 299.72 0 0 Dextrose 5% 250 ml @ Per Protocol IV TITR PRN Rx#: [id number] Oral 0 0 Tube Feeding 0 Other 400 Output: Urine 320 400 Stool 1 Active Medications: Current Medications Acetaminophen (Tylenol) 650 mg PO Q4HR PRN PRN Reason: Pain or Fever >101 Stop: 06/08/16 23:38 Last Admin: 04/21/16 10:23 Dose: 650 mg Al Hydrox/Mg Hydrox/Simethicone (Maalox) 30 ml PO Q6HR PRN PRN Reason: Constipation Stop: 06/08/16 23:35 Albuterol Sulfate (Albuterol 2.5mg/3ml Neb Ud) 2.5 mg HHN Q4HRT [facility] Stop: 06/15/16 18:59 Last Admin: 04/22/16 11:18 Dose: 2.5 mg Budesonide (Pulmicort) 0.5 mg HHN BIDRT [facility] Stop: 06/15/16 18:59 Last Admin: 04/22/16 07:24 Dose: 0.5 mg Clonidine HCl (Catapres) 0.1 mg PO Q6HR PRN PRN Reason: SBP GREATER THAN 160 Stop: 06/08/16 23:35 Last Admin: 04/17/16 01:18 Dose: 0.1 mg Guaifenesin (Robitussin) 100 mg PO Q4H PRN PRN Reason: Cough or Congestion Stop: 06/08/16 23:38 Norepinephrine Bitartrate 4 mg (/ Dextrose) 254 mls @ 0 mls/hr IV TITR PRN; Protocol; Per Protocol PRN Reason: To Keep SBP Above 90 Stop: 06/09/16 12:31 Last Admin: 04/22/16 11:17 Dose: 8 mcg/min, 30.48 mls/hr Meropenem 500 mg/ Sodium (Chloride) 100 mls @ 100 mls/hr IV Q12H [facility] Stop: 06/19/16 11:29 Last Admin: 04/22/16 11:02 Dose: 100 mls/hr Fluconazole (Diflucan) 100 mg in 50 mls @ 50 mls/hr IV Q24HR [facility] Stop: 06/20/16 08:44 Last Admin: 04/22/16 11:00 Dose: 50 mls/hr Dextrose (D5w) 1,000 mls @ 100 mls/hr IV .Q10H [facility] Stop: 06/20/16 08:44 Last Admin: 04/22/16 02:26 Dose: 100 mls/hr Furosemide 100 mg/ Sodium (Chloride) 100 mls @ 5 mls/hr IV Q20H [facility] PRN Reason: 5 MG/HR Stop: 06/21/16 10:29 Phenylephrine HCl 10 mg/ (Sodium Chloride) 251 mls @ 60.24 mls/hr IV TITR [facility]; 40 MCG/MIN PRN Reason: Protocol Stop: 06/21/16 10:29 Last Admin: 04/22/16 11:06 Dose: 40 mcg/min, 60.24 mls/hr Insulin Aspart (Novolog) 0 units SUBQ Q6HR [facility] PRN Reason: Protocol Stop: 06/14/16 00:00 Last Admin: 04/22/16 06:36 Dose: 4 units Ipratropium [place] (Atrovent Neb 0.5mg/2.5ml) 0.5 mg HHN QIDRT [facility] Stop: 06/09/16 08:59 Last Admin: 04/22/16 11:18 Dose: 0.5 mg Lactobacillus Rhamnosus (Culturelle) 1 each PO TID [facility] Stop: 06/11/16 13:59 Last Admin: 04/22/16 11:29 Dose: 1 each Lorazepam (Ativan) 1 mg IVP Q2H PRN; Protocol PRN Reason: Agitation Stop: 06/16/16 20:31 Last Admin: 04/21/16 16:25 Dose: 1 mg Methylprednisolone Sodium Succinate (Solu-Medrol) 40 mg IVP Q8HR [facility] Stop: 06/18/16 12:59 Last Admin: 04/22/16 05:19 Dose: 40 mg Miscellaneous (Clinical Monitoring) 1 ea PRN PRN PRN Reason: RENAL DOSING Stop: 06/09/16 07:17 Miscellaneous (Probiotic Screen) 1 ea PRN PRN PRN Reason: PROTOCOL Stop: 06/12/16 14:41 Miscellaneous (Vancomycin Iv Per Pharmacy) 1 ea PRN [facility] Stop: 06/16/16 13:14 Multivitamins/Vitamin C (Theragran) 1 tab GT DAILY [facility] Stop: 06/18/16 08:59 Last Admin: 04/22/16 11:30 Dose: 1 tab Ondansetron HCl (Zofran) 4 mg IV Q8H PRN PRN Reason: Nausea / Vomiting Stop: 06/08/16 23:38 Pantoprazole Sodium (Protonix) 40 mg IVP DAILY [facility] Stop: 06/09/16 13:59 Last Admin: 04/22/16 11:28 Dose: 40 mg General: other (noninteractive) HEENT: NC/AT Lungs: ronchi Cardiovascular: other (vtach) Abdomen: soft non-tender - Procedures Procedures: Procedures Procedure Code Date DRAINAGE OF L PLEURAL CAV WITH DRAIN DEV, OPEN APPROACH [id number] 04/09/16 INSERT EMERGENCY AIRWAY 05299 04/09/16 INSERTION OF CHEST TUBE 62729 04/09/16 INSERTION OF ENDOTRACHEAL AIRWAY INTO TRACHEA, VIA OPENING [id number] 04/09/16 RESPIRATORY VENTILATION, 24-96 CONSECUTIVE HOURS [id number] 04/09/16 [facility] MGMT INPAT INIT DAY 14501 04/09/16 V[facility] MGMT INPAT SUBQ DAY 00055 04/09/16 Internal Medicine Assmt/Plan - Assessment Assessment: ACUTE RESPIRATORY FAILURE s\p extubation--re intubated ALOC HYPOTENSION pmn leukocytosis anemia ptx - Plan Plan: prognosis poor continue levophed vent support ivabx diflucan ivf for hydration cbc/bmp in am
[2016-04-22] MEDS ORDERED: Sodium Chloride 0.9% 1,000 ML IV SCH (13:15)
--- NOTE | 2016-04-22 14:51 | Diagnostic Imaging Report ---
Renal ultrasound HISTORY: Hydronephrosis, abnormal renal function The right kidney is normal in size (10.0 x 4.7 x 4.8 cm). No focal lesions. No hydronephrosis. The left kidney is normal in size (11.4 x 5.4 x 4.6 cm). No focal lesions. No hydronephrosis. IMPRESSION: Negative examination
--- NOTE | 2016-04-22 15:43 | General Progress Note ---
Subjective - Review of Systems Service Date: 04/22/16 Events since last encounter: ER CONSULT CALLED TO TREAT THE PATIENT DURING A CODE BLUE. ON ARRIVAL THE PATIENT WAS RECEIVING ACLS TREATMENT. THE MONITOR REVEALED V-TACH AND FIB ON AND OFF. THE PATIENT WAS GIVE MULTIPLE DOSES OF EPI AND AN ATROPIN WITHOUT ANY IMPROVEMENT. THE PATIENT WAS SUBSEQUENTLY PRONOUNCE AFTER MULTIPLE SHOCKS AND ROUNDS OF EPI WITH NO RESPONSE. HE WAS DECLARED AT 1446HRS. Objective - Results Result Diagrams: 04/22/16 05:05 04/22/16 05:05 Recent Labs: Laboratory Last Values WBC 22.2 Th/cmm (4.8-10.8) H* 04/22/16 05:05 RBC 4.66 Mil/cmm (3.80-5.80) 04/22/16 05:05 Hgb 14.4 gm/dL (12.6-17.4) 04/22/16 05:05 Hct 41.9 % (39.0-49.0) 04/22/16 05:05 MCV 89.9 fl (80-99) 04/22/16 05:05 MCH 30.9 pg (27.0-31.0) 04/22/16 05:05 MCHC Differential 34.4 pg (28.0-36.0) 04/22/16 05:05 RDW 13.7 % (11.5-20.0) 04/22/16 05:05 Plt Count 100 Th/cmm (150-400) L D 04/22/16 05:05 MPV 9.8 fl 04/22/16 05:05 Neutrophils % 81.7 % (40.0-80.0) H 04/13/16 04:52 Band Neutrophils % 2 % (0-10) 04/21/16 04:52 Lymphocytes % 9.3 % (20.0-50.0) L 04/13/16 04:52 Monocytes % 8.9 % (2.0-10.0) 04/13/16 04:52 Eosinophils % 0.1 % (0.0-5.0) 04/13/16 04:52 Basophils % 0.0 % (0.0-2.0) 04/13/16 04:52 Neutrophils (Manual) 90 % (40-80) H 04/22/16 05:05 Lymphocytes 4 % (20-50) L 04/22/16 05:05 Monocytes 6 % (2-10) 04/22/16 05:05 Basophils 1 % (0-3) 04/09/16 23:53 Metamyelocytes 1 % (0-0) H 04/11/16 09:45 Platelet Estimate ADEQUATE (NORMAL) 04/22/16 05:05 Platelet Morphology NORMAL (NORMAL) 04/22/16 05:05 Ovalocytes 1+ 04/09/16 23:53 RBC Morph Micro Appear NORMAL (NORMAL) 04/22/16 05:05 PT 15.2 SECONDS (9.5-11.5) H 04/09/16 23:53 INR 1.50 (0.5-1.4) H 04/09/16 23:53 PTT (Actin FS) 26.7 SECONDS (26.0-38.0) 04/09/16 23:53 Specimen Source Arterial 04/20/16 09:07 Sample Site Right Radial 04/20/16 09:07 pH 7.53 (7.35-7.45) H 04/20/16 09:07 pCO2 34.0 mmHg (35.0-45.0) L 04/20/16 09:07 pO2 123.0 mmHg (80.0-100.0) H 04/20/16 09:07 HCO3 28.4 mmol/L (20.0-26.0) H 04/20/16 09:07 Base Excess 5.7 mmol/L (-3.0-3.0) H 04/20/16 09:07 O2 Saturation 99.0 % (92.0-100.0) 04/20/16 09:07 Olvin Test Positive 04/20/16 09:07 Vent Rate 14 04/20/16 09:07 Inspired O2 40 04/20/16 09:07 Tidal Volume 500 04/20/16 09:07 PEEP 5 04/20/16 09:07 Pressure (ins/psv/peep) NA 04/20/16 09:07 Critical Value LZHANG 04/20/16 09:07 Sodium 141 mEq/L (136-145) 04/22/16 05:05 Potassium 5.9 mEq/L (3.5-5.1) H 04/22/16 05:05 Chloride 110 mEq/L (98-107) H 04/22/16 05:05 Carbon Dioxide 22.1 mEq/L (21.0-31.0) 04/22/16 05:05 Anion Gap 14.8 (7.0-16.0) 04/22/16 05:05 BUN 147 mg/dL (7-25) H* 04/22/16 05:05 Creatinine 3.0 mg/dL (0.7-1.3) H 04/22/16 05:05 Est GFR ( Amer) 27.1 ml/min (>90) 04/22/16 05:05 Est GFR (Non-Af Amer) 22.4 ml/min 04/22/16 05:05 BUN/Creatinine Ratio 49.0 04/22/16 05:05 Glucose 330 mg/dL (70-105) H 04/22/16 05:05 POC Glucose 416 MG/DL (70 - 105) H 04/22/16 14:03 Hemoglobin A1c % 6.0 % (4.0-6.0) 04/20/16 04:28 Whole Bld Lactic Acid 2.05 mmol/L (0.60-2.00) H* 04/11/16 12:30 Calcium 7.5 mg/dL (8.6-10.3) L 04/22/16 05:05 Phosphorus 6.8 mg/dL (2.5-5.0) H 04/22/16 05:05 Magnesium 3.3 mg/dL (1.9-2.7) H 04/22/16 05:05 Total Bilirubin 1.0 mg/dL (0.3-1.0) 04/22/16 05:05 AST 264 U/L (13-39) H 04/22/16 05:05 ALT 274 U/L (7-52) H 04/22/16 05:05 Alkaline Phosphatase 51 U/L (34-104) 04/22/16 05:05 Ammonia 37 umol/L (16-53) 04/18/16 04:57 B-Natriuretic Peptide 2300.0 pg/mL (5.0-100.0) H 04/22/16 05:05 Total Protein 5.2 gm/dL (6.0-8.3) L 04/22/16 05:05 Albumin 2.5 gm/dL (4.2-5.5) L 04/22/16 05:05 Globulin 2.7 gm/dL 04/22/16 05:05 Albumin/Globulin Ratio 0.9 (1.0-1.8) L 04/22/16 05:05 Vitamin B12 1623 pg/mL (211-946) H 04/18/16 04:57 Folic Acid 9.4 ng/mL (>3.0) 04/18/16 04:57 TSH 1.78 uIU/ml (0.34-5.60) 04/09/16 23:53 Urine Source RANDOM 04/11/16 11:35 Urine Color YELLOW 04/11/16 11:35 Urine Clarity SL. CLOUDY (CLEAR) 04/11/16 11:35 Urine pH 5.5 04/11/16 11:35 Ur Specific [place] 1.025 (1.005-1.030) 04/11/16 11:35 Urine Protein 100 mg/dL (NEGATIVE) H 04/11/16 11:35 Urine Glucose (UA) 100 mg/dL (NEGATIVE) H 04/11/16 11:35 Urine Ketones NEGATIVE mg/dL (NEGATIVE) 04/11/16 11:35 Urine Blood SMALL (NEGATIVE) H 04/11/16 11:35 Urine Nitrate NEGATIVE (NEGATIVE) 04/11/16 11:35 Urine Bilirubin NEGATIVE (NEGATIVE) 04/11/16 11:35 Urine Ictotest POSITIVE (NEGATIVE) H 04/10/16 01:00 Urine Urobilinogen 0.2 E.U./dL (0.2 - 1.0) 04/11/16 11:35 Ur Leukocyte Esterase NEGATIVE (NEGATIVE) 04/11/16 11:35 Urine RBC 0-1 /hpf (0-5) 04/11/16 11:35 Urine WBC NONE SEEN /hpf (0-5) 04/11/16 11:35 Ur Epithelial Cells RARE /lpf (FEW) 04/11/16 11:35 Uric Acid Crystals MODERATE /hpf (NONE SEEN) 04/11/16 11:35 Urine Bacteria OCCASIONAL /hpf (NONE SEEN) 04/11/16 11:35 Vancomycin Trough 52.2 ug/mL (10-20) H 04/21/16 10:54 Random Vancomycin 37.1 ug/mL (5.0-40.0) 04/22/16 05:05 - Physical Exam Vitals and I&O: Vital Signs Temp 99 F 04/22/16 07:00 Pulse 126 04/22/16 13:30 Resp 13 04/22/16 07:00 BP 93/59 04/22/16 07:00 Pulse Ox 100 04/22/16 13:30 Intake & Output 04/21/16 04/22/16 04/22/16 18:59 06:59 18:59 Intake Total 849.72 1100 0 Output Total 320 401 Balance 529.72 699 0 Intake: Intake, IV Amount 449.72 1100 0 Dextrose 5% 1,000 ml @ 1000 100 mls/hr IV .Q10H [facility] Rx#:[id number] Fluconazole 100mg/50mL 50 100 mg In 50 ml @ 50 mls/ hr IV Q24HR [facility] Rx#: [id number] Meropenem 500 mg In 100 100 Sodium Chloride 0.9% 100 ml @ 100 mls/hr IV Q12H [facility] Rx#:[id number] Norepinephrine 4 mg In 299.72 0 0 Dextrose 5% 250 ml @ Per Protocol IV TITR PRN Rx#: [id number] Oral 0 0 Tube Feeding 0 Other 400 Output: Urine 320 400 Stool 1 Active Medications: Current Medications Acetaminophen (Tylenol) 650 mg PO Q4HR PRN PRN Reason: Pain or Fever >101 Stop: 06/08/16 23:38 Last Admin: 04/21/16 10:23 Dose: 650 mg Al Hydrox/Mg Hydrox/Simethicone (Maalox) 30 ml PO Q6HR PRN PRN Reason: Constipation Stop: 06/08/16 23:35 Albuterol Sulfate (Albuterol 2.5mg/3ml Neb Ud) 2.5 mg HHN Q4HRT [facility] Stop: 06/15/16 18:59 Last Admin: 04/22/16 11:18 Dose: 2.5 mg Budesonide (Pulmicort) 0.5 mg HHN BIDRT [facility] Stop: 06/15/16 18:59 Last Admin: 04/22/16 07:24 Dose: 0.5 mg Guaifenesin (Robitussin) 100 mg PO Q4H PRN PRN Reason: Cough or Congestion Stop: 06/08/16 23:38 Norepinephrine Bitartrate 4 mg (/ Dextrose) 254 mls @ 0 mls/hr IV TITR PRN; Protocol; Per Protocol PRN Reason: To Keep SBP Above 90 Stop: 06/09/16 12:31 Last Admin: 04/22/16 11:17 Dose: 8 mcg/min, 30.48 mls/hr Meropenem 500 mg/ Sodium (Chloride) 100 mls @ 100 mls/hr IV Q12H [facility] Stop: 06/19/16 11:29 Last Admin: 04/22/16 11:02 Dose: 100 mls/hr Dextrose (D5w) 1,000 mls @ 100 mls/hr IV .Q10H [facility] Stop: 06/20/16 08:44 Last Admin: 04/22/16 02:26 Dose: 100 mls/hr Furosemide 100 mg/ Sodium (Chloride) 100 mls @ 5 mls/hr IV Q20H [facility] PRN Reason: 5 MG/HR Stop: 06/21/16 10:29 Phenylephrine HCl 10 mg/ (Sodium Chloride) 251 mls @ 60.24 mls/hr IV TITR [facility]; 40 MCG/MIN PRN Reason: Protocol Stop: 06/21/16 10:29 Last Admin: 04/22/16 11:06 Dose: 40 mcg/min, 60.24 mls/hr Sodium Chloride (Nacl 0.9%) 1,000 mls @ 500 mls/hr IV .Q2H [facility] Stop: 06/21/16 13:14 Micafungin Sodium 50 mg/ (Sodium Chloride) 100 mls @ 100 mls/hr IV Q24H [facility] Stop: 06/21/16 13:14 Insulin Aspart (Novolog) 0 units SUBQ Q6HR [facility] PRN Reason: Protocol Stop: 06/14/16 00:00 Last Admin: 04/22/16 14:10 Dose: 10 units Ipratropium [place] (Atrovent Neb 0.5mg/2.5ml) 0.5 mg HHN QIDRT [facility] Stop: 06/09/16 08:59 Last Admin: 04/22/16 11:18 Dose: 0.5 mg Lactobacillus Rhamnosus (Culturelle) 1 each PO TID [facility] Stop: 06/11/16 13:59 Last Admin: 04/22/16 11:29 Dose: 1 each Lorazepam (Ativan) 1 mg IVP Q2H PRN; Protocol PRN Reason: Agitation Stop: 06/16/16 20:31 Last Admin: 04/21/16 16:25 Dose: 1 mg Methylprednisolone Sodium Succinate (Solu-Medrol) 40 mg IVP Q8HR [facility] Stop: 06/18/16 12:59 Last Admin: 04/22/16 05:19 Dose: 40 mg Miscellaneous (Clinical Monitoring) 1 ea MC PRN PRN PRN Reason: RENAL DOSING Stop: 06/09/16 07:17 Miscellaneous (Probiotic Screen) 1 ea PRN PRN PRN Reason: PROTOCOL Stop: 06/12/16 14:41 Miscellaneous (Vancomycin Iv Per Pharmacy) 1 ea MC PRN [facility] Stop: 06/16/16 13:14 Multivitamins/Vitamin C (Theragran) 1 tab GT DAILY [facility] Stop: 06/18/16 08:59 Last Admin: 04/22/16 11:30 Dose: 1 tab Ondansetron HCl (Zofran) 4 mg IV Q8H PRN PRN Reason: Nausea / Vomiting Stop: 06/08/16 23:38 Pantoprazole Sodium (Protonix) 40 mg IVP DAILY [facility] Stop: 06/09/16 13:59 Last Admin: 04/22/16 11:28 Dose: 40 mg - Procedures Procedures: Procedures Procedure Code Date DRAINAGE OF L PLEURAL CAV WITH DRAIN DEV, OPEN APPROACH [id number] 04/09/16 INSERT EMERGENCY AIRWAY 46367 04/09/16 INSERTION OF CHEST TUBE 68743 04/09/16 INSERTION OF ENDOTRACHEAL AIRWAY INTO TRACHEA, VIA OPENING [id number] 04/09/16 RESPIRATORY VENTILATION, 24-96 CONSECUTIVE HOURS [id number] 04/09/16 RESPIRATORY VENTILATION, GREATER THAN 96 CONSECUTIVE HOURS [id number] 04/09/16 VENT MGMT INPAT INIT DAY 04/09/16 VENT MGMT INPAT SUBQ DAY 87411 04/09/16 Assessment/Plan - Problem List Patient Problems: All Active Problems 51/50 HOLD FOR GRAVE DISABILITY (Acute) LEFT WRIST TRAUMA (Acute)
--- NOTE | 2016-04-23 02:11 | Consultation ---
HISTORY OF PRESENT ILLNESS: This is a patient who was initially admitted [facility], 66-year-old who was subsequently transferred from [facility] on 04/10/2016 of respiratory failure, subsequently intubated during bilateral lower lung infiltrates and small basal pneumothorax was noted. This patient is examined. Chart is reviewed. He is currently intubated with an ET tube in place and a ventilator. ____ this patient is secondary to hypotension, oliguria, azotemia with a BUN of 147, creatinine of 3.0, mild hyperkalemia of 5.9. AST and ALT elevation. BNP of 2300. PHYSICAL EXAMINATION: VITAL SIGNS: His blood pressure is 93/59, heart rate of 113. ET tube in place on a ventilator controlled at the present time. CHEST: Bilateral clear to auscultation. HEART: Regular sinus. ABDOMEN: Soft, bowel sounds are present, no organ enlargement. There is no evidence of presacral edema. LABORATORY DATA: Reviewed. White blood cell count 22,000, 14.4 of hemoglobin, hematocrit of 41 and platelet count of 100,000. Sodium 141, potassium of 5.9, chloride of 110 and CO2 of 22. BUN of 147, creatinine of 3.1, glucose of 330, calcium of 7.5, magnesium 3.3, phosphorous of 6.8. AST is 264, ALT is 274, alkaline phosphatase is 51, BNP of 2300, total protein 5.2, albumin of 2.5. Antibiotic review: He is on fluconazole, vancomycin and meropenem. DIAGNOSTIC IMPRESSION: 1. Septic shock with hypovolemia. 2. Klebsiella pneumonia. 3. Renal failure, multiple etiology, septicemia and antibiotic therapy has also to be considered. The patient is having high doses of vancomycin level at the present time. Thrombocytopenia may be related to recurrent sepsis. 4. Liver enzyme elevation likely secondary to episode of hypotension, shock liver. 5. Elevated potassium in relation to renal failure. PLAN: 1. At this time, we will try to volume expand the patient using albumin at the present time initially 250 mL, may repeat another 250 mL of 5% albumin ____ blood pressure lower than 100. 2. I do not expect the patient to generate urine output at the present time with this degree of hypotension, starting at 78-90 systolic at the present time. 3. Reevaluate antibiotic therapy, the need for vancomycin at this time should be reconsidered. 4. We will administer one dose of Kayexalate in this patient at the present time in view of the presence of mild degree of hyperkalemia, continue hydration as initially initiated at 100 mL per hour of D5 and water and I am aware of the presence of elevated BNP at this ____, but it does not coincide with the diagnosis of congestive heart failure at this time. [facility]# [id number]
--- NOTE | 2016-04-23 03:09 | Progress Notes ---
Case discussed with staff of the patient, reviewed records. The patient is running a temperature, he has been calmer and is not sleeping well, eating well. Staff has been giving Ativan only as needed if he get agitated, but so far he has not been doing that. He is running a temperature, he is not acting out, he is sleeping well, ____fed by NG tube. The patient ____if he start getting agitated after he is medically cleared, he may need to go back to [facility]; however, if he needs to go to a SNF facility, he need to follow up with the psychiatrist. Thank you very much for allowing me to participate in the care of this most interesting gentleman. JOB# [id number]
--- NOTE | 2016-04-24 22:16 | Consultation ---
The patient of Dr. Jade. HISTORY AND PHYSICAL: This is a 66-year-old male patient who was recently admitted to [facility] with respiratory failure. The patient was admitted to medical floor, respiratory status deteriorated. At this time, the patient is intubated and transferred to ICU. The patient is hypotensive, on Levophed, Bg-Synephrine and supraventricular tachycardia at the rate of 30 per minute. At this time, Cardiology consult was requested. PAST MEDICAL HISTORY: CKD stage 4, psychosis, major depression. FAMILY HISTORY: Unremarkable. SOCIAL HISTORY: No history of smoking, alcohol abuse. ALLERGIES: None. PHYSICAL EXAMINATION: VITAL SIGNS: Blood pressure 90 systolic, on Levophed and Bg-Synephrine, pulse 110 on Cardizem drip, respirations on ventilator. HEAD: Normocephalic. No lumps or bumps. EYES: Pupils equal, reactive to light. Fundi show AV nicking, sclerae white, conjunctivae pink. NECK: Carotid 2+. Normal upstroke. JVD flat. Thyroid not palpable. Lymph nodes not palpable. CHEST: Shows increased AP diameter. No kyphosis, scoliosis. LUNGS: Bilateral wheezing, rhonchi, prolonged expiration. HEART: PMI fifth intercostal space with lateral to midclavicular line. S1, S2. No S3, S4, soft systolic murmur without radiation. ABDOMEN: Soft. Liver, spleen not palpable. No organomegaly. Bowel sounds are active. NEUROLOGIC: Unremarkable. EXTREMITIES: Peripheral pulses 2+. No pedal edema. CLINICAL IMPRESSION: Septic shock, hypotension, acute respiratory failure on ventilator, supraventricular tachycardia, hyperkalemia, CKD stage 4, small pneumothorax, iron deficiency anemia. PLAN: We will continue the patient on Levophed, Bg-Synephrine, IV Cardizem and IV antibiotics. The patient's prognosis is poor. The patient's condition discussed with Dr. Jade. The patient was also started amiodarone. JOB# [id number]
--- NOTE | 2016-06-16 03:44 | Discharge Summary ---
Dictated for Dr. Gagandeep Jade. The patient on 04/22/2016. FINAL DIAGNOSES: Acute respiratory failure, altered level of consciousness, hypotension, pneumonia, leukocytosis, and anemia. HISTORY OF PRESENT ILLNESS: This is a 66-year-old male who was transferred from [facility] to the ICU unit. According to nursing staff, the patient started to have a low-oxygen saturation and the patient was noted to have congestion. The patient was altered. For this reason, the patient was transferred to the ICU unit. The patient was orally intubated by the ER doctor. Chest x-ray was done and the patient had a chest tube placed. HOSPITAL COURSE: During the hospital stay, the patient was admitted to the ICU unit. The patient will orally intubated and placed on a mechanical ventilator. The patient had a upset operator on the case and his plan of care was to keep the patient on the vent support and to obtain ABGs and repeat chest x-rays to see if there is any improvement. Unfortunately, the patient's prognosis is very poor. The patient was on Levophed drip due to hypotension. Swallow evaluation was done. The patient did not pass. The patient's recent x-ray was on 04/22/2016, and the impression was no acute pulmonary abnormalities. The patient was ____ drip and also IV Cardizem. The patient was also started on amiodarone by Cardiology. Unfortunately on 04/22/2016, the patient and was pronounced by Dr. Griffin at 1446 hours. JOB# [id number]
== END 2016-04-22 14:46 | disposition expired | DRG 870 ==
LOC: ICU 23:06
PROVIDERS: ADMIT Internal Medicine; ATTEND Internal Medicine
PROC: 0BH17EZ Insertion of Endotracheal Airway into Trachea, Via Natural or Artificial Opening (ICD-10-PCS; principal; 2016-04-10)
PROC: 0W9B00Z Drainage of Left Pleural Cavity with Drainage Device, Open Approach (ICD-10-PCS; 2016-04-10)
PROC: 5A1955Z Respiratory Ventilation, Greater than 96 Consecutive Hours (ICD-10-PCS; 2016-04-17)
DX: A41.9 Sepsis, unspecified organism (principal); J96.01 Acute respiratory failure with hypoxia; R65.21 Severe sepsis with septic shock; N17.9 Acute kidney failure, unspecified; J15.0 Pneumonia due to Klebsiella pneumoniae; F05 Delirium due to known physiological condition; D69.6 Thrombocytopenia, unspecified; F15.20 Other stimulant dependence, uncomplicated; J93.9 Pneumothorax, unspecified; I47.1 Supraventricular tachycardia; R40.4 Transient alteration of awareness; F29 Unspecified psychosis not due to a substance or known physiological condition; D64.9 Anemia, unspecified; I48.91 Unspecified atrial fibrillation; Z91.14 Patient's other noncompliance with medication regimen
CPT/HCPCS: 36415-UA; 36600-90; 70450-TC; 71010-TC; 71250-TC; 76770-TC; 80048-TC; 80053-TC; 80202-TC; 81001-TC; 82140-TC; 82607-90; 82746-90; 82803-TC; 82948-90; 83036-90; 83605; 83735-TC; 83880-TC; 84100-TC; 84443-TC; 85007-TC; 85025-TC; 85027-TC; 85610-TC; 87070; 87086-90; 90779; 90782; 90799; 92950; 93005; 94002; 94003; 94640; 94660; 99201; C9113; J0171; J0282; J0330; J0461; J1815; J1940; J1956; J2060; J2185; J2248; J2250; J2370; J2543; J2920; J2930; J3370; J7030; J7040; J7070; J7613; P9045; X3401; X6452; Z7610